=== PATIENT | female | born 1955 ===

== ENCOUNTER 2017-05-27 12:01 | Inpatient (IN) | payer OTHER ==
[2017-05-27 13:09] VITALS: BMI 30.3
[2017-05-27] MEDS: Sodium Chloride 0.9% 1,000 ML IV SCH ×2 (13:59→23:45)
--- NOTE | 2017-05-27 14:04 | ED PDOC ---
Arrival/HPI - General Historian: Patient <Jarad Pacheco - Last Filed: 05/27/17 18:06> <Miller Zuniga - Last Filed: 05/27/17 19:02> - General Chief Complaint: Abdominal Pain Time Seen by Provider: 05/27/17 12:32 - History of Present Illness Narrative History of Present Illness (Text): 05/27/17 13:58 62 F with a PMHX specifically significant for Stage IV Colon CA presents with two day duration of diffuse abdominal pain and a few hours duration of BRB per rectum. Patient has [place] times in the [place] [facility] [place] and diffuse abdominal pain. Patient states that in the past she would also have significant nose bleeds, but that this has subsided recently. She describes the pain as crampy, diffuse in all four quadrants of her abdomen, and non-radiating with a severity of 8/10. She denies any associated symptoms and any palliative or predicating features. Patient further denies F/Ch/N/V/D/ Constipation. She states the blood was bright red and "the whole toilet was red" when she got up. Patient denies any further complaints, including fatigue, sob, or CP. PMD: Dr. Levine 05/27/17 18:06 (JuniorJarad Benitez) Past Medical History - Travel History Have you recently traveled outside [place] w/in the past 3 mons?: No - Infectious Disease Hx of Infectious Diseases: None - Tetanus Immunization Tetanus Immunization: Unknown - Cardiac Hx Cardiac Disorders: Yes Hx Hypertension: Yes - Pulmonary Hx Respiratory Disorders: No - Neurological Hx Neurological Disorder: No - HEENT Hx HEENT Disorder: Yes Hx Blind: Yes (left eye) Hx Cataracts: Yes Hx Glaucoma: Yes Other/Comment: retinal detachment - Renal Hx Renal Disorder: No - Endocrine/Metabolic Hx Endocrine Disorders: No - Hematological/Oncological Hx Blood Disorders: Yes Hx Cancer: Yes (colon CA with metastasis to liver and lung) Hx Chemotherapy: Yes Hx Metastasis: Yes - Integumentary Hx Dermatological Disorder: No - Musculoskeletal/Rheumatological Hx Musculoskeletal Disorders: Yes Hx Falls: No Hx Herniated Disk: Yes - Gastrointestinal Other/Comment: Colon Cancer, Stage 4 - Genitourinary/Gynecological Hx Genitourinary Disorders: No - Psychiatric Hx Psychophysiologic Disorder: Yes Hx Anxiety: Yes Hx Depression: Yes Hx Substance Use: Yes - Surgical History Hx Vascular Access Device: Yes Other/Comment: left subclavian port. colon/liver 2011. breast reduction - Anesthesia Hx Anesthesia: Yes Hx Anesthesia Reactions: No Hx Malignant Hyperthermia: No - Suicidal Assessment Feels Threatened In Home Enviroment: No <Jarad Pacheco - Last Filed: 05/27/17 18:06> Family/Social History Family/Social History: No Known Family HX Smoking Status: Former Smoker Hx Alcohol Use: No Hx Substance Use: Yes Hx Substance Use Treatment: No <JuniorJarad Benitez - Last Filed: 05/27/17 18:06> Allergies/Home Meds <JuniorJarad Benitez - Last Filed: 05/27/17 18:06> <Miller Zuniga - Last Filed: 05/27/17 19:02> Allergies/Adverse Reactions: Allergies No Known Allergies Allergy (Verified 10/24/16 13:53) Home Medications: Home Meds Medication Instructions Recorded Confirmed Alprazolam [Xanax] 0.5 mg PO DAILY 05/12/16 05/27/17 Brimonidine Tartrate [Alphagan P] 1 drop OS BID 05/12/16 05/27/17 Cholecalciferol [Vitamin D 1000 IU] 15,000 iu PO QWK 05/12/16 05/27/17 Cosopt 2%-0.5% Opht 1 drop OS DAILY 05/12/16 05/27/17 Zolpidem HALF TABLET [Ambien] 2.5 mg PO HS 10/24/16 05/27/17 Lisinopril [Zestril] 20 mg PO DAILY 05/27/17 05/27/17 Montelukast [Singulair] 10 mg PO DAILY 05/27/17 05/27/17 Simvastatin [Zocor] 10 mg PO HS 05/27/17 05/27/17 Review of Systems - Review of Systems Constitutional: Normal Eyes: Normal ENT: Normal Respiratory: Normal Cardiovascular: Normal Gastrointestinal: Abdominal Pain, Hematochezia. absent: Diarrhea, Nausea, Vomiting Genitourinary Female: Hematuria Musculoskeletal: Normal Skin: Normal Neurological: Normal Endocrine: Normal Hemo/Lymphatic: Normal Psychiatric: Normal <Jarad Pacheco - Last Filed: 05/27/17 18:06> Physical Exam Temperature: Afebrile Blood Pressure: Normal Pulse: Regular Respiratory Rate: Normal Appearance: Positive for: Well-Appearing, Non-Toxic, Comfortable Pain Distress: None Mental Status: Positive for: Alert and Oriented X 3 - Systems Exam Head: Present: Atraumatic, Normocephalic Pupils: Present: PERRL Extroacular Muscles: Present: EOMI Conjunctiva: Present: Normal Mouth: Present: Moist Mucous Membranes Neck: Present: Normal Range of Motion Respiratory/Chest: Present: Clear to Auscultation, Good Air Exchange. No: Respiratory Distress, Accessory Muscle Use Cardiovascular: Present: Regular Rate and Rhythm, Normal S1, S2. No: Murmurs Abdomen: Present: Tenderness, Distention. No: Normal Bowel Sounds (Hyperactive bowel sounds in RUQ; FOBT Positive), Peritoneal Signs, Rebound, Guarding, McBurney's Point Tender, Rovsing's Sign Present Back: Present: Normal Inspection Upper Extremity: Present: Normal Inspection. No: Cyanosis, Edema Lower Extremity: Present: Normal Inspection. No: Edema Neurological: Present: GCS=15, CN II-XII Intact, Speech Normal Skin: Present: Warm, Dry, Normal Color. No: Rashes Psychiatric: Present: Alert, Oriented x 3, Normal Insight, Normal Concentration <Jarad Pacheco - Last Filed: 05/27/17 18:06> Medical Decision Making <Jarad Pacheco - Last Filed: 05/27/17 18:06> <Miller Zuniga - Last Filed: 05/27/17 19:02> ED Course and Treatment: 05/27/17 14:58 Impression: 62 F w/ PMHx specifically significant for Stage IV Colon CA presents with c/o diffuse abdominal pain and brb per rectum 2/2 Colon CA VS Sigmoid Diverticulitis VS Sigmoid Diverticulosis Plan: - CT Abd w and w/o contrast - IVF - CMP, CBC, UA, Blood culture, EKG - Toradol for pain - FOBT: Positive --Reassess 05/27/17 15:33 Pt re-evaluated. CBC shows elevated WBC of 12.1 and Vitals show Pulse of 95. Patient meets SIRS criteria. Possible diverticulitis adds a source of infection to qualify for sepsis. Patient already on IVF, started one dose of Cipro/Flagyl. Toradol helped her pain, from 8/10 to 5/10. EKG interpreted by me: Regular Rate, Normal Sinus, Normal [place]; No ST/T changes. Pending blood culture, UA, CT Abd 05/27/17 18:22 CT Abdomen shows METS to the lungs, Possible METS lesion to hepatic flexure of large colon, moderate ascites and splenomegaly Pt admitted for GIB 05/27/17 18:31 (Jarad Pacheco) In agreement with resident note, which includes further HPI details. Patient was seen and evaluated with resident, came up with plan and treatment together. EKG: Ordered, reviewed, and independently interpreted the EKG. Rate : 86 BPM Rhythm : NSR Interpretation : No ST-segment elevations or depressions, no T-wave inversions, normal intervals. Comparison : No previous EKG for comparison. 05/27/17 19:[address] Plasencia to sign off to the admitting team. Admitted for abdominal pain r/o sbp. Rectal bleeding/Gi bleed. (Miller Zuniga) - Lab Interpretations Lab Results: 05/27/17 13:50 05/27/17 13:50 Lab Results 05/27/17 18:05: Urine Color Yellow, Urine Appearance Clear, Urine pH 5.5, Ur Specific [place] 1.010, Urine Protein Trace H, Urine Glucose (UA) Negative, Urine Ketones Negative, Urine Blood Negative, Urine Nitrate Negative, Urine Bilirubin Negative, Urine Urobilinogen 0.2, Ur Leukocyte Esterase Negative, Urine RBC Negative, Urine WBC Negative 05/27/17 14:45: pO2 77 H, VBG pH 7.35, VBG pCO2 39.0 L, VBG HCO3 21.5, VBG Total CO2 22.7, VBG O2 Sat (Calc) 98.2 H, VBG Base Excess -3.8 L, VBG Potassium 4.0, Glucose 92, Lactate 1.1, FiO2 21.0, Sodium 142.0, Chloride 111.0 H, Venous Blood Potassium 4.0 05/27/17 13:50: PT 11.8, INR 1.09 H, APTT 25.6 05/27/17 13:50: Blood Type A POSITIVE, Antibody Screen Negative, BBK History Checked Patient has bt 05/27/17 13:50: Sodium 143, Potassium 4.1, Chloride 112 H, Carbon Dioxide 20 L, Anion Gap 15, BUN 11, Creatinine 0.9, Est GFR ( Amer) > 60, Est GFR (Non- Af Amer) > 60, Random Glucose 90, Calcium 8.6, Total Bilirubin 2.1 H, AST 30, ALT 29, Alkaline Phosphatase 173 H, Total Protein 7.0, Albumin 3.9, Globulin 3.2 , Albumin/Globulin Ratio 1.2, Lipase 258 05/27/17 13:50: WBC 12.1 H D, RBC 3.53, Hgb 10.2 L, Hct 33.2 L, MCV 94.1, MCH 28.9, MCHC 30.7 L, RDW 21.6 H, Plt Count 51 L, Gran % 89.9 H, Lymph % (Auto) 4.6 L, [place] % (Auto) 3.6, Eos % (Auto) 1.7, Baso % (Auto) 0.2, Gran # 10.85 H, Lymph # 0.6 L, [place] # 0.4, Eos # 0.2, Baso # 0.02, Neutrophils % (Manual) 88 H, Band Neutrophils % 6 H, Lymphocytes % (Manual) 3 L, Monocytes % (Manual) 3, Eosinophils % (Manual) 3, Platelet Evaluation Low, Poikilocytosis (manual Slight , Anisocytosis (manual) Slight, Tear Drop Cells Slight - RAD Interpretation Radiology Orders: 05/27/17 13:41 ABD & PELVIS IV CONTRAST ONLY [CT] Stat - Medication Orders Current Medication Orders: Sodium Chloride (Sodium Chloride 0.9%) 1,000 mls @ 100 mls/hr IV .Q10[facility] Last Admin: 05/27/17 13:59 Dose: 100 mls/hr Discontinued Medications Ciprofloxacin (Cipro 400mg/200ml Dsw) 400 mg in 200 mls @ 133.3 mls/hr IVPB STAT STA PRN Reason: Protocol Stop: 05/27/17 17:00 Last Admin: 05/27/17 17:33 Dose: 133.3 mls/hr Metronidazole (Flagyl) 500 mg in 100 mls @ 100 mls/hr IVPB STAT STA PRN Reason: Protocol Stop: 05/27/17 16:29 Last Admin: 05/27/17 16:21 Dose: 100 mls/hr Iohexol (Omnipaque 350 100 Ml) Confirm Administered Dose 350 mg .ROUTE .STK-MED ONE Stop: 05/27/17 16:22 Ketorolac Tromethamine (Toradol) 15 mg IM STAT STA Stop: 05/27/17 13:42 Last Admin: 05/27/17 13:59 Dose: 15 mg Disposition/Present on Arrival - Present on Arrival Any Indicators Present on Arrival: No History of DVT/PE: No History of Uncontrolled Diabetes: No Urinary Catheter: No History of Decub. Ulcer: No History Surgical Site Infection Following: None - Disposition Have Diagnosis and Disposition been Completed?: Yes Disposition Time: 18:20 <Jarad Pacheco - Last Filed: 05/27/17 18:06> - Disposition Have Diagnosis and Disposition been Completed?: Yes <Miller Zuniga - Last Filed: 05/27/17 19:02> - Disposition Diagnosis: GI bleeding, Abdominal pain, Ascites Disposition: HOSPITALIZED Patient Problems: Current Active Problems Problem Status Onset GI bleeding Acute Abdominal pain Acute Ascites Acute Condition: FAIR Referrals: Pricilla Levine MD [Primary Care Provider] - Follow up with primary Forms: [employer] (Emirati)
[2017-05-27 14:07] LABS: BASO # 0.02 K/mm3 (0.0-2.0); BASO % 0.2 % (0.0-3.0); EOS # 0.2 (0.0-0.7); EOS % 1.7 % (1.5-5.0); GRAN # 10.85 (1.4-6.5); GRAN % 89.9 % (50.0-68.0); HEMATOCRIT 33.2 % (36.0-48.0); LYMPH # 0.6 (1.2-3.4); LYMPH % 4.6 % (22.0-35.0); MEAN CELL VOLUME 94.1 fl (80.0-105.0); MEAN CORPUSCULAR HEMOGLOBIN 28.9 pg (25.0-35.0); MEAN CORPUSCULAR HGB CONC 30.7 g/dl (31.0-37.0); MONO # 0.4 (0.1-0.6); MONO % 3.6 % (1.0-6.0); RED CELL DISTRIBUTION WIDTH 21.6 % (11.5-14.5); WHITE BLOOD COUNT 12.1 10^3/ul (4.5-11.0)
[2017-05-27 14:15] LABS: INR 1.09 (0.93-1.08); PARTIAL THROMBOPLASTIN TIME 25.6 Seconds (23.7-30.8)
[2017-05-27 14:23] LABS: ALB/GLOB RATIO 1.2 (1.1-1.8); ALKALINE PHOSPHATASE 173 U/L (38-133); ALT/SGPT 29 U/L (7-56); AST/SGOT 30 U/L (15-39); BILIRUBIN,TOTAL 2.1 mg/dL (0.2-1.3); BLOOD UREA NITROGEN 11 mg/dL (7-21); CALCIUM 8.6 mg/dL (8.4-10.5); CARBON DIOXIDE 20 mmol/L (21-33); CHLORIDE 112 mmol/L (98-107); GFR AFRICAN-AMERICAN > 60; GLUCOSE,RANDOM 90 mg/dL (70-110); LIPASE 258 U/L (23-300); POTASSIUM 4.1 mmol/L (3.6-5.0); SODIUM 143 mmol/L (132-148)
[2017-05-27 14:28] LABS: PLATELET COUNT 51 10^3/uL (120.0-450.0)
[2017-05-27 14:34] LABS: BAND 6 % (0-2); EOSINOPHIL 3 % (0.0-3.0); NEUTROPHIL 88 % (50.0-70.0); PLATELET ESTIMATE LOW (NORMAL)
[2017-05-27 14:35] LABS: ANISOCYTOSIS SLIGHT; POIKILOCYTOSIS SLIGHT; TEAR DROP CELLS SLIGHT
[2017-05-27 15:03] LABS: VENOUS BLOOD GAS BASE EXCESS -3.8 mmol/L (0.0-2.0); VENOUS BLOOD PH 7.35 (7.32-7.43)
[2017-05-27] MEDS ORDERED: Ciprofloxacin 400mg/200ml D5W 400 MG/200 ML BAG IVPB STA (15:30)
[2017-05-27] MEDS ORDERED: metroNIDAZOLE IV 500 mg/100 ml 500 MG/100 ML BAG IVPB STA (15:30)
[2017-05-27] MEDS ORDERED: Iohexol 350 MG/100 ML VIAL ONE (16:21)
--- NOTE | 2017-05-27 16:33 | CARD ---
APPROVED REPORT EKG Measurement Heart [id number] <Conclusion> Normal sinus rhythm Nonspecific ST abnormality Abnormal ECG
--- NOTE | 2017-05-27 17:25 | CT ---
PROCEDURE: CT Abdomen and Pelvis with contrast HISTORY: Abd Pain and GIB COMPARISON: Comparison is made to the previous study dated 01/21/2017.Comparison is also made to the previous PET-CT dated 05/10/2017. TECHNIQUE: Contrast dose: 100 mL of Omnipaque 350. Axial and reformatted coronal and sagittal CT images of the abdomen and pelvis were obtained after IV contrast administration. Radiation dose: Total exam DLP = 800.74 mGy-cm. This CT exam was performed using one or more of the following dose reduction techniques: Automated exposure control, adjustment of the mA and/or kV according to patient size, and/or use of iterative reconstruction technique. FINDINGS: LOWER THORAX: There are soft tissue small mass lesions at the lower portion of the lungs bilaterally consistent with lung metastasis. LIVER: The patient is status post partial resection of the right liver lobe. No CT evidence of mass lesion in the visualized portion of the liver. GALLBLADDER AND BILE DUCTS: The gallbladder is not visualized PANCREAS: Unremarkable. No gross lesion or ductal dilatation. SPLEEN: The spleen is again moderately enlarged measures 20.6 centimeter in the longitudinal diameter. ADRENALS: Unremarkable. No mass. KIDNEYS AND URETERS: Unremarkable. No hydronephrosis. No solid mass. VASCULATURE: Unremarkable. No aortic aneurysm. BOWEL: There is suspicious for focal thickening at the hepatic flexure of the large bowel. Postsurgical changes seen suggestive of partial right colectomy. There is no evidence of high-grade bowel obstruction. APPENDIX: The appendix is not visualized likely resected with the right colon. PERITONEUM: There is a moderate amount of ascites in the abdomen and pelvis. No evidence of free air. LYMPH NODES: Scattered mildly enlarged mesenteric lymph nodes seen at the mid and upper abdomen. BLADDER: The bladder is seen at slightly low position suggestive of mild cystocele. REPRODUCTIVE: Unremarkable. BONES: No acute fracture. OTHER FINDINGS: None. IMPRESSION: Lung metastasis seen at the lower lobes. Suspicious for mass lesion at the large bowel hepatic flexure in the right upper abdomen. Moderate splenomegaly. Moderate amount of ascites. Otherwise no significant interval change.
[2017-05-27 18:36] LABS: PH,URINE 5.5 (4.7-8.0); URINE BILIRUBIN NEGATIVE (NEGATIVE); URINE BLOOD NEGATIVE (NEGATIVE); URINE GLUCOSE (UA) NEGATIVE (NEGATIVE); URINE KETONE NEGATIVE (NEGATIVE); URINE LEUKOCYTE ESTERASE NEGATIVE Leu/uL (NEGATIVE); URINE PROTEIN TRACE mg/dL (<30 mg/dL); URINE UROBILINOGEN 0.2 E.U./dL (<1 E.U./dL)
[2017-05-27 18:38] LABS: URINE APPEARANCE CLEAR (CLEAR); URINE COLOR YELLOW (YELLOW)
[2017-05-27 18:45] LABS: URINE RBC NEGATIVE /hpf (0-2); URINE WBC NEGATIVE /hpf (0-6)
[2017-05-27] MEDS ORDERED: ZOLPIDEM PO PRN (20:37)
[2017-05-27] MEDS ORDERED: [UNRECOGNIZED DRUG - OTHER] PO PRN (20:41)
--- NOTE | 2017-05-27 21:13 | CP.PCM.HP ---
<QUENTIN DIMAS - Last Filed: 05/27/17 20:41> History of Present Illness - History of Present Illness History of Present Illness: Quentin Dimas DO PGY1 - Medicine H&P CC: Abdominal pain and rectal bleed HPI: 62 yo F with PMH of stage IV colon cancer and HTN, presented to the ER with abdominal pain and BRBPR. Pain started 2 days ago, and BRBPR started earlier today. States that abdominal pain is mild-moderate, intermittent, worst in RUQ. No particular exacerbating or remitting factors. This morning, she had the urge to defecate, and had a loose waterry stool, but then noted that the toilet bowl was full of blood. She reports that she always has diarrhea, since the diagnosis of colon CA. She denies N/V, F/C, MENDES, CP, SOB, dizziness, fatigue. Meds: See NOV PMH: HTN, MDD, Stage IV colon CA s/p tumor resection and chemo, with multiple distant mets including to lungs and liver Surg: Hepatic tumor resection, colonic tumor resection Soc: Denies tob, EtOH, illicits FHx: Noncontributory All: NKDA ROS: Constitutional: pt denies fever, chills, generalized weakness ENT: pt denies dysphagia, otalgia, hearing deficit, rhinorrhea Eyes: pt denies sudden loss of vision, diplopia, blurred vision MSK: pt denies muscle stiffness, joint pain, extremity cramping Cardio: pt denies sob, heart murmur, CP Pulm: pt denies cough, hemoptysis, wheeze GI: +abdominal pain, diarrhea, hematochezia pt denies loss of appetite, constipation, melena, n/v : pt denies burning on urination, urinary frequency, hematuria, urinary urgency Neuro: pt denies paresis, paresthesia, dizziness, mendes, numbness, tingling Derm: pt denies skin changes, lesions, nail changes Endo: pt denies intolerance to heat/cold, diaphoresis, night sweats, polydipsia Psych: pt denies anxiety, depression, mood changes Present on Admission - Present on Admission Any Indicators Present on Admission: No Past Patient History - Infectious Disease Hx of Infectious Diseases: None - Tetanus Immunizations Tetanus Immunization: Unknown - Past Social History Smoking Status: Former Smoker - CARDIAC Hx Cardiac Disorders: Yes Hx Hypertension: Yes - PULMONARY Hx Respiratory Disorders: No - NEUROLOGICAL Hx Neurological Disorder: No - HEENT Hx HEENT Problems: Yes Hx Blind: Yes (left eye) Hx Cataracts: Yes Hx Glaucoma: Yes Other/Comment: retinal detachment - RENAL Hx Chronic Kidney Disease: No - ENDOCRINE/METABOLIC Hx Endocrine Disorders: No - HEMATOLOGICAL/ONCOLOGICAL Hx Blood Disorders: Yes Hx Cancer: Yes (colon CA with metastasis to liver and lung) Hx Chemotherapy: Yes Hx Metastesis: Yes - INTEGUMENTARY Hx Dermatological Problems: No - MUSCULOSKELETAL/RHEUMATOLOGICAL Hx Musculoskeletal Disorders: Yes Hx Falls: No Hx Herniated Disk: Yes - GASTROINTESTINAL Other/Comment: Colon Cancer, Stage 4 - GENITOURINARY/GYNECOLOGICAL Hx Genitourinary Disorders: No - PSYCHIATRIC Hx Psychophysiologic Disorder: Yes Hx Anxiety: Yes Hx Depression: Yes Hx Substance Use: Yes - SURGICAL HISTORY Hx Vascular Access Device: Yes Other/Comment: left subclavian port. colon/liver 2010. breast reduction - ANESTHESIA Hx Anesthesia: Yes Hx Anesthesia Reactions: No Hx Malignant Hyperthermia: No Meds Allergies/Adverse Reactions: Allergies Allergy/AdvReac Type Severity Reaction Status Date / Time No Known Allergies Allergy Verified 10/24/16 13:53 Physical Exam - Constitutional Appears: Non-toxic, No Acute Distress, Chronically Ill - Head Exam Head Exam: ATRAUMATIC, NORMOCEPHALIC - Eye Exam Eye Exam: EOMI, Normal appearance, PERRL Additional comments: No conjunctival pallor - ENT Exam ENT Exam: Mucous Membranes Moist, Normal Exam - Neck Exam Neck exam: Negative for: Lymphadenopathy, Tenderness - Respiratory Exam Respiratory Exam: Clear to Auscultation Bilateral, NORMAL BREATHING PATTERN - Cardiovascular Exam Cardiovascular Exam: RRR, +S1, +S2 - GI/Abdominal Exam Additional comments: Diffuse tenderness, worst in RUQ. No masses palpable though assessment is limited due to voluntary guarding. Hyporesonant. Firm. Mildly distended. - Rectal Exam Rectal Exam: Deferred Additional comments: GUIAC positive per ED staff - Extremities Exam Extremities exam: Positive for: normal inspection. Negative for: calf tenderness, pedal edema - Neurological Exam Neurological exam: Alert, CN II-XII Intact, Oriented x3 - Psychiatric Exam Psychiatric exam: Normal Affect, Normal Mood - Skin Skin Exam: Normal Color, Warm Results - Vital Signs Recent Vital Signs: Last Vital Signs Temp 98.0 F 05/27/17 12:24 Pulse 64 05/27/17 17:31 Resp 18 05/27/17 17:31 BP 128/69 05/27/17 17:31 Pulse Ox 99 05/27/17 17:31 - Labs Result Diagrams: 05/27/17 13:50 05/27/17 13:50 Labs: Laboratory Results - last 24 hr 05/27/17 05/27/17 05/27/17 13:50 13:50 13:50 WBC 12.1 H D RBC 3.53 Hgb 10.2 L Hct 33.2 L MCV 94.1 MCH 28.9 MCHC 30.7 L RDW 21.6 H Plt Count 51 L Gran % 89.9 H Lymph % (Auto) 4.6 L [place] % (Auto) 3.6 Eos % (Auto) 1.7 Baso % (Auto) 0.2 Gran # 10.85 H Lymph # 0.6 L [place] # 0.4 Eos # 0.2 Baso # 0.02 Neutrophils % (Manual) 88 H Band Neutrophils % 6 H Lymphocytes % (Manual) 3 L Monocytes % (Manual) 3 Eosinophils % (Manual) 3 Platelet Evaluation Low Poikilocytosis (manual Slight Anisocytosis (manual) Slight Tear Drop Cells Slight PT INR APTT pO2 VBG pH VBG pCO2 VBG HCO3 VBG Total CO2 VBG O2 Sat (Calc) VBG Base Excess VBG Potassium Glucose Lactate FiO2 Sodium 143 Potassium 4.1 Chloride 112 H Carbon Dioxide 20 L Anion Gap 15 BUN 11 Creatinine 0.9 Est GFR ( Amer) > 60 Est GFR (Non-Af Amer) > 60 Random Glucose 90 Calcium 8.6 Total Bilirubin 2.1 H AST 30 ALT 29 Alkaline Phosphatase 173 H Total Protein 7.0 Albumin 3.9 Globulin 3.2 Albumin/Globulin Ratio 1.2 Lipase 258 Venous Blood Potassium Urine Color Urine Appearance Urine pH Ur Specific [place] Urine Protein Urine Glucose (UA) Urine Ketones Urine Blood Urine Nitrate Urine Bilirubin Urine Urobilinogen Ur Leukocyte Esterase Urine RBC Urine WBC Blood Type A POSITIVE Antibody Screen Negative BBK History Checked Patient has bt 05/27/17 05/27/17 05/27/17 13:50 14:45 18:05 WBC RBC Hgb Hct MCV MCH MCHC RDW Plt Count Gran % Lymph % (Auto) [place] % (Auto) Eos % (Auto) Baso % (Auto) Gran # Lymph # [place] # Eos # Baso # Neutrophils % (Manual) Band Neutrophils % Lymphocytes % (Manual) Monocytes % (Manual) Eosinophils % (Manual) Platelet Evaluation Poikilocytosis (manual Anisocytosis (manual) Tear Drop Cells PT 11.8 INR 1.09 H APTT 25.6 pO2 77 H VBG pH 7.35 VBG pCO2 39.0 L VBG HCO3 21.5 VBG Total CO2 22.7 VBG O2 Sat (Calc) 98.2 H VBG Base Excess -3.8 L VBG Potassium 4.0 Glucose 92 Lactate 1.1 FiO2 21.0 Sodium 142.0 Potassium Chloride 111.0 H Carbon Dioxide Anion Gap BUN Creatinine Est GFR ( Amer) Est GFR (Non-Af Amer) Random Glucose Calcium Total Bilirubin AST ALT Alkaline Phosphatase Total Protein Albumin Globulin Albumin/Globulin Ratio Lipase Venous Blood Potassium 4.0 Urine Color Yellow Urine Appearance Clear Urine pH 5.5 Ur Specific [place] 1.010 Urine Protein Trace H Urine Glucose (UA) Negative Urine Ketones Negative Urine Blood Negative Urine Nitrate Negative Urine Bilirubin Negative Urine Urobilinogen 0.2 Ur Leukocyte Esterase Negative Urine RBC Negative Urine WBC Negative Blood Type Antibody Screen BBK History Checked Assessment & Plan - Assessment and Plan (Free Text) Assessment: 62 yo F with PMH of HTN, HLD, MDD, and stage IV colon CA s/p tumor resection and chemo, with multiple mets, presented to ER with abdominal pain and rectal bleeding, also noted to have leukocytosis. Plan: 1. Rectal bleeding - Two episodes of BRBPR today. Currently hemodynamically stable with moderate anemia, though near baseline, transfusion not indicated at this time. - Stool for occult blood positive per ED staff - Likely 2/2 colon CA, new mass found on CT near hepatic flexure - GI and Hem/Onc consulted, appreciate recs - Repeat CBC tonight, and in AM - Type and screen ordered - IFV NS@100cc/hr 2. Abdominal pain - Diffuse abdominal pain for the past 2 days, h/o colon CA with new mass found on CT, as well as moderate ascites noted on CT abd/pelv - Likely 2/2 colon CA vs SBP vs diverticulitis - Recieved one dose of Flagyl and Cipro in ED - Started Flagyl and Cefoxitin - GI and Hem/Onc on consult, appreciate recs - Morphine for pain 3. Leukocytosis - Currently afebrile, VSS - Likely 2/2 diverticulitis vs SBP vs gastroenteritis - BCx pending, UCx pending - On Flagyl and Cefoxitin (d1) - Continue to monitor 4. H/o colon CA, with multiple distant metastases - Diagnosed in 2010, patient reports that she does have an advanced directive, though not found in the EMR - Hem/Onc consulted, all recs appreciated - Pulm consulted for pulmonary metastases, all recs appreciated 5. H/o HTN, HLD, and MDD - Continue home meds PPx: SCDs for DVT, Protonix for GI Patient seen, discussed, and reviewed with attending <Aneta Colon - Last Filed: 05/28/17 04:30> Results - Vital Signs Recent Vital Signs: Last Vital Signs Temp 97.6 F 05/28/17 01:40 Pulse 83 05/28/17 01:40 Resp 20 05/28/17 01:40 BP 153/91 H 05/28/17 01:40 Pulse Ox 99 05/27/17 17:31 - Labs Result Diagrams: 05/28/17 00:40 05/27/17 13:50 Labs: Laboratory Results - last 24 hr 05/28/17 00:40 WBC 7.1 D RBC 3.24 L Hgb 9.1 L Hct 30.3 L MCV 93.5 MCH 28.1 MCHC 30.0 L RDW 21.4 H Plt Count 40 L* MPV 9.5 Gran % 88.3 H Lymph % (Auto) 6.6 L [place] % (Auto) 3.0 Eos % (Auto) 2.0 Baso % (Auto) 0.1 Gran # 6.28 Lymph # 0.5 L [place] # 0.2 Eos # 0.1 Baso # 0.01 Attending/Attestation - Attestation I have personally seen and examined this patient.: Yes I have fully participated in the care of the patient.: Yes I have reviewed all pertinent clinical information: Yes Notes (Text): 05/28/17 04:29 Patient was seen when she was in the ER in bed # 15. Agree with history , physical examination , assessment and plan. Following are my impressions. Diffuse abdominal pain. Stage IV colon cancer. Rectal bleed. HTN. Left eye blindness. Cataract. Glaucoma. Retinal detachment. Anxiety. substance abuse. Left subclavian port. Breast reduction. Leucocytosis. Anemia. Elevated alkaline phosphatase. Spleenomegaly. Ascites. Mets to lungs. Hypocarbia. Elevated total bilirubin.
[2017-05-27] MEDS: cefOXitin Sodium 1 GM in Sodium Chloride 0.9% 100 ML IV SCH (23:43)
[2017-05-28] MEDS: Morphine 2 mg/ml ISec IVP PRN ×4 (00:37→21:17)
[2017-05-28 00:59] LABS: BASO # 0.01 K/mm3 (0.0-2.0); BASO % 0.1 % (0.0-3.0); EOS # 0.1 (0.0-0.7); GRAN # 6.28 (1.4-6.5); GRAN % 88.3 % (50.0-68.0); HEMATOCRIT 30.3 % (36.0-48.0); LYMPH # 0.5 (1.2-3.4); LYMPH % 6.6 % (22.0-35.0); MEAN CELL VOLUME 93.5 fl (80.0-105.0); MEAN CORPUSCULAR HEMOGLOBIN 28.1 pg (25.0-35.0); MEAN PLATELET VOLUME 9.5 fl (7.0-11.0); MONO # 0.2 (0.1-0.6); RED CELL DISTRIBUTION WIDTH 21.4 % (11.5-14.5); WHITE BLOOD COUNT 7.1 10^3/ul (4.5-11.0)
[2017-05-28] MEDS: cefOXitin Sodium 1 GM in Sodium Chloride 0.9% 100 ML IV SCH ×3 (05:05→21:16)
[2017-05-28] MEDS: Pantoprazole 40 mg EC Tab PO SCH (05:40)
[2017-05-28 07:05] LABS: BASO # 0.02 K/mm3 (0.0-2.0); BASO % 0.3 % (0.0-3.0); EOS # 0.2 (0.0-0.7); EOS % 2.4 % (1.5-5.0); GRAN # 5.61 (1.4-6.5); GRAN % 85.7 % (50.0-68.0); LYMPH # 0.5 (1.2-3.4); LYMPH % 7.9 % (22.0-35.0); MEAN CELL VOLUME 93.8 fl (80.0-105.0); MEAN CORPUSCULAR HEMOGLOBIN 27.8 pg (25.0-35.0); MEAN CORPUSCULAR HGB CONC 29.7 g/dl (31.0-37.0); MONO # 0.2 (0.1-0.6); MONO % 3.7 % (1.0-6.0); RED CELL DISTRIBUTION WIDTH 21.4 % (11.5-14.5); WHITE BLOOD COUNT 6.6 10^3/ul (4.5-11.0)
[2017-05-28 07:11] LABS: ALB/GLOB RATIO 1.1 (1.1-1.8); ALKALINE PHOSPHATASE 158 U/L (38-133); ALT/SGPT 27 U/L (7-56); AST/SGOT 34 U/L (15-39); BILIRUBIN,TOTAL 2.2 mg/dL (0.2-1.3); BLOOD UREA NITROGEN 13 mg/dL (7-21); CALCIUM 8.3 mg/dL (8.4-10.5); CARBON DIOXIDE 22 mmol/L (21-33); CHLORIDE 110 mmol/L (98-107); GFR AFRICAN-AMERICAN > 60; GLUCOSE,RANDOM 88 mg/dL (70-110); MAGNESIUM 1.8 mg/dL (1.7-2.2); PHOSPHOROUS 2.5 mg/dL (2.5-4.5); POTASSIUM 4.3 mmol/L (3.6-5.0); SODIUM 141 mmol/L (132-148); TOTAL PROTEIN 6.6 g/dL (5.8-8.3)
--- NOTE | 2017-05-28 11:14 | CP.PCM.CON ---
<Letha Banegas - Last Filed: 05/28/17 14:02> History of Present Illness - History of Present Illness History of Present Illness: Pulmonology Consult Note for Dr. Carroll Reason for consult: Pulm mets 62 year old female PMHx stage IV colon cancer known mets to lungs and lung and HTN, presented to the ED on 05/27 with bright red blood per rectum that began on day of admission with associated abdominal pain for 2 days. Pulmonology was consulted regarding mets to lungs. Patient has had known mets to lungs since 2010 and has been on chemotherapy. Patient's last dose of chemotherapy 5FU and Avastin was 3 weeks ago. Patient is followed by heme/onc Dr. Calderón. Patient reports she uses inhalers at home prn and very occasionally. She admits to tobacco use in the past [since age 16yo patient smoked 1ppd] but quit 5 years ago upon being diagnosed with colon ca. Patient denies any acute complaints of fever, chills, headache, dizziness, chest pain, palpitations, SOB, cough, urinary complaints, pain in her legs bilaterally. She continues to have some abdominal pain and nausea but no emesis. Patient is able to ambulate from bathroom to her bed on room air and does not become SOB. Meds: See NOV PMH: HTN, MDD, Stage IV colon CA s/p tumor resection and chemo, with multiple distant mets including to lungs and liver SurgHx: Hepatic tumor resection, colonic tumor resection SocHx: Prior tobacco use [1ppd since patient was 16yo] but patient quit 5 years ago, denes EtOH, and illicit drugs FamHx: Noncontributory ALL: NKDA Review of Systems - Constitutional Constitutional: As Per HPI. absent: Chills, Fever - EENT Eyes: As Per HPI. absent: Blurred Vision Ears: As Per HPI. absent: Dizziness Nose/Mouth/Throat: As Per HPI. absent: Sore Throat - Cardiovascular Cardiovascular: As Per HPI. absent: Chest Pain, Dyspnea, Dyspnea on Exertion, Leg Edema - Respiratory Respiratory: As Per HPI. absent: Cough, Dyspnea, Wheezing - Gastrointestinal Gastrointestinal: As Per HPI, Abdominal Pain, Hematochezia - Genitourinary Genitourinary: As Per HPI. absent: Dysuria, Flank Pain - Musculoskeletal Musculoskeletal: As Per HPI. absent: Numbness, Tingling - Integumentary Integumentary: As Per HPI. absent: Rash - Neurological Neurological: As Per HPI. absent: Dizziness, Headaches - Psychiatric Psychiatric: As Per HPI. absent: Anxiety - Endocrine Endocrine: As Per HPI. absent: Palpitations, Polydipsia, Polyphagia - Hematologic/Lymphatic Hematologic: As Per HPI. absent: Easy Bleeding, Easy Bruising, Lymphadenopathy Past Patient History - Infectious Disease Hx of Infectious Diseases: None - Tetanus Immunizations Tetanus Immunization: Unknown - Past Social History Smoking Status: Former Smoker - CARDIAC Hx Cardiac Disorders: Yes Hx Hypercholesterolemia: Yes Hx Hypertension: Yes - PULMONARY Hx Respiratory Disorders: No - NEUROLOGICAL Hx Neurological Disorder: No - HEENT Hx HEENT Problems: Yes Hx Blind: Yes (left eye) Hx Cataracts: Yes Hx Glaucoma: Yes Other/Comment: retinal detachment - RENAL Hx Chronic Kidney Disease: No - ENDOCRINE/METABOLIC Hx Endocrine Disorders: No - HEMATOLOGICAL/ONCOLOGICAL Hx Blood Disorders: Yes Hx Cancer: Yes (colon CA with metastasis to liver and lung) Hx Chemotherapy: Yes Hx Metastesis: Yes - INTEGUMENTARY Hx Dermatological Problems: No - MUSCULOSKELETAL/RHEUMATOLOGICAL Hx Musculoskeletal Disorders: Yes Hx Falls: Yes Hx Herniated Disk: Yes - GASTROINTESTINAL Other/Comment: Colon Cancer, Stage 4 - GENITOURINARY/GYNECOLOGICAL Hx Genitourinary Disorders: No - PSYCHIATRIC Hx Psychophysiologic Disorder: Yes Hx Anxiety: Yes Hx Depression: Yes Hx Substance Use: No - SURGICAL HISTORY Other/Comment: left subclavian port. colon/liver 2010. breast reduction - ANESTHESIA Hx Anesthesia: Yes Hx Anesthesia Reactions: No Hx Malignant Hyperthermia: No Meds Allergies/Adverse Reactions: Allergies Allergy/AdvReac Type Severity Reaction Status Date / Time No Known Allergies Allergy Verified 10/24/16 13:53 - Medications Medications: Current Medications Albuterol/Ipratropium (Duoneb 3 Mg/0.5 Mg (3 Ml) Ud) 3 ml IH [id number] PRN PRN Reason: sob/wheezing. Atorvastatin Calcium (Lipitor) 10 mg PO HS [facility] Last Admin: 05/27/17 23:45 Dose: Not Given Sodium Chloride (Sodium Chloride 0.9%) 1,000 mls @ 100 mls/hr IV .Q10H [facility] Last Admin: 05/27/17 23:45 Dose: 100 mls/hr Cefoxitin Sodium 1 gm/ Sodium (Chloride) 100 mls @ 100 mls/hr IV Q8H [facility] PRN Reason: Protocol Last Admin: 05/28/17 05:05 Dose: 100 mls/hr Lisinopril (Zestril) 20 mg PO DAILY [facility] Last Admin: 05/28/17 10:37 Dose: Not Given Metronidazole (Flagyl) 250 mg PO Q8H [facility] PRN Reason: Protocol Last Admin: 05/28/17 04:46 Dose: 250 mg Montelukast Sodium (Singulair) 10 mg PO HS [facility] Morphine Sulfate (Morphine) 1 mg IVP Q4 PRN PRN Reason: Pain, severe (8-10) Last Admin: 05/28/17 00:37 Dose: 1 mg Ondansetron HCl (Zofran Inj) 8 mg IVP Q8H PRN PRN Reason: Nausea/Vomiting Last Admin: 05/28/17 04:45 Dose: 8 mg Pantoprazole Sodium (Protonix Ec Tab) 40 mg PO 0600 [facility] Last Admin: 05/28/17 05:40 Dose: 40 mg Zolpidem Tartrate (Ambien) 2.5 mg PO HS PRN PRN Reason: Insomnia Last Admin: 05/27/17 23:43 Dose: 2.5 mg Physical Exam - Constitutional Appears: Non-toxic, No Acute Distress - Head Exam Head Exam: ATRAUMATIC, NORMAL INSPECTION, NORMOCEPHALIC - Eye Exam Eye Exam: EOMI, Normal appearance. absent: Conjunctival injection, Scleral icterus - ENT Exam ENT Exam: Mucous Membranes Moist - Neck Exam Neck exam: Positive for: Full Rom, Normal Inspection - Respiratory Exam Respiratory Exam: NORMAL BREATHING PATTERN. absent: Accessory Muscle Use, Rales , Rhonchi, Wheezes, Respiratory Distress Additional comments: coarse breath sounds b/l - Cardiovascular Exam Cardiovascular Exam: Tachycardia (patient had received Duoneb x 1 prior to exam) , +S1, +S2. absent: Systolic Murmur - GI/Abdominal Exam GI & Abdominal Exam: Soft, Tenderness Additional comments: GUIAC+ as per admitting note - Extremities Exam Extremities exam: Positive for: normal capillary refill, normal inspection, pedal pulses present. Negative for: pedal edema - Back Exam Back exam: absent: rash noted - Neurological Exam Neurological exam: Alert, Normal Gait, Oriented x3 - Psychiatric Exam Psychiatric exam: Normal Affect, Normal Mood - Skin Skin Exam: Dry, Intact, Normal Color, Warm Results - Vital Signs Recent Vital Signs: Last Vital Signs Temp 97.4 F L 05/28/17 08:35 Pulse 82 05/28/17 10:37 Resp 20 05/28/17 08:35 BP 114/73 05/28/17 10:37 Pulse Ox 98 05/28/17 08:35 - Labs Result Diagrams: 05/28/17 06:40 05/28/17 06:40 Labs: Laboratory Results - last 24 hr 05/28/17 05/28/17 05/28/17 00:40 06:40 06:40 WBC 7.1 D 6.6 RBC 3.24 L 3.20 L Hgb 9.1 L 8.9 L Hct 30.3 L 30.0 L MCV 93.5 93.8 MCH 28.1 27.8 MCHC 30.0 L 29.7 L RDW 21.4 H 21.4 H Plt Count 40 L* 40 L* MPV 9.5 9.0 Gran % 88.3 H 85.7 H Lymph % (Auto) 6.6 L 7.9 L Boone % (Auto) 3.0 3.7 Eos % (Auto) 2.0 2.4 Baso % (Auto) 0.1 0.3 Gran # 6.28 5.61 Lymph # 0.5 L 0.5 L Boone # 0.2 0.2 Eos # 0.1 0.2 Baso # 0.01 0.02 Sodium 141 Potassium 4.3 Chloride 110 H Carbon Dioxide 22 Anion Gap 13 BUN 13 Creatinine 1.0 Est GFR ( Amer) > 60 Est GFR (Non-Af Amer) 56 Random Glucose 88 Calcium 8.3 L Phosphorus 2.5 Magnesium 1.8 Total Bilirubin 2.2 H AST 34 ALT 27 Alkaline Phosphatase 158 H Total Protein 6.6 Albumin 3.4 Globulin 3.1 Albumin/Globulin Ratio 1.1 Assessment & Plan - Assessment and Plan (Free Text) Assessment: 62F PMHx stage IV colon cancer known mets to lungs and lung and HTN, presented to the ED on 05/27 with bright red blood per rectum that began on day of admission with associated abdominal pain for 2 days. Pulmonology consulted regarding mets to lungs Plan: - PET/CT 05/10/17: "interval worsening of lung metastasis since previous exam. Interval increase in the size of previously seen R upper lobe and R middle lobe and L lower lobe metastasis. Interval appearance of new metastasis at the right upper lobe and in the medial aspect of the R lower lobe since the previous exam. " [please see full report] - CT Chest/Abd/Pelvis 01/21/17: "Stable pulmonary metastatic disease" [please see full report] - Duoneb 3 ml inh q4 prn SOB - Singulair 10mg po qhs - Continue management as per primary team and heme/onc recommendations Case discussed with Dr. Carly Banegas PGY2 <Jhonny Carroll - Last Filed: 05/29/17 10:06> Meds - Medications Medications: Current Medications Albuterol/Ipratropium (Duoneb 3 Mg/0.5 Mg (3 Ml) Ud) 3 ml IH [id number] PRN PRN Reason: sob/wheezing. Last Admin: 05/29/17 08:49 Dose: 3 ml Atorvastatin Calcium (Lipitor) 10 mg PO HS [facility]KH[facility] Last Admin: 05/28/17 21:16 Dose: 10 mg Sodium Chloride (Sodium Chloride 0.9%) 1,000 mls @ 100 mls/hr IV .Q10H [facility] Last Admin: 05/29/17 09:42 Dose: 100 mls/hr Cefoxitin Sodium 1 gm/ Sodium (Chloride) 100 mls @ 100 mls/hr IV Q8H [facility] PRN Reason: Protocol Last Admin: 05/29/17 05:25 Dose: 100 mls/hr Lisinopril (Zestril) 20 mg PO DAILY [facility] Last Admin: 05/29/17 09:49 Dose: Not Given Metronidazole (Flagyl) 250 mg PO Q8H [facility] PRN Reason: Protocol Last Admin: 05/29/17 05:26 Dose: 250 mg Montelukast Sodium (Singulair) 10 mg PO HS [facility]KHSA[facility] Last Admin: 05/28/17 21:42 Dose: Not Given Morphine Sulfate (Morphine) 1 mg IVP Q4 PRN PRN Reason: Pain, severe (8-10) Last Admin: 05/28/17 21:17 Dose: 1 mg Ondansetron HCl (Zofran Inj) 4 mg IVP Q4H PRN PRN Reason: Nausea/Vomiting Last Admin: 05/28/17 21:17 Dose: 4 mg Pantoprazole Sodium (Protonix Ec Tab) 40 mg PO 0600 [facility] Last Admin: 05/29/17 05:26 Dose: 40 mg Zolpidem Tartrate (Ambien) 2.5 mg PO HS PRN PRN Reason: Insomnia Last Admin: 05/28/17 23:26 Dose: 2.5 mg Results - Vital Signs Recent Vital Signs: Last Vital Signs Temp 97.8 F 05/28/17 16:00 Pulse 88 05/29/17 09:49 Resp 18 05/28/17 16:00 BP 109/73 05/29/17 09:49 Pulse Ox 99 05/28/17 16:00 - Labs Result Diagrams: 05/29/17 07:30 05/29/17 07:30 Labs: Laboratory Results - last 24 hr 05/29/17 05/29/17 07:30 07:30 WBC 5.0 D RBC 3.00 L Hgb 8.4 L Hct 28.0 L MCV 93.3 MCH 28.0 MCHC 30.0 L RDW 21.4 H Plt Count 41 L* Gran % 85.5 H Lymph % (Auto) 7.9 L Boone % (Auto) 3.6 Eos % (Auto) 2.8 Baso % (Auto) 0.2 Gran # 4.31 Lymph # 0.4 L Boone # 0.2 Eos # 0.1 Baso # 0.01 Sodium 142 Potassium 4.4 Chloride 112 H Carbon Dioxide 23 Anion Gap 11 BUN 8 Creatinine 1.0 Est GFR ( Amer) > 60 Est GFR (Non-Af Amer) 56 Random Glucose 97 Calcium 7.8 L Total Bilirubin 2.1 H AST 28 ALT 27 Alkaline Phosphatase 139 H Total Protein 6.5 Albumin 3.3 Globulin 3.2 Albumin/Globulin Ratio 1.0 L Assessment & Plan - Assessment and Plan (Free Text) Plan: Patient seen and examined. Agree with residents HPI, A/P. Patient is 62yo female with hx Colon Ca with known mets to the Lung since 2010, admitted for GIB. Pt currently denies any respiratory symptoms, denies fever, chills, cough, chets pain, sob. PET/CT from May 10 noted, with worsening lung mets. No further pulmonary intervention at this time. - supportive care from pulmonary standpoint - Singulair 10mg daily - Duonebs Q4hr PRN - check O2 sat on ambulation - continue management Colon ca as per heme/onc - DVT ppx - OOB to chair
[2017-05-28] MEDS: Sodium Chloride 0.9% 1,000 ML IV SCH ×2 (11:30→20:05)
[2017-05-28] MEDS: Albuterol-Ipratrop 3 mg / 0.5 (3 ml) UD IH PRN (13:08)
[2017-05-28] MEDS ORDERED: Albuterol-Ipratrop 3 mg / 0.5 (3 ml) UD IH PRN (14:16)
--- NOTE | 2017-05-28 15:05 | CP.PCM.PN ---
<Romaine Cuenca - Last Filed: 05/28/17 14:58> Subjective - Date & Time of Evaluation Date of Evaluation: 05/28/17 Time of Evaluation: 11:58 - Subjective Subjective: This is a 62 yr old female seen at the bedside resting comfortable. The patient reports a decrease in pain since yesterday. The patient does report some epigastrium discomfort with no radiation. She reports one bowel movement this morning that was non bloody and normal consistency. The patient denies any fever, chills, nausea, vomiting, lightheadedness, dizziness, chest pain, shortness of breath, or any other complaints. Objective - Vital Signs/Intake and Output Vital Signs (last 24 hours): Temp Pulse Resp BP Pulse Ox 97.4 F L 82 20 114/73 98 05/28/17 08:35 05/28/17 10:37 05/28/17 08:35 05/28/17 10:37 05/28/17 08:35 Intake and Output: 05/28/17 05/28/17 06:59 18:59 Intake Total 480 Balance 480 - Medications Medications: Current Medications Albuterol/Ipratropium (Duoneb 3 Mg/0.5 Mg (3 Ml) Ud) 3 ml IH [id number] PRN PRN Reason: sob/wheezing. Last Admin: 05/28/17 13:08 Dose: 3 ml Atorvastatin Calcium (Lipitor) 10 mg PO HS [facility] Last Admin: 05/27/17 23:45 Dose: Not Given Sodium Chloride (Sodium Chloride 0.9%) 1,000 mls @ 100 mls/hr IV .Q10H [facility] Last Admin: 05/28/17 11:30 Dose: 100 mls/hr Cefoxitin Sodium 1 gm/ Sodium (Chloride) 100 mls @ 100 mls/hr IV Q8H [facility] PRN Reason: Protocol Last Admin: 05/28/17 13:28 Dose: 100 mls/hr Lisinopril (Zestril) 20 mg PO DAILY [facility] Last Admin: 05/28/17 10:37 Dose: Not Given Metronidazole (Flagyl) 250 mg PO Q8H [facility] PRN Reason: Protocol Last Admin: 05/28/17 11:30 Dose: 250 mg Montelukast Sodium (Singulair) 10 mg PO HS [facility] Morphine Sulfate (Morphine) 1 mg IVP Q4 PRN PRN Reason: Pain, severe (8-10) Last Admin: 05/28/17 11:18 Dose: 1 mg Ondansetron HCl (Zofran Inj) 8 mg IVP Q6H PRN PRN Reason: Nausea/Vomiting Pantoprazole Sodium (Protonix Ec Tab) 40 mg PO 0600 [facility] Last Admin: 05/28/17 05:40 Dose: 40 mg Zolpidem Tartrate (Ambien) 2.5 mg PO HS PRN PRN Reason: Insomnia Last Admin: 05/27/17 23:43 Dose: 2.5 mg - Labs Labs: 05/28/17 06:40 05/28/17 06:40 PT 11.8 Seconds (9.9-11.8) 05/27/17 13:50 INR 1.09 (0.93-1.08) H 05/27/17 13:50 APTT 25.6 Seconds (23.7-30.8) 05/27/17 13:50 - Head Exam Head Exam: ATRAUMATIC, NORMAL INSPECTION, NORMOCEPHALIC - Eye Exam Eye Exam: EOMI, Normal appearance, PERRL. absent: Periorbital tenderness Pupil Exam: NORMAL ACCOMODATION, PERRL. absent: Irregular - ENT Exam ENT Exam: Mucous Membranes Moist, Normal Exam - Respiratory Exam Respiratory Exam: Clear to Ausculation Bilateral, NORMAL BREATHING PATTERN. absent: Chest Wall Tenderness, Wheezes, Respiratory Distress - Cardiovascular Exam Cardiovascular Exam: REGULAR RHYTHM, +S1, +S2. absent: Bradycardia, Tachycardia , JVD, RRR - GI/Abdominal Exam GI & Abdominal Exam: Tenderness (Tenderness to palpation in the epigastrium area.), Normal Bowel Sounds. absent: Rigid, Diminished Bowel Sounds - Extremities Exam Extremities Exam: Full ROM, Normal Inspection. absent: Joint Swelling - Neurological Exam Neurological Exam: Alert, Awake, CN II-XII Intact - Skin Skin Exam: Dry, Intact, Normal Color. absent: Rash, Urticaria Assessment and Plan (1) Abdominal pain Assessment & Plan: Patient currently reporting an improvement in pain symptoms. Continue current pain medications. Ab CT scan showed some mild ascites. Will continue to follow. Status: Acute (2) Ascites Assessment & Plan: Likely due to Ascites vs. SBP vs. Diverticulitis Patient given Flagyl and Cipro in the ED. Ab CT Scan showed some mild to moderate ascites. Morphine for pain. Will continue to monitor for now. Status: Acute (3) GI bleeding Assessment & Plan: Currently hemodynamically stable. Hemoglobin was 8.9 and Hematocrit was 30 today showing some moderate anemia but trending near baseline. Transfusion currently not indicated. Will continue to monitor. Status: Acute (4) Anemia Assessment & Plan: Currently hemodynamically stable. Will continue to monitor. Transfusion not indicated at this time. Status: Acute (5) Thrombocytopenia Assessment & Plan: Platelets level currently 40. Transfusion not indicated today. Patient is being followed by Dr. Calderón for Hematology/Oncology. Left message with her. Will f/u with her tomorrow morning for consult. Status: Acute <Laure DUTTA,[facility] - Last Filed: 06/01/17 10:48> Objective - Vital Signs/Intake and Output Vital Signs (last 24 hours): Temp Pulse Resp BP Pulse Ox 97.9 F 88 22 109/73 97 05/29/17 07:00 05/29/17 09:49 05/29/17 07:00 05/29/17 09:49 05/29/17 07:00 - Labs Labs: 05/29/17 07:30 05/29/17 07:30 PT 11.8 Seconds (9.9-11.8) 05/27/17 13:50 INR 1.09 (0.93-1.08) H 05/27/17 13:50 APTT 25.6 Seconds (23.7-30.8) 05/27/17 13:50 Attending/Attestation - Attestation I have personally seen and examined this patient.: Yes I have fully participated in the care of the patient.: Yes I have reviewed all pertinent clinical information, including history, physical exam and plan: Yes Notes (Text): 06/01/17 10:37 Patient was seen and examined with medical lab technician. Agreed with resident assessment and plan. 62 year old female PMH of stage IV colon cancer known mets to lungs and lung and HTN, presented to the ED on 05/27 with bright red blood per rectum and worsening abdominal pain.Hemoglobin is stable.There is no active bleeding.Thrombocytopenia is stable.We will monitor Hemoglobin and Hematocrit. Abdominal pain is better controlled. We will follow up with GI and Oncology. Management plan was discussed in detail with patient Education was provided. 06/01/17 10:48
--- NOTE | 2017-05-28 16:18 | CON ---
DATE: 05/28/2017 I examined Mrs. Mcgregor this morning. She is a 62-year-old female with known diagnosis of metastatic colon cancer. I discussed this clinical case with the patient at bedside extensively also with the reports including history and physical. Note that the abdominopelvic CT scan is indicative of lung metastasis, mass lesion of large bowel at the hepatic flexure, splenomegaly with ascites. Also of note, we saw PET scan, which was done on May 10, which indicates worsening of lung metastasis including appearance of new metastasis as well as involvement of the liver. After discussing this case with the patient at bedside, I feel based on review of the patient's last admission, the clinical course as well as the imaging studies, there is really not much I can offer for this patient. Abhi Sousa DO, PhD MTDLaurie
[2017-05-29] MEDS: cefOXitin Sodium 1 GM in Sodium Chloride 0.9% 100 ML IV SCH ×2 (05:25→12:11)
[2017-05-29] MEDS: Pantoprazole 40 mg EC Tab PO SCH (05:26)
[2017-05-29 07:47] LABS: BASO # 0.01 K/mm3 (0.0-2.0); BASO % 0.2 % (0.0-3.0); EOS # 0.1 (0.0-0.7); EOS % 2.8 % (1.5-5.0); GRAN # 4.31 (1.4-6.5); GRAN % 85.5 % (50.0-68.0); LYMPH # 0.4 (1.2-3.4); LYMPH % 7.9 % (22.0-35.0); MEAN CELL VOLUME 93.3 fl (80.0-105.0); MONO # 0.2 (0.1-0.6); MONO % 3.6 % (1.0-6.0); PLATELET COUNT 41 10^3/uL (120.0-450.0); RED CELL DISTRIBUTION WIDTH 21.4 % (11.5-14.5)
[2017-05-29 07:55] LABS: ALKALINE PHOSPHATASE 139 U/L (38-133); ALT/SGPT 27 U/L (7-56); AST/SGOT 28 U/L (15-39); BILIRUBIN,TOTAL 2.1 mg/dL (0.2-1.3); BLOOD UREA NITROGEN 8 mg/dL (7-21); CALCIUM 7.8 mg/dL (8.4-10.5); CARBON DIOXIDE 23 mmol/L (21-33); CHLORIDE 112 mmol/L (95-110); GFR AFRICAN-AMERICAN > 60; GLUCOSE,RANDOM 97 mg/dL (70-110); POTASSIUM 4.4 mmol/L (3.6-5.0); SODIUM 142 mmol/L (132-148); TOTAL PROTEIN 6.5 g/dL (5.8-8.3)
[2017-05-29] MEDS: Albuterol-Ipratrop 3 mg / 0.5 (3 ml) UD IH PRN (08:49)
[2017-05-29] MEDS: Sodium Chloride 0.9% 1,000 ML IV SCH (09:42)
[2017-05-29 09:49] VITALS: BP 109/73; PULSE 88
[2017-05-29] MEDS: Morphine 2 mg/ml ISec IVP PRN (10:29)
[2017-05-29 11:48] VITALS: RESP 22; TEMP 97.9; O2SAT 97
--- NOTE | 2017-05-29 14:26 | RAD ---
HISTORY: Pneumonia COMPARISON: 05/11/2016 TECHNIQUE: Chest PA and lateral FINDINGS: LUNGS: There is a mass in the right upper lobe measuring 2.5 cm. There is a smaller adjacent nodule. PLEURA: No significant pleural effusion identified. No pneumothorax apparent. CARDIOVASCULAR: Normal. OSSEOUS STRUCTURES: No significant abnormalities. VISUALIZED UPPER ABDOMEN: Normal. OTHER FINDINGS: Left-sided Port-A-Cath terminates in the right atrium IMPRESSION: Right upper lobe lung mass. No evidence of pneumonia
--- NOTE | 2017-05-29 15:08 | CP.PCM.DIS ---
<[place] - Last Filed: 05/29/17 18:36> Provider - Provider Date of Admission: 05/27/17 18:57 Attending physician: Azra Kelsey MD Primary care physician: Pricilla Levine MD Time Spent in preparation of Discharge (in minutes): 45 Diagnosis - Discharge Diagnosis (1) Abdominal pain Status: Acute (2) Ascites Status: Acute (3) GI bleeding Status: Acute (4) Anemia Status: Acute (5) Thrombocytopenia Status: Acute Hospital Course - Lab Results Lab Results: Most Recent Lab Values WBC 5.0 10^3/ul (4.5-11.0) D 05/29/17 07:30 RBC 3.00 10^6/uL (3.5-6.1) L 05/29/17 07:30 Hgb 8.4 g/dL (12.0-16.0) L 05/29/17 07:30 Hct 28.0 % (36.0-48.0) L 05/29/17 07:30 MCV 93.3 fl (80.0-105.0) 05/29/17 07:30 MCH 28.0 pg (25.0-35.0) 05/29/17 07:30 MCHC 30.0 g/dl (31.0-37.0) L 05/29/17 07:30 RDW 21.4 % (11.5-14.5) H 05/29/17 07:30 Plt Count 41 10^3/uL (120.0-450.0) L* 05/29/17 07:30 MPV 9.0 fl (7.0-11.0) 05/28/17 06:40 Gran % 85.5 % (50.0-68.0) H 05/29/17 07:30 Lymph % (Auto) 7.9 % (22.0-35.0) L 05/29/17 07:30 Kay % (Auto) 3.6 % (1.0-6.0) 05/29/17 07:30 Eos % (Auto) 2.8 % (1.5-5.0) 05/29/17 07:30 Baso % (Auto) 0.2 % (0.0-3.0) 05/29/17 07:30 Gran # 4.31 (1.4-6.5) 05/29/17 07:30 Lymph # 0.4 (1.2-3.4) L 05/29/17 07:30 Kay # 0.2 (0.1-0.6) 05/29/17 07:30 Eos # 0.1 (0.0-0.7) 05/29/17 07:30 Baso # 0.01 K/mm3 (0.0-2.0) 05/29/17 07:30 Neutrophils % (Manual) 88 % (50.0-70.0) H 05/27/17 13:50 Band Neutrophils % 6 % (0-2) H 05/27/17 13:50 Lymphocytes % (Manual) 3 % (22.0-35.0) L 05/27/17 13:50 Monocytes % (Manual) 3 % (1.0-6.0) 05/27/17 13:50 Eosinophils % (Manual) 3 % (0.0-3.0) 05/27/17 13:50 Platelet Evaluation Low (NORMAL) 05/27/17 13:50 Poikilocytosis (manual Slight 05/27/17 13:50 Anisocytosis (manual) Slight 05/27/17 13:50 Tear Drop Cells Slight 05/27/17 13:50 PT 11.8 Seconds (9.9-11.8) 05/27/17 13:50 INR 1.09 (0.93-1.08) H 05/27/17 13:50 APTT 25.6 Seconds (23.7-30.8) 05/27/17 13:50 pO2 77 mm/Hg (30-55) H 05/27/17 14:45 VBG pH 7.35 (7.32-7.43) 05/27/17 14:45 VBG pCO2 39.0 (40-60) L 05/27/17 14:45 VBG HCO3 21.5 mmol/l (21-28) 05/27/17 14:45 VBG Total CO2 22.7 mmol.L (22-28) 05/27/17 14:45 VBG O2 Sat (Calc) 98.2 % (40-65) H 05/27/17 14:45 VBG Base Excess -3.8 mmol/L (0.0-2.0) L 05/27/17 14:45 VBG Potassium 4.0 mmol/L (3.6-5.2) 05/27/17 14:45 Sodium 142.0 mmol/L (132-148) 05/27/17 14:45 Chloride 111.0 mmol/L (98-107) H 05/27/17 14:45 Glucose 92 mg/dl (65-105) 05/27/17 14:45 Lactate 1.1 mmol/L (0.7-2.1) 05/27/17 14:45 FiO2 21.0 % 05/27/17 14:45 Sodium 142 mmol/L (132-148) 05/29/17 07:30 Potassium 4.4 mmol/L (3.6-5.0) 05/29/17 07:30 Chloride 112 mmol/L (95-110) H 05/29/17 07:30 Carbon Dioxide 23 mmol/L (21-33) 05/29/17 07:30 Anion Gap 11 (10-20) 05/29/17 07:30 BUN 8 mg/dL (7-21) 05/29/17 07:30 Creatinine 1.0 mg/dL (0.5-1.4) 05/29/17 07:30 Est GFR ( Amer) > 60 05/29/17 07:30 Est GFR (Non-Af Amer) 56 05/29/17 07:30 Random Glucose 97 mg/dL (70-110) 05/29/17 07:30 Calcium 7.8 mg/dL (8.4-10.5) L 05/29/17 07:30 Phosphorus 2.5 mg/dL (2.5-4.5) 05/28/17 06:40 Magnesium 1.8 mg/dL (1.7-2.2) 05/28/17 06:40 Total Bilirubin 2.1 mg/dL (0.2-1.3) H 05/29/17 07:30 AST 28 U/L (15-39) 05/29/17 07:30 ALT 27 U/L (7-56) 05/29/17 07:30 Alkaline Phosphatase 139 U/L (38-133) H 05/29/17 07:30 Total Protein 6.5 g/dL (5.8-8.3) 05/29/17 07:30 Albumin 3.3 g/dL (3.0-4.8) 05/29/17 07:30 Globulin 3.2 gm/dL 05/29/17 07:30 Albumin/Globulin Ratio 1.0 (1.1-1.8) L 05/29/17 07:30 Lipase 258 U/L (23-300) 05/27/17 13:50 Venous Blood Potassium 4.0 mmol/L (3.6-5.2) 05/27/17 14:45 Urine Color Yellow (YELLOW) 05/27/17 18:05 Urine Appearance Clear (CLEAR) 05/27/17 18:05 Urine pH 5.5 (4.7-8.0) 05/27/17 18:05 Ur Specific [place] 1.010 (1.005-1.035) 05/27/17 18:05 Urine Protein Trace mg/dL (<30 mg/dL) H 05/27/17 18:05 Urine Glucose (UA) Negative mg/dL (NEGATIVE) 05/27/17 18:05 Urine Ketones Negative mg/dL (NEGATIVE) 05/27/17 18:05 Urine Blood Negative (NEGATIVE) 05/27/17 18:05 Urine Nitrate Negative (NEGATIVE) 05/27/17 18:05 Urine Bilirubin Negative (NEGATIVE) 05/27/17 18:05 Urine Urobilinogen 0.2 E.U./dL (<1 E.U./dL) 05/27/17 18:05 Ur Leukocyte Esterase Negative Jose/uL (NEGATIVE) 05/27/17 18:05 Urine RBC Negative /hpf (0-2) 05/27/17 18:05 Urine WBC Negative /hpf (0-6) 05/27/17 18:05 Blood Type A POSITIVE 05/27/17 13:50 Antibody Screen Negative 05/27/17 13:50 BBK History Checked Patient has bt 05/27/17 13:50 - Hospital Course Hospital Course: 62 yr. old female with a past medical history of stage IV colon cancer presented with two days of abdominal pain and one day of bright red blood per rectum. She had a CT done that showed a new mass in the hepatic flexure and moderate ascites. She had consults from Heme/Onc, GI, and Pulmonary( for pulmonary mets). A type and screen was ordered as well as cbc and cmp. We also ordered cultures and started her on flagyl and cefoxitin for possible diverticulitis and or a possible spontaneous bacterial peritonitis. She was seen by Dr. Sousa who said he would be unable to offer any medical treatment at this time to the advanced stage of her disease. Patient was discharged with Percocet (#14) and adivsed to follow up with her Automotive Sales Executive Dr. Calderón and her PMD. - Date & Time of H&P Date of H&P: 05/27/17 Time of H&P: 20:41 Discharge Exam - Head Exam Head Exam: ATRAUMATIC, NORMAL INSPECTION, NORMOCEPHALIC - Eye Exam Eye Exam: EOMI, Normal appearance, PERRL. absent: Periorbital tenderness Pupil Exam: NORMAL ACCOMODATION, PERRL - ENT Exam ENT Exam: Mucous Membranes Moist, Normal Oropharynx - Neck Exam Neck exam: Full Rom - Respiratory Exam Respiratory Exam: Clear to PA & Lateral, Wheezes, NORMAL BREATHING PATTERN. absent: Accessory Muscle Use, Chest Wall Tenderness - Cardiovascular Exam Cardiovascular Exam: REGULAR RHYTHM, RRR, +S1, +S2. absent: JVD, Rubs - GI/Abdominal Exam GI & Abdominal Exam: Normal Bowel Sounds, Tenderness (Slight tenderness in the midepigastrium area.) - Back Exam Back exam: NORMAL INSPECTION. absent: paraspinal tenderness - Neurological Exam Neurological exam: Alert, CN II-XII Intact, Oriented x3 - Psychiatric Exam Psychiatric exam: Normal Affect, Normal Mood - Skin Skin Exam: Dry, Intact Discharge Plan - Discharge Medications Prescriptions: oxyCODONE/Acetaminophen [Percocet 5/325 mg Tab] 1 tab PO Q6 PRN #15 tab PRN Reason: Pain, Severe (8-10) - Follow Up Plan Condition: GOOD Disposition: HOME/ ROUTINE Instructions: Colorectal Cancer (DC), Heart Healthy Diet (DC), Depression (GEN) , Abdominal Pain (ED), Hypertension (GEN), Anxiety (DC), Fall Prevention (DC) Additional Instructions: Patient instructed to avoid Aspirin and Tylenol. Patient should follow up with Dr. Calderón and PMD within one week. Patient should return to ED for any new or concerning symptoms. Referrals: Pricilla Levine MD [Primary Care Provider] - Rosanne Calderón MD [Staff Provider] - <Azra Kelsey MD - Last Filed: 06/01/17 10:53> Provider - Provider Date of Admission: 05/27/17 18:57 Attending physician: Azra Kelsey MD Primary care physician: Pricilla Levine MD Hospital Course - Lab Results Lab Results: Most Recent Lab Values WBC 5.0 10^3/ul (4.5-11.0) D 05/29/17 07:30 RBC 3.00 10^6/uL (3.5-6.1) L 05/29/17 07:30 Hgb 8.4 g/dL (12.0-16.0) L 05/29/17 07:30 Hct 28.0 % (36.0-48.0) L 05/29/17 07:30 MCV 93.3 fl (80.0-105.0) 05/29/17 07:30 MCH 28.0 pg (25.0-35.0) 05/29/17 07:30 MCHC 30.0 g/dl (31.0-37.0) L 05/29/17 07:30 RDW 21.4 % (11.5-14.5) H 05/29/17 07:30 Plt Count 41 10^3/uL (120.0-450.0) L* 05/29/17 07:30 MPV 9.0 fl (7.0-11.0) 05/28/17 06:40 Gran % 85.5 % (50.0-68.0) H 05/29/17 07:30 Lymph % (Auto) 7.9 % (22.0-35.0) L 05/29/17 07:30 Kay % (Auto) 3.6 % (1.0-6.0) 05/29/17 07:30 Eos % (Auto) 2.8 % (1.5-5.0) 05/29/17 07:30 Baso % (Auto) 0.2 % (0.0-3.0) 05/29/17 07:30 Gran # 4.31 (1.4-6.5) 05/29/17 07:30 Lymph # 0.4 (1.2-3.4) L 05/29/17 07:30 Kay # 0.2 (0.1-0.6) 05/29/17 07:30 Eos # 0.1 (0.0-0.7) 05/29/17 07:30 Baso # 0.01 K/mm3 (0.0-2.0) 05/29/17 07:30 Neutrophils % (Manual) 88 % (50.0-70.0) H 05/27/17 13:50 Band Neutrophils % 6 % (0-2) H 05/27/17 13:50 Lymphocytes % (Manual) 3 % (22.0-35.0) L 05/27/17 13:50 Monocytes % (Manual) 3 % (1.0-6.0) 05/27/17 13:50 Eosinophils % (Manual) 3 % (0.0-3.0) 05/27/17 13:50 Platelet Evaluation Low (NORMAL) 05/27/17 13:50 Poikilocytosis (manual Slight 05/27/17 13:50 Anisocytosis (manual) Slight 05/27/17 13:50 Tear Drop Cells Slight 05/27/17 13:50 PT 11.8 Seconds (9.9-11.8) 05/27/17 13:50 INR 1.09 (0.93-1.08) H 05/27/17 13:50 APTT 25.6 Seconds (23.7-30.8) 05/27/17 13:50 pO2 77 mm/Hg (30-55) H 05/27/17 14:45 VBG pH 7.35 (7.32-7.43) 05/27/17 14:45 VBG pCO2 39.0 (40-60) L 05/27/17 14:45 VBG HCO3 21.5 mmol/l (21-28) 05/27/17 14:45 VBG Total CO2 22.7 mmol.L (22-28) 05/27/17 14:45 VBG O2 Sat (Calc) 98.2 % (40-65) H 05/27/17 14:45 VBG Base Excess -3.8 mmol/L (0.0-2.0) L 05/27/17 14:45 VBG Potassium 4.0 mmol/L (3.6-5.2) 05/27/17 14:45 Sodium 142.0 mmol/L (132-148) 05/27/17 14:45 Chloride 111.0 mmol/L (98-107) H 05/27/17 14:45 Glucose 92 mg/dl (65-105) 05/27/17 14:45 Lactate 1.1 mmol/L (0.7-2.1) 05/27/17 14:45 FiO2 21.0 % 05/27/17 14:45 Sodium 142 mmol/L (132-148) 05/29/17 07:30 Potassium 4.4 mmol/L (3.6-5.0) 05/29/17 07:30 Chloride 112 mmol/L (95-110) H 05/29/17 07:30 Carbon Dioxide 23 mmol/L (21-33) 05/29/17 07:30 Anion Gap 11 (10-20) 05/29/17 07:30 BUN 8 mg/dL (7-21) 05/29/17 07:30 Creatinine 1.0 mg/dL (0.5-1.4) 05/29/17 07:30 Est GFR ( Amer) > 60 05/29/17 07:30 Est GFR (Non-Af Amer) 56 05/29/17 07:30 Random Glucose 97 mg/dL (70-110) 05/29/17 07:30 Calcium 7.8 mg/dL (8.4-10.5) L 05/29/17 07:30 Phosphorus 2.5 mg/dL (2.5-4.5) 05/28/17 06:40 Magnesium 1.8 mg/dL (1.7-2.2) 05/28/17 06:40 Total Bilirubin 2.1 mg/dL (0.2-1.3) H 05/29/17 07:30 AST 28 U/L (15-39) 05/29/17 07:30 ALT 27 U/L (7-56) 05/29/17 07:30 Alkaline Phosphatase 139 U/L (38-133) H 05/29/17 07:30 Total Protein 6.5 g/dL (5.8-8.3) 05/29/17 07:30 Albumin 3.3 g/dL (3.0-4.8) 05/29/17 07:30 Globulin 3.2 gm/dL 05/29/17 07:30 Albumin/Globulin Ratio 1.0 (1.1-1.8) L 05/29/17 07:30 Lipase 258 U/L (23-300) 05/27/17 13:50 Venous Blood Potassium 4.0 mmol/L (3.6-5.2) 05/27/17 14:45 Urine Color Yellow (YELLOW) 05/27/17 18:05 Urine Appearance Clear (CLEAR) 05/27/17 18:05 Urine pH 5.5 (4.7-8.0) 05/27/17 18:05 Ur Specific [place] 1.010 (1.005-1.035) 05/27/17 18:05 Urine Protein Trace mg/dL (<30 mg/dL) H 05/27/17 18:05 Urine Glucose (UA) Negative mg/dL (NEGATIVE) 05/27/17 18:05 Urine Ketones Negative mg/dL (NEGATIVE) 05/27/17 18:05 Urine Blood Negative (NEGATIVE) 05/27/17 18:05 Urine Nitrate Negative (NEGATIVE) 05/27/17 18:05 Urine Bilirubin Negative (NEGATIVE) 05/27/17 18:05 Urine Urobilinogen 0.2 E.U./dL (<1 E.U./dL) 05/27/17 18:05 Ur Leukocyte Esterase Negative Jose/uL (NEGATIVE) 05/27/17 18:05 Urine RBC Negative /hpf (0-2) 05/27/17 18:05 Urine WBC Negative /hpf (0-6) 05/27/17 18:05 Blood Type A POSITIVE 05/27/17 13:50 Antibody Screen Negative 05/27/17 13:50 BBK History Checked Patient has bt 05/27/17 13:50 Attending/Attestation - Attestation I have personally seen and examined this patient.: Yes I have fully participated in the care of the patient.: Yes I have reviewed all pertinent clinical information, including history, physical exam and plan: Yes Notes (Text): 06/01/17 10:51 Patient was seen and examined with director medical surgical. Agreed with resident assessment and plan. 62 year old female PMH of stage IV colon cancer known mets to lungs and lung and HTN, presented to the ED on 05/27 with bright red blood per rectum and worsening abdominal pain.Hemoglobin is stable.There is no active bleeding.Patient was evaluated by GI, no further work up is recommended. Thrombocytopenia is stable.Patient case was discussed with her Oncologist by [facility] resident, no inpatient work up is needed. Abdominal pain is better controlled.Patient is tolerating diet with out any issue. Patient will follow up with oncology. Prognosis is guarded. Management plan was discussed in detail with patient Education was provided.
== END 2017-05-29 16:34 | disposition home or self-care (01) | DRG 174 ==
LOC: ED 12:01 → ERH 18:57 → 5RNO 21:49
PROVIDERS: ADMIT Internal Medicine; ATTEND Internal Medicine
DX: K92.2 Gastrointestinal hemorrhage, unspecified (principal); C78.00 Secondary malignant neoplasm of unspecified lung; C78.7 Secondary malignant neoplasm of liver and intrahepatic bile duct; R18.8 Other ascites; D69.6 Thrombocytopenia, unspecified; Z85.038 Personal history of other malignant neoplasm of large intestine; R16.1 Splenomegaly, not elsewhere classified; I10 Essential (primary) hypertension; F32.9 Major depressive disorder, single episode, unspecified; E78.5 Hyperlipidemia, unspecified; D64.9 Anemia, unspecified; D72.829 Elevated white blood cell count, unspecified; E78.00 Pure hypercholesterolemia, unspecified; H40.9 Unspecified glaucoma; Z87.891 Personal history of nicotine dependence

== ENCOUNTER 2017-06-12 18:32 | Observation (INO) | payer OTHER ==
--- NOTE | 2017-06-12 19:02 | ED PDOC ---
Arrival/HPI - General Chief Complaint: Abdominal Pain Time Seen by Provider: 06/12/17 19:02 Historian: Patient - History of Present Illness Narrative History of Present Illness (Text): 06/12/17 19:02 This 62 year old female PMHx stage IV colon cancer known mets to lungs and lung and HTN, presented to the ED c/o intractable abdominal pain, and dark stool x 1 week. Patient also noted intermittent nausea, and vomiting. Patient denies sob , cp, urinary symptoms, or dizziness. Time/Duration: 1 week Context: Home Past Medical History - Provider Review Nursing Documentation Reviewed: Yes - Infectious Disease Hx of Infectious Diseases: None - Tetanus Immunization Tetanus Immunization: Unknown - Reproductive Menopause: Yes - Cardiac Hx Cardiac Disorders: Yes Hx Hypertension: Yes - Pulmonary Hx Respiratory Disorders: No - Neurological Hx Neurological Disorder: No - HEENT Hx HEENT Disorder: Yes Hx Blind: Yes (left eye) Hx Cataracts: Yes Hx Glaucoma: Yes Other/Comment: retinal detachment - Renal Hx Renal Disorder: No - Endocrine/Metabolic Hx Endocrine Disorders: No - Hematological/Oncological Hx Blood Disorders: Yes Hx Cancer: Yes (colon CA with metastasis to liver and lung) Hx Chemotherapy: Yes Hx Metastasis: Yes - Integumentary Hx Dermatological Disorder: No - Musculoskeletal/Rheumatological Hx Musculoskeletal Disorders: Yes Hx Falls: Yes Hx Herniated Disk: Yes - Gastrointestinal Other/Comment: Colon Cancer, Stage 4 - Genitourinary/Gynecological Hx Genitourinary Disorders: No - Psychiatric Hx Psychophysiologic Disorder: Yes Hx Anxiety: Yes Hx Depression: Yes Hx Substance Use: No - Surgical History Other/Comment: left subclavian port. abd surgery - Anesthesia Hx Anesthesia: Yes Hx Anesthesia Reactions: No Hx Malignant Hyperthermia: No - Suicidal Assessment Feels Threatened In Home Enviroment: No Family/Social History - Physician Review Nursing Documentation Reviewed: Yes Family/Social History: Other (Non-contributory) Smoking Status: Former Smoker Hx Alcohol Use: No Hx Substance Use: No Hx Substance Use Treatment: No Allergies/Home Meds Allergies/Adverse Reactions: Allergies No Known Allergies Allergy (Verified 06/12/17 18:46) Home Medications: Home Meds Medication Instructions Recorded Confirmed Alprazolam [Xanax] 0.5 mg PO DAILY 05/12/16 06/12/17 Brimonidine Tartrate [Alphagan P] 1 drop OS BID 05/12/16 06/12/17 Cholecalciferol [Vitamin D 1000 IU] 15,000 iu PO QWK 05/12/16 06/12/17 Cosopt 2%-0.5% Opht 1 drop OS DAILY 05/12/16 06/12/17 Zolpidem HALF TABLET [Ambien] 10 mg PO HS 10/24/16 06/12/17 Lisinopril [Zestril] 10 mg PO DAILY 05/27/17 06/12/17 Montelukast [Singulair] 10 mg PO DAILY 05/27/17 06/12/17 Review of Systems - Review of Systems Constitutional: Normal. absent: Fatigue, Weight Change, Fevers, Night Sweats Eyes: Normal ENT: Normal Respiratory: Normal. absent: SOB, Cough Cardiovascular: Normal. absent: Chest Pain, Palpitations Gastrointestinal: Abdominal Pain, Nausea, Vomiting. absent: Constipation, Diarrhea Genitourinary Female: Normal. absent: Dysuria, Frequency, Hematuria, Vaginal Discharge Musculoskeletal: Normal Skin: Normal Neurological: Normal. absent: Headache, Dizziness, Focal Weakness Endocrine: Normal Hemo/Lymphatic: Normal Psychiatric: Normal Physical Exam Vital Signs Temp Pulse Resp BP Pulse Ox 06/12/17 21:33 86 18 112/73 97 06/12/17 19:53 82 18 121/65 95 06/12/17 18:42 97.7 F 90 19 119/66 98 Temperature: Afebrile Blood Pressure: Normal Pulse: Regular Respiratory Rate: Normal Appearance: Positive for: Well-Appearing, Non-Toxic, Comfortable Pain Distress: None Mental Status: Positive for: Alert and Oriented X 3 - Systems Exam Head: Present: Atraumatic, Normocephalic Pupils: Present: PERRL Extroacular Muscles: Present: EOMI Conjunctiva: Present: Normal Mouth: Present: Moist Mucous Membranes Neck: Present: Normal Range of Motion Respiratory/Chest: Present: Clear to Auscultation, Good Air Exchange. No: Respiratory Distress, Accessory Muscle Use, Wheezes, Decreased Breath Sounds, Retracting, Rhonchi, Tender to Palpation Cardiovascular: Present: Regular Rate and Rhythm, Normal S1, S2. No: Murmurs Abdomen: Present: Tenderness (generalized), Normal Bowel Sounds. No: Distention , Peritoneal Signs, Rebound, Guarding Rectal: Present: Hemorrhoids, Normal Rectal Tone, Other (GUAIAC was negative with positive control. No enough stool was collected. 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 No: Occult Blood, Rectal Tenderness, Gross Blood, Melena, Fissures , Nodule/Mass/Lesions Back: Present: Normal Inspection. No: CVA Tenderness Upper Extremity: Present: Normal Inspection, Normal ROM, NORMAL PULSES, Neurovascularly Intact, Capillary Refill < 2s. No: Cyanosis, Edema Lower Extremity: Present: Normal Inspection, NORMAL PULSES, Normal ROM, Neurovascularly Intact, Capillary Refill < 2 s. No: Edema Neurological: Present: GCS=15, CN II-XII Intact, Speech Normal, Motor Func Grossly Intact, Normal Sensory Function, Normal Cerebellar Funct, Gait Normal, Memory Normal Skin: Present: Warm, Dry, Normal Color. No: Rashes Psychiatric: Present: Alert, Oriented x 3, Normal Insight, Normal Concentration Medical Decision Making ED Course and Treatment: 06/12/17 22:[address] Darlene quarles physician , regarding patient c/o intractable abdominal skinny, dark stool. GUAIAC was negative. He agrees with plan for admission. Re-evaluation Time: 22:17 Reassessment Condition: Re-examined - Lab Interpretations Lab Results: 06/12/17 18:43 06/12/17 18:43 Lab Results 06/12/17 18:43: Sodium 142, Potassium 4.2, Chloride 103, Carbon Dioxide 27, Anion Gap 16, BUN 15, Creatinine 1.0, Est GFR ( Amer) > 60, Est GFR (Non- Af Amer) 56, Random Glucose 90, Calcium 9.9, Total Bilirubin 2.1 H, AST 35, ALT 26, Alkaline Phosphatase 205 H, Total Protein 7.8, Albumin 4.2, Globulin 3.6, Albumin/Globulin Ratio 1.2, Lipase 199 06/12/17 18:43: PT 13.3 H, INR 1.23 H, APTT 28.2 06/12/17 18:43: WBC 13.8 H D, RBC 3.93, Hgb 11.1 L D, Hct 36.3, MCV 92.4, MCH 28.2, MCHC 30.6 L, RDW 20.2 H, Plt Count 84 L, Gran % 83.4 H, Lymph % (Auto) 5.7 L, [place] % (Auto) 8.3 H, Eos % (Auto) 2.5, Baso % (Auto) 0.1, Gran # 11.49 H , Lymph # 0.8 L, [place] # 1.2 H, Eos # 0.4, Baso # 0.02 - RAD Interpretation Radiology Orders: 06/12/17 20:22 CHEST PORTABLE [RAD] Stat - EKG Interpretation Interpreted by ED Physician: Yes (NSR @ 79 bpm. Normal interval) Type: 12 lead EKG Comparison: No previous EKG avail. - Medication Orders Current Medication Orders: Discontinued Medications Sodium Chloride (Sodium Chloride 0.9%) 500 mls @ 999 mls/hr IV .Q31M STA Stop: 06/12/17 19:43 Last Admin: 06/12/17 19:20 Dose: 999 mls/hr Morphine Sulfate (Morphine) 2 mg IVP STAT STA Stop: 06/12/17 19:14 Last Admin: 06/12/17 19:18 Dose: 2 mg Morphine Sulfate (Morphine) 4 mg IVP STAT STA Stop: 06/12/17 21:36 Last Admin: 06/12/17 21:43 Dose: 4 mg Ondansetron HCl (Zofran Inj) 4 mg IVP STAT STA Stop: 06/12/17 19:14 Last Admin: 06/12/17 19:18 Dose: 4 mg Ondansetron HCl (Zofran Inj) 4 mg IVP STAT STA Stop: 06/12/17 21:03 Last Admin: 06/12/17 21:05 Dose: 4 mg Disposition/Present on Arrival - Present on Arrival Any Indicators Present on Arrival: No History of DVT/PE: No History of Uncontrolled Diabetes: No Urinary Catheter: No History of Decub. Ulcer: No History Surgical Site Infection Following: Abdominal Surgery, None - Disposition Have Diagnosis and Disposition been Completed?: Yes Diagnosis: Intractable abdominal pain Disposition: HOSPITALIZED Disposition Time: 23:00 Patient Plan: Observation Condition: STABLE
[2017-06-12] MEDS ORDERED: Morphine 2 mg/ml ISec IVP STA (19:13)
[2017-06-12] MEDS ORDERED: Sodium Chloride 0.9% 500 ML IV STA (19:13)
[2017-06-12 19:30] LABS: BASO # 0.02 K/mm3 (0.0-2.0); BASO % 0.1 % (0.0-3.0); EOS # 0.4 (0.0-0.7); EOS % 2.5 % (1.5-5.0); GRAN # 11.49 (1.4-6.5); GRAN % 83.4 % (50.0-68.0); HEMATOCRIT 36.3 % (36.0-48.0); LYMPH # 0.8 (1.2-3.4); LYMPH % 5.7 % (22.0-35.0); MEAN CELL VOLUME 92.4 fl (80.0-105.0); MEAN CORPUSCULAR HEMOGLOBIN 28.2 pg (25.0-35.0); MEAN CORPUSCULAR HGB CONC 30.6 g/dl (31.0-37.0); MONO # 1.2 (0.1-0.6); MONO % 8.3 % (1.0-6.0); PLATELET COUNT 84 10^3/uL (120.0-450.0); RED CELL DISTRIBUTION WIDTH 20.2 % (11.5-14.5); WHITE BLOOD COUNT 13.8 10^3/ul (4.5-11.0)
[2017-06-12 19:35] LABS: ALB/GLOB RATIO 1.2 (1.1-1.8); ALKALINE PHOSPHATASE 205 U/L (38-126); ALT/SGPT 26 U/L (7-56); AST/SGOT 35 U/L (14-36); BILIRUBIN,TOTAL 2.1 mg/dL (0.2-1.3); BLOOD UREA NITROGEN 15 mg/dL (7-21); CALCIUM 9.9 mg/dL (8.4-10.5); CARBON DIOXIDE 27 mmol/L (21-33); CHLORIDE 103 mmol/L (98-107); GFR AFRICAN-AMERICAN > 60; GLUCOSE,RANDOM 90 mg/dL (70-110); LIPASE 199 U/L (23-300); POTASSIUM 4.2 mmol/L (3.6-5.0); SODIUM 142 mmol/L (132-148); TOTAL PROTEIN 7.8 g/dL (5.8-8.3)
[2017-06-12 19:37] LABS: INR 1.23 (0.93-1.08); PARTIAL THROMBOPLASTIN TIME 28.2 Seconds (23.7-30.8)
[2017-06-12] MEDS ORDERED: Morphine 4 mg/ml ISec IVP STA (21:35)
[2017-06-12] MEDS ORDERED: HYDROmorphone 1 mg/ml ISec IVP PRN (23:54)
[2017-06-13 00:55] LABS: PH,URINE 6.5 (4.7-8.0); URINE BILIRUBIN NEGATIVE (NEGATIVE); URINE BLOOD NEGATIVE (NEGATIVE); URINE GLUCOSE (UA) NEGATIVE (NEGATIVE); URINE KETONE NEGATIVE (NEGATIVE); URINE LEUKOCYTE ESTERASE NEGATIVE Leu/uL (NEGATIVE); URINE PROTEIN NEGATIVE mg/dL (<30 mg/dL); URINE UROBILINOGEN 0.2 E.U./dL (<1 E.U./dL)
[2017-06-13 00:56] LABS: URINE COLOR YELLOW (YELLOW)
[2017-06-13 00:57] LABS: URINE APPEARANCE CLEAR (CLEAR)
--- NOTE | 2017-06-13 01:32 | CT ---
EXAM: CT Abdomen and Pelvis Without Intravenous Contrast CLINICAL HISTORY: 62 years old, female; Pain; Abdominal pain; Generalized; Additional info: Abdominal pain R/O free air TECHNIQUE: Axial computed tomography images of the abdomen and pelvis without intravenous contrast. All CT scans at this facility use one or more dose reduction techniques, viz.: automated exposure control; ma/kV adjustment per patient size (including targeted exams where dose is matched to indication; i.e. head); or iterative reconstruction technique. Coronal and sagittal reformatted images were created and reviewed. COMPARISON: CT - ABD PELVIS IV CONTRAST ONLY 05/27/2017 4:35:58 PM FINDINGS: Lower thorax: A mass within the left lower lobe measures 2.6 CM in diameter on series 3, image 3. A mass in the right middle lobe measures 1.8 CM in diameter on series 3, image 4. A mass in the right lower lobe measures 1.9 CM on series 3, image 9. These are compatible with metastatic disease. ABDOMEN: Liver: There are postsurgical changes to the right lobe of the liver which has been partially resected. Gallbladder and bile ducts: Gallbladder is not visualized. No ductal dilation. Pancreas: The pancreas is normal. No ductal dilation. Spleen: Spleen is grossly enlarged measuring 19.7 CM craniocaudal. This is similar to 05/27/2017. Adrenals: The adrenal glands are normal. Kidneys and ureters: The kidneys are normal. No obstructing stones. No hydronephrosis. Stomach and bowel: Stomach is predominantly decompressed. There is no evidence of intestinal obstruction. Postsurgical changes of the right colon are again noted. No mucosal thickening. Appendix: No findings to suggest acute appendicitis. PELVIS: Bladder: Bladder is decompressed. No stones. Reproductive: An IUD is present in the uterus. ABDOMEN and PELVIS: Intraperitoneal space: There is moderate abdominal and large pelvic ascites. There is no free intraperitoneal air. Bones/joints: There are moderate degenerative changes present. No acute fracture. No dislocation. Soft tissues: Unremarkable. Vasculature: The aorta demonstrates mild atherosclerotic calcification. No abdominal aortic aneurysm. Lymph nodes: There is no evidence of lymphadenopathy. Other findings: There are some upper abdominal varices. IMPRESSION: 1. Bilateral lung metastatic disease redemonstrated. 2. There are again postsurgical changes to the right lobe of the liver which has been partially resected. 3. Spleen is again grossly enlarged measuring 19.7 CM craniocaudal. This is similar to 05/27/2017. 4. There is again moderate abdominal and large pelvic ascites. 5. There are some upper abdominal varices. 6. Additional incidental and/or chronic findings as described. 7. No definite acute pathology identified in the abdomen or pelvis.
[2017-06-13 01:55] VITALS: BMI 11.3
--- NOTE | 2017-06-13 03:21 | CP.PCM.HP ---
<LOUIE DIMAS - Last Filed: 06/13/17 03:16> History of Present Illness - History of Present Illness History of Present Illness: Louie Dimas DO PGY1 - Medicine H&P CC: Abdominal pain HPI: 62 yo F with PMH of stage IV colon cancer and HTN, presented to the ER complaining of RLQ abdominal pain. Pain started 2 weeks ago, was 10/10 in severity, nonradiating, worsens when she lies down. Pain resolved after a 2-day continuous chemo infusion, but then came back a day later. She tried tylenol 1000mg for the pain, which improved it to a 4/10 in severity. Prior to ER presentation, pain was again 10/10 in severity. She also admits to epigastric burning pain, nausea without vomiting, and melena. She denies F/C, diarrhea, constipation, hematochezia, hematemesis, hemoptysis, CP, SOB, dizziness, MENEDS. Meds: See NOV PMH: HTN, MDD, Stage IV colon CA s/p tumor resection and chemo, with multiple distant mets including to lungs and liver Surg: Hepatic tumor resection, colonic tumor resection Soc: Denies tob, EtOH, illicits FHx: Noncontributory All: NKDA ROS: Constitutional: pt denies fever, chills, generalized weakness ENT: pt denies dysphagia, otalgia, hearing deficit, rhinorrhea Eyes: pt denies sudden loss of vision, diplopia, blurred vision MSK: pt denies muscle stiffness, joint pain, extremity cramping Cardio: pt denies sob, heart murmur, CP Pulm: pt denies cough, hemoptysis, wheeze GI: +abdominal pain, nausea, melena pt denies loss of appetite, constipation, vomiting : pt denies burning on urination, urinary frequency, hematuria, urinary urgency Neuro: pt denies paresis, paresthesia, dizziness, mendes, numbness, tingling Derm: pt denies skin changes, lesions, nail changes Endo: pt denies intolerance to heat/cold, diaphoresis, night sweats, polydipsia Psych: pt denies anxiety, depression, mood changes Oncologist: Kaitlynn Present on Admission - Present on Admission Any Indicators Present on Admission: No Past Patient History - Infectious Disease Hx of Infectious Diseases: None - Tetanus Immunizations Tetanus Immunization: Unknown - Past Social History Smoking Status: Former Smoker - CARDIAC Hx Hypertension: Yes - PULMONARY Hx Respiratory Disorders: No - NEUROLOGICAL Hx Neurological Disorder: No - HEENT Hx Cataracts: Yes Hx Glaucoma: Yes - RENAL Hx Chronic Kidney Disease: No - ENDOCRINE/METABOLIC Hx Endocrine Disorders: No - HEMATOLOGICAL/ONCOLOGICAL Hx Cancer: Yes (colon CA with metastasis to liver and lung) Hx Chemotherapy: Yes (06/07) Hx Metastesis: Yes - INTEGUMENTARY Hx Dermatological Problems: No - MUSCULOSKELETAL/RHEUMATOLOGICAL Hx Falls: Yes Hx Herniated Disk: Yes - GASTROINTESTINAL Other/Comment: Colon Cancer, Stage 4 - GENITOURINARY/GYNECOLOGICAL Hx Genitourinary Disorders: No - PSYCHIATRIC Hx Psychophysiologic Disorder: Yes Hx Anxiety: Yes Hx Depression: Yes - SURGICAL HISTORY Other/Comment: left subclavian port. tumor resection - ANESTHESIA Hx Anesthesia: Yes Hx Anesthesia Reactions: No Hx Malignant Hyperthermia: No Meds Allergies/Adverse Reactions: Allergies Allergy/AdvReac Type Severity Reaction Status Date / Time No Known Allergies Allergy Verified 06/12/17 18:46 Physical Exam - Constitutional Appears: Non-toxic, No Acute Distress, Chronically Ill - Head Exam Head Exam: ATRAUMATIC, NORMOCEPHALIC - Eye Exam Eye Exam: EOMI, Normal appearance, PERRL - ENT Exam ENT Exam: Mucous Membranes Moist - Neck Exam Neck exam: Negative for: Lymphadenopathy, Meningismus - Respiratory Exam Respiratory Exam: Clear to Auscultation Bilateral. absent: Rales, Rhonchi, Wheezes - Cardiovascular Exam Cardiovascular Exam: RRR, +S1, +S2 - GI/Abdominal Exam GI & Abdominal Exam: absent: Rebound, Rigid Additional comments: Epigastric, RUQ, and RLQ tenderness. Hyporesonant. Firm. Mildly distended. Minimal guarding. - Extremities Exam Extremities exam: Negative for: calf tenderness, pedal edema - Back Exam Back exam: absent: CVA tenderness (L), CVA tenderness (R) - Neurological Exam Neurological exam: Alert, CN II-XII Intact, Oriented x3 - Psychiatric Exam Psychiatric exam: Normal Affect, Normal Mood - Skin Skin Exam: Dry, Intact, Normal Color Results - Vital Signs Recent Vital Signs: Last Vital Signs Temp 98.2 F 06/13/17 01:45 Pulse 92 H 06/13/17 01:45 Resp 20 06/13/17 01:45 BP 143/83 06/13/17 01:45 Pulse Ox 95 06/13/17 00:46 - Labs Result Diagrams: 06/12/17 18:43 06/12/17 18:43 Labs: Laboratory Results - last 24 hr 06/13/17 00:42 Urine Color Yellow Urine Appearance Clear Urine pH 6.5 Ur Specific [place] 1.015 Urine Protein Negative Urine Glucose (UA) Negative Urine Ketones Negative Urine Blood Negative Urine Nitrate Negative Urine Bilirubin Negative Urine Urobilinogen 0.2 Ur Leukocyte Esterase Negative Assessment & Plan - Assessment and Plan (Free Text) Assessment: 62 yo F with PMH of HTN, HLD, MDD, and stage IV colon CA s/p tumor resection and chemo, with multiple mets, presented to ER with abdominal pain and history of melena, also noted to have leukocytosis. Plan: 1. Abdominal pain - intractable - Epigastric and RLQ abdominal pain, with tenderness; partially and transiently (1hr) relieved by 4mg morphine in the ER - CT abd/pelv ordered, shows similar findings as prior CT abd/pelv, including moderate abdominal and large pelvic ascites, with no intraperitoneal free air - Likely 2/2 colon CA vs SBP vs diverticulitis - Started Flagyl and rocephin - Acetaminophen, morphine, and dilauded for mild/moderate/severe pain. - Senna/Colace to avoid constipation - Zofran for nausea - GI (Divya) consult requested, appreciate recs 2. Melena - Pt reports occasional melanotic stools for past 10 days. GUIAC negative in ER , per ER staff. Currently hemodynamically stable with stable H/H - Likely 2/2 colon CA - GI consulted, appreciate recs - Repeat CBC in AM 3. Leukocytosis - Currently afebrile, VSS. Recent previous admission with similar findings. UA normal. CXR shows multiple focal opacifications, likely known metastases, appear unchanged from prior CXR; pending official read - Likely 2/2 diverticulitis vs SBP vs gastroenteritis - BCx pending, UCx pending - On Flagyl and Rocephin (d1) - Continue to monitor 4. H/o colon CA, with multiple distant metastases - Diagnosed in 2010, patient reports that she does have an advanced directive, though not found in the EMR - Palliative care consult requested 5. H/o HTN, HLD, and MDD - Continue home meds PPx: SCDs for DVT, Pepcid for GI - avoid antiplatelet medication in setting of thrombocytopenia Patient seen, discussed, and reviewed with attending <Aneta Colon - Last Filed: 06/13/17 06:28> Results - Vital Signs Recent Vital Signs: Last Vital Signs Temp 98.2 F 06/13/17 01:45 Pulse 92 H 06/13/17 01:45 Resp 20 06/13/17 01:45 BP 143/83 06/13/17 01:45 Pulse Ox 95 06/13/17 00:46 - Labs Result Diagrams: 06/12/17 18:43 06/12/17 18:43 Labs: Laboratory Results - last 24 hr 06/13/17 00:42 Urine Color Yellow Urine Appearance Clear Urine pH 6.5 Ur Specific [place] 1.015 Urine Protein Negative Urine Glucose (UA) Negative Urine Ketones Negative Urine Blood Negative Urine Nitrate Negative Urine Bilirubin Negative Urine Urobilinogen 0.2 Ur Leukocyte Esterase Negative Attending/Attestation - Attestation I have personally seen and examined this patient.: Yes I have fully participated in the care of the patient.: Yes I have reviewed all pertinent clinical information: Yes Notes (Text): 06/13/17 06:27 Patient was seen when she was in bed # 13 in the ER. Agree with history, physical examination, assessment and plan.
--- NOTE | 2017-06-13 07:10 | RAD ---
HISTORY: admission COMPARISON: Chest radiographs 05/29/2017. FINDINGS: LUNGS: There are least 3 nodular densities identified in the right chest with a dominant nodule at the mid right chest laterally once again. Differences in technique imaged these masses to better effect currently. An additional nodular density is not excluded lateral to the left hilum and inferior to the proximal segment of the left chest port which is unchanged in position. No definite alveolar infiltrate pleural effusion or pneumothorax. Cardiac sulcal is stable. PLEURA: As above. CARDIOVASCULAR: As above. OSSEOUS STRUCTURES: No significant abnormalities. VISUALIZED UPPER ABDOMEN: Normal. OTHER FINDINGS: None. IMPRESSION: Stable chest radiograph with multiple nodular foci seen at the right chest and 1 possibly lateral to the left hilum as well. No infiltrate or pleural effusion identified bilaterally.
[2017-06-13 07:17] LABS: BASO # 0.01 K/mm3 (0.0-2.0); BASO % 0.1 % (0.0-3.0); EOS # 0.3 (0.0-0.7); EOS % 2.4 % (1.5-5.0); GRAN # 9.73 (1.4-6.5); GRAN % 82.5 % (50.0-68.0); LYMPH # 0.9 (1.2-3.4); MEAN CELL VOLUME 92.5 fl (80.0-105.0); MEAN CORPUSCULAR HGB CONC 30.3 g/dl (31.0-37.0); MEAN PLATELET VOLUME 10.6 fl (7.0-11.0); MONO # 0.8 (0.1-0.6); RED CELL DISTRIBUTION WIDTH 20.5 % (11.5-14.5); WHITE BLOOD COUNT 11.8 10^3/ul (4.5-11.0)
[2017-06-13 07:38] LABS: ALB/GLOB RATIO 1.2 (1.1-1.8); ALKALINE PHOSPHATASE 200 U/L (38-126); ALT/SGPT 26 U/L (7-56); AST/SGOT 35 U/L (14-36); BILIRUBIN,TOTAL 2.1 mg/dL (0.2-1.3); BLOOD UREA NITROGEN 14 mg/dL (7-21); CALCIUM 8.8 mg/dL (8.4-10.5); CARBON DIOXIDE 26 mmol/L (21-33); CHLORIDE 104 mmol/L (98-107); GFR AFRICAN-AMERICAN > 60; GLUCOSE,RANDOM 80 mg/dL (70-110); MAGNESIUM 1.6 mg/dL (1.7-2.2); PHOSPHOROUS 3.1 mg/dL (2.5-4.5); POTASSIUM 4.2 mmol/L (3.6-5.0); SODIUM 141 mmol/L (132-148); TOTAL PROTEIN 6.8 g/dL (5.8-8.3)
[2017-06-13] MEDS ORDERED: Magnesium Sulfate 2 GM in Sodium Chloride 0.9% 100 ML IV ONE (09:50)
[2017-06-13] MEDS ORDERED: cefTRIAXone 1 gm 1 GM/100 ML BAG IVPB SCH (10:00)
[2017-06-13] MEDS: Pantoprazole 40 mg EC Tab PO SCH (10:57)
--- NOTE | 2017-06-13 11:10 | CARD ---
APPROVED REPORT EKG Measurement Heart [id number] <Conclusion> Normal sinus rhythm Normal ECG
[2017-06-13] MEDS: Piperacillin/Tazobact 3.375 gm 100 ML IVPB SCH ×2 (13:47→17:42)
[2017-06-13] MEDS ORDERED: Albuterol-Ipratrop 3 mg / 0.5 (3 ml) UD IH PRN (13:55)
[2017-06-13] MEDS: Brimonidine 0.15% 50 DROP/5 ML BOTTLE OS SCH ×2 (14:24→17:41)
[2017-06-13] MEDS: COSOPT OS SCH (14:51)
--- NOTE | 2017-06-13 15:00 | CP.PCM.CON ---
<Sahara Deras - Last Filed: 06/13/17 18:27> History of Present Illness - History of Present Illness History of Present Illness: Seen and examined at the bedside earlier today, chart was reviewed. Request for consult is for abdominal pain/melena HPI: This is a 62-year-old female with a past medical history of stage IV colon cancer status post tumor resection and chemotherapy, hypertension, ITP and is on Nplate therapy,came to the emergency room with complaints of right lower quadrant abdominal pain that has been ongoing for about 2 weeks. Patient states that symptoms worsen when laying down. She reports that the pain resolved after 2 days when she received continuous chemotherapy infusion. She follows with Dr. Fernandez. She also complains of epigastric burning, nausea but no vomiting, and reports dark stools for 1 week. No reports of any bright red blood per rectum. Denies shortness of breath, chest pains, dizziness, headaches or fever, chills. Patient had CT scan of abdomen and pelvis on admission and reports postsurgical changes in the right lobe of the liver which has been partially resected, moderate abdominal and large pelvic ascites, upper abdominal varices but no definite acute pathology identified in the abdomen or pelvis. Past medical history: Stage IV metastatic colon cancer, history of lung metastasis, hypertension, depression, ITP Surgical history: Hepatic tumor resection, colon tumor resection Allergies: No known drug allergies Social history: Denies smoking, EtOH, or substance abuse Family history: Noncontributory Medications: Reviewed as per MAR ROS: Systems reviewed. Positive findings see HPI Past Patient History - Infectious Disease Hx of Infectious Diseases: None - Tetanus Immunizations Tetanus Immunization: Unknown - Past Social History Smoking Status: Former Smoker - CARDIAC Hx Hypertension: Yes - PULMONARY Hx Respiratory Disorders: No - NEUROLOGICAL Hx Neurological Disorder: No - HEENT Hx Cataracts: Yes Hx Glaucoma: Yes - RENAL Hx Chronic Kidney Disease: No - ENDOCRINE/METABOLIC Hx Endocrine Disorders: No - HEMATOLOGICAL/ONCOLOGICAL Hx Cancer: Yes (colon CA with metastasis to liver and lung) Hx Chemotherapy: Yes (06/07) Hx Metastesis: Yes - INTEGUMENTARY Hx Dermatological Problems: No - MUSCULOSKELETAL/RHEUMATOLOGICAL Hx Falls: Yes Hx Herniated Disk: Yes - GASTROINTESTINAL Other/Comment: Colon Cancer, Stage 4 - GENITOURINARY/GYNECOLOGICAL Hx Genitourinary Disorders: No - PSYCHIATRIC Hx Psychophysiologic Disorder: Yes Hx Anxiety: Yes Hx Depression: Yes - SURGICAL HISTORY Other/Comment: left subclavian port. tumor resection - ANESTHESIA Hx Anesthesia: Yes Hx Anesthesia Reactions: No Hx Malignant Hyperthermia: No Meds Allergies/Adverse Reactions: Allergies Allergy/AdvReac Type Severity Reaction Status Date / Time No Known Allergies Allergy Verified 06/12/17 18:46 - Medications Medications: Current Medications Acetaminophen (Tylenol 325mg Tab) 975 mg PO Q8H PRN PRN Reason: pain Albuterol/Ipratropium (Duoneb 3 Mg/0.5 Mg (3 Ml) Ud) 3 ml IH [id number] PRN PRN Reason: Shortness of Breath Brimonidine Tartrate (Alphagan P 0.15% Opht) 1 drop OS BID [facility] Last Admin: 06/13/17 14:24 Dose: 1 drop Docusate Sodium (Colace) 100 mg PO DAILY [facility] Last Admin: 06/13/17 10:57 Dose: 100 mg Hydromorphone HCl (Dilaudid) 1 mg IVP Q6H PRN PRN Reason: Pain, severe (8-10) Piperacillin Sod/Tazobactam Sod (Zosyn 3.375 In Ns 100ml) 100 mls @ 200 mls/hr IVPB Q6 RUKHSANA PRN Reason: Protocol Stop: 06/22/17 13:42 Last Admin: 06/13/17 13:47 Dose: Not Given Lisinopril (Zestril) 10 mg PO DAILY [facility] Last Admin: 06/13/17 10:56 Dose: 10 mg Montelukast Sodium (Singulair) 10 mg PO HS [facility] Morphine Sulfate (Morphine) 2 mg IVP Q4H PRN PRN Reason: Pain, moderate (4-7) Non-Formulary Medication (Cosopt 2%-0.5% Opht) 1 drop OS DAILY [facility] Ondansetron HCl (Zofran Inj) 4 mg IVP Q4H PRN PRN Reason: nausea Pantoprazole Sodium (Protonix Ec Tab) 40 mg PO 0600 [facility] Last Admin: 06/13/17 10:57 Dose: 40 mg Sennosides (Senokot Tab) 8.6 mg PO DAILY [facility] Last Admin: 06/13/17 10:56 Dose: 8.6 mg Spironolactone (Aldactone) 25 mg PO TID [facility] Last Admin: 06/13/17 14:18 Dose: 25 mg Physical Exam - Constitutional Appears: No Acute Distress - Head Exam Head Exam: NORMOCEPHALIC - Eye Exam Eye Exam: Normal appearance. absent: Scleral icterus - ENT Exam ENT Exam: Mucous Membranes Moist - Neck Exam Neck exam: Positive for: Normal Inspection - Respiratory Exam Respiratory Exam: Clear to Auscultation Bilateral, NORMAL BREATHING PATTERN. absent: Respiratory Distress - Cardiovascular Exam Cardiovascular Exam: +S1, +S2 - GI/Abdominal Exam GI & Abdominal Exam: Normal Bowel Sounds, Soft, Tenderness (epigastric/right upper quadrant). absent: Guarding, Rebound - Extremities Exam Extremities exam: Positive for: pedal pulses present. Negative for: calf tenderness, pedal edema - Neurological Exam Neurological exam: Alert, Oriented x3 - Skin Skin Exam: Dry, Warm Results - Vital Signs Recent Vital Signs: Last Vital Signs Temp 98.4 F 06/13/17 07:30 Pulse 80 06/13/17 07:30 Resp 20 06/13/17 07:30 BP 115/79 06/13/17 07:30 Pulse Ox 97 06/13/17 07:30 - Labs Result Diagrams: 06/13/17 06:45 06/13/17 06:45 Labs: Laboratory Results - last 24 hr 06/13/17 06/13/17 06/13/17 00:42 06:45 06:45 WBC 11.8 H RBC 3.46 L Hgb 9.7 L Hct 32.0 L MCV 92.5 MCH 28.0 MCHC 30.3 L RDW 20.5 H Plt Count 73 L MPV 10.6 Gran % 82.5 H Lymph % (Auto) 8.0 L [place] % (Auto) 7.0 H Eos % (Auto) 2.4 Baso % (Auto) 0.1 Gran # 9.73 H Lymph # 0.9 L [place]att # 0.8 H Eos # 0.3 Baso # 0.01 Sodium 141 Potassium 4.2 Chloride 104 Carbon Dioxide 26 Anion Gap 15 BUN 14 Creatinine 1.0 Est GFR ( Amer) > 60 Est GFR (Non-Af Amer) 56 Random Glucose 80 Calcium 8.8 Phosphorus 3.1 Magnesium 1.6 L Total Bilirubin 2.1 H AST 35 ALT 26 Alkaline Phosphatase 200 H Total Protein 6.8 Albumin 3.7 Globulin 3.1 Albumin/Globulin Ratio 1.2 Urine Color Yellow Urine Appearance Clear Urine pH 6.5 Ur Specific [place] 1.015 Urine Protein Negative Urine Glucose (UA) Negative Urine Ketones Negative Urine Blood Negative Urine Nitrate Negative Urine Bilirubin Negative Urine Urobilinogen 0.2 Ur Leukocyte Esterase Negative Assessment & Plan - Assessment and Plan (Free Text) Assessment: Assessment: Intractable abdominal pain mainly epigastric/right lower quadrant Melena, was guaiac negative ER, positive control Leukocytosis History of stage IV colon cancer with metastasis ITP on antiplatelet therapy History of hypertension History of depression Plan: Start clear liquid diet Protonix 40 daily Monitor H&H On IV antibiotics On IV fluids Monitor for overt GI bleed Oncology following ID magalys Thank you for this consult and for allowing us to participate in your patient's care, will make further recommendations based upon clinical course. Seen and discussed with Dr. Stokes <Kofi Stokes V - Last Filed: 06/13/17 23:02> Meds - Medications Medications: Current Medications Acetaminophen (Tylenol 325mg Tab) 975 mg PO Q8H PRN PRN Reason: pain Albuterol/Ipratropium (Duoneb 3 Mg/0.5 Mg (3 Ml) Ud) 3 ml IH [id number] PRN PRN Reason: Shortness of Breath Brimonidine Tartrate (Alphagan P 0.15% Opht) 1 drop OS BID [facility] Last Admin: 06/13/17 17:41 Dose: 1 drop Docusate Sodium (Colace) 100 mg PO DAILY [facility] Last Admin: 06/13/17 10:57 Dose: 100 mg Hydromorphone HCl (Dilaudid) 1 mg IVP Q6H PRN PRN Reason: Pain, severe (8-10) Piperacillin Sod/Tazobactam Sod (Zosyn 3.375 In Ns 100ml) 100 mls @ 200 mls/hr IVPB Q6 RUKHSANA PRN Reason: Protocol Stop: 06/22/17 13:42 Last Admin: 06/13/17 17:42 Dose: 200 mls/hr Lisinopril (Zestril) 10 mg PO DAILY [facility] Last Admin: 06/13/17 10:56 Dose: 10 mg Montelukast Sodium (Singulair) 10 mg PO HS [facility] Last Admin: 06/13/17 21:45 Dose: Not Given Morphine Sulfate (Morphine) 2 mg IVP Q4H PRN PRN Reason: Pain, moderate (4-7) Last Admin: 06/13/17 17:49 Dose: 2 mg Non-Formulary Medication (Cosopt 2%-0.5% Opht) 1 drop OS DAILY [facility] Last Admin: 06/13/17 14:51 Dose: Not Given Ondansetron HCl (Zofran Inj) 4 mg IVP Q4H PRN PRN Reason: nausea Last Admin: 06/13/17 17:52 Dose: 4 mg Pantoprazole Sodium (Protonix Ec Tab) 40 mg PO 0600 [facility] Last Admin: 06/13/17 10:57 Dose: 40 mg Sennosides (Senokot Tab) 8.6 mg PO DAILY [facility] Last Admin: 06/13/17 10:56 Dose: 8.6 mg Spironolactone (Aldactone) 25 mg PO TID [facility] Last Admin: 06/13/17 17:45 Dose: 25 mg Results - Vital Signs Recent Vital Signs: Last Vital Signs Temp 98 F 06/13/17 16:00 Pulse 74 06/13/17 16:00 Resp 18 06/13/17 16:00 BP 100/70 06/13/17 16:00 Pulse Ox 100 06/13/17 16:00 - Labs Result Diagrams: 06/13/17 06:45 06/13/17 06:45 Labs: Laboratory Results - last 24 hr 06/13/17 06/13/17 06/13/17 00:42 06:45 06:45 WBC 11.8 H RBC 3.46 L Hgb 9.7 L Hct 32.0 L MCV 92.5 MCH 28.0 MCHC 30.3 L RDW 20.5 H Plt Count 73 L MPV 10.6 Gran % 82.5 H Lymph % (Auto) 8.0 L [place] % (Auto) 7.0 H Eos % (Auto) 2.4 Baso % (Auto) 0.1 Gran # 9.73 H Lymph # 0.9 L [place] # 0.8 H Eos # 0.3 Baso # 0.01 Sodium 141 Potassium 4.2 Chloride 104 Carbon Dioxide 26 Anion Gap 15 BUN 14 Creatinine 1.0 Est GFR ( Amer) > 60 Est GFR (Non-Af Amer) 56 Random Glucose 80 Calcium 8.8 Phosphorus 3.1 Magnesium 1.6 L Total Bilirubin 2.1 H AST 35 ALT 26 Alkaline Phosphatase 200 H Total Protein 6.8 Albumin 3.7 Globulin 3.1 Albumin/Globulin Ratio 1.2 Urine Color Yellow Urine Appearance Clear Urine pH 6.5 Ur Specific [place] 1.015 Urine Protein Negative Urine Glucose (UA) Negative Urine Ketones Negative Urine Blood Negative Urine Nitrate Negative Urine Bilirubin Negative Urine Urobilinogen 0.2 Ur Leukocyte Esterase Negative Attending/Attestation - Attestation I have personally seen and examined this patient.: Yes I have fully participated in the care of the patient.: Yes I have reviewed all pertinent clinical information: Yes Notes (Text): This is an addendum to GI progress report dictated by Sahara Deras APN.The patient was seen and examined earlier. Medical records, lab studies, imagings were reviewed. Last 24 hours events reviewed. Agreed with the above treatment plan as outlined in Sahara Deras NP's notes the with the addition of the following CT scan reviewed Abdomen soft hepatomegaly present Follow up of the hemoglobin hematocrit And once the diet to clear liquid Discussed with the hospitalist Dr. Zendejas We discussed with the oncologist 06/13/17 23:01
[2017-06-13] MEDS: Morphine 2 mg/ml ISec IVP PRN (17:49)
--- NOTE | 2017-06-13 21:06 | CON ---
DATE: 06/13/2017 LOCATION: The patient is in room #566, bed #3. CHIEF COMPLAINT: Abdominal pain x1 day, on and off, worsening last few days. HISTORY OF PRESENT ILLNESS: A 62-year-old female with stage IV colon cancer with mets to the lung, hypertension, history of hyperlipidemia, history of glaucoma, anxiety, recent hospitalization with left chest port, admitted with abdominal pain, on and off, which has gone progressively worse last few days. The patient has low-grade fevers. No chills. No chest pain. No headaches or blurred vision. The abdominal pain is dull in nature and midepigastric area and no radiation, no dysuria or frequency. PAST MEDICAL HISTORY: Significant for colon cancer with mets to the lung, hypertension, hyperlipidemia, glaucoma and anxiety. PAST SURGICAL HISTORY: Significant left chest port placement. ALLERGIES: THE PATIENT HAS NO KNOWN ALLERGIES. MEDICATIONS AT HOME: Include Ambien, Zestril, Singulair, oxycodone. PHYSICAL EXAMINATION VITAL SIGNS: The patient is in bed with a temperature of 98, heart rate of 92, respiratory rate of 20 and blood pressure is 140/80. HEENT: Unremarkable. NECK: Supple. LUNGS: Decreased breath sounds. HEART EXAM: Normal S1 and S2. ABDOMEN EXAMINATION: Soft. There is mild tenderness. No rebound or guarding. LABORATORY EXAMINATION: Reveals the patient's white count of 13,800; hemoglobin of 11; platelets of 84. Chemistries reveal a BUN of 15, creatinine of 1.0, alk phos is 205. Urinalysis is noted. Microbiology is pending. The patient had a CAT scan that shows ascites and post-surgical changes to right lower lobe of the liver which has been partially resected. ASSESSMENT AND PLAN: A 62-year-old female with stage IV colon cancer with metastasis to lung, hypertension, hyperlipidemia, glaucoma, anxiety with systemic inflammatory response syndrome, rule out spontaneous bacterial peritonitis. We will start the patient empirically on Zosyn pending paracentesis and jaffe cultures and we will follow closely with you. Carlo Cheung MD
--- NOTE | 2017-06-13 22:48 | CON ---
DATE: 06/13/2017 REASON FOR CONSULT: Known metastatic colon cancer. HISTORY OF PRESENT ILLNESS: The patient is a 62-year-old female with known stage IV colon cancer, hypertension, recently with progressive disease with new mets to the liver as well as an additional mets to the lung. The patient has been having multiple reactions to multiple chemotherapeutic agents including 5-FU, oxaliplatin as well as irinotecan. She also has been very anxious that she has had progressive disease, now admitted with worsening abdominal pain. She is noted to have some ascites, likely secondary to the new liver mets and has been unable to eat secondary to the abdominal pain. Denies any constipation. No diarrhea. No other complaints. MEDICATIONS: As per the MAR. PAST MEDICAL HISTORY: Hypertension; stage IV colon cancer, status post resection and chemo, multiple distant mets including lungs and liver. SOCIAL HISTORY: Negative for any tobacco use, any alcohol use or drug abuse. FAMILY HISTORY: Noncontributory. ALLERGIES: She has no known drug allergies. REVIEW OF SYSTEMS: As per the HPI. PHYSICAL EXAMINATION VITAL SIGNS: Reveal a temperature of 98.4, pulse of 80, respiratory rate of 20 and a blood pressure of 115/79. GENERAL: The patient is an elderly pleasant female, lying in bed, in no acute distress. HEAD AND NECK: Normocephalic, atraumatic. Eyes: Pupils equal, round, and reactive to light and accommodation. Extraocular muscles are intact. There is no pallor. No icterus is noted. NECK: Supple with no adenopathy. No JVD. No thyromegaly. LUNGS: Decreased breath sounds bilaterally at bases. CARDIOVASCULAR: S1 and S2 are heard. ABDOMINAL EXAM: Positive bowel sounds, soft. She does have some mild distention and mild, diffuse tenderness, but there is no rebound or guarding. EXTREMITIES: There is no edema, clubbing or cyanosis. LABORATORY DATA: Reveal a white count of 11.8, hemoglobin of 9.7, hematocrit of 32.0 and a platelet count of 73,000. Chemistries are within normal limits. ASSESSMENT AND PLAN: An elderly female with widely metastatic colon cancer, now ALLERGIC TO MULTIPLE CHEMOTHERAPEUTIC AGENTS as she has been getting it for several years. SHE IS ALLERGIC TO 5-FU, OXALIPLATIN WELL IRINOTECAN AT THIS POINT. She is currently awaiting authorization on Keytruda on compassionate basis. I have discussed with the patient that she will be started on spironolactone for her ascites as of today and she will be discharged to follow up as an outpatient to begin chemotherapy with Keytruda next week. Thank you for the consult. We will follow. Rosanne Calderón MD
[2017-06-14] MEDS: Piperacillin/Tazobact 3.375 gm 100 ML IVPB SCH ×3 (00:40→13:55)
[2017-06-14 01:47] VITALS: RESP 20; TEMP 98.2
[2017-06-14] MEDS: Pantoprazole 40 mg EC Tab PO SCH (05:17)
[2017-06-14] MEDS: Morphine 2 mg/ml ISec IVP PRN ×2 (05:48→11:48)
[2017-06-14 06:46] VITALS: PULSE 75; O2SAT 96
[2017-06-14 07:00] LABS: BASO # 0.01 K/mm3 (0.0-2.0); BASO % 0.1 % (0.0-3.0); EOS # 0.2 (0.0-0.7); GRAN # 9.51 (1.4-6.5); GRAN % 86.6 % (50.0-68.0); HEMATOCRIT 33.1 % (36.0-48.0); LYMPH # 0.6 (1.2-3.4); LYMPH % 5.2 % (22.0-35.0); MEAN CELL VOLUME 93.8 fl (80.0-105.0); MEAN CORPUSCULAR HEMOGLOBIN 28.3 pg (25.0-35.0); MEAN CORPUSCULAR HGB CONC 30.2 g/dl (31.0-37.0); MEAN PLATELET VOLUME 10.2 fl (7.0-11.0); MONO # 0.7 (0.1-0.6); MONO % 6.1 % (1.0-6.0); RED CELL DISTRIBUTION WIDTH 20.8 % (11.5-14.5)
[2017-06-14 07:23] LABS: ALB/GLOB RATIO 1.2 (1.1-1.8); BILIRUBIN,TOTAL 1.9 mg/dL (0.2-1.3); CALCIUM 8.6 mg/dL (8.4-10.5); POTASSIUM 4.7 mmol/L (3.6-5.0)
[2017-06-14 08:16] VITALS: BP 127/75
[2017-06-14] MEDS: COSOPT OS SCH (10:20)
[2017-06-14] MEDS: Brimonidine 0.15% 50 DROP/5 ML BOTTLE OS SCH (10:21)
--- NOTE | 2017-06-14 13:22 | CP.PCM.PN ---
Subjective - Date & Time of Evaluation Date of Evaluation: 06/14/17 Time of Evaluation: 10:40 - Subjective Subjective: Seen and examined at the bedside earlier today, chart was reviewed. The patient did have some mild loose bowel movement this morning but denies bleeding. She is hungry. Denies nausea, vomiting, still has some abdominal pain but no increase in intensity. No acute overnight events reported. Objective - Vital Signs/Intake and Output Vital Signs (last 24 hours): Temp Pulse Resp BP Pulse Ox 98.2 F 75 20 127/75 96 06/14/17 08:15 06/14/17 08:15 06/14/17 08:15 06/14/17 08:15 06/14/17 08:15 Intake and Output: 06/14/17 06/14/17 06:59 18:59 Intake Total 720 Balance 720 - Medications Medications: Current Medications Acetaminophen (Tylenol 325mg Tab) 975 mg PO Q8H PRN PRN Reason: pain Albuterol/Ipratropium (Duoneb 3 Mg/0.5 Mg (3 Ml) Ud) 3 ml IH [id number] PRN PRN Reason: Shortness of Breath Brimonidine Tartrate (Alphagan P 0.15% Opht) 1 drop OS BID [facility] Last Admin: 06/14/17 10:21 Dose: Not Given Docusate Sodium (Colace) 100 mg PO DAILY [facility] Last Admin: 06/14/17 10:19 Dose: 100 mg Hydromorphone HCl (Dilaudid) 1 mg IVP Q6H PRN PRN Reason: Pain, severe (8-10) Piperacillin Sod/Tazobactam Sod (Zosyn 3.375 In Ns 100ml) 100 mls @ 200 mls/hr IVPB Q6 RUKHSANA PRN Reason: Protocol Stop: 06/22/17 13:42 Last Admin: 06/14/17 05:10 Dose: 200 mls/hr Lisinopril (Zestril) 10 mg PO DAILY [facility] Last Admin: 06/14/17 10:21 Dose: Not Given Montelukast Sodium (Singulair) 10 mg PO HS [facility] Last Admin: 06/13/17 21:45 Dose: Not Given Morphine Sulfate (Morphine) 2 mg IVP Q4H PRN PRN Reason: Pain, moderate (4-7) Last Admin: 06/14/17 11:48 Dose: 2 mg Non-Formulary Medication (Cosopt 2%-0.5% Opht) 1 drop OS DAILY [facility] Last Admin: 06/14/17 10:20 Dose: Not Given Ondansetron HCl (Zofran Inj) 4 mg IVP Q4H PRN PRN Reason: nausea Last Admin: 06/14/17 11:47 Dose: 4 mg Pantoprazole Sodium (Protonix Ec Tab) 40 mg PO 0600 [facility] Last Admin: 06/14/17 05:17 Dose: 40 mg Sennosides (Senokot Tab) 8.6 mg PO DAILY [facility] Last Admin: 06/14/17 10:16 Dose: Not Given Spironolactone (Aldactone) 25 mg PO TID [facility] Last Admin: 06/14/17 10:21 Dose: Not Given - Labs Labs: 06/14/17 06:30 06/14/17 06:30 PT 13.3 Seconds (9.9-11.8) H 06/12/17 18:43 INR 1.23 (0.93-1.08) H 06/12/17 18:43 APTT 28.2 Seconds (23.7-30.8) 06/12/17 18:43 - Constitutional Appears: No Acute Distress - Head Exam Head Exam: NORMOCEPHALIC - Eye Exam Eye Exam: Normal appearance. absent: Scleral icterus - ENT Exam ENT Exam: Mucous Membranes Moist - Neck Exam Neck Exam: Normal Inspection - Respiratory Exam Respiratory Exam: NORMAL BREATHING PATTERN. absent: Respiratory Distress - Cardiovascular Exam Cardiovascular Exam: +S1, +S2 - GI/Abdominal Exam GI & Abdominal Exam: Soft, Tenderness, Normal Bowel Sounds. absent: Guarding, Rebound - Extremities Exam Extremities Exam: Normal Capillary Refill. absent: Pedal Edema - Neurological Exam Neurological Exam: Alert, Awake, Oriented x3 Assessment and Plan - Assessment and Plan (Free Text) Assessment: Assessment: Intractable abdominal pain mainly epigastric/right lower quadrant Melena, was guaiac negative ER, positive control Leukocytosis History of stage IV colon cancer with metastasis ITP on antiplatelet therapy History of hypertension History of depression Plan: increase diet to a heart healthy soft diet continue Protonix 40 daily Monitor H&H On IV antibiotics On IV fluids Monitor for overt GI bleed Oncology following ID eval Seen and discussed with Dr. Stokes
--- NOTE | 2017-06-14 13:22 | PN ---
DATE: 06/14/2017 SUBJECTIVE: The patient is in bed in no acute distress, nontoxic. PHYSICAL EXAMINATION VITAL SIGNS: Temperature is 98, blood pressure is 120/70, respiratory rate of 20, heart rate of 74. HEENT: Unremarkable. NECK: Supple. LUNGS: Decreased breath sounds. HEART: Normal S1 and S2. ABDOMEN: Soft. LABORATORY DATA: Reveals a white count is down to 11,000, hemoglobin of 10, and platelets of 77. Chemistries are noted. Urinalysis is noted to be negative. Microbiology reveals blood cultures of no growth. Chest x-ray reveals nodular densities are noted. No infiltrates are noted. Dr. Calderón's consultation is reviewed, and Sahara Deras' note is reviewed. The patient is on Zosyn. ASSESSMENT AND PLAN: This is a 62-year-old female with stage V colon cancer with metastasis to the lung, hypertension, history of hyperlipidemia, history of glaucoma, anxiety, recent hospitalization, left chest port, admitted with abdominal pain on and off now with systemic inflammatory response syndrome on Zosyn. I am waiting for possible paracentesis, GI. CAT scan of the abdomen and pelvis is reviewed. Bilateral lung metastatic disease, question of disease in the liver as mentioned by Dr. Calderón. Large pelvic ascites. We will follow with you. Carlo Cheung MD
--- NOTE | 2017-06-14 22:57 | CP.PCM.DIS ---
<TORSTEN MOTA - Last Filed: 06/14/17 22:50> Provider - Provider Date of Admission: 06/12/17 22:28 Attending physician: Cheri Braden MD Primary care physician: Pricilla Levine MD Time Spent in preparation of Discharge (in minutes): 45 Hospital Course - Lab Results Lab Results: Micro Results 06/13/17 00:42 Urine Urine Culture - Final No Growth (<1,000 CFU/ML) Most Recent Lab Values WBC 11.0 10^3/ul (4.5-11.0) 06/14/17 06:30 RBC 3.53 10^6/uL (3.5-6.1) 06/14/17 06:30 Hgb 10.0 g/dL (12.0-16.0) L 06/14/17 06:30 Hct 33.1 % (36.0-48.0) L 06/14/17 06:30 MCV 93.8 fl (80.0-105.0) 06/14/17 06:30 MCH 28.3 pg (25.0-35.0) 06/14/17 06:30 MCHC 30.2 g/dl (31.0-37.0) L 06/14/17 06:30 RDW 20.8 % (11.5-14.5) H 06/14/17 06:30 Plt Count 77 10^3/uL (120.0-450.0) L 06/14/17 06:30 MPV 10.2 fl (7.0-11.0) 06/14/17 06:30 Gran % 86.6 % (50.0-68.0) H 06/14/17 06:30 Lymph % (Auto) 5.2 % (22.0-35.0) L 06/14/17 06:30 Grainger % (Auto) 6.1 % (1.0-6.0) H 06/14/17 06:30 Eos % (Auto) 2.0 % (1.5-5.0) 06/14/17 06:30 Baso % (Auto) 0.1 % (0.0-3.0) 06/14/17 06:30 Gran # 9.51 (1.4-6.5) H 06/14/17 06:30 Lymph # 0.6 (1.2-3.4) L 06/14/17 06:30 Grainger # 0.7 (0.1-0.6) H 06/14/17 06:30 Eos # 0.2 (0.0-0.7) 06/14/17 06:30 Baso # 0.01 K/mm3 (0.0-2.0) 06/14/17 06:30 PT 13.3 Seconds (9.9-11.8) H 06/12/17 18:43 INR 1.23 (0.93-1.08) H 06/12/17 18:43 APTT 28.2 Seconds (23.7-30.8) 06/12/17 18:43 Sodium 143 mmol/L (132-148) 06/14/17 06:30 Potassium 4.7 mmol/L (3.6-5.0) 06/14/17 06:30 Chloride 105 mmol/L (98-107) 06/14/17 06:30 Carbon Dioxide 29 mmol/L (21-33) 06/14/17 06:30 Anion Gap 14 (10-20) 06/14/17 06:30 BUN 11 mg/dL (7-21) 06/14/17 06:30 Creatinine 1.2 mg/dL (0.5-1.4) 06/14/17 06:30 Est GFR ( Amer) 55 06/14/17 06:30 Est GFR (Non-Af Amer) 46 06/14/17 06:30 Random Glucose 103 mg/dL (70-110) 06/14/17 06:30 Calcium 8.6 mg/dL (8.4-10.5) 06/14/17 06:30 Phosphorus 3.1 mg/dL (2.5-4.5) 06/13/17 06:45 Magnesium 1.6 mg/dL (1.7-2.2) L 06/13/17 06:45 Total Bilirubin 1.9 mg/dL (0.2-1.3) H 06/14/17 06:30 AST 35 U/L (14-36) 06/14/17 06:30 ALT 29 U/L (7-56) 06/14/17 06:30 Alkaline Phosphatase 192 U/L (38-126) H 06/14/17 06:30 Total Protein 7.0 g/dL (5.8-8.3) 06/14/17 06:30 Albumin 3.8 g/dL (3.0-4.8) 06/14/17 06:30 Globulin 3.2 gm/dL 06/14/17 06:30 Albumin/Globulin Ratio 1.2 (1.1-1.8) 06/14/17 06:30 Lipase 199 U/L (23-300) 06/12/17 18:43 Urine Color Yellow (YELLOW) 06/13/17 00:42 Urine Appearance Clear (CLEAR) 06/13/17 00:42 Urine pH 6.5 (4.7-8.0) 06/13/17 00:42 Ur Specific Forbes 1.015 (1.005-1.035) 06/13/17 00:42 Urine Protein Negative mg/dL (<30 mg/dL) 06/13/17 00:42 Urine Glucose (UA) Negative mg/dL (NEGATIVE) 06/13/17 00:42 Urine Ketones Negative mg/dL (NEGATIVE) 06/13/17 00:42 Urine Blood Negative (NEGATIVE) 06/13/17 00:42 Urine Nitrate Negative (NEGATIVE) 06/13/17 00:42 Urine Bilirubin Negative (NEGATIVE) 06/13/17 00:42 Urine Urobilinogen 0.2 E.U./dL (<1 E.U./dL) 06/13/17 00:42 Ur Leukocyte Esterase Negative Jose/uL (NEGATIVE) 06/13/17 00:42 - Hospital Course Hospital Course: Ms Mcgregor is a 62 yo F with PMH of stage IV colon cancer and HTN, presented to the ER complaining of RLQ abdominal pain. Pain started 2 weeks ago, was 10/10 in severity, nonradiating, worsens when she lies down. Pain resolved after a 2- day 5-fu continuous chemo infusion, but then came back a day later. She tried tylenol 1000mg for the pain, which improved it to a 4/10 in severity. Prior to ER presentation, pain was again 10/10 in severity. She also admits to epigastric burning pain, nausea without vomiting, and melena. She denies F/C, diarrhea, constipation, hematochezia, hematemesis, hemoptysis, CP, SOB, dizziness, MENDES. - CT abd/pelv ordered, shows similar findings as prior CT abd/ pelv, including moderate abdominal and large pelvic ascites, with no intraperitoneal free air. Pt was admitted for intractable pain and was transferred to med-surg floors. GI , Onc, and ID were consulted. FOBT negative in ED. leukocytosis but pt afebrile , likely 2/2 steroids. ID on board and pt on Zosyn for r/o SBP. Decided against paracentesis given the pt's recurring complaints and pain likely a/w malignancy. Dr. Calderón recommended Aldactone and that pt f/u as outpatient. GI advanced pt's tolerated as tolerated. Pt tolerating diet well, and has no complaints. Pt anxious about living home alone and having to deal with her illness. Pt was counselled and comforted and directed to f/u Dr. Calderón. Pt prescribed levaquin prophylactically and instructed to take it and was educated about taking her meds. on morning of d/c, pt denies cp, sob, abd pain, trouble moving bowels/urine, fevers/chills, n/v/d, weakness. - Date & Time of H&P Date of H&P: 06/13/17 Time of H&P: 03:15 Discharge Exam - Head Exam Head Exam: NORMAL INSPECTION, NORMOCEPHALIC - Eye Exam Eye Exam: EOMI, Normal appearance, PERRL Pupil Exam: NORMAL ACCOMODATION - ENT Exam ENT Exam: Mucous Membranes Moist - Neck Exam Neck exam: Normal Inspection - Respiratory Exam Respiratory Exam: Clear to PA & Lateral, NORMAL BREATHING PATTERN, UNREMARKABLE. absent: Accessory Muscle Use, Rales, Rhonchi, Wheezes, Respiratory Distress - Cardiovascular Exam Cardiovascular Exam: RRR, +S1, +S2. absent: Gallop, Rubs - GI/Abdominal Exam GI & Abdominal Exam: Firm, Normal Bowel Sounds, Organomegaly (hepatosplenomegaly ), Tenderness (mild). absent: Guarding - Extremities Exam Extremities exam: normal inspection - Back Exam Back exam: FULL ROM, NORMAL INSPECTION - Neurological Exam Neurological exam: Alert, CN II-XII Intact, Oriented x3 - Psychiatric Exam Psychiatric exam: Anxious, Normal Affect - Skin Skin Exam: Normal Color, Warm Discharge Plan - Discharge Medications Prescriptions: Acetaminophen [Tylenol 325mg tab] 975 mg PO Q8H PRN #30 tab PRN Reason: pain Levofloxacin [Levaquin] 500 mg PO DAILY #7 tablet Spironolactone [Aldactone] 25 mg PO TID #30 tab - Follow Up Plan Condition: STABLE Disposition: HOME/ ROUTINE Instructions: Pneumococcal Vaccine for Adults (GEN), Heart Healthy Diet (GEN), Implanted Venous Access Port (DC), Acute Abdominal Pain (GEN), Fall Prevention ( DC) Additional Instructions: - please take Levaquin once daily for 7 days - please f/u Dr. Calderón for continuing medical therapy and pain management - take aldactone as prescribed and Tylenol as prescribed when needed - if you experience any new or severe pain, please go to ER for workup Thank you Torsten Mota PGY1 Dr. Braden, Attending Physician Referrals: Pricilla Levine MD [Primary Care Provider] - Rosanne Calderón MD [Staff Provider] - <Cheri Braden - Last Filed: 06/15/17 14:14> Provider - Provider Date of Admission: 06/12/17 22:28 Attending physician: Cheri Braden MD Primary care physician: Pricilla Levine MD Hospital Course - Lab Results Lab Results: Micro Results 06/13/17 00:42 Urine Urine Culture - Final No Growth (<1,000 CFU/ML) Most Recent Lab Values WBC 11.0 10^3/ul (4.5-11.0) 06/14/17 06:30 RBC 3.53 10^6/uL (3.5-6.1) 06/14/17 06:30 Hgb 10.0 g/dL (12.0-16.0) L 06/14/17 06:30 Hct 33.1 % (36.0-48.0) L 06/14/17 06:30 MCV 93.8 fl (80.0-105.0) 06/14/17 06:30 MCH 28.3 pg (25.0-35.0) 06/14/17 06:30 MCHC 30.2 g/dl (31.0-37.0) L 06/14/17 06:30 RDW 20.8 % (11.5-14.5) H 06/14/17 06:30 Plt Count 77 10^3/uL (120.0-450.0) L 06/14/17 06:30 MPV 10.2 fl (7.0-11.0) 06/14/17 06:30 Gran % 86.6 % (50.0-68.0) H 06/14/17 06:30 Lymph % (Auto) 5.2 % (22.0-35.0) L 06/14/17 06:30 Grainger % (Auto) 6.1 % (1.0-6.0) H 06/14/17 06:30 Eos % (Auto) 2.0 % (1.5-5.0) 06/14/17 06:30 Baso % (Auto) 0.1 % (0.0-3.0) 06/14/17 06:30 Gran # 9.51 (1.4-6.5) H 06/14/17 06:30 Lymph # 0.6 (1.2-3.4) L 06/14/17 06:30 Grainger # 0.7 (0.1-0.6) H 06/14/17 06:30 Eos # 0.2 (0.0-0.7) 06/14/17 06:30 Baso # 0.01 K/mm3 (0.0-2.0) 06/14/17 06:30 PT 13.3 Seconds (9.9-11.8) H 06/12/17 18:43 INR 1.23 (0.93-1.08) H 06/12/17 18:43 APTT 28.2 Seconds (23.7-30.8) 06/12/17 18:43 Sodium 143 mmol/L (132-148) 06/14/17 06:30 Potassium 4.7 mmol/L (3.6-5.0) 06/14/17 06:30 Chloride 105 mmol/L (98-107) 06/14/17 06:30 Carbon Dioxide 29 mmol/L (21-33) 06/14/17 06:30 Anion Gap 14 (10-20) 06/14/17 06:30 BUN 11 mg/dL (7-21) 06/14/17 06:30 Creatinine 1.2 mg/dL (0.5-1.4) 06/14/17 06:30 Est GFR ( Amer) 55 06/14/17 06:30 Est GFR (Non-Af Amer) 46 06/14/17 06:30 Random Glucose 103 mg/dL (70-110) 06/14/17 06:30 Calcium 8.6 mg/dL (8.4-10.5) 06/14/17 06:30 Phosphorus 3.1 mg/dL (2.5-4.5) 06/13/17 06:45 Magnesium 1.6 mg/dL (1.7-2.2) L 06/13/17 06:45 Total Bilirubin 1.9 mg/dL (0.2-1.3) H 06/14/17 06:30 AST 35 U/L (14-36) 06/14/17 06:30 ALT 29 U/L (7-56) 06/14/17 06:30 Alkaline Phosphatase 192 U/L (38-126) H 06/14/17 06:30 Total Protein 7.0 g/dL (5.8-8.3) 06/14/17 06:30 Albumin 3.8 g/dL (3.0-4.8) 06/14/17 06:30 Globulin 3.2 gm/dL 06/14/17 06:30 Albumin/Globulin Ratio 1.2 (1.1-1.8) 06/14/17 06:30 Lipase 199 U/L (23-300) 06/12/17 18:43 Urine Color Yellow (YELLOW) 06/13/17 00:42 Urine Appearance Clear (CLEAR) 06/13/17 00:42 Urine pH 6.5 (4.7-8.0) 06/13/17 00:42 Ur Specific Forbes 1.015 (1.005-1.035) 06/13/17 00:42 Urine Protein Negative mg/dL (<30 mg/dL) 06/13/17 00:42 Urine Glucose (UA) Negative mg/dL (NEGATIVE) 06/13/17 00:42 Urine Ketones Negative mg/dL (NEGATIVE) 06/13/17 00:42 Urine Blood Negative (NEGATIVE) 06/13/17 00:42 Urine Nitrate Negative (NEGATIVE) 06/13/17 00:42 Urine Bilirubin Negative (NEGATIVE) 06/13/17 00:42 Urine Urobilinogen 0.2 E.U./dL (<1 E.U./dL) 06/13/17 00:42 Ur Leukocyte Esterase Negative Jose/uL (NEGATIVE) 06/13/17 00:42 Attending/Attestation - Attestation I have personally seen and examined this patient.: Yes I have fully participated in the care of the patient.: Yes I have reviewed all pertinent clinical information, including history, physical exam and plan: Yes Notes (Text): I have seen and examined the patient at bedside. Agree with the above note with the following additions/ exceptions: Briefly this is 62 year old female with history of stage IV colon cancer and HTN who was admitted for evaluation of RLQ abdominal pain and self reported melena however FOBT was negative. CT a/p showed moderate to large abdominal pelvic ascites with no free air. Blood and urine cultures negative. GI was consulted. Diet was slowly advanced and she was able to tolerate that. She was given levaquin to complete the course. She was advised to follow up with Dr Levine and Dr Michelle as an outpatient. Dr Cheri Braden
== END 2017-06-14 15:24 | disposition home or self-care (01) ==
LOC: ED 18:32 → ERH 22:28 → 5RNO 06-13 01:42
PROVIDERS: ADMIT Internal Medicine; ATTEND Hospitalist
DX: R10.31 Right lower quadrant pain (principal); R10.13 Epigastric pain; K92.1 Melena; C78.00 Secondary malignant neoplasm of unspecified lung; C78.7 Secondary malignant neoplasm of liver and intrahepatic bile duct; Z85.038 Personal history of other malignant neoplasm of large intestine; R65.10 Systemic inflammatory response syndrome (SIRS) of non-infectious origin without acute organ dysfunction; I10 Essential (primary) hypertension; R18.8 Other ascites; D69.3 Immune thrombocytopenic purpura; E78.5 Hyperlipidemia, unspecified; D72.829 Elevated white blood cell count, unspecified; F41.9 Anxiety disorder, unspecified; F32.9 Major depressive disorder, single episode, unspecified; H40.9 Unspecified glaucoma; Z87.891 Personal history of nicotine dependence
CPT/HCPCS: 36415; 71010; 74176; 80053; 81003; 83690; 83735; 84100; 85025; 85610; 85730; 87040; 87086; 93005; 96374; 96375; 96376; 99284; G0378; J0696; J2270; J2405; J2543; J3475; J7040

== ENCOUNTER 2017-07-26 00:24 | Observation (INO) | payer OTHER ==
[2017-07-26 00:33] VITALS: BMI 28.0
--- NOTE | 2017-07-26 01:17 | ED PDOC ---
Arrival/HPI - General Time Seen by Provider: 07/26/17 00:25 Historian: Patient - History of Present Illness Narrative History of Present Illness (Text): 07/26/17 01:05 Beverley Mcgregor is a 62 year old female, whose past medical history includes Stage IV Colon Cancer with metastasis to liver and lungs and hypertension, complaining of productive cough and chest congestion for 3 days. Discomfort when coughing. Patient notes that she stopped Chemotherapy 2 months ago. Patient also complains of experiencing subjective fevers, chills and occasional sweats. Patient states that she took Tylenol earlier. Patient denies any nausea , vomiting, diarrhea, urinary symptoms, back pain, neck pain, headache, dizziness, or any other complaints. Time/Duration: < week Symptom Onset: Gradual Symptom Course: Unchanged Severity Level: Mild Activities at Onset: Rest Context: Home Past Medical History - Provider Review Nursing Documentation Reviewed: Yes - Infectious Disease Hx of Infectious Diseases: None - Tetanus Immunization Tetanus Immunization: Unknown - Reproductive Menopause: Yes - Cardiac Hx Hypertension: Yes - Pulmonary Hx Respiratory Disorders: No Hx Lung Cancer: Yes - Neurological Hx Neurological Disorder: No - HEENT Hx Cataracts: Yes Hx Glaucoma: Yes - Renal Hx Renal Disorder: No - Endocrine/Metabolic Hx Endocrine Disorders: No - Hematological/Oncological Hx Cancer: Yes (colon CA with metastasis to liver and lung) Hx Chemotherapy: Yes (06/07) Hx Metastasis: Yes - Integumentary Hx Dermatological Disorder: No - Musculoskeletal/Rheumatological Hx Falls: Yes Hx Herniated Disk: Yes - Gastrointestinal Other/Comment: Colon Cancer, Stage 4 - Genitourinary/Gynecological Hx Genitourinary Disorders: No - Psychiatric Hx Psychophysiologic Disorder: Yes Hx Anxiety: Yes Hx Depression: Yes Hx Substance Use: No - Surgical History Other/Comment: left subclavian port. tumor resection - Anesthesia Hx Anesthesia: Yes Hx Anesthesia Reactions: No Hx Malignant Hyperthermia: No - Suicidal Assessment Feels Threatened In Home Enviroment: No Family/Social History - Physician Review Nursing Documentation Reviewed: Yes Family/Social History: No Known Family HX Smoking Status: Former Smoker Hx Alcohol Use: No Hx Substance Use: No Hx Substance Use Treatment: No Allergies/Home Meds Allergies/Adverse Reactions: Allergies No Known Allergies Allergy (Verified 06/12/17 18:46) Home Medications: Home Meds Medication Instructions Recorded Confirmed Alprazolam [Xanax] 0.5 mg PO DAILY 05/12/16 07/26/17 Cholecalciferol [Vitamin D 1000 IU] 15,000 iu PO QWK 05/12/16 07/26/17 Zolpidem HALF TABLET [Ambien] 10 mg PO HS 10/24/16 07/26/17 Lisinopril [Zestril] 10 mg PO DAILY 05/27/17 07/26/17 Montelukast [Singulair] 10 mg PO DAILY 05/27/17 07/26/17 Review of Systems - Physician Review All systems were reviewed & negative as marked: Yes - Review of Systems Constitutional: Fevers, Night Sweats Eyes: absent: Vision Changes ENT: absent: Hearing Changes Respiratory: Cough (congestion) Cardiovascular: Other (chest congestion) Gastrointestinal: absent: Abdominal Pain Genitourinary Female: absent: Dysuria, Frequency, Urine Output Changes Musculoskeletal: absent: Arthralgias, Back Pain Skin: absent: Rash, Pruritis Neurological: absent: Headache, Dizziness Endocrine: Diaphoresis Hemo/Lymphatic: absent: Adenopathy Psychiatric: absent: Anxiety Physical Exam Vital Signs Reviewed: Yes Vital Signs Temp Pulse Resp BP Pulse Ox 07/26/17 04:10 98.2 F 86 18 100 07/26/17 00:33 98.4 F 91 H 20 142/71 100 Temperature: Afebrile Blood Pressure: Normal Pulse: Tachycardic Respiratory Rate: Normal Appearance: Positive for: Well-Appearing, Non-Toxic, Comfortable Pain Distress: None Mental Status: Positive for: Alert and Oriented X 3 - Systems Exam Head: Present: Atraumatic, Normocephalic Pupils: Present: PERRL Extroacular Muscles: Present: EOMI Conjunctiva: Present: Normal Ears: Present: NORMAL TM Mouth: Present: Moist Mucous Membranes Pharnyx: Present: Normal Neck: Present: Normal Range of Motion Respiratory/Chest: Present: Good Air Exchange, Rhonchi. No: Respiratory Distress, Accessory Muscle Use Cardiovascular: Present: Regular Rate and Rhythm, Normal S1, S2. No: Murmurs Abdomen: Present: Normal Bowel Sounds. No: Tenderness, Distention, Peritoneal Signs Back: Present: Normal Inspection Upper Extremity: Present: Normal Inspection. No: Cyanosis, Edema Lower Extremity: Present: Normal Inspection. No: Edema Neurological: Present: GCS=15, CN II-XII Intact, Speech Normal, Motor Func Grossly Intact, Normal Sensory Function Skin: Present: Warm, Dry, Normal Color. No: Rashes Psychiatric: Present: Alert, Oriented x 3, Normal Insight, Normal Concentration Medical Decision Making ED Course and Treatment: 07/26/17 01:19 Impression: 62 year old female complaining of cough and chest congestions for 3 days. Differential Diagnosis included but are not limited to: Plan: -- EKG -- Chest X-ray -- Labs -- Duoneb -- Reassess and disposition Prior Visits: Notes and results from previous visits were reviewed. Patient last seen in the ED on 06/12/17 for intractable abdominal pain, and dark stool x 1 week. Patient was admitted to hospitalist care for further evaluation. Progress Notes: EKG: Ordered, reviewed, and independently interpreted the EKG. Rate : 87 BPM Rhythm : NSR Interpretation : No ST-segment elevations or depressions, no T-wave inversions, normal intervals. 07/26/17 03:[address] Colon and medical attendant, patient accepted into hospitalist service. - Lab Interpretations Lab Results: 07/26/17 02:05 07/26/17 02:05 Lab Results 07/26/17 02:05: WBC 3.3 L D, RBC 3.65, Hgb 10.1 L, Hct 32.5 L, MCV 89.0 D, MCH 27.7, MCHC 31.1, RDW 18.0 H, Plt Count 122, MPV 10.7 07/26/17 02:05: PT 12.7 H, INR 1.16 H, APTT 28.1 07/26/17 02:05: Sodium 142, Potassium 3.9, Chloride 104, Carbon Dioxide 25, Anion Gap 17, BUN 20, Creatinine 1.1, Est GFR ( Amer) > 60, Est GFR (Non- Af Amer) 50, Random Glucose 123 H, Calcium 9.2, Total Bilirubin 1.1, AST 36, ALT 27, Alkaline Phosphatase 165 H, Lactate Dehydrogenase 1186 H, Total Creatine Kinase 24 L, Troponin I < 0.01, NT-Pro-B Natriuret Pep 66.1, Total Protein 7.9, Albumin 4.1, Globulin 3.8, Albumin/Globulin Ratio 1.1 I have reviewed the lab results: Yes - RAD Interpretation Radiology Orders: 07/26/17 01:15 CHEST PORTABLE [RAD] Stat - Medication Orders Current Medication Orders: Albuterol/Ipratropium (Duoneb 3 Mg/0.5 Mg (3 Ml) Ud) 3 ml IH [id number] [facility] Last Admin: 07/26/17 14:38 Dose: 3 ml Alprazolam (Xanax) 0.5 mg PO DAILY RUKHSANA PRN Reason: Protocol Last Admin: 07/26/17 10:31 Dose: 0.5 mg Behavioural Document 07/26/17 10:31 RA (Rec: 07/26/17 10:31 RA [id number]) Maintenance Maintenance Dose Yes Nonmedicinal Nonmedicinal Interventions Redirect Therapeutic Communication Activity Give food/fluids Re-Assess: Reassess Psych Meds Document 07/26/17 11:31 RA (Rec: 07/26/17 11:44 RA [id number] Reassess Psych Med Ineffective-LIP notifed Cholecalciferol (Vitamin D) 15,000 iu PO QWK [facility] Last Admin: 07/26/17 10:32 Dose: 15,000 iu Guaifenesin (Robitussin) 100 mg PO Q4H PRN PRN Reason: Cough Last Admin: 07/26/17 08:43 Dose: 100 mg Heparin Sodium (Porcine) (Heparin) 5,000 units SC Q12 RUKHSANA PRN Reason: Protocol Last Admin: 07/26/17 14:55 Dose: 5,000 units Subcutaneous Administrations Document 07/26/17 14:55 RA (Rec: 07/26/17 14:55 RA [id number]) Charges for Administration # of Subcutaneous Administrations 1 Azithromycin (Zithromax 500mg In Ns) 500 mg in 250 mls @ 167 mls/hr IVPB DAILY RUKHSANA PRN Reason: Protocol Ceftriaxone Sodium (Rocephin 1 Gram Ivpb) 1 gm in 100 mls @ 100 mls/hr IVPB DAILY RUKHSANA PRN Reason: Protocol Last Admin: 07/26/17 10:32 Dose: 100 mls/hr eMAR Start Stop Document 07/26/17 10:32 RA (Rec: 07/26/17 10:32 RA [id number]) Intravenous Solution Start Date 07/26/17 Start Time 10:32 End Date 07/26/17 End time 11:40 Total Infusion Time 68 Lisinopril (Zestril) 10 mg PO DAILY [facility] Last Admin: 07/26/17 10:32 Dose: 10 mg Methylprednisolone (Solu-Medrol) 40 mg IVP Q8H [facility] Last Admin: 07/26/17 14:47 Dose: 40 mg IVP Administration Document 07/26/17 14:47 RA (Rec: 07/26/17 14:47 RA [id number]) Charges for Administration # of IVP Administrations 1 Montelukast Sodium (Singulair) 10 mg PO DAILY [facility] Last Admin: 07/26/17 10:32 Dose: 10 mg Pantoprazole Sodium (Protonix Ec Tab) 40 mg PO 0600 [facility] Last Admin: 07/26/17 06:18 Dose: 40 mg Spironolactone (Aldactone) 25 mg PO TID [facility] Last Admin: 07/26/17 14:46 Dose: 25 mg Zolpidem Tartrate (Ambien) 5 mg PO HS [facility] Discontinued Medications Albuterol/Ipratropium (Duoneb 3 Mg/0.5 Mg (3 Ml) Ud) 3 ml IH ONCE STA Stop: 07/26/17 01:17 Last Admin: 07/26/17 01:26 Dose: 3 ml Guaifenesin/Codeine Phosphate (Robitussin W/Codeine) 5 ml PO ONCE ONE Stop: 07/26/17 01:53 Last Admin: 07/26/17 02:10 Dose: 5 ml Ceftriaxone Sodium (Rocephin 1 Gram Ivpb) 1 gm in 100 mls @ 200 mls/hr IV ONCE STA PRN Reason: Protocol Stop: 07/26/17 04:04 Azithromycin (Zithromax 500mg In Ns) 500 mg in 250 mls @ 166.667 mls/hr IV STAT STA PRN Reason: Protocol Stop: 07/26/17 05:04 Last Admin: 07/26/17 04:05 Dose: 166.667 mls/hr eMAR Start Stop Document 07/26/17 04:05 CB (Rec: 07/26/17 04:05 CB [id number]) Intravenous Solution Start Date 07/26/17 Start Time 04:05 Ceftriaxone Sodium (Rocephin 1 Gram Ivpb) 1 gm in 100 mls @ 100 mls/hr IVPB DAILY RUKHSANA PRN Reason: Protocol Magnesium Sulfate/Dextrose (Magnesium Sulfate 1 Gm/100 Ml D5w) 1 gm in 100 mls @ 100 mls/hr IVPB ONCE ONE Stop: 07/26/17 14:30 Last Admin: 07/26/17 14:46 Dose: 100 mls/hr eMAR Start Stop Document 07/26/17 14:46 RA (Rec: 07/26/17 14:47 RA [id number]) Intravenous Solution Start Date 07/26/17 Start Time 14:47 End Date 07/26/17 End time 15:50 Total Infusion Time 63 - Scribe Statement The provider has reviewed the documentation as recorded by the Marietta Jaime Provider Scribe Attestation: All medical record entries made by the Scribe were at my direction and personally dictated by me. I have reviewed the chart and agree that the record accurately reflects my personal performance of the history, physical exam, medical decision making, and the department course for this patient. I have also personally directed, reviewed, and agree with the discharge instructions and disposition. Disposition/Present on Arrival - Present on Arrival Any Indicators Present on Arrival: No History of DVT/PE: No History of Uncontrolled Diabetes: No Urinary Catheter: No History of Decub. Ulcer: No History Surgical Site Infection Following: None - Disposition Have Diagnosis and Disposition been Completed?: Yes Diagnosis: Pneumonia, Pulmonary metastases Disposition: HOSPITALIZED Disposition Time: 03:20 Patient Plan: Observation Patient Problems: Current Active Problems Problem Status Onset Pneumonia Acute Pulmonary metastases Acute Condition: GOOD
[2017-07-26] MEDS: Albuterol-Ipratrop 3 mg / 0.5 (3 ml) UD IH STA ×2 (01:26→08:32)
[2017-07-26] MEDS: guaiFENesin-Codeine 100-10mg/5ml Syrup (5 ml) UD PO ONE ×2 (02:10→08:33)
[2017-07-26 02:18] LABS: HEMATOCRIT 32.5 % (36.0-48.0); MEAN CORPUSCULAR HEMOGLOBIN 27.7 pg (25.0-35.0); MEAN CORPUSCULAR HGB CONC 31.1 g/dl (31.0-37.0); MEAN PLATELET VOLUME 10.7 fl (7.0-11.0); WHITE BLOOD COUNT 3.3 10^3/ul (4.5-11.0)
[2017-07-26 02:32] LABS: ALB/GLOB RATIO 1.1 (1.1-1.8); ALKALINE PHOSPHATASE 165 U/L (38-126); ALT/SGPT 27 U/L (7-56); AST/SGOT 36 U/L (14-36); BILIRUBIN,TOTAL 1.1 mg/dL (0.2-1.3); BLOOD UREA NITROGEN 20 mg/dL (7-21); CALCIUM 9.2 mg/dL (8.4-10.5); CARBON DIOXIDE 25 mmol/L (21-33); CHLORIDE 104 mmol/L (98-107); GFR AFRICAN-AMERICAN > 60; GLUCOSE,RANDOM 123 mg/dL (70-110); POTASSIUM 3.9 mmol/L (3.6-5.0); SODIUM 142 mmol/L (132-148); TOTAL PROTEIN 7.9 g/dL (5.8-8.3)
[2017-07-26 02:35] LABS: INR 1.16 (0.93-1.08); PARTIAL THROMBOPLASTIN TIME 28.1 Seconds (25.1-36.5)
[2017-07-26 02:46] LABS: TROPONIN I < 0.01 ng/mL
[2017-07-26] MEDS ORDERED: cefTRIAXone 1 gm 1 GM/100 ML BAG IV STA (03:35)
[2017-07-26] MEDS: Azithromycin 500MG/NS 250ml 500 MG/250 ML BAG IV STA ×2 (04:05→08:34)
--- NOTE | 2017-07-26 04:24 | CP.PCM.HP ---
<Romaine Cuenca - Last Filed: 07/26/17 07:37> History of Present Illness - History of Present Illness History of Present Illness: Maxwelli is a 62 year old female with a past medical history of stage IV colon cancer(s/p chemo Keytruda weekly) and HTN, presented to the ER complaining of fevers and chills for past 3 days. The patient reports taking Tylenol for the symptoms however there was no improvement. The patient reports recently having one chemo treatment of Keytruda that she gets once a week.The patient also reports one episode of chest pain associated with coughing.She also admits to nausea and shortness of breath in conjunction with the symptoms. She denies fevers, chills, diarrhea, constipation, hematochezia, hematemesis, hemoptysis, dizziness, MENDES. PMD: Dr. Levine Meds: See NOV PMH: HTN, MDD, Stage IV colon CA s/p tumor resection and chemo, with multiple distant mets including to lungs and liver Surg: Hepatic tumor resection, colonic tumor resection Soc: Denies tob, EtOH, illicits FHx: Noncontributory All: NKDA Present on Admission - Present on Admission Any Indicators Present on Admission: No Review of Systems - Constitutional Constitutional: As Per HPI - EENT Eyes: As Per HPI Ears: As Per HPI - Breasts Breasts: As Per HPI - Cardiovascular Cardiovascular: As Per HPI - Respiratory Respiratory: As Per HPI - Gastrointestinal Gastrointestinal: As Per HPI - Musculoskeletal Musculoskeletal: As Per HPI - Integumentary Integumentary: As Per HPI - Neurological Neurological: As Per HPI - Psychiatric Psychiatric: As Per HPI - Endocrine Endocrine: As Per HPI - Hematologic/Lymphatic Hematologic: As Per HPI Past Patient History - Infectious Disease Hx of Infectious Diseases: None - Tetanus Immunizations Tetanus Immunization: Unknown - Past Social History Smoking Status: Former Smoker - CARDIAC Hx Hypertension: Yes - PULMONARY Hx Respiratory Disorders: No Hx Lung Cancer: Yes - NEUROLOGICAL Hx Neurological Disorder: No - HEENT Hx Cataracts: Yes Hx Glaucoma: Yes - RENAL Hx Chronic Kidney Disease: No - ENDOCRINE/METABOLIC Hx Endocrine Disorders: No - HEMATOLOGICAL/ONCOLOGICAL Hx Cancer: Yes (colon CA with metastasis to liver and lung) Hx Chemotherapy: Yes (06/07) Hx Metastesis: Yes - INTEGUMENTARY Hx Dermatological Problems: No - MUSCULOSKELETAL/RHEUMATOLOGICAL Hx Falls: Yes Hx Herniated Disk: Yes - GASTROINTESTINAL Other/Comment: Colon Cancer, Stage 4 - GENITOURINARY/GYNECOLOGICAL Hx Genitourinary Disorders: No - PSYCHIATRIC Hx Psychophysiologic Disorder: Yes Hx Anxiety: Yes Hx Depression: Yes Hx Substance Use: No - SURGICAL HISTORY Other/Comment: left subclavian port. tumor resection - ANESTHESIA Hx Anesthesia: Yes Hx Anesthesia Reactions: No Hx Malignant Hyperthermia: No Meds Allergies/Adverse Reactions: Allergies Allergy/AdvReac Type Severity Reaction Status Date / Time No Known Allergies Allergy Verified 06/12/17 18:46 Physical Exam - Head Exam Head Exam: ATRAUMATIC, NORMAL INSPECTION, NORMOCEPHALIC - Eye Exam Eye Exam: EOMI, Normal appearance, PERRL. absent: Periorbital tenderness Pupil Exam: NORMAL ACCOMODATION, PERRL. absent: Irregular, Unequal - ENT Exam ENT Exam: Mucous Membranes Moist, Normal Exam. absent: Normal Oropharynx, TM's Normal Bilaterally - Neck Exam Neck exam: Positive for: Normal Inspection. Negative for: Lymphadenopathy, Meningismus, Thyromegaly - Respiratory Exam Respiratory Exam: Decreased Breath Sounds. absent: Accessory Muscle Use, Chest Wall Tenderness, Clear to Auscultation Bilateral, Prolonged Expiratory Phase, Wheezes, Respiratory Distress, NORMAL BREATHING PATTERN - Cardiovascular Exam Cardiovascular Exam: REGULAR RHYTHM, +S1, +S2. absent: Gallop, JVD, Rubs - GI/Abdominal Exam GI & Abdominal Exam: Normal Bowel Sounds, Soft. absent: Diminished Bowel Sounds , Hypoactive Bowel Sounds, Organomegaly, Tenderness - Extremities Exam Extremities exam: Positive for: full ROM, normal inspection. Negative for: joint swelling, pedal edema, tenderness - Back Exam Back exam: NORMAL INSPECTION. absent: CVA tenderness (L), CVA tenderness (R), paraspinal tenderness - Neurological Exam Neurological exam: Alert, CN II-XII Intact, Oriented x3 - Psychiatric Exam Psychiatric exam: Normal Affect, Normal Mood - Skin Skin Exam: Dry, Intact, Normal Color, Warm Results - Vital Signs Recent Vital Signs: Last Vital Signs Temp 98.2 F 07/26/17 04:10 Pulse 86 07/26/17 04:10 Resp 18 07/26/17 04:10 BP 142/71 07/26/17 00:33 Pulse Ox 100 07/26/17 04:10 - Labs Result Diagrams: 07/26/17 02:05 07/26/17 02:05 Assessment & Plan - Assessment and Plan (Free Text) Assessment: 62 yo F with PMH of HTN, HLD, MDD, and stage IV colon CA s/p tumor resection and chemo, with multiple mets, presented to ER with fevers and chills. Plan: 1.Pneumonia(viral vs. fungal vs. bacterial) -Patient reports 3 days of fevers and chills before coming to the emergency room. -Lactate 1.1 upon admission. Afebrile and leukopenic upon admission. Vital signs stable. -Patient currently on a weekly chemo regimen with Keytruda. -Pneumonia likely 2/2 to immuno-compromised from chemotherapy. -Received Zithromax and Rocephin in the emergency department. Continue Zithromax and Rocephin. -u/a, sputum, blood, and urine cultures ordered. Will f/u with recs. 2. Leukopenia - Currently afebrile, VSS - Likely 2/2 chemotherapy regimen - Continue to monitor 3. H/o colon CA, with multiple distant metastases - Diagnosed in 2010, patient reports that she does have an advanced directive. -Currently receiving Keytruda once a week. Next treatment is next week. - Hem/Onc consulted, all recs appreciated - Pulm consulted for pulmonary metastases, all recs appreciated 4. H/o HTN, HLD, MDD - Continue home meds PPx: SCDs for DVT, Protonix for GI <Aneta Colon - Last Filed: 07/27/17 15:24> Results - Vital Signs Recent Vital Signs: Last Vital Signs Temp 97.5 F L 07/27/17 06:00 Pulse 66 07/27/17 09:16 Resp 20 07/27/17 06:00 BP 134/82 07/27/17 09:16 Pulse Ox 99 07/27/17 06:00 - Labs Result Diagrams: 07/27/17 08:00 07/27/17 08:00 Labs: Laboratory Results - last 24 hr 07/27/17 07/27/17 07/27/17 08:00 08:00 09:03 WBC 1.8 L* D RBC 3.48 L Hgb 9.4 L Hct 30.7 L MCV 88.2 MCH 27.0 MCHC 30.6 L RDW 17.5 H Plt Count 107 L MPV 10.7 Gran % 86.0 H Lymph % (Auto) 11.2 L [place] % (Auto) 2.8 Eos % (Auto) 0.0 L Baso % (Auto) 0.0 Gran # 1.54 Lymph # 0.2 L [place] # 0.1 Eos # 0.0 Baso # 0.00 Sodium 142 Potassium 5.2 H Chloride 107 Carbon Dioxide 24 Anion Gap 16 BUN 19 Creatinine 1.1 Est GFR ( Amer) > 60 Est GFR (Non-Af Amer) 50 Random Glucose 129 H Calcium 10.1 Magnesium 2.0 Total Bilirubin 1.1 AST 31 ALT 29 Alkaline Phosphatase 145 H Lactate Dehydrogenase 1220 H Total Creatine Kinase 26 L Troponin I < 0.01 Total Protein 8.0 Albumin 4.1 Globulin 3.9 Albumin/Globulin Ratio 1.1 Attending/Attestation - Attestation I have personally seen and examined this patient.: Yes I have fully participated in the care of the patient.: Yes I have reviewed all pertinent clinical information: Yes
[2017-07-26] MEDS: Pantoprazole 40 mg EC Tab PO SCH (06:18)
[2017-07-26] MEDS ORDERED: guaiFENesin 100 mg/5 ml Syrup UD PO PRN (06:58)
[2017-07-26 08:10] LABS: ALKALINE PHOSPHATASE 158 U/L (38-126); ALT/SGPT 29 U/L (7-56); AST/SGOT 29 U/L (14-36); BILIRUBIN,TOTAL 1.6 mg/dL (0.2-1.3); BLOOD UREA NITROGEN 19 mg/dL (7-21); CALCIUM 9.6 mg/dL (8.4-10.5); CARBON DIOXIDE 26 mmol/L (21-33); CHLORIDE 106 mmol/L (98-107); GFR AFRICAN-AMERICAN > 60; GLUCOSE,RANDOM 92 mg/dL (70-110); MAGNESIUM 1.6 mg/dL (1.7-2.2); PHOSPHOROUS 4.4 mg/dL (2.5-4.5); POTASSIUM 4.5 mmol/L (3.6-5.0); SODIUM 142 mmol/L (132-148); TOTAL PROTEIN 7.7 g/dL (5.8-8.3)
[2017-07-26 08:33] LABS: BASO # 0.01 K/mm3 (0.0-2.0); BASO % 0.3 % (0.0-3.0); EOS # 0.2 (0.0-0.7); EOS % 5.6 % (1.5-5.0); GRAN # 2.29 (1.4-6.5); HEMATOCRIT 31.5 % (36.0-48.0); LYMPH # 0.6 (1.2-3.4); LYMPH % 16.3 % (22.0-35.0); MEAN CORPUSCULAR HEMOGLOBIN 27.1 pg (25.0-35.0); MEAN CORPUSCULAR HGB CONC 30.5 g/dl (31.0-37.0); MEAN PLATELET VOLUME 10.5 fl (7.0-11.0); MONO # 0.3 (0.1-0.6); MONO % 9.8 % (1.0-6.0); WHITE BLOOD COUNT 3.4 10^3/ul (4.5-11.0)
--- NOTE | 2017-07-26 08:40 | CARD ---
APPROVED REPORT EKG Measurement Heart [id number] <Conclusion> Normal sinus rhythm Q in 3 LVH by voltage Improved repolarization c/w ECG 06/12/17
--- NOTE | 2017-07-26 08:54 | RAD ---
HISTORY: Cough COMPARISON: 06/12/2017. FINDINGS: There is stable position of a left-sided MediPort terminating at the cavoatrial junction. LUNGS: There is redemonstration of at least 3 nodular density in the right lung, enlarged since the prior examination, the largest in the upper lobe measures 3.4 cm. There is interval increase in size of a solitary 3.0 cm nodular density in the left mid lung. PLEURA: No significant pleural effusion identified, no pneumothorax apparent. CARDIOVASCULAR: Normal. OSSEOUS STRUCTURES: No significant abnormalities. VISUALIZED UPPER ABDOMEN: Normal. OTHER FINDINGS: None. IMPRESSION: Worsening size of metastatic deposits in the lungs, the largest in the right upper lobe measures 3.4 cm.
[2017-07-26 09:10] LABS: URINE BILIRUBIN NEGATIVE (NEGATIVE); URINE BLOOD NEGATIVE (NEGATIVE); URINE GLUCOSE (UA) NEGATIVE (NEGATIVE); URINE KETONE NEGATIVE (NEGATIVE); URINE LEUKOCYTE ESTERASE NEGATIVE Leu/uL (NEGATIVE); URINE PROTEIN NEGATIVE mg/dL (<30 mg/dL); URINE UROBILINOGEN 0.2 E.U./dL (<1 E.U./dL)
[2017-07-26 09:11] LABS: URINE APPEARANCE CLEAR (CLEAR); URINE COLOR YELLOW (YELLOW)
[2017-07-26] MEDS ORDERED: cefTRIAXone 1 gm 1 GM/100 ML BAG IVPB SCH (10:00)
[2017-07-26] MEDS ORDERED: Magnesium Sulfate 1 gm in D5W 1 GM/100 ML BAG IVPB ONE (13:31)
[2017-07-26] MEDS: Albuterol-Ipratrop 3 mg / 0.5 (3 ml) UD IH SCH ×3 (14:37→23:56)
[2017-07-26] MEDS: MethylPREDNISolone 40 mg Vial IVP SCH ×2 (14:47→21:47)
--- NOTE | 2017-07-26 17:21 | US ---
HISTORY: Leg pain and swelling. Evaluate for DVT PHYSICIAN(S): Luciano Couch MD. TECHNIQUE: Duplex sonography and color-flow Doppler with graded compression were used to evaluate the deep venous systems of both lower extremities. FINDINGS: The visualized deep venous systems of both lower extremities are sonographically normal and compressible. Normal wave forms and augmentation are seen. There is no sonographic evidence for deep venous thrombosis in the visualized segments of both lower extremities. IMPRESSION: No sonographic evidence for deep venous thrombosis in the visualized segments of both lower extremities.
[2017-07-26] MEDS ORDERED: Iohexol 350 MG/100 ML VIAL ONE (18:39)
--- NOTE | 2017-07-26 20:58 | CT ---
EXAM: CT Angiography Chest With Intravenous Contrast CLINICAL HISTORY: 62 years old, female; Signs and symptoms; Shortness of breath; Patient HX: SOB. Chest pain. HX colon ca mets to liver and lung; Additional info: Pe rule out TECHNIQUE: Axial computed tomographic angiography images of the chest with intravenous contrast using pulmonary embolism protocol. All CT scans at this facility use one or more dose reduction techniques, viz.: automated exposure control; ma/kV adjustment per patient size (including targeted exams where dose is matched to indication; i.e. head); or iterative reconstruction technique. MIP reconstructed images were created and reviewed. Coronal and sagittal reformatted images were created and reviewed. CONTRAST: 20 mL of OMNI administered intravenously. COMPARISON: CT - 01/21/2017 FINDINGS: Limitations: Motion artifact - mild. Pulmonary arteries: No definite pulmonary embolism. Aorta: No aneurysm. No dissection. Lungs: Minimal atelectasis/scarring. No consolidation. Several pulmonary masses, largest measuring up to 5.2 cm maximal dimension, increased in size from previous examination. Pleural space: No significant effusion. No pneumothorax. Heart: Mild cardiomegaly. No significant pericardial effusion. Mild coronary artery calcifications. Thyroid: 1.1 x 1.2 x 0.9 cm nodule with calcification RIGHT lobe. Bones/joints: No acute fracture. No dislocation. Soft tissues: Unremarkable. Lymph nodes: No pathologically enlarged lymph nodes. Liver: Partial resection of liver. Gallbladder and bile ducts: Cholecystectomy. Spleen: Enlarged spleen, incompletely imaged. Tubes, lines and devices: Central venous catheter. IMPRESSION: 1. No definite CT evidence of pulmonary embolism. 2. Worsening pulmonary metastases. 3. Incidental/non-acute findings are described above.
--- NOTE | 2017-07-26 22:16 | CON ---
DATE: 07/26/2017 HISTORY OF PRESENT ILLNESS: This is a 62-year-old lady with history of stage IV colon cancer, status post Keytruda weekly, hypertension, who presented to the ER complaining of subjective fever and chills (not documented while she is in the hospital). The patient reports some cough with minimal production of sputum. The patient had chemo administered about a week ago, Of note, coughing spells were associated with some pleuritic chest pain. She also admits to nausea and shortness of breath in conjunction with her symptoms. No diarrhea, constipation, hematochezia, hematemesis, dizziness, or headache. She reports one streak of blood in the sputum once. PAST MEDICAL HISTORY: Hypertension, colon cancer, which is stage IV, status post tumor extraction and chemotherapy, multiple distant mets to lungs and liver. PAST SURGICAL HISTORY: Hepatic tumor resection and colonic tumor resection. ALLERGIES: NO KNOWN DRUG ALLERGIES. FAMILY HISTORY: Noncontributory. SOCIAL HISTORY: The patient used to smoke heavily, but denies alcohol or illicit drug abuse. She does not smoke now. REVIEW OF SYSTEMS: Review of 12-organ systems other than mentioned in the history of present illness is negative. PHYSICAL EXAMINATION: VITAL SIGNS: Temperature 97.9, blood pressure 140/90, respiratory rate 20, and oxygen saturation 90% on 2 L nasal cannula. ENT: Head and neck atraumatic. LUNGS: Somewhat decreased breath sounds bilaterally with some wheezes, scattered left more than right. HEART: Regular rate and rhythm. S1 and S2 normal. ABDOMEN: Soft, nontender and nondistended. MUSCULOSKELETAL: Trace bilateral pedal and ankle edema. NEUROLOGIC: The patient moves all extremities spontaneously. SKIN: Color is moist. PSYCHIATRIC: The patient is alert and oriented x3, not in respiratory or otherwise distress. LABORATORY DATA: WBC 3.4, hemoglobin 9.6, and platelet count 116. Sodium 142, potassium 4.5, chloride 106, carbon dioxide 26, BUN 19, creatinine 1.1, AST 29, ALT 29, and total bilirubin 1.6. LDH 1186. Troponin less than 0.01. Procalcitonin is 0.15. Chest x-ray showed clear demonstration of at least 3 nodular densities in the right lung increased since the prior examination. The largest in the upper lobe, measures 3.4 cm. There is an interval increase in size of solitary 3 cm nodular density in the left mid lung. Of note, the patient is known to have metastatic lung disease for over 7 years based on my conversation with the patient's medical anthropology director, Dr. Calderón. EKG showed no specific ischemic changes, normal sinus rhythm, QTc 423. CURRENT MEDICATIONS: DuoNeb every 6 hours, Xanax daily, heparin 5000 subcutaneous q. 12 hours, lisinopril, Solu-Medrol 40 mg IV q. 8 hours, Singulair, Protonix, ceftriaxone, spironolactone, azithromycin, and Zolpidem. ASSESSMENT AND PLAN: This is a 62-year-old lady with significant metastatic lung disease, who is ex-smoker and may have yet undiagnosed chronic obstructive pulmonary disease. She presented with increased cough and sputum production, which will be consistent with diagnosis of chronic obstructive pulmonary disease exacerbation, had she been known to have COPD diagnosis. She is ex-smoker. She is wheezing on lung auscultation. At present time, I would proceed with steroid taper, bronchodilators, and continuation of antibiotics for today with subsequent rapid peeling them off as her procal is low. I cannot rule out noninfectious etiology for the patient's symptoms, thus I would do D-dimers and venous Doppler of lower extremities. If D-dimers come back negative, that most likely rules out possibility of VTE. If D-dimers come back positive (elevated) and venous Doppler comes back negative, I would proceed with CAT scan with PE protocol. Elevated D-dimer in the absence of VTE, may signify known presence of malignancy. I would continue to target euvolemia, euglycemia, normothermia, and oxygen saturation more than 90%. I will continue with heparin subcutaneously for DVT prophylaxis. Pulmonary mets have been known to Oncology service and addressed by it as per Dr. Calderón [facility] time 40 min Gil Boudreaux MD MTDD
[2017-07-27] MEDS: Albuterol-Ipratrop 3 mg / 0.5 (3 ml) UD IH SCH ×4 (01:39→14:00)
[2017-07-27] MEDS: Pantoprazole 40 mg EC Tab PO SCH (05:45)
[2017-07-27] MEDS: MethylPREDNISolone 40 mg Vial IVP SCH (05:45)
[2017-07-27 08:22] LABS: GRAN # 1.54 (1.4-6.5); HEMATOCRIT 30.7 % (36.0-48.0); LYMPH # 0.2 (1.2-3.4); LYMPH % 11.2 % (22.0-35.0); MEAN CELL VOLUME 88.2 fl (80.0-105.0); MEAN CORPUSCULAR HGB CONC 30.6 g/dl (31.0-37.0); MEAN PLATELET VOLUME 10.7 fl (7.0-11.0); MONO # 0.1 (0.1-0.6); MONO % 2.8 % (1.0-6.0); RED CELL DISTRIBUTION WIDTH 17.5 % (11.5-14.5)
[2017-07-27 08:34] LABS: ALB/GLOB RATIO 1.1 (1.1-1.8); ALKALINE PHOSPHATASE 145 U/L (38-126); ALT/SGPT 29 U/L (7-56); AST/SGOT 31 U/L (14-36); BILIRUBIN,TOTAL 1.1 mg/dL (0.2-1.3); BLOOD UREA NITROGEN 19 mg/dL (7-21); CALCIUM 10.1 mg/dL (8.4-10.5); CARBON DIOXIDE 24 mmol/L (21-33); CHLORIDE 107 mmol/L (98-107); GFR AFRICAN-AMERICAN > 60; GLUCOSE,RANDOM 129 mg/dL (70-110); POTASSIUM 5.2 mmol/L (3.6-5.0); SODIUM 142 mmol/L (132-148)
[2017-07-27 08:50] LABS: WHITE BLOOD COUNT 1.8 10^3/ul (4.5-11.0)
[2017-07-27 09:22] VITALS: BP 134/82; PULSE 66
[2017-07-27 09:36] LABS: TROPONIN I < 0.01 ng/mL
[2017-07-27 09:56] VITALS: RESP 20; TEMP 97.5; O2SAT 99
[2017-07-27] MEDS ORDERED: cefTRIAXone 1 gm 1 GM/100 ML BAG IVPB SCH (10:00)
[2017-07-27] MEDS ORDERED: Azithromycin 500MG/NS 250ml 500 MG/250 ML BAG IVPB SCH (10:00)
[2017-07-27] MEDS ORDERED: MethylPREDNISolone 40 mg Vial IVP SCH (11:45)
--- NOTE | 2017-07-27 12:25 | CP.PCM.PN ---
Subjective - Date & Time of Evaluation Date of Evaluation: 07/27/17 Time of Evaluation: 12:20 - Subjective Subjective: Patient seen and examined, reports her breathing significantly improved. Denies fever, chills, cough, chest pain, sob, hemoptysis. LE Duplex and CT Chest angio both negative. Objective - Vital Signs/Intake and Output Vital Signs (last 24 hours): Temp Pulse Resp BP Pulse Ox 97.5 F L 66 20 134/82 99 07/27/17 06:00 07/27/17 09:16 07/27/17 06:00 07/27/17 09:16 07/27/17 06:00 Intake and Output: 07/27/17 07/27/17 06:59 18:59 Intake Total 360 Balance 360 - Medications Medications: Current Medications Albuterol/Ipratropium (Duoneb 3 Mg/0.5 Mg (3 Ml) Ud) 3 ml IH [id number] [facility] Last Admin: 07/27/17 07:53 Dose: Not Given Alprazolam (Xanax) 0.5 mg PO DAILY [facility] PRN Reason: Protocol Last Admin: 07/27/17 09:16 Dose: 0.5 mg Cholecalciferol (Vitamin D) 15,000 iu PO QWK [facility] Last Admin: 07/26/17 10:32 Dose: 15,000 iu Docusate Sodium (Colace) 100 mg PO DAILY [facility] Last Admin: 07/27/17 09:13 Dose: 100 mg Guaifenesin (Robitussin) 100 mg PO Q4H PRN PRN Reason: Cough Last Admin: 07/26/17 08:43 Dose: 100 mg Heparin Sodium (Porcine) (Heparin) 5,000 units SC Q12 RUKHSANA PRN Reason: Protocol Last Admin: 07/27/17 09:13 Dose: 5,000 units Azithromycin (Zithromax 500mg In Ns) 500 mg in 250 mls @ 167 mls/hr IVPB DAILY [facility] PRN Reason: Protocol Last Admin: 07/27/17 09:17 Dose: 167 mls/hr Lisinopril (Zestril) 10 mg PO DAILY [facility] Last Admin: 07/27/17 09:16 Dose: 10 mg Methylprednisolone (Solu-Medrol) 30 mg IVP Q12H [facility] Montelukast Sodium (Singulair) 10 mg PO DAILY [facility] Last Admin: 07/27/17 09:15 Dose: 10 mg Pantoprazole Sodium (Protonix Ec Tab) 40 mg PO 0600 [facility] Last Admin: 07/27/17 05:45 Dose: 40 mg Spironolactone (Aldactone) 25 mg PO TID [facility] Last Admin: 07/27/17 09:13 Dose: 25 mg Zolpidem Tartrate (Ambien) 5 mg PO HS [facility] Last Admin: 07/26/17 21:46 Dose: 5 mg - Labs Labs: 07/27/17 08:00 07/27/17 08:00 PT 12.7 SECONDS (9.4-12.5) H 07/26/17 02:05 INR 1.16 (0.93-1.08) H 07/26/17 02:05 APTT 28.1 Seconds (25.1-36.5) 07/26/17 02:05 - Constitutional Appears: Well, Non-toxic, No Acute Distress - Head Exam Head Exam: ATRAUMATIC - Neck Exam Neck Exam: Full ROM - Respiratory Exam Respiratory Exam: Clear to Ausculation Bilateral, NORMAL BREATHING PATTERN - Cardiovascular Exam Cardiovascular Exam: REGULAR RHYTHM, +S1, +S2 - GI/Abdominal Exam GI & Abdominal Exam: Soft, Normal Bowel Sounds - Extremities Exam Extremities Exam: Normal Inspection - Neurological Exam Neurological Exam: Alert, Awake, Oriented x3 Assessment and Plan - Assessment and Plan (Free Text) Assessment: 62yo female with Colon Ca stage IV, with known mets to the lung presents with fever. COPD exacerbation SOB Colon Ca with pulm mets - currently afebrile, HD stable, comfortable on room air, denies fever, chills, cough, hemoptysis, SOB - duplex of LE neg for DVT, CT angio chest neg for PE - pulm mets known from prior, worsening of metastatic disease Recommend: - duonebs PRN - taper steroids - GI ppx - DVT ppx
--- NOTE | 2017-07-27 16:13 | CP.PCM.DIS ---
<HARVEY GIL - Last Filed: 07/27/17 15:59> Provider - Provider Date of Admission: 07/26/17 03:20 Attending physician: Cheri Braden MD Primary care physician: Pricilla Levine MD Consults: Heme/Onc: Kaitlynn Pulm: Nishant Time Spent in preparation of Discharge (in minutes): 40 Hospital Course - Lab Results Lab Results: Micro Results 07/26/17 04:42 Urine,Clean Catch Urine Culture - Final No Growth (<1,000 CFU/ML) 07/26/17 04:20 Blood Blood Culture - Preliminary NO GROWTH AFTER 24 HOURS 07/26/17 03:50 Blood Blood Culture - Preliminary NO GROWTH AFTER 24 HOURS Most Recent Lab Values WBC 1.8 10^3/ul (4.5-11.0) L* D 07/27/17 08:00 RBC 3.48 10^6/uL (3.5-6.1) L 07/27/17 08:00 Hgb 9.4 g/dL (12.0-16.0) L 07/27/17 08:00 Hct 30.7 % (36.0-48.0) L 07/27/17 08:00 MCV 88.2 fl (80.0-105.0) 07/27/17 08:00 MCH 27.0 pg (25.0-35.0) 07/27/17 08:00 MCHC 30.6 g/dl (31.0-37.0) L 07/27/17 08:00 RDW 17.5 % (11.5-14.5) H 07/27/17 08:00 Plt Count 107 10^3/uL (120.0-450.0) L 07/27/17 08:00 MPV 10.7 fl (7.0-11.0) 07/27/17 08:00 Gran % 86.0 % (50.0-68.0) H 07/27/17 08:00 Lymph % (Auto) 11.2 % (22.0-35.0) L 07/27/17 08:00 Gladwin % (Auto) 2.8 % (1.0-6.0) 07/27/17 08:00 Eos % (Auto) 0.0 % (1.5-5.0) L 07/27/17 08:00 Baso % (Auto) 0.0 % (0.0-3.0) 07/27/17 08:00 Gran # 1.54 (1.4-6.5) 07/27/17 08:00 Lymph # 0.2 (1.2-3.4) L 07/27/17 08:00 Gladwin # 0.1 (0.1-0.6) 07/27/17 08:00 Eos # 0.0 (0.0-0.7) 07/27/17 08:00 Baso # 0.00 K/mm3 (0.0-2.0) 07/27/17 08:00 PT 12.7 SECONDS (9.4-12.5) H 07/26/17 02:05 INR 1.16 (0.93-1.08) H 07/26/17 02:05 APTT 28.1 Seconds (25.1-36.5) 07/26/17 02:05 D-Dimer, Quantitative 827 ng/mL (0-243) H 07/26/17 13:40 Sodium 142 mmol/L (132-148) 07/27/17 08:00 Potassium 5.2 mmol/L (3.6-5.0) H 07/27/17 08:00 Chloride 107 mmol/L (98-107) 07/27/17 08:00 Carbon Dioxide 24 mmol/L (21-33) 07/27/17 08:00 Anion Gap 16 (10-20) 07/27/17 08:00 BUN 19 mg/dL (7-21) 07/27/17 08:00 Creatinine 1.1 mg/dL (0.7-1.2) 07/27/17 08:00 Est GFR ( Amer) > 60 07/27/17 08:00 Est GFR (Non-Af Amer) 50 07/27/17 08:00 Random Glucose 129 mg/dL (70-110) H 07/27/17 08:00 Calcium 10.1 mg/dL (8.4-10.5) 07/27/17 08:00 Phosphorus 4.4 mg/dL (2.5-4.5) 07/26/17 07:40 Magnesium 2.0 mg/dL (1.7-2.2) 07/27/17 09:03 Total Bilirubin 1.1 mg/dL (0.2-1.3) 07/27/17 08:00 AST 31 U/L (14-36) 07/27/17 08:00 ALT 29 U/L (7-56) 07/27/17 08:00 Alkaline Phosphatase 145 U/L (38-126) H 07/27/17 08:00 Lactate Dehydrogenase 1220 U/L (333-699) H 07/27/17 09:03 Total Creatine Kinase 26 U/L (35-230) L 07/27/17 09:03 Troponin I < 0.01 ng/mL 07/27/17 09:03 NT-Pro-B Natriuret Pep 66.1 pg/mL (0-450) 07/26/17 02:05 Total Protein 8.0 g/dL (5.8-8.3) 07/27/17 08:00 Albumin 4.1 g/dL (3.0-4.8) 07/27/17 08:00 Globulin 3.9 gm/dL 07/27/17 08:00 Albumin/Globulin Ratio 1.1 (1.1-1.8) 07/27/17 08:00 Procalcitonin 0.15 NG/ML (0.19-0.49) L 07/26/17 07:40 Urine Color Yellow (YELLOW) 07/26/17 05:04 Urine Appearance Clear (CLEAR) 07/26/17 05:04 Urine pH 6.0 (4.7-8.0) 07/26/17 05:04 Ur Specific Warren 1.020 (1.005-1.035) 07/26/17 05:04 Urine Protein Negative mg/dL (<30 mg/dL) 07/26/17 05:04 Urine Glucose (UA) Negative mg/dL (NEGATIVE) 07/26/17 05:04 Urine Ketones Negative mg/dL (NEGATIVE) 07/26/17 05:04 Urine Blood Negative (NEGATIVE) 07/26/17 05:04 Urine Nitrate Negative (NEGATIVE) 07/26/17 05:04 Urine Bilirubin Negative (NEGATIVE) 07/26/17 05:04 Urine Urobilinogen 0.2 E.U./dL (<1 E.U./dL) 07/26/17 05:04 Ur Leukocyte Esterase Negative Jose/uL (NEGATIVE) 07/26/17 05:04 - Hospital Course Hospital Course: Patient is a 62 year old female with a past medical history of stage IV colon cancer (s/p chemo Keytruda weekly) and HTN, presented to the ER complaining of fevers and chills for 3 days. The patient reported taking Tylenol for the symptoms, however there was no improvement. The patient reported recently having one chemo treatment of Keytruda that she gets once a week.The patient also reported one episode of chest pain associated with coughing. She also admitted to nausea and shortness of breath in conjunction with the symptoms. In the ED, labs and imaging were obtained. Labs were significant for leukopenia and anemia. CXR showed worsening size of metatstic deposits in the lung, largest measuring 3.4 cm in right lobe. Pt was admitted for evaluation and treatment for possible pneumonia and leukopenia in the presence of colon CA with lung metastasis. Pulmonology was consulted and stated that clinically pt appeared to have COPD exacerbation, but PE/DVT should be ruled out. D-dimer was found to be elevated. However, CT angiogram was negative for PE and LE duplex was negative for DVT. Heme/onc was consulted. Today, the patient was seen and examined at bedside. Pt denied any acute overnight events and currently afebrile and asymptomatic. The patient was tapered down on steroids as her breathing improved. The patient's WBC was decreased to 1.8 today. Ceftriaxone was stopped due to risk of neutropenia. Discussion with heme/onc revealed that ANC was at an acceptable range, thus no medical intervention was needed. As the patient was medically stable, patient was given a prescription for azithromycin and medrol dose pack. She is to follow up with her PMD and oncologist as an outpatient for further evaluation and treatment. Discharge Exam - Head Exam Head Exam: ATRAUMATIC - Eye Exam Eye Exam: EOMI, PERRL - ENT Exam ENT Exam: Mucous Membranes Moist - Neck Exam Neck exam: Full Rom - Respiratory Exam Respiratory Exam: Clear to PA & Lateral. absent: Accessory Muscle Use, Rales, Rhonchi, Wheezes, Respiratory Distress - Cardiovascular Exam Cardiovascular Exam: RRR, +S1, +S2. absent: Diastolic murmur, Gallop, Rubs, Systolic Murmur - GI/Abdominal Exam GI & Abdominal Exam: Soft. absent: Distended, Guarding, Mass, Normal Bowel Sounds, Organomegaly, Rebound, Rigid, Tenderness - Extremities Exam Extremities exam: normal inspection - Back Exam Back exam: NORMAL INSPECTION - Neurological Exam Neurological exam: Alert, Oriented x3 - Psychiatric Exam Psychiatric exam: Normal Affect, Normal Mood - Skin Skin Exam: Dry, Intact, Normal Color, Warm Discharge Plan - Discharge Medications Prescriptions: Azithromycin [Z-Tervin] 250 mg PO DAILY #6 tab Methylprednisolone [Medrol Dose Pack (21 tabs)] 4 mg PO DAILY #21 mg - Follow Up Plan Condition: GOOD Disposition: HOME/ ROUTINE Instructions: Pneumonia (DC) Additional Instructions: 1. Follow up with PMD within 1 week 2. Follow up with oncologist within 1 week 3. Take Azithromycin and Medrol dose pack as prescribed 4. Resume home medications as prescribed 5. Return to ED if symptoms worsen Referrals: Pricilla Levine MD [Primary Care Provider] - <Ernestine Puckett - Last Filed: 07/27/17 16:24> Provider - Provider Date of Admission: 07/26/17 03:20 Attending physician: Cheri Braden MD Primary care physician: Pricilla Levine MD Hospital Course - Lab Results Lab Results: Micro Results 07/26/17 04:42 Urine,Clean Catch Urine Culture - Final No Growth (<1,000 CFU/ML) 07/26/17 04:20 Blood Blood Culture - Preliminary NO GROWTH AFTER 24 HOURS 07/26/17 03:50 Blood Blood Culture - Preliminary NO GROWTH AFTER 24 HOURS Most Recent Lab Values WBC 1.8 10^3/ul (4.5-11.0) L* D 07/27/17 08:00 RBC 3.48 10^6/uL (3.5-6.1) L 07/27/17 08:00 Hgb 9.4 g/dL (12.0-16.0) L 07/27/17 08:00 Hct 30.7 % (36.0-48.0) L 07/27/17 08:00 MCV 88.2 fl (80.0-105.0) 07/27/17 08:00 MCH 27.0 pg (25.0-35.0) 07/27/17 08:00 MCHC 30.6 g/dl (31.0-37.0) L 07/27/17 08:00 RDW 17.5 % (11.5-14.5) H 07/27/17 08:00 Plt Count 107 10^3/uL (120.0-450.0) L 07/27/17 08:00 MPV 10.7 fl (7.0-11.0) 07/27/17 08:00 Gran % 86.0 % (50.0-68.0) H 07/27/17 08:00 Lymph % (Auto) 11.2 % (22.0-35.0) L 07/27/17 08:00 Gladwin % (Auto) 2.8 % (1.0-6.0) 07/27/17 08:00 Eos % (Auto) 0.0 % (1.5-5.0) L 07/27/17 08:00 Baso % (Auto) 0.0 % (0.0-3.0) 07/27/17 08:00 Gran # 1.54 (1.4-6.5) 07/27/17 08:00 Lymph # 0.2 (1.2-3.4) L 07/27/17 08:00 Gladwin # 0.1 (0.1-0.6) 07/27/17 08:00 Eos # 0.0 (0.0-0.7) 07/27/17 08:00 Baso # 0.00 K/mm3 (0.0-2.0) 07/27/17 08:00 PT 12.7 SECONDS (9.4-12.5) H 07/26/17 02:05 INR 1.16 (0.93-1.08) H 07/26/17 02:05 APTT 28.1 Seconds (25.1-36.5) 07/26/17 02:05 D-Dimer, Quantitative 827 ng/mL (0-243) H 07/26/17 13:40 Sodium 142 mmol/L (132-148) 07/27/17 08:00 Potassium 5.2 mmol/L (3.6-5.0) H 07/27/17 08:00 Chloride 107 mmol/L (98-107) 07/27/17 08:00 Carbon Dioxide 24 mmol/L (21-33) 07/27/17 08:00 Anion Gap 16 (10-20) 07/27/17 08:00 BUN 19 mg/dL (7-21) 07/27/17 08:00 Creatinine 1.1 mg/dL (0.7-1.2) 07/27/17 08:00 Est GFR ( Amer) > 60 07/27/17 08:00 Est GFR (Non-Af Amer) 50 07/27/17 08:00 Random Glucose 129 mg/dL (70-110) H 07/27/17 08:00 Calcium 10.1 mg/dL (8.4-10.5) 07/27/17 08:00 Phosphorus 4.4 mg/dL (2.5-4.5) 07/26/17 07:40 Magnesium 2.0 mg/dL (1.7-2.2) 07/27/17 09:03 Total Bilirubin 1.1 mg/dL (0.2-1.3) 07/27/17 08:00 AST 31 U/L (14-36) 07/27/17 08:00 ALT 29 U/L (7-56) 07/27/17 08:00 Alkaline Phosphatase 145 U/L (38-126) H 07/27/17 08:00 Lactate Dehydrogenase 1220 U/L (333-699) H 07/27/17 09:03 Total Creatine Kinase 26 U/L (35-230) L 07/27/17 09:03 Troponin I < 0.01 ng/mL 07/27/17 09:03 NT-Pro-B Natriuret Pep 66.1 pg/mL (0-450) 07/26/17 02:05 Total Protein 8.0 g/dL (5.8-8.3) 07/27/17 08:00 Albumin 4.1 g/dL (3.0-4.8) 07/27/17 08:00 Globulin 3.9 gm/dL 07/27/17 08:00 Albumin/Globulin Ratio 1.1 (1.1-1.8) 07/27/17 08:00 Procalcitonin 0.15 NG/ML (0.19-0.49) L 07/26/17 07:40 Urine Color Yellow (YELLOW) 07/26/17 05:04 Urine Appearance Clear (CLEAR) 07/26/17 05:04 Urine pH 6.0 (4.7-8.0) 07/26/17 05:04 Ur Specific Warren 1.020 (1.005-1.035) 07/26/17 05:04 Urine Protein Negative mg/dL (<30 mg/dL) 07/26/17 05:04 Urine Glucose (UA) Negative mg/dL (NEGATIVE) 07/26/17 05:04 Urine Ketones Negative mg/dL (NEGATIVE) 07/26/17 05:04 Urine Blood Negative (NEGATIVE) 07/26/17 05:04 Urine Nitrate Negative (NEGATIVE) 07/26/17 05:04 Urine Bilirubin Negative (NEGATIVE) 07/26/17 05:04 Urine Urobilinogen 0.2 E.U./dL (<1 E.U./dL) 07/26/17 05:04 Ur Leukocyte Esterase Negative Jose/uL (NEGATIVE) 07/26/17 05:04 Attending/Attestation - Attestation I have personally seen and examined this patient.: Yes I have fully participated in the care of the patient.: Yes I have reviewed all pertinent clinical information, including history, physical exam and plan: Yes Notes (Text): 07/27/17 16:18 62 year old female with past medical history of stage 4 colon cancer with pulmonary mets on chemotherapy and hypertension who presented with complaint of fever and cough with chest tightness. CXR and CT chest showed progression of pulmonary mets. Findings were discussed with patient and her oncologist. D- dimer was elevated but LE doppler and CT angio were negative. Patient's symptoms improved on steroids and antibiotics. She was seen by pulmonary. Case was discussed with oncologist as above as well. She has leukopenia, with level of 1.8 today with ANC above 1.5. Her ceftriaxone was discontinued. Discussed with oncology; no need for neupogen at this time. Patient's symptoms have overall improved. She is discharged home today to follow up with her pmd and oncologist. Repeat labs within one week; monitor cbc. Discharged on medrol dosepack and azithromycin. Ernestnie Puckett MD Hospitalist.
--- NOTE | 2017-07-28 09:13 | CARD ---
APPROVED REPORT EXAM: Two-dimensional and M-mode echocardiogram with Doppler and color Doppler. Other Information Quality : PoorRhythm : INDICATION Dyspnea 2D DIMENSIONS IVSd1.1 (0.7-1.1cm)LVDd3.5 (3.9-5.9cm) PWd1.0 (0.7-1.1cm)LVDs1.9 (2.5-4.0cm) FS (%) 46.7 %LVEF (%)79.0 (>50%) M-Mode DIMENSIONS Left Atrium (MM)3.50 (2.5-4.0cm)Aortic Root3.10 (2.2-3.7cm) Aortic Cusp Exc.2.40 (1.5-2.0cm) Aortic Valve AoV Peak Rcfzxcwl706.0cm/Cindy Peak GR.11mmHg Mitral Valve MV E Byferyxk92.1cm/sMV A Zqohwmpx02.8cm/sE/A ratio1.2 TDI Lateral E' Peak V7.99cm/sMedial E' Peak V9.16cm/sE/Lateral E'8.8 E/Medial E'7.7 Tricuspid Valve TR Peak [id number]/sRAP [id number] Peak Gr.27mmHg [id number] LEFT VENTRICLE The left ventricle is normal size. There is normal left ventricular wall thickness. The left ventricular function is normal. The left ventricular ejection fraction is within the normal range. There is normal LV segmental wall motion. RIGHT VENTRICLE The right ventricle is normal size. ATRIA The left atrium size is normal. The right atrium size is normal. AORTIC VALVE The aortic valve is mildly calcified. MITRAL VALVE The mitral valve is normal in structure. TRICUSPID VALVE The tricuspid valve is not well visualized. There is trace tricuspid regurgitation. PULMONIC VALVE The pulmonic valve is not well visualized. GREAT VESSELS The aortic root is normal in size. PERICARDIAL EFFUSION There is no pericardial effusion. <Conclusion> Very Limited Study. The left ventricle is normal size. There is normal left ventricular wall thickness. The left ventricular function is normal.
== END 2017-07-27 15:34 | disposition home or self-care (01) ==
LOC: ED 00:24 → ERH 03:20 → 3RSO 04:59
PROVIDERS: ADMIT Hospitalist; ATTEND Hospitalist
DX: J18.9 Pneumonia, unspecified organism (principal); C18.9 Malignant neoplasm of colon, unspecified; C78.00 Secondary malignant neoplasm of unspecified lung; C78.7 Secondary malignant neoplasm of liver and intrahepatic bile duct; D64.9 Anemia, unspecified; D72.819 Decreased white blood cell count, unspecified; E78.5 Hyperlipidemia, unspecified; H40.9 Unspecified glaucoma; I10 Essential (primary) hypertension; J44.0 Chronic obstructive pulmonary disease with (acute) lower respiratory infection; J44.1 Chronic obstructive pulmonary disease with (acute) exacerbation; R79.1 Abnormal coagulation profile; Z79.899 Other long term (current) drug therapy; Z87.891 Personal history of nicotine dependence; Z92.21 Personal history of antineoplastic chemotherapy; H26.9 Unspecified cataract; F41.9 Anxiety disorder, unspecified; F32.89 Other specified depressive episodes
CPT/HCPCS: 36415; 71010; 71275; 80053; 81003; 82550; 83615; 83735; 83880; 84100; 84145; 84484; 85025; 85027; 85378; 85610; 85730; 87040; 87086; 93005; 93306; 93970; 94640; 96365; 96366; 96367; 96372; 96375; 96376; 99284; G0378; J0456; J0696; J1644; J2920; J3475; Q9967

== ENCOUNTER 2017-08-24 21:18 | Inpatient (IN) | payer OTHER ==
[2017-08-24 21:28] VITALS: BMI 28.7
[2017-08-24] MEDS ORDERED: Morphine 4 mg/ml ISec IVP STA (21:33)
[2017-08-24 22:06] LABS: VENOUS BLOOD GAS BASE EXCESS -0.2 mmol/L (0.0-2.0); VENOUS BLOOD PH 7.37 (7.32-7.43)
[2017-08-24 22:09] LABS: BASO # 0.08 K/mm3 (0.0-2.0); BASO % 0.5 % (0.0-3.0); EOS # 0.2 (0.0-0.7); EOS % 1.2 % (1.5-5.0); GRAN # 13.01 (1.4-6.5); GRAN % 83.7 % (50.0-68.0); HEMATOCRIT 35.5 % (36.0-48.0); LYMPH # 1.1 (1.2-3.4); LYMPH % 6.9 % (22.0-35.0); MEAN CORPUSCULAR HEMOGLOBIN 27.6 pg (25.0-35.0); MEAN PLATELET VOLUME 11.2 fl (7.0-11.0); MONO # 1.2 (0.1-0.6); MONO % 7.7 % (1.0-6.0); RED CELL DISTRIBUTION WIDTH 18.1 % (11.5-14.5); WHITE BLOOD COUNT 15.5 10^3/ul (4.5-11.0)
[2017-08-24 22:21] LABS: INR 1.23 (0.93-1.08); PARTIAL THROMBOPLASTIN TIME 24.8 Seconds (25.1-36.5)
[2017-08-24 22:31] LABS: TROPONIN I < 0.01 ng/mL
[2017-08-24] MEDS ORDERED: Vancomycin 1gm in NS 250ml 1 GM/250 ML BAG IVPB STA (22:33)
[2017-08-24] MEDS ORDERED: Cefepime IV 2 gm in NS 2 GM/100 ML BAG IVPB STA (22:34)
--- NOTE | 2017-08-24 22:35 | ED PDOC ---
Arrival/HPI - General Chief Complaint: Chest Pain Time Seen by Provider: 08/24/17 21:24 Historian: Patient - History of Present Illness Narrative History of Present Illness (Text): 08/24/17 22:30 62yo female with history of stage 4 colon CA with mets to the lung who present with complaint of chest tightness, lower back and abdominal pain x 2days. Notes that she was leukopenic and thrombocytopenic last week and was given neuprogen and platelet this week. She started having these symptoms 2days ago. +Cough. She denies nausea, vomiting, diarrhea, constipation, diaphoresis, dizziness, trauma, urinary symptoms, any other complaint. She was treated for Pneumonia when she was here last month. Past Medical History - Provider Review Nursing Documentation Reviewed: Yes - Infectious Disease Hx of Infectious Diseases: None - Tetanus Immunization Tetanus Immunization: Unknown - Cardiac Hx Hypertension: Yes - Pulmonary Hx Respiratory Disorders: No Hx Lung Cancer: Yes - Neurological Hx Neurological Disorder: No - HEENT Hx Cataracts: Yes Hx Glaucoma: Yes - Renal Hx Renal Disorder: No - Endocrine/Metabolic Hx Endocrine Disorders: No - Hematological/Oncological Hx Anemia: Yes Hx Cancer: Yes (colon CA with metastasis to liver and lung) Hx Chemotherapy: Yes (06/07) Hx Metastasis: Yes Other/Comment: Low platelets - Integumentary Hx Dermatological Disorder: No - Musculoskeletal/Rheumatological Hx Falls: Yes Hx Herniated Disk: Yes - Gastrointestinal Other/Comment: Colon Cancer, Stage 4 - Genitourinary/Gynecological Hx Genitourinary Disorders: No - Psychiatric Hx Psychophysiologic Disorder: Yes Hx Anxiety: Yes Hx Depression: Yes Hx Substance Use: No - Surgical History Other/Comment: left subclavian port. tumor resection - Anesthesia Hx Anesthesia: Yes Hx Anesthesia Reactions: No Hx Malignant Hyperthermia: No - Suicidal Assessment Feels Threatened In Home Enviroment: No Family/Social History - Physician Review Nursing Documentation Reviewed: Yes Family/Social History: Unknown Family HX Smoking Status: Former Smoker Hx Alcohol Use: No Hx Substance Use: No Hx Substance Use Treatment: No Allergies/Home Meds Allergies/Adverse Reactions: Allergies No Known Allergies Allergy (Verified 06/12/17 18:46) Home Medications: Home Meds Medication Instructions Recorded Confirmed Alprazolam [Xanax] 0.5 mg PO DAILY 05/12/16 08/24/17 Cholecalciferol [Vitamin D 1000 IU] 15,000 iu PO QWK 05/12/16 08/24/17 Zolpidem HALF TABLET [Ambien] 10 mg PO HS 10/24/16 08/24/17 Lisinopril [Zestril] 10 mg PO DAILY 05/27/17 08/24/17 Montelukast [Singulair] 10 mg PO DAILY 05/27/17 08/24/17 Umeclidinium Elmer [Incruse 1 puff IH DAILY 08/24/17 08/24/17 Ellipta] Review of Systems - Physician Review All systems were reviewed & negative as marked: Yes - Review of Systems Constitutional: Normal Eyes: Normal ENT: Normal Respiratory: Normal Cardiovascular: Chest Pain. absent: Palpitations, Edema, Calf Pain Gastrointestinal: Normal, Abdominal Pain. absent: Constipation, Diarrhea, Nausea, Vomiting, Hematochezia, Hematemesis Genitourinary Female: Normal Musculoskeletal: Back Pain Skin: Normal Neurological: Normal Endocrine: Normal Hemo/Lymphatic: Normal Psychiatric: Normal Physical Exam Vital Signs Reviewed: Yes Vital Signs Temp Pulse Resp BP Pulse Ox 08/24/17 23:29 92 H 20 123/77 95 08/24/17 22:46 99 F 08/24/17 21:27 112 H 18 129/84 98 Temperature: Afebrile Blood Pressure: Normal Pulse: Tachycardic Respiratory Rate: Normal Appearance: Positive for: Well-Appearing, Non-Toxic, Comfortable Pain Distress: None Mental Status: Positive for: Alert and Oriented X 3 - Systems Exam Head: Present: Atraumatic, Normocephalic Pupils: Present: PERRL Extroacular Muscles: Present: EOMI Conjunctiva: Present: Normal Mouth: Present: Moist Mucous Membranes Neck: Present: Normal Range of Motion Respiratory/Chest: Present: Clear to Auscultation, Good Air Exchange. No: Respiratory Distress, Accessory Muscle Use, Wheezes, Decreased Breath Sounds, Rales, Retracting, Rhonchi Cardiovascular: Present: Regular Rate and Rhythm, Normal S1, S2. No: Murmurs Abdomen: Present: Normal Bowel Sounds, Other (Soft). No: Tenderness, Distention , Peritoneal Signs, Rebound, Guarding, McBurney's Point Tender, Rovsing's Sign Present Back: Present: Normal Inspection. No: CVA Tenderness, Midline Tenderness, Paraspinal Tenderness Upper Extremity: Present: Normal Inspection. No: Cyanosis, Edema Lower Extremity: Present: Normal Inspection. No: Edema Neurological: Present: GCS=15, CN II-XII Intact, Speech Normal Skin: Present: Warm, Dry, Normal Color. No: Rashes Psychiatric: Present: Alert, Oriented x 3, Normal Insight, Normal Concentration Medical Decision Making ED Course and Treatment: 08/25/17 01:18 PT presented for stated history. She was tachy on presentation, had elevated lactate and leukocytosis. She met 3/ 5 criteria of sepsis. Sepsis was called. She was started on Vancomycin and Maxipime. She had RLL infiltrate on the CXR. This could be the source of the sepsis. Although it was noted that pt had similar finding on her chest xray last month. Multiple mass was noted on the chest xray and patient admits that she is aware of the massed from her previous chest CT. EKG Sinus tachy @108. No ST changes. Case was CURT Levine and she requested that pt be admitted to the hospitalist Case was CURT Braden and pt was admitted - Lab Interpretations Lab Results: 08/24/17 21:45 08/24/17 21:45 Lab Results 08/24/17 22:25: Urine Color Yellow, Urine Appearance Clear, Urine pH 6.5, Ur Specific [place] 1.015, Urine Protein Negative, Urine Glucose (UA) Negative, Urine Ketones Negative, Urine Blood Negative, Urine Nitrate Negative, Urine Bilirubin Negative, Urine Urobilinogen 0.2, Ur Leukocyte Esterase Small H, Urine RBC Negative, Urine WBC Negative 08/24/17 21:45: pO2 51, VBG pH 7.37, VBG pCO2 44.0, VBG HCO3 25.4, VBG Total CO2 26.8, VBG O2 Sat (Calc) 89.4 H, VBG Base Excess -0.2 L, VBG Potassium 5.0, Sodium 140.0, Chloride 106.0, Glucose 153 H, Lactate 3.9 H, FiO2 21.0, Venous Blood Potassium 5.0 08/24/17 21:45: Sodium 141, Chloride 105, Potassium 5.3 H, Carbon Dioxide 27, Anion Gap 14, BUN 13, Creatinine 1.2, Est GFR ( Amer) 55, Est GFR (Non- Af Amer) 46, Random Glucose 137 H, Calcium 10.6 H, Magnesium 1.6 L, Total Bilirubin 2.0 H, AST 47 H D, ALT 29, Alkaline Phosphatase 218 H D, Lactate Dehydrogenase 2635 H, Total Creatine Kinase 50, Troponin I < 0.01, Total Protein 7.7, Albumin 4.1, Globulin 3.6, Albumin/Globulin Ratio 1.1 08/24/17 21:45: PT 13.5 H, INR 1.23 H, APTT 24.8 L 08/24/17 21:45: WBC 15.5 H D, RBC 3.99, Hgb 11.0 L, Hct 35.5 L, MCV 89.0, MCH 27.6, MCHC 31.0, RDW 18.1 H, Plt Count 117 L, MPV 11.2 H, Gran % 83.7 H, Lymph % (Auto) 6.9 L, Dillon % (Auto) 7.7 H, Eos % (Auto) 1.2 L, Baso % (Auto) 0.5, Gran # 13.01 H, Lymph # 1.1 L, Dillon # 1.2 H, Eos # 0.2, Baso # 0.08 - RAD Interpretation Radiology Orders: 08/24/17 21:32 CHEST PORTABLE [RAD] Stat - Medication Orders Current Medication Orders: Acetaminophen (Tylenol 325mg Tab) 650 mg PO Q4 PRN PRN Reason: Fever >100.4 F Albuterol/Ipratropium (Duoneb 3 Mg/0.5 Mg (3 Ml) Ud) 3 ml IH [id number] PRN PRN Reason: Shortness of Breath Alprazolam (Xanax) 0.5 mg PO DAILY RUKHSANA PRN Reason: Protocol Cholecalciferol (Vitamin D) 1,000 iu PO DAILY [facility] Heparin Sodium (Porcine) (Heparin) 5,000 units SC Q12 RUKHSANA PRN Reason: Protocol Ibuprofen (Motrin Tab) 400 mg PO Q6H PRN PRN Reason: Pain, Mild (1-3) Lisinopril (Zestril) 10 mg PO DAILY [facility] Montelukast Sodium (Singulair) 10 mg PO DAILY [facility] Ondansetron HCl (Zofran Inj) 4 mg IVP Q4H PRN PRN Reason: Nausea/Vomiting Oxycodone/Acetaminophen (Percocet 5/325 Mg Tab) 1 tab PO Q6 PRN PRN Reason: Pain, severe (8-10) Stop: 08/28/17 00:34 Pantoprazole Sodium (Protonix Ec Tab) 40 mg PO 0600 RUKHSANA Spironolactone (Aldactone) 25 mg PO TID RUKHSANA Zolpidem Tartrate (Ambien) 5 mg PO HS RUKHSANA Discontinued Medications Albuterol/Ipratropium (Duoneb 3 Mg/0.5 Mg (3 Ml) Ud) 3 ml IH STAT STA Stop: 08/25/17 00:35 Cefepime HCl (Maxipime 2gm) 2 gm in 100 mls @ 100 mls/hr IVPB STAT STA PRN Reason: Protocol Stop: 08/24/17 23:33 Last Admin: 08/24/17 22:31 Dose: 100 mls/hr eMAR Start Stop Document 08/24/17 22:31 SS (Rec: 08/24/17 23:07 [id number] Intravenous Solution Start Date 08/24/17 Start Time 22:31 End Date 08/24/17 End time 23:31 Total Infusion Time 60 Vancomycin HCl (Vancomycin 1gm) 1 gm in 250 mls @ 167 mls/hr IVPB STAT STA PRN Reason: Protocol Stop: 08/25/17 00:02 Last Admin: 08/24/17 23:58 Dose: 167 mls/hr eMAR Start Stop Document 08/24/17 23:58 SS (Rec: 08/24/17 23:58 SS [id number]) Intravenous Solution Start Date 08/24/17 Start Time 23:58 End Date 08/25/17 End time 01:28 Total Infusion Time 90 Sodium Chloride (Sodium Chloride 0.9%) 1,000 mls @ 999 mls/hr IV .Q1H1M STA Stop: 08/24/17 23:49 Last Admin: 08/24/17 23:07 Dose: 999 mls/hr eMAR Start Stop Document 08/24/17 23:07 SS (Rec: 08/24/17 23:07 [id number][facility] Intravenous Solution Start Date 08/24/17 Start Time 22:31 End Date 08/24/17 End time 23:32 Total Infusion Time 61 Morphine Sulfate (Morphine) 4 mg IVP STAT STA Stop: 08/24/17 21:34 Last Admin: 11/25/17 22:31 Dose: 4 mg MAR Pain Assessment Document 08/24/17 22:31 SS (Rec: 08/24/17 22:31 [place] [id number]) Pain Reassessment Is this a pain reassessment? No Sleep Is patient sleeping during reassessment? No Presence of Pain Presence of Pain Yes Location Upper or Lower Lower Pain Location Body Site Abdomen Back Description Intensity of Pain at present 9 Pain Behavior Moaning Restlessness IVP Administration Document 08/24/17 22:31 SS (Rec: 08/24/17 22:[id number] Charges for Administration # of IVP Administrations 1 Ondansetron HCl (Zofran Inj) 4 mg IVP STAT STA Stop: 08/24/17 22:21 Last Admin: 08/24/17 22:31 Dose: 4 mg IVP Administration Document 08/24/17 22:31 SS (Rec: 08/24/17 22:31 [place] [id number]) Charges for Administration # of IVP Administrations 1 Disposition/Present on Arrival - Present on Arrival Any Indicators Present on Arrival: No History of DVT/PE: No History of Uncontrolled Diabetes: No Urinary Catheter: No History of Decub. Ulcer: No History Surgical Site Infection Following: None - Disposition Have Diagnosis and Disposition been Completed?: Yes Diagnosis: Chest pain, Pneumonia, Sepsis Disposition: HOSPITALIZED Disposition Time: 23:10 Patient Problems: Current Active Problems Problem Status Onset Chest pain Acute Pneumonia Acute Sepsis Acute Condition: GUARDED
[2017-08-24 22:45] LABS: ALB/GLOB RATIO 1.1 (1.1-1.8); TOTAL PROTEIN 7.7 g/dL (5.8-8.3)
[2017-08-24] MEDS ORDERED: Sodium Chloride 0.9% 1,000 ML IV STA (22:49)
[2017-08-24 22:50] LABS: PH,URINE 6.5 (4.7-8.0); URINE BILIRUBIN NEGATIVE (NEGATIVE); URINE BLOOD NEGATIVE (NEGATIVE); URINE GLUCOSE (UA) NEGATIVE (NEGATIVE); URINE KETONE NEGATIVE (NEGATIVE); URINE LEUKOCYTE ESTERASE SMALL Leu/uL (NEGATIVE); URINE PROTEIN NEGATIVE mg/dL (<30 mg/dL); URINE UROBILINOGEN 0.2 E.U./dL (<1 E.U./dL)
[2017-08-24 22:51] LABS: ALKALINE PHOSPHATASE 218 U/L (38-126); ALT/SGPT 29 U/L (7-56); AST/SGOT 47 U/L (14-36); BLOOD UREA NITROGEN 13 mg/dL (7-21); CALCIUM 10.6 mg/dL (8.4-10.5); CARBON DIOXIDE 27 mmol/L (21-33); CHLORIDE 105 mmol/L (98-107); GFR AFRICAN-AMERICAN 55; GLUCOSE,RANDOM 137 mg/dL (70-110); MAGNESIUM 1.6 mg/dL (1.7-2.2)
[2017-08-24 22:55] LABS: URINE APPEARANCE CLEAR (CLEAR); URINE COLOR YELLOW (YELLOW); URINE RBC NEGATIVE /hpf (0-2); URINE WBC NEGATIVE /hpf (0-6)
[2017-08-24 23:14] LABS: POTASSIUM 5.3 mmol/L (3.6-5.0); SODIUM 141 mmol/L (132-148)
--- NOTE | 2017-08-25 00:08 | CP.PCM.HP ---
History of Present Illness - History of Present Illness History of Present Illness: Ms. Mcgregor is a 62 yo F with PMH of stage IV colon cancer w/ metastasis to liver and lung, HTN, L eye vision loss, and GERD who presented to the ER complaining of a cough, fevers, and shoulder pain x2 days. pt states that she has felt this way since she saw Dr. Calderón on Saturday and was given what she thinks is Keytruda as well as what she believes was platelets and blood due to her pancytopenia. The patient states that she has been on chemotherapy for 7 years and 1.5months ago, was stopped due to a negative reaction and states that she cannot take it anymore. pt also states that she was given Incruse by her PMD Dr. Levine but did not experience improvement. when asked about her left eye being red, the patient states that she has hx of glaucoma and cannot see out of this eye. pt denies chest pain, abdominal pain, urinary/bowel changes, chills, weakness, n/v/d, or LE swelling. 12-pt ROS was reviewed and is otherwise unremarkable. In ED, note states that patient received Neuopgen. Code sepsis was called, and patient was started on fluids. Also received Vancomycin and Cefepime. PMD: Dr. Levine Onc: Dr. Calderón PMH: HTN, Stage IV colon CA s/p tumor resection and chemo, with multiple distant mets including to lungs and liver Surg: Hepatic tumor resection, colonic tumor resection Soc: Denies tob, EtOH, illicits FHx: Noncontributory All: NKDA Present on Admission - Present on Admission Any Indicators Present on Admission: No History of DVT/PE: No History of Uncontrolled Diabetes: No Urinary Catheter: No Decubitus Ulcer Present: No Review of Systems - Review of Systems All systems: reviewed and no additional remarkable complaints except (as per HPI ) Past Patient History - Infectious Disease Hx of Infectious Diseases: None - Tetanus Immunizations Tetanus Immunization: Unknown - Past Social History Smoking Status: Former Smoker Alcohol: None Drugs: Denies Home Situation {Lives}: Alone - CARDIAC Hx Hypertension: Yes - PULMONARY Hx Respiratory Disorders: No - NEUROLOGICAL Hx Neurological Disorder: No - HEENT Hx Cataracts: Yes Hx Glaucoma: Yes - RENAL Hx Chronic Kidney Disease: No - ENDOCRINE/METABOLIC Hx Endocrine Disorders: No - HEMATOLOGICAL/ONCOLOGICAL Hx Anemia: Yes Hx Cancer: Yes (colon CA with metastasis to liver and lung) Hx Chemotherapy: Yes (06/07) Hx Metastesis: Yes Other/Comment: pancytopenia - INTEGUMENTARY Hx Dermatological Problems: No - MUSCULOSKELETAL/RHEUMATOLOGICAL Hx Falls: Yes Hx Herniated Disk: Yes - GASTROINTESTINAL Hx Bowel Surgery: Yes (resection 2/ cancer) Other/Comment: Colon Cancer, Stage 4 - GENITOURINARY/GYNECOLOGICAL Hx Genitourinary Disorders: No - PSYCHIATRIC Hx Psychophysiologic Disorder: Yes Hx Anxiety: Yes Hx Depression: Yes Hx Substance Use: No - SURGICAL HISTORY Other/Comment: left subclavian port. colonic tumor and liver mets resection ( 2010) - ANESTHESIA Hx Anesthesia: Yes Hx Anesthesia Reactions: No Hx Malignant Hyperthermia: No Meds Allergies/Adverse Reactions: Allergies Allergy/AdvReac Type Severity Reaction Status Date / Time No Known Allergies Allergy Verified 06/12/17 18:46 Physical Exam - Constitutional Appears: Well, Non-toxic, No Acute Distress - Head Exam Head Exam: ATRAUMATIC, NORMAL INSPECTION, NORMOCEPHALIC - Eye Exam Eye Exam: Conjunctival injection, EOMI, PERRL Pupil Exam: NORMAL ACCOMODATION Additional comments: L eye total vision loss - ENT Exam ENT Exam: Mucous Membranes Moist, Normal Exam - Neck Exam Neck exam: Positive for: Normal Inspection - Respiratory Exam Respiratory Exam: Clear to Auscultation Bilateral. absent: Rales, Rhonchi, Wheezes - Cardiovascular Exam Cardiovascular Exam: RRR, +S1, +S2. absent: Gallop, JVD, Rubs, Systolic Murmur - GI/Abdominal Exam GI & Abdominal Exam: Normal Bowel Sounds, Soft. absent: Distended, Tenderness - Extremities Exam Extremities exam: Positive for: normal inspection. Negative for: pedal edema - Back Exam Back exam: NORMAL INSPECTION - Neurological Exam Neurological exam: Alert, Oriented x3 - Psychiatric Exam Psychiatric exam: Normal Affect, Normal Mood - Skin Skin Exam: Normal Color, Warm Results - Vital Signs Recent Vital Signs: Last Vital Signs Temp 99 F 08/24/17 22:46 Pulse 92 H 08/24/17 23:29 Resp 20 08/24/17 23:29 BP 123/77 08/24/17 23:29 Pulse Ox 95 08/24/17 23:29 - Labs Result Diagrams: 08/24/17 21:45 08/24/17 21:45 Assessment & Plan - Assessment and Plan (Free Text) Assessment: Ms. Mcgregor is a 62 yo F with PMH of stage IV colon cancer w/ metastasis to liver and lung, HTN, L eye vision loss, and GERD who presented to the ER complaining of a cough, fevers, and shoulder pain x2 days likely 2/2 reactive airway due to mets to lung vs asthma exacerbation vs pneumonia. pt is afebrile, and CXR does not show any new infiltrates or distinct lesions. elevated wbc and lactate are likely 2/2 her mets, possible recent neupogen admistration and/ or Keytruda (which she is on for compassionate basis by Dr. Calderón rather than a primary lung tumor) rather than a new pneumonia. Plan: 1. SIRS r/o penumonia - sob and cough likely 2/2 reactive disease due to mets - elevated WBC and lactate likely 2/2 possible neupogen and hx metastatic colon ca - CXR does not show infiltrates, however clearly displays masses seen on prior scans - CTA chest from 06/2017: Several pulmonary masses, largest measuring up to 5.2 cm maximal dimension, which was increased in size from previous examination. - given Vanc and Cefepime in ED - will cont Levaquin, as empiric rx for CAP in immunosuppressed pt - ID consulted regarding abx use - pt remains afebrile and O2 sats are sufficient on RA - will cont to monitor - blood and urine cultures sent - procal ordered - Motrin PRN - Tylenol PRN - Duoneb PRN - Mucinex - cont Singulair - zofran PRN - will do 6hr bundle for sepsis follow up 2. conjuctivitis (L eye) - unclear if chronic or not from patient's history - start on betadine opthalmic eyedrops daily - cont to monitor 3. Hx Colon Ca - consider contacting Dr. Calderón to find out what medication the patient received - patient will f/u Dr. Calderón on discharge - Aldactone for edema - Percocet for pain 4. hx HTN - cont Lisinopril 5. Hx Anxiety - cont Xanax and Ambien PTX/Heparin (high risk of DVT due to hx cancer) and SCDs HHD Patient was seen, examined, and discussed with attending, Dr. Miguelangel Wolfe PGY1 - Date & Time Date: 08/25/17 Time: 00:43
[2017-08-25] MEDS ORDERED: Oxycodone/Acetaminophen 5/325 mg Tab PO PRN (00:33)
[2017-08-25] MEDS ORDERED: Albuterol-Ipratrop 3 mg / 0.5 (3 ml) UD IH STA (00:34)
[2017-08-25] MEDS ORDERED: Albuterol-Ipratrop 3 mg / 0.5 (3 ml) UD IH PRN (00:34)
[2017-08-25] MEDS ORDERED: guaiFENesin-DM 600-30 mg ER Tab PO STA ×2 (01:24→23:59)
[2017-08-25 01:56] LABS: VENOUS BLOOD GAS BASE EXCESS 1.7 mmol/L (0.0-2.0); VENOUS BLOOD PH 7.37 (7.32-7.43)
--- NOTE | 2017-08-25 02:05 | PCM.SEPTIC ---
Sepsis Progress Note - Reassessment Type Date of Evaluation: 08/25/17 Time of Evaluation: 02:04 Reassessment Type: Non-invasive reassessment - Non Invasive Reassessment Were the most recent vital sign reviewed: Yes Vital Sign (Latest): Temp Pulse Resp BP Pulse Ox 98.9 F 102 H 19 128/74 102 H 08/25/17 02:06 08/25/17 02:06 08/25/17 02:06 08/25/17 02:06 08/25/17 02:06 Cardiovascular: Yes: Tachycardia. No: Edema, JVD, Murmur Respiratory: Yes: Normal Breath Sounds. No: Decreased Breath Sounds, Accessory Muscle Use, Crackles, Rales, Rhonchi, Wheezing Capillary Refill: Normal (Less than 2 sec) Pulses: Normal Radial, Normal Dorsalis Pedis Skin: Normal Color
[2017-08-25] MEDS: Pantoprazole 40 mg EC Tab PO SCH (05:06)
[2017-08-25 07:11] LABS: HEMATOCRIT 31.4 % (36.0-48.0); MEAN CELL VOLUME 88.7 fl (80.0-105.0); MEAN CORPUSCULAR HEMOGLOBIN 26.8 pg (25.0-35.0); MEAN CORPUSCULAR HGB CONC 30.3 g/dl (31.0-37.0); WHITE BLOOD COUNT 15.7 10^3/ul (4.5-11.0)
[2017-08-25 07:28] LABS: BILIRUBIN,TOTAL 2.2 mg/dL (0.2-1.3); CALCIUM 9.7 mg/dL (8.4-10.5); TOTAL PROTEIN 6.9 g/dL (5.8-8.3)
[2017-08-25 08:50] VITALS: RESP 20
[2017-08-25] MEDS: levoFLOXacin 750 mg in D5W 750 MG/150 ML BAG IVPB SCH (09:15)
[2017-08-25] MEDS: Povidone Iodine Ophthalmic 5% Soln OS SCH (09:18)
[2017-08-25] MEDS ORDERED: Vancomycin 1gm in NS 250ml 1 GM/250 ML BAG IVPB STA (09:34)
--- NOTE | 2017-08-25 10:17 | RAD ---
HISTORY: chest pain COMPARISON: 07/26/2017 FINDINGS: LUNGS: There is no change in the appearance of the bilateral lung masses. The mass on the right measures 4.4 cm in diameter. The left-sided mass measures 3.2 cm. A smaller mass is seen at the right lung base near the diaphragm. PLEURA: No significant pleural effusion identified, no pneumothorax apparent. CARDIOVASCULAR: Mild cardiomegaly OSSEOUS STRUCTURES: No significant abnormalities. VISUALIZED UPPER ABDOMEN: Normal. OTHER FINDINGS: Left-sided Port-A-Cath IMPRESSION: No change in bilateral lung masses
[2017-08-25] MEDS ORDERED: Iohexol 240 (50 ml) ONE (10:18)
[2017-08-25] MEDS: Cefepime 1gm in NS 100ml 1 GM/100 ML BAG IVPB SCH ×2 (13:34→22:15)
--- NOTE | 2017-08-25 14:53 | CT ---
PROCEDURE: CT Abdomen and Pelvis without intravenous contrast HISTORY: inc wbc COMPARISON: 06/13/2017 TECHNIQUE: Without contrast.. Contrast Dose: Radiation dose: Total exam DLP = 677 mGy-cm. This CT exam was performed using one or more of the following dose reduction techniques: Automated exposure control, adjustment of the mA and/or kV according to patient size, and/or use of iterative reconstruction technique. FINDINGS: LOWER THORAX: Multiple large lung nodules at both lung bases. These are unchanged LIVER: There has been partial resection of the right lobe of the liver. There are no obvious lesions on this nonenhanced study. GALLBLADDER AND BILE DUCTS: Gallbladder removed PANCREAS: Unremarkable. No gross lesion or ductal dilatation. SPLEEN: There is severe splenomegaly. The spleen measures 12 cm AP by 10 cm wide by 22 cm in length. This is unchanged. ADRENALS: Unremarkable. No mass. KIDNEYS AND URETERS: Unremarkable. No hydronephrosis. No solid mass. VASCULATURE: Unremarkable. No aortic aneurysm. BOWEL: There is a soft tissue mass in the ascending colon. This can be seen on image 68 series 2. This measures 24 x 38 mm this is also seen on coronal image 75 APPENDIX: Unremarkable. Normal appendix. PERITONEUM: Unremarkable. No free fluid. No free air. LYMPH NODES: Unremarkable. No enlarged lymph nodes. BLADDER: Unremarkable. REPRODUCTIVE: There is an IUD in the endometrial canal BONES: Disc degeneration at L5-S1 OTHER FINDINGS: None. IMPRESSION: Large lung nodules. Severe splenomegaly unchanged. Intraluminal soft tissue mass in the ascending colon suspicious for neoplastic lesion.
[2017-08-25] MEDS: Morphine 2 mg/ml ISec IVP PRN ×2 (15:22→20:26)
--- NOTE | 2017-08-25 19:38 | CON ---
DATE: 08/25/2017 LOCATION: The patient was seen earlier this morning in [facility]. CHIEF COMPLAINT: Weakness times several days. HISTORY OF PRESENT ILLNESS: This is a 62-year-old female with colon cancer with metastases to the lung, has had chemotherapy, was given Neupogen because of leukopenia. She was admitted with cough and pulmonary symptoms. Have no nausea or vomiting. No diarrhea. No constipation. No diaphoresis. No dizziness. No trauma. No dysuria or frequency. No fevers and chills. PAST MEDICAL HISTORY: Significant for colon cancer with mets to the liver and lung. The patient was in the hospital recently in 05/2017. The patient also with a history of hypertension, hyperlipidemia, glaucoma and anxiety. The patient has a left chest wall Port-A-Cath. ALLERGIES: HAS NO KNOWN ALLERGIES. HOME MEDICATIONS: Reviewed and include oxycodone, Ambien, spironolactone, montelukast, Medrol Trevin, lisinopril vitamin D, Xanax and Tylenol. PHYSICAL EXAMINATION: VITAL SIGNS: On exam, the patient is in bed, appearing somewhat anxious and with a temperature of 99.7, heart rate of 91, respiratory rate of 20, blood pressure is 98/52. HEENT: Examination is unremarkable. NECK: Supple. LUNGS: Have decreased breath sounds. HEART: Normal S1, S2. ABDOMEN: Examination is soft, nontender. No rebound or guarding. LABORATORY DATA: Examination reveals the patient's white count of 15,500, hemoglobin of 11, platelets of 117. Coagulation is noted. The differential on the white count of 15 thousand reveals 83% granulocytosis. Chemistries are noted with elevated alkaline phosphatase, mild elevation of AST and BUN of 13, creatinine of 1.2 with GFR of 46. Urinalysis reveals no protein and small leukocyte esterase with no rbc's and negative wbc's in the urine. Microbiology is not available. The patient had a chest x-ray which does not have a official reading. All other review on the chest x-ray is noted and waiting for the official report. History and physical examination by Lisa is reviewed. ASSESSMENT AND PLAN: This is a 62-year-old female with colon cancer with mets to the liver and lung and had chemotherapy. She has hypertension, hyperlipidemia, anxiety and glaucoma. Has a Port-A-Cath, presenting with low grade fevers and pulmonary symptoms and now with the tachycardia, leukocytosis and systemic inflammatory response syndrome must rule out sepsis secondary to hospital-acquired pneumonia, awaiting for the chest x-ray report. We will order blood cultures, urine cultures and a procalcitonin and sputum cultures and the patient had a mild discomfort on abdominal exam and we will order a repeat CT scan of the abdomen and pelvis. The patient had one in 05/2017, 2 months ago. I will start the patient on empiric antibiotic therapy.. The patient was given a dose of cefepime and vancomycin. We will start the patient on Maxipime and doxycycline. Pending jaffe culture results, procalcitonin, chest x-ray results and a CT scan of the abdomen and pelvis results and also give a dose of vancomycin and possible bacteremia from the Port-A-Cath, the patient has pending blood culture results. We will follow closely with you. We will also order HIV because of the patient's age and underlying malignancy. Carlo Cheung MD
[2017-08-25] MEDS ORDERED: Morphine 2 mg/ml ISec IVP STA (22:08)
[2017-08-26] MEDS: Cefepime 1gm in NS 100ml 1 GM/100 ML BAG IVPB SCH ×3 (05:55→21:39)
[2017-08-26] MEDS: Pantoprazole 40 mg EC Tab PO SCH (05:56)
[2017-08-26 06:47] LABS: HEMATOCRIT 31.7 % (36.0-48.0); MEAN CELL VOLUME 86.8 fl (80.0-105.0); MEAN CORPUSCULAR HEMOGLOBIN 27.1 pg (25.0-35.0); MEAN CORPUSCULAR HGB CONC 31.2 g/dl (31.0-37.0); MEAN PLATELET VOLUME 9.8 fl (7.0-11.0); RED CELL DISTRIBUTION WIDTH 17.9 % (11.5-14.5); WHITE BLOOD COUNT 11.2 10^3/ul (4.5-11.0)
[2017-08-26 07:03] LABS: BILIRUBIN,TOTAL 1.5 mg/dL (0.2-1.3); CALCIUM 9.9 mg/dL (8.4-10.5); POTASSIUM 4.3 mmol/L (3.6-5.0); TOTAL PROTEIN 6.7 g/dL (5.8-8.3)
[2017-08-26] MEDS: Povidone Iodine Ophthalmic 5% Soln OS SCH ×2 (11:00→11:09)
--- NOTE | 2017-08-26 12:52 | CP.PCM.PN ---
Subjective - Date & Time of Evaluation Date of Evaluation: 08/26/17 Time of Evaluation: 11:00 - Subjective Subjective: Comfortable, no fevers. Objective - Vital Signs/Intake and Output Vital Signs (last 24 hours): Temp Pulse Resp BP Pulse Ox 98.8 F 82 20 122/84 97 08/26/17 06:00 08/26/17 06:00 08/26/17 06:00 08/26/17 06:00 08/26/17 06:00 Intake and Output: 08/26/17 08/26/17 06:59 18:59 Intake Total 740 Output Total 0 Balance 740 - Medications Medications: Current Medications Acetaminophen (Tylenol 325mg Tab) 650 mg PO Q4 PRN PRN Reason: Fever >100.4 F Last Admin: 08/25/17 02:14 Dose: 650 mg Albuterol/Ipratropium (Duoneb 3 Mg/0.5 Mg (3 Ml) Ud) 3 ml IH [id number] PRN PRN Reason: Shortness of Breath Last Admin: 08/25/17 10:45 Dose: 3 ml Alprazolam (Xanax) 0.5 mg PO DAILY [facility] PRN Reason: Protocol Last Admin: 08/25/17 09:15 Dose: 0.5 mg Cholecalciferol (Vitamin D) 1,000 iu PO DAILY [facility] Last Admin: 08/25/17 09:15 Dose: 1,000 iu Doxycycline Hyclate (Doryx) 100 mg PO Q12 [facility] PRN Reason: Protocol Stop: 09/03/17 10:01 Last Admin: 08/25/17 22:15 Dose: 100 mg Heparin Sodium (Porcine) (Heparin) 5,000 units SC Q12 [facility] PRN Reason: Protocol Last Admin: 08/25/17 22:15 Dose: 5,000 units Levofloxacin/Dextrose (Levaquin 750mg) 750 mg in 150 mls @ 100 mls/hr IVPB Q48H [facility] PRN Reason: Protocol Last Admin: 08/25/17 09:15 Dose: 100 mls/hr Cefepime HCl (Maxipime 1gm) 1 gm in 100 mls @ 100 mls/hr IVPB Q8 [facility] PRN Reason: Protocol Stop: 09/03/17 14:01 Last Admin: 08/26/17 05:55 Dose: 100 mls/hr Ibuprofen (Motrin Tab) 400 mg PO Q6H PRN PRN Reason: Pain, Mild (1-3) Lisinopril (Zestril) 10 mg PO DAILY [facility] Last Admin: 08/25/17 09:17 Dose: Not Given Montelukast Sodium (Singulair) 10 mg PO DAILY [facility] Last Admin: 08/25/17 09:15 Dose: 10 mg Morphine Sulfate (Morphine) 1 mg IVP Q4H PRN PRN Reason: Pain, severe (8-10) Last Admin: 08/25/17 20:26 Dose: 1 mg Ondansetron HCl (Zofran Inj) 4 mg IVP Q4H PRN PRN Reason: Nausea/Vomiting Oxycodone/Acetaminophen (Percocet 5/325 Mg Tab) 1 tab PO Q6 PRN PRN Reason: Pain, severe (8-10) Stop: 08/28/17 00:34 Pantoprazole Sodium (Protonix Ec Tab) 40 mg PO 0600 [facility] Last Admin: 08/26/17 05:56 Dose: 40 mg Povidone Iodine (Betadine 5% Opht Soln) 0 ml OS DAILY [facility] Last Admin: 08/25/17 09:18 Dose: Not Given Spironolactone (Aldactone) 25 mg PO TID [facility] Last Admin: 08/25/17 17:34 Dose: Not Given Zolpidem Tartrate (Ambien) 5 mg PO HS [facility] PRN Reason: Protocol Last Admin: 08/25/17 23:30 Dose: 5 mg - Labs Labs: 08/26/17 06:15 08/26/17 06:15 PT 13.5 SECONDS (9.4-12.5) H 08/24/17 21:45 INR 1.23 (0.93-1.08) H 08/24/17 21:45 APTT 24.8 Seconds (25.1-36.5) L 08/24/17 21:45 - Constitutional Appears: Non-toxic, Chronically Ill - Head Exam Head Exam: NORMAL INSPECTION - Respiratory Exam Respiratory Exam: Decreased Breath Sounds - Cardiovascular Exam Cardiovascular Exam: +S1, +S2 - GI/Abdominal Exam GI & Abdominal Exam: Soft. absent: Tenderness Assessment and Plan - Assessment and Plan (Free Text) Plan: Assessment Systemic Inflammatory Response Syndrome, R/O sepsis R/O UTI with gram positive cocci metastatic colon cancer with mets to the lungs and liver on chemotherapy S/P port-a-cath placement dyslipidemia HTN anxiety disorder history of glaucoma Plan Continue Cefepime and Doxycycline for now day 2 pending final identification and sensitivities of the gram positive cocci in the urine; CXR does not show pneumonia but shows unchanged pulmonary masses; reviewed CT A/P as well; PCT is slightly elevated but patient has some renal insufficiency overall prognosis is poor discussed with Dr. Braden
--- NOTE | 2017-08-26 13:01 | CARD ---
APPROVED REPORT EKG Measurement Heart [id number] NM [id number] [id number] <Conclusion> Sinus tachycardia Otherwise normal ECG
--- NOTE | 2017-08-26 15:36 | CP.PCM.PN ---
<Jarad Pacheco - Last Filed: 08/26/17 15:49> Subjective - Date & Time of Evaluation Date of Evaluation: 08/26/17 Time of Evaluation: 15:21 - Subjective Subjective: Medicine progress note for Dr. Sampson Blanco DO PGY - 1, Pt s/e bedside. Pt is doing well and is ready to go home. She denies having any trouble breathing at this time. She does state that she has mild L sided flank/abdominal pain. No further complaints. Objective - Vital Signs/Intake and Output Vital Signs (last 24 hours): Temp Pulse Resp BP Pulse Ox 98.3 F 82 20 101/70 97 08/26/17 13:36 08/26/17 13:36 08/26/17 13:36 08/26/17 13:36 08/26/17 06:00 Intake and Output: 08/26/17 08/26/17 06:59 18:59 Intake Total 740 Output Total 0 Balance 740 - Medications Medications: Current Medications Acetaminophen (Tylenol 325mg Tab) 650 mg PO Q4 PRN PRN Reason: Fever >100.4 F Last Admin: 08/25/17 02:14 Dose: 650 mg Albuterol/Ipratropium (Duoneb 3 Mg/0.5 Mg (3 Ml) Ud) 3 ml IH [id number] PRN PRN Reason: Shortness of Breath Last Admin: 08/25/17 10:45 Dose: 3 ml Alprazolam (Xanax) 0.5 mg PO DAILY [facility] PRN Reason: Protocol Last Admin: 08/26/17 11:00 Dose: 0.5 mg Cholecalciferol (Vitamin D) 1,000 iu PO DAILY [facility] Last Admin: 08/26/17 11:01 Dose: 1,000 iu Doxycycline Hyclate (Doryx) 100 mg PO Q12 [facility] PRN Reason: Protocol Stop: 09/03/17 10:01 Last Admin: 08/26/17 11:01 Dose: 100 mg Heparin Sodium (Porcine) (Heparin) 5,000 units SC Q12 [facility] PRN Reason: Protocol Last Admin: 08/26/17 11:02 Dose: 5,000 units Levofloxacin/Dextrose (Levaquin 750mg) 750 mg in 150 mls @ 100 mls/hr IVPB Q48H [facility] PRN Reason: Protocol Last Admin: 08/25/17 09:15 Dose: 100 mls/hr Cefepime HCl (Maxipime 1gm) 1 gm in 100 mls @ 100 mls/hr IVPB Q8 [facility] PRN Reason: Protocol Stop: 09/03/17 14:01 Last Admin: 08/26/17 15:00 Dose: 100 mls/hr Ibuprofen (Motrin Tab) 400 mg PO Q6H PRN PRN Reason: Pain, Mild (1-3) Lisinopril (Zestril) 10 mg PO DAILY [facility] Last Admin: 08/26/17 11:00 Dose: 10 mg Montelukast Sodium (Singulair) 10 mg PO DAILY [facility] Last Admin: 08/26/17 11:02 Dose: 10 mg Morphine Sulfate (Morphine) 1 mg IVP Q4H PRN PRN Reason: Pain, severe (8-10) Last Admin: 08/25/17 20:26 Dose: 1 mg Ondansetron HCl (Zofran Inj) 4 mg IVP Q4H PRN PRN Reason: Nausea/Vomiting Oxycodone/Acetaminophen (Percocet 5/325 Mg Tab) 1 tab PO Q6 PRN PRN Reason: Pain, severe (8-10) Stop: 08/28/17 00:34 Pantoprazole Sodium (Protonix Ec Tab) 40 mg PO 0600 [facility] Last Admin: 08/26/17 05:56 Dose: 40 mg Povidone Iodine (Betadine 5% Opht Soln) 0 ml OS DAILY [facility] Last Admin: 08/26/17 11:09 Dose: Not Given Spironolactone (Aldactone) 25 mg PO TID [facility] Last Admin: 08/26/17 15:00 Dose: 25 mg Zolpidem Tartrate (Ambien) 5 mg PO HS [facility] PRN Reason: Protocol Last Admin: 08/25/17 23:30 Dose: 5 mg - Labs Labs: 08/26/17 06:15 08/26/17 06:15 PT 13.5 SECONDS (9.4-12.5) H 08/24/17 21:45 INR 1.23 (0.93-1.08) H 08/24/17 21:45 APTT 24.8 Seconds (25.1-36.5) L 08/24/17 21:45 - Additional Findings Additional findings: Phys Exam: VS as below Const'l: a&o x 4, nad Head/Neck: neck supple, no jvd, trachea midline, carotid midline, no cervical /head mass Eyes: + Erythema in L eye; all, nonicteric sclera, eom intact ENT: auditory acuity grossly intact, throat not congested, no nasal deformity Cardio: rrr, no m/r/g, no carotid bruit, nml s1, s2 Pulm: no accessory muscle use, equal nml breath sounds bilaterally, ctab Abd: +mild TTP in diffuse quadrants; s/nd, nbs x 4 q, no palpable masses Derm: no rashes, no ulcers, no lesions Extr: no edema, no cyanosis, no calf tenderness, no lesions, no varicosities Neuro: cn II-XII grossly intact, ue and le 5/5 muscle strength bilaterally, no los ue, le bilaterally and core Assessment and Plan - Assessment and Plan (Free Text) Assessment: A/P Ms. Mcgregor is a 62 yo F with PMH of stage IV colon cancer w/ metastasis to liver and lung, HTN, L eye vision loss, and GERD who presented to the ER complaining of a cough, fevers, and shoulder pain x2 days likely 2/2 reactive airway due to mets to lung vs asthma exacerbation vs pneumonia. pt is afebrile, and CXR does not show any new infiltrates or distinct lesions. elevated wbc and lactate are likely 2/2 her mets, possible recent neupogen admistration and/ or Keytruda (which she is on for compassionate basis by Dr. Calderón rather than a primary lung tumor) rather than a new pneumonia. 1. SIRS r/o penumonia - Resolved - SOB and cough likely 2/2 reactive dz due to mets - Elevated WBC and lactate likely 2/2 possible neupogen and hx metastatic colon ca - CTA chest from 06/2017: Several pulmonary masses, largest measuring up to 5.2 cm maximal dimension, which was increased in size from previous examination. - ID consulted regarding abx use: Cefepime, Doxy, Levoquin - Blood and urine cultures sent - Procal: .61, high risk for mortality with sepsis. Monitor closely - Motrin PRN, Tylenol PRN, Duoneb PRN, Mucinex, Singulair, Zofran PRN 2. Conjuctivitis (L eye) - unclear if chronic or not from patient's history - start on betadine opthalmic eyedrops daily - cont to monitor 3. Hx Colon Ca - Consider contacting Dr. Calderón to find out what medication the patient received - Patient will f/u Dr. Calderón on discharge - Aldactone for edema - Percocet for pain 4. Hx HTN - Cont Lisinopril 5. Hx Anxiety - Cont Xanax and Ambien PTX/Heparin (high risk of DVT due to hx cancer) and SCDs HHD Patient was seen, examined, and discussed with attending, Dr. Miguelangel Wolfe PGY1 <Cheri Braden B - Last Filed: 08/26/17 17:54> Objective - Vital Signs/Intake and Output Vital Signs (last 24 hours): Temp Pulse Resp BP Pulse Ox 98.3 F 80 20 101/70 97 08/26/17 13:36 08/26/17 14:00 08/26/17 13:36 08/26/17 13:36 08/26/17 06:00 Intake and Output: 08/26/17 08/26/17 06:59 18:59 Intake Total 740 1080 Output Total 0 4 Balance 740 1076 - Medications Medications: Current Medications Acetaminophen (Tylenol 325mg Tab) 650 mg PO Q4 PRN PRN Reason: Fever >100.4 F Last Admin: 08/25/17 02:14 Dose: 650 mg Albuterol/Ipratropium (Duoneb 3 Mg/0.5 Mg (3 Ml) Ud) 3 ml IH [id number] PRN PRN Reason: Shortness of Breath Last Admin: 08/25/17 10:45 Dose: 3 ml Alprazolam (Xanax) 0.5 mg PO DAILY [facility] PRN Reason: Protocol Last Admin: 08/26/17 11:00 Dose: 0.5 mg Cholecalciferol (Vitamin D) 1,000 iu PO DAILY [facility] Last Admin: 08/26/17 11:01 Dose: 1,000 iu Doxycycline Hyclate (Doryx) 100 mg PO Q12 [facility] PRN Reason: Protocol Stop: 09/03/17 10:01 Last Admin: 08/26/17 11:01 Dose: 100 mg Heparin Sodium (Porcine) (Heparin) 5,000 units SC Q12 [facility] PRN Reason: Protocol Last Admin: 08/26/17 11:02 Dose: 5,000 units Levofloxacin/Dextrose (Levaquin 750mg) 750 mg in 150 mls @ 100 mls/hr IVPB Q48H [facility] PRN Reason: Protocol Last Admin: 08/25/17 09:15 Dose: 100 mls/hr Cefepime HCl (Maxipime 1gm) 1 gm in 100 mls @ 100 mls/hr IVPB Q8 [facility] PRN Reason: Protocol Stop: 09/03/17 14:01 Last Admin: 08/26/17 15:00 Dose: 100 mls/hr Ibuprofen (Motrin Tab) 400 mg PO Q6H PRN PRN Reason: Pain, Mild (1-3) Lisinopril (Zestril) 10 mg PO DAILY [facility] Last Admin: 08/26/17 11:00 Dose: 10 mg Montelukast Sodium (Singulair) 10 mg PO DAILY [facility] Last Admin: 08/26/17 11:02 Dose: 10 mg Morphine Sulfate (Morphine) 1 mg IVP Q4H PRN PRN Reason: Pain, severe (8-10) Last Admin: 08/25/17 20:26 Dose: 1 mg Ondansetron HCl (Zofran Inj) 4 mg IVP Q4H PRN PRN Reason: Nausea/Vomiting Oxycodone/Acetaminophen (Percocet 5/325 Mg Tab) 1 tab PO Q6 PRN PRN Reason: Pain, severe (8-10) Stop: 08/28/17 00:34 Pantoprazole Sodium (Protonix Ec Tab) 40 mg PO 0600 [facility] Last Admin: 08/26/17 05:56 Dose: 40 mg Povidone Iodine (Betadine 5% Opht Soln) 0 ml OS DAILY [facility] Last Admin: 08/26/17 11:09 Dose: Not Given Spironolactone (Aldactone) 25 mg PO TID [facility] Last Admin: 08/26/17 15:00 Dose: 25 mg Zolpidem Tartrate (Ambien) 5 mg PO HS [facility] PRN Reason: Protocol Last Admin: 08/25/17 23:30 Dose: 5 mg - Labs Labs: 08/26/17 06:15 11/27/17 06:15 PT 13.5 SECONDS (9.4-12.5) H 08/24/17 21:45 INR 1.23 (0.93-1.08) H 08/24/17 21:45 APTT 24.8 Seconds (25.1-36.5) L 08/24/17 21:45 Attending/Attestation - Attestation I have personally seen and examined this patient.: Yes I have fully participated in the care of the patient.: Yes I have reviewed all pertinent clinical information, including history, physical exam and plan: Yes Notes (Text): I have seen and examined the patient at bedside. Agree with the above note with the following additions/ exceptions: Briefly this is 62 year old female with history of stage 4 colon cancer with liver and lung metastasis s/p recent neupogen administration, HTN, left eye vision loss, GERD, port a cath placement who came for evaluation of SIRS secondary to UTI. Urine culture is growing gram positive cocci. Continue cefepime and doxy as per ID. CXR did not reveal any new infiltrate however it shows unchanged pulmonary masses. Abdominal CT was also reviewed. Plan to dc patient in am. PT cleared the patient to go home. Patient will follow up with Kaitlynn on 08/28/2017 and also will advise her to follow up with Dr Levine within 3-[address] Cheri Braden
[2017-08-26] MEDS: Morphine 2 mg/ml ISec IVP PRN (21:38)
[2017-08-27] MEDS ORDERED: guaiFENesin-DM 600-30 mg ER Tab PO STA (00:28)
[2017-08-27] MEDS ORDERED: guaiFENesin-DM 600-30 mg ER Tab PO PRN (00:29)
[2017-08-27] MEDS: Morphine 2 mg/ml ISec IVP PRN (02:35)
[2017-08-27] MEDS: Pantoprazole 40 mg EC Tab PO SCH (05:27)
[2017-08-27] MEDS: Cefepime 1gm in NS 100ml 1 GM/100 ML BAG IVPB SCH ×2 (05:27→15:00)
[2017-08-27 06:57] VITALS: O2SAT 95
[2017-08-27 07:13] LABS: HEMATOCRIT 30.3 % (36.0-48.0); MEAN CELL VOLUME 86.8 fl (80.0-105.0); MEAN CORPUSCULAR HEMOGLOBIN 26.6 pg (25.0-35.0); MEAN CORPUSCULAR HGB CONC 30.7 g/dl (31.0-37.0); MEAN PLATELET VOLUME 11.9 fl (7.0-11.0); WHITE BLOOD COUNT 9.9 10^3/ul (4.5-11.0)
[2017-08-27 07:38] LABS: BILIRUBIN,TOTAL 1.4 mg/dL (0.2-1.3); CALCIUM 9.4 mg/dL (8.4-10.5); TOTAL PROTEIN 6.8 g/dL (5.8-8.3)
[2017-08-27] MEDS: Povidone Iodine Ophthalmic 5% Soln OS SCH (09:50)
[2017-08-27] MEDS: levoFLOXacin 750 mg in D5W 750 MG/150 ML BAG IVPB SCH (09:51)
--- NOTE | 2017-08-27 10:55 | CP.PCM.PN ---
Subjective - Date & Time of Evaluation Date of Evaluation: 08/27/17 Time of Evaluation: 10:10 - Subjective Subjective: Comfortable, no fevers, still with occasional cough. Objective - Vital Signs/Intake and Output Vital Signs (last 24 hours): Temp Pulse Resp BP Pulse Ox 99.5 F 99 H 20 94/61 L 95 08/27/17 06:00 08/27/17 06:00 08/27/17 06:00 08/27/17 06:00 08/27/17 06:00 Intake and Output: 08/27/17 08/27/17 06:59 18:59 Intake Total 300 Balance 300 - Medications Medications: Current Medications Acetaminophen (Tylenol 325mg Tab) 650 mg PO Q4 PRN PRN Reason: Fever >100.4 F Last Admin: 08/25/17 02:14 Dose: 650 mg Albuterol/Ipratropium (Duoneb 3 Mg/0.5 Mg (3 Ml) Ud) 3 ml IH [id number] PRN PRN Reason: Shortness of Breath Last Admin: 08/25/17 10:45 Dose: 3 ml Alprazolam (Xanax) 0.5 mg PO DAILY [facility] PRN Reason: Protocol Last Admin: 08/26/17 11:00 Dose: 0.5 mg Cholecalciferol (Vitamin D) 1,000 iu PO DAILY [facility] Last Admin: 08/26/17 11:01 Dose: 1,000 iu Doxycycline Hyclate (Doryx) 100 mg PO Q12 [facility] PRN Reason: Protocol Stop: 09/03/17 10:01 Last Admin: 08/26/17 21:39 Dose: 100 mg Heparin Sodium (Porcine) (Heparin) 5,000 units SC Q12 [facility] PRN Reason: Protocol Last Admin: 08/26/17 21:37 Dose: 5,000 units Levofloxacin/Dextrose (Levaquin 750mg) 750 mg in 150 mls @ 100 mls/hr IVPB Q48H [facility] PRN Reason: Protocol Last Admin: 08/25/17 09:15 Dose: 100 mls/hr Cefepime HCl (Maxipime 1gm) 1 gm in 100 mls @ 100 mls/hr IVPB Q8 [facility] PRN Reason: Protocol Stop: 09/03/17 14:01 Last Admin: 08/27/17 05:27 Dose: 100 mls/hr Ibuprofen (Motrin Tab) 400 mg PO Q6H PRN PRN Reason: Pain, Mild (1-3) Lisinopril (Zestril) 10 mg PO DAILY [facility] Last Admin: 08/26/17 11:00 Dose: 10 mg Montelukast Sodium (Singulair) 10 mg PO DAILY [facility] Last Admin: 08/26/17 11:02 Dose: 10 mg Morphine Sulfate (Morphine) 1 mg IVP Q4H PRN PRN Reason: Pain, severe (8-10) Last Admin: 08/27/17 02:35 Dose: 1 mg Ondansetron HCl (Zofran Inj) 4 mg IVP Q4H PRN PRN Reason: Nausea/Vomiting Last Admin: 08/27/17 06:19 Dose: 4 mg Oxycodone/Acetaminophen (Percocet 5/325 Mg Tab) 1 tab PO Q6 PRN PRN Reason: Pain, severe (8-10) Stop: 08/28/17 00:34 Pantoprazole Sodium (Protonix Ec Tab) 40 mg PO 0600 [facility] Last Admin: 08/27/17 05:27 Dose: 40 mg Povidone Iodine (Betadine 5% Opht Soln) 0 ml OS DAILY [facility] Last Admin: 08/26/17 11:09 Dose: Not Given Spironolactone (Aldactone) 25 mg PO TID [facility] Last Admin: 08/26/17 18:09 Dose: 25 mg Zolpidem Tartrate (Ambien) 5 mg PO HS [facility] PRN Reason: Protocol Last Admin: 08/27/17 00:01 Dose: 5 mg - Labs Labs: 08/27/17 07:00 08/27/17 07:00 PT 13.5 SECONDS (9.4-12.5) H 08/24/17 21:45 INR 1.23 (0.93-1.08) H 08/24/17 21:45 APTT 24.8 Seconds (25.1-36.5) L 08/24/17 21:45 - Constitutional Appears: Non-toxic, Chronically Ill - Head Exam Head Exam: NORMAL INSPECTION - Respiratory Exam Respiratory Exam: Decreased Breath Sounds - Cardiovascular Exam Cardiovascular Exam: +S1, +S2 - GI/Abdominal Exam GI & Abdominal Exam: Soft. absent: Tenderness Assessment and Plan - Assessment and Plan (Free Text) Plan: Assessment Systemic Inflammatory Response Syndrome, consider due to underlying malignancy consider lower tract UTI with E. faecalis metastatic colon cancer with mets to the lungs and liver on chemotherapy S/P port-a-cath placement dyslipidemia HTN anxiety disorder history of glaucoma Plan on Cefepime and Doxycycline for now day 3; CXR does not show pneumonia but shows unchanged pulmonary masses; reviewed CT A/P as well; PCT is slightly elevated but patient has some renal insufficiency - can change to Macrobid for another 3-5 days with outpatient follow up with PMD overall prognosis is poor discussed with Dr. Braden's medical team
[2017-08-27 13:10] VITALS: BP 88/58; PULSE 90; TEMP 98.4
--- NOTE | 2017-08-27 17:10 | CP.PCM.DIS ---
<Jarad Pacheco - Last Filed: 08/27/17 17:08> Provider - Provider Date of Admission: 08/24/17 23:26 Attending physician: Cheri Braden MD Consults: Dr. Garcia: ID Time Spent in preparation of Discharge (in minutes): 30 Hospital Course - Lab Results Lab Results: Micro Results 08/25/17 12:00 Sputum Gram Stain - Final 08/25/17 12:00 Sputum Sputum Culture - Final NORMAL ORAL SMITH Most Recent Lab Values WBC 9.9 10^3/ul (4.5-11.0) 08/27/17 07:00 RBC 3.49 10^6/uL (3.5-6.1) L 08/27/17 07:00 Hgb 9.3 g/dL (12.0-16.0) L 08/27/17 07:00 Hct 30.3 % (36.0-48.0) L 08/27/17 07:00 MCV 86.8 fl (80.0-105.0) 08/27/17 07:00 MCH 26.6 pg (25.0-35.0) 08/27/17 07:00 MCHC 30.7 g/dl (31.0-37.0) L 08/27/17 07:00 RDW 18.0 % (11.5-14.5) H 08/27/17 07:00 Plt Count 70 10^3/uL (120.0-450.0) L 08/27/17 07:00 MPV 11.9 fl (7.0-11.0) H 08/27/17 07:00 Gran % 83.7 % (50.0-68.0) H 08/24/17 21:45 Lymph % (Auto) 6.9 % (22.0-35.0) L 08/24/17 21:45 [place] % (Auto) 7.7 % (1.0-6.0) H 08/24/17 21:45 Eos % (Auto) 1.2 % (1.5-5.0) L 08/24/17 21:45 Baso % (Auto) 0.5 % (0.0-3.0) 08/24/17 21:45 Gran # 13.01 (1.4-6.5) H 08/24/17 21:45 Lymph # 1.1 (1.2-3.4) L 08/24/17 21:45 [place] # 1.2 (0.1-0.6) H 08/24/17 21:45 Eos # 0.2 (0.0-0.7) 08/24/17 21:45 Baso # 0.08 K/mm3 (0.0-2.0) 08/24/17 21:45 PT 13.5 SECONDS (9.4-12.5) H 08/24/17 21:45 INR 1.23 (0.93-1.08) H 08/24/17 21:45 APTT 24.8 Seconds (25.1-36.5) L 08/24/17 21:45 pO2 22 mm/Hg (30-55) L 08/25/17 01:20 VBG pH 7.37 (7.32-7.43) 08/25/17 01:20 VBG pCO2 48.0 (40-60) 08/25/17 01:20 VBG HCO3 27.7 mmol/l (21-28) 08/25/17 01:20 VBG Total CO2 29.2 mmol.L (22-28) H 08/25/17 01:20 VBG O2 Sat (Calc) 35.4 % (40-65) L 08/25/17 01:20 VBG Base Excess 1.7 mmol/L (0.0-2.0) 08/25/17 01:20 VBG Potassium 5.1 mmol/L (3.6-5.2) 08/25/17 01:20 Sodium 138.0 mmol/L (132-148) 08/25/17 01:20 Chloride 107.0 mmol/L (98-107) 08/25/17 01:20 Glucose 96 mg/dl (65-105) 08/25/17 01:20 Lactate 2.2 mmol/L (0.7-2.1) H 08/25/17 01:20 FiO2 21.0 % 08/25/17 01:20 Sodium 137 mmol/L (132-148) 08/27/17 07:00 Potassium 4.0 mmol/L (3.6-5.0) 08/27/17 07:00 Chloride 102 mmol/L (98-107) 08/27/17 07:00 Carbon Dioxide 26 mmol/L (21-33) 08/27/17 07:00 Anion Gap 14 (10-20) 08/27/17 07:00 BUN 14 mg/dL (7-21) 08/27/17 07:00 Creatinine 1.4 mg/dl (0.7-1.2) H 08/27/17 07:00 Est GFR ( Amer) 46 08/27/17 07:00 Est GFR (Non-Af Amer) 38 08/27/17 07:00 Random Glucose 99 mg/dL (70-110) 08/27/17 07:00 Calcium 9.4 mg/dL (8.4-10.5) 08/27/17 07:00 Magnesium 1.6 mg/dL (1.7-2.2) L 08/24/17 21:45 Total Bilirubin 1.4 mg/dL (0.2-1.3) H 08/27/17 07:00 AST 37 U/L (14-36) H 08/27/17 07:00 ALT 32 U/L (7-56) 08/27/17 07:00 Alkaline Phosphatase 191 U/L (38-126) H 08/27/17 07:00 Lactate Dehydrogenase 2635 U/L (333-699) H 08/24/17 21:45 Total Creatine Kinase 50 U/L (35-230) 08/24/17 21:45 Troponin I < 0.01 ng/mL 08/24/17 21:45 Total Protein 6.8 g/dL (5.8-8.3) 08/27/17 07:00 Albumin 3.4 g/dL (3.0-4.8) 08/27/17 07:00 Globulin 3.4 gm/dL 08/27/17 07:00 Albumin/Globulin Ratio 1.0 (1.1-1.8) L 08/27/17 07:00 Procalcitonin 0.61 NG/ML (0.19-0.49) H 08/25/17 06:30 Venous Blood Potassium 5.1 mmol/L (3.6-5.2) 08/25/17 01:20 Urine Color Yellow (YELLOW) 08/24/17 22:25 Urine Appearance Clear (CLEAR) 08/24/17 22:25 Urine pH 6.5 (4.7-8.0) 08/24/17 22:25 Ur Specific [place] 1.015 (1.005-1.035) 08/24/17 22:25 Urine Protein Negative mg/dL (<30 mg/dL) 08/24/17 22:25 Urine Glucose (UA) Negative mg/dL (NEGATIVE) 08/24/17 22: Urine Ketones Negative mg/dL (NEGATIVE) 08/24/17 22:25 Urine Blood Negative (NEGATIVE) 08/24/17 22:25 Urine Nitrate Negative (NEGATIVE) 08/24/17 22: Urine Bilirubin Negative (NEGATIVE) 08/24/17: Urine Urobilinogen 0.2 E.U./dL (<1 E.U./dL) 08/24/17 22:25 Ur Leukocyte Esterase Small Jose/uL (NEGATIVE) H 08/24/17 22: Urine RBC Negative /hpf (0-2) 08/24/17: Urine WBC Negative /hpf (0-6) 08/24/17 22:25 HIV 1&2 Ag/Ab, 4th Gen Nonreactive (Nonreactive) 08/25/17 06:00 - Hospital Course Hospital Course: HPI: Ms. Mcgregor is a 62 yo F with PMH of stage IV colon cancer w/ metastasis to liver and lung, HTN, L eye vision loss, and GERD who presented to the ER complaining of a cough, fevers, and shoulder pain x2 days. pt states that she has felt this way since she saw Dr. Calderón on Saturday and was given what she thinks is Keytruda as well as what she believes was platelets and blood due to her pancytopenia. The patient states that she has been on chemotherapy for 7 years and 1.5months ago, was stopped due to a negative reaction and states that she cannot take it anymore. pt also states that she was given Incruse by her PMD Dr. Levine but did not experience improvement. when asked about her left eye being red, the patient states that she has hx of glaucoma and cannot see out of this eye. pt denies chest pain, abdominal pain, urinary/bowel changes, chills, weakness, n/v/d, or LE swelling. 12-pt ROS was reviewed and is otherwise unremarkable. Hospital Course: Ms. Mcgregor is a 62 yo F with PMH of stage IV colon cancer w/ metastasis to liver and lung, HTN, L eye vision loss, and GERD who presented to the ER complaining of a cough, fevers, and shoulder pain x2 days likely 2/2 reactive airway due to mets to lung vs asthma exacerbation vs pneumonia. pt is afebrile, and CXR does not show any new infiltrates or distinct lesions. elevated wbc and lactate are likely 2/2 her mets, possible recent neupogen admistration and/ or Keytruda (which she is on for compassionate basis by Dr. Calderón rather than a primary lung tumor) rather than a new pneumonia. 1. SIRS r/o penumonia - Resolved - SOB and cough likely 2/2 reactive dz due to mets - Elevated WBC and lactate likely 2/2 possible neupogen and hx metastatic colon ca - CTA chest from 06/2017: Several pulmonary masses, largest measuring up to 5.2 cm maximal dimension, which was increased in size from previous examination. - ID consulted regarding abx use: Cefepime, Doxy, Levoquin - Blood and urine cultures sent - Procal: .61, high risk for mortality with sepsis. Monitor closely - Motrin PRN, Tylenol PRN, Duoneb PRN, Mucinex, Singulair, Zofran PRN 2. Conjuctivitis (L eye) - unclear if chronic or not from patient's history - start on betadine opthalmic eyedrops daily - cont to monitor 3. Hx Colon Ca - Consider contacting Dr. Calderón to find out what medication the patient received - Patient will f/u Dr. Calderón on discharge - Aldactone for edema - Percocet for pain 4. Hx HTN - Cont Lisinopril 5. Hx Anxiety - Cont Xanax and Ambien PTX/Heparin (high risk of DVT due to hx cancer) and SCDs HHD Discharge Exam - Head Exam Head Exam: NORMAL INSPECTION - Additional Findings Additional findings: Phys Exam: VS as below Const'l: a&o x 4, nad Head/Neck: neck supple, no jvd, trachea midline, carotid midline, no cervical /head mass Eyes: + Erythema in L eye; all, nonicteric sclera, eom intact ENT: auditory acuity grossly intact, throat not congested, no nasal deformity Cardio: rrr, no m/r/g, no carotid bruit, nml s1, s2 Pulm: no accessory muscle use, equal nml breath sounds bilaterally, ctab Abd: +mild TTP in diffuse quadrants; s/nd, nbs x 4 q, no palpable masses Derm: no rashes, no ulcers, no lesions Extr: no edema, no cyanosis, no calf tenderness, no lesions, no varicosities Neuro: cn II-XII grossly intact, ue and le 5/5 muscle strength bilaterally, no los ue, le bilaterally and core Discharge Plan - Discharge Medications Prescriptions: Nitrofurantoin Macrocrystals [Macrobid] 100 mg PO BID #10 cap Povidone Iodine 5% Opht [Betadine 5% Opht Soln] 2 unit OS DAILY #30 yamile - Follow Up Plan Condition: GUARDED Disposition: HOME/ ROUTINE Instructions: Chest Pain (DC), Heart Healthy Diet (DC), Fall Prevention for Older Adults (GEN), Sepsis (GEN) Additional Instructions: 1. Please take your antibiotic as prescribed - 5 days, twice a day. 2. Please take your eye drops as prescribed 3. Please obtain a CMP (comprehensive metabolic panel) within a week from your Primary Doctor. 3. Please return to the ED if your symptoms persist or return <Cheri Braden - Last Filed: 08/27/17 17:42> Provider - Provider Date of Admission: 08/24/17 23:26 Attending physician: Cheri Braden MD Time Spent in preparation of Discharge (in minutes): 35 Hospital Course - Lab Results Lab Results: Micro Results 08/25/17 12:00 Sputum Gram Stain - Final 08/25/17 12:00 Sputum Sputum Culture - Final NORMAL ORAL SMITH Most Recent Lab Values WBC 9.9 10^3/ul (4.5-11.0) 08/27/17 07:00 RBC 3.49 10^6/uL (3.5-6.1) L 08/27/17 07:00 Hgb 9.3 g/dL (12.0-16.0) L 08/27/17 07:00 Hct 30.3 % (36.0-48.0) L 08/27/17 07:00 MCV 86.8 fl (80.0-105.0) 08/27/17 07:00 MCH 26.6 pg (25.0-35.0) 08/27/17 07:00 MCHC 30.7 g/dl (31.0-37.0) L 08/27/17 07:00 RDW 18.0 % (11.5-14.5) H 08/27/17 07:00 Plt Count 70 10^3/uL (120.0-450.0) L 08/27/17 07:00 MPV 11.9 fl (7.0-11.0) H 08/27/17 07:00 Gran % 83.7 % (50.0-68.0) H 08/24/17 21:45 Lymph % (Auto) 6.9 % (22.0-35.0) L 08/24/17 21:45 [place] % (Auto) 7.7 % (1.0-6.0) H 08/24/17 21:45 Eos % (Auto) 1.2 % (1.5-5.0) L 08/24/17 21:45 Baso % (Auto) 0.5 % (0.0-3.0) 08/24/17 21:45 Gran # 13.01 (1.4-6.5) H 08/24/17 21:45 Lymph # 1.1 (1.2-3.4) L 08/24/17 21:45 [place] # 1.2 (0.1-0.6) H 08/24/17 21:45 Eos # 0.2 (0.0-0.7) 08/24/17 21:45 Baso # 0.08 K/mm3 (0.0-2.0) 08/24/17 21:45 PT 13.5 SECONDS (9.4-12.5) H 08/24/17 21:45 INR 1.23 (0.93-1.08) H 08/24/17 21:45 APTT 24.8 Seconds (25.1-36.5) L 08/24/17 21:45 pO2 22 mm/Hg (30-55) L 08/25/17 01:20 VBG pH 7.37 (7.32-7.43) 08/25/17 01:20 VBG pCO2 48.0 (40-60) 08/25/17 01:20 VBG HCO3 27.7 mmol/l (21-28) 08/25/17 01:20 VBG Total CO2 29.2 mmol.L (22-28) H 08/25/17 01:20 VBG O2 Sat (Calc) 35.4 % (40-65) L 08/25/17 01:20 VBG Base Excess 1.7 mmol/L (0.0-2.0) 08/25/17 01:20 VBG Potassium 5.1 mmol/L (3.6-5.2) 08/25/17 01:20 Sodium 138.0 mmol/L (132-148) 08/25/17 01:20 Chloride 107.0 mmol/L (98-107) 08/25/17 01:20 Glucose 96 mg/dl (65-105) 08/25/17 01:20 Lactate 2.2 mmol/L (0.7-2.1) H 08/25/17 01:20 FiO2 21.0 % 08/25/17 01:20 Sodium 137 mmol/L (132-148) 08/27/17 07:00 Potassium 4.0 mmol/L (3.6-5.0) 08/27/17 07:00 Chloride 102 mmol/L (98-107) 08/27/17 07:00 Carbon Dioxide 26 mmol/L (21-33) 08/27/17 07:00 Anion Gap 14 (10-20) 08/27/17 07:00 BUN 14 mg/dL (7-21) 08/27/17 07:00 Creatinine 1.4 mg/dl (0.7-1.2) H 08/27/17 07:00 Est GFR ( Amer) 46 08/27/17 07:00 Est GFR (Non-Af Amer) 38 08/27/17 07:00 Random Glucose 99 mg/dL (70-110) 08/27/17 07:00 Calcium 9.4 mg/dL (8.4-10.5) 08/27/17 07:00 Magnesium 1.6 mg/dL (1.7-2.2) L 08/24/17 21:45 Total Bilirubin 1.4 mg/dL (0.2-1.3) H 08/27/17 07:00 AST 37 U/L (14-36) H 08/27/17 07:00 ALT 32 U/L (7-56) 08/27/17 07:00 Alkaline Phosphatase 191 U/L (38-126) H 08/27/17 07:00 Lactate Dehydrogenase 2635 U/L (333-699) H 08/24/17 21:45 Total Creatine Kinase 50 U/L (35-230) 08/24/17 21:45 Troponin I < 0.01 ng/mL 08/24/17 21:45 Total Protein 6.8 g/dL (5.8-8.3) 08/27/17 07:00 Albumin 3.4 g/dL (3.0-4.8) 08/27/17 07:00 Globulin 3.4 gm/dL 08/27/17 07:00 Albumin/Globulin Ratio 1.0 (1.1-1.8) L 08/27/17 07:00 Procalcitonin 0.61 NG/ML (0.19-0.49) H 08/25/17 06:30 Venous Blood Potassium 5.1 mmol/L (3.6-5.2) 08/25/17 01:20 Urine Color Yellow (YELLOW) 08/24/17 22:25 Urine Appearance Clear (CLEAR) 08/24/17 22:25 Urine pH 6.5 (4.7-8.0) 08/24/17 22:25 Ur Specific [place] 1.015 (1.005-1.035) 08/24/17 22:25 Urine Protein Negative mg/dL (<30 mg/dL) 08/24/17 22:25 Urine Glucose (UA) Negative mg/dL (NEGATIVE) 08/24/17 22:25 Urine Ketones Negative mg/dL (NEGATIVE) 08/24/17 22:25 Urine Blood Negative (NEGATIVE) 08/24/17 22:25 Urine Nitrate Negative (NEGATIVE) 08/24/17 22:25 Urine Bilirubin Negative (NEGATIVE) 08/24/17 22:25 Urine Urobilinogen 0.2 E.U./dL (<1 E.U./dL) 08/24/17 22:25 Ur Leukocyte Esterase Small Jose/uL (NEGATIVE) H 08/24/17 22:25 Urine RBC Negative /hpf (0-2) 08/24/17 22:25 Urine WBC Negative /hpf (0-6) 08/24/17 22:25 HIV 1&2 Ag/Ab, 4th Gen Nonreactive (Nonreactive) 08/25/17 06:00 Attending/Attestation - Attestation I have personally seen and examined this patient.: Yes I have fully participated in the care of the patient.: Yes I have reviewed all pertinent clinical information, including history, physical exam and plan: Yes Notes (Text): I have seen and examined the patient at bedside. Agree with the above note with the following additions/ exceptions: Briefly this is 62 year old female with history of stage 4 colon cancer with liver and lung metastasis s/p recent neupogen administration, HTN, left eye vision loss, GERD, port a cath placement who came for evaluation of SIRS secondary to UTI. Urine culture is growing EFecalis sensitive to macrobid. CXR did not reveal any new infiltrate however it shows unchanged pulmonary masses. Abdominal CT was also reviewed. PT cleared the patient to go home. Patient will follow up with Kaitlynn on 2016 and also will advise her to follow up with Dr Levine within 3-[address] Cheri Braden
== END 2017-08-27 16:20 | disposition home or self-care (01) | DRG 82 ==
LOC: ED 21:18 → ERH 23:26 → 3RSO 08-25 00:50
PROVIDERS: ADMIT Internal Medicine; ATTEND Hospitalist
PROC: 3E0F7GC Introduction of Other Therapeutic Substance into Respiratory Tract, Via Natural or Artificial Opening (ICD-10-PCS; principal; 2017-08-25)
DX: C78.00 Secondary malignant neoplasm of unspecified lung (principal); D61.818 Other pancytopenia; C78.7 Secondary malignant neoplasm of liver and intrahepatic bile duct; N39.0 Urinary tract infection, site not specified; Z85.038 Personal history of other malignant neoplasm of large intestine; G89.3 Neoplasm related pain (acute) (chronic); I10 Essential (primary) hypertension; K21.9 Gastro-esophageal reflux disease without esophagitis; E78.5 Hyperlipidemia, unspecified; F41.9 Anxiety disorder, unspecified; H40.9 Unspecified glaucoma; Z87.891 Personal history of nicotine dependence; H10.9 Unspecified conjunctivitis; H54.62 Unqualified visual loss, left eye, normal vision right eye

== ENCOUNTER 2017-09-17 01:36 | Inpatient (IN) | payer OTHER ==
[2017-09-17 01:37] VITALS: BMI 28.7
--- NOTE | 2017-09-17 02:01 | ED PDOC ---
Arrival/HPI - General Chief Complaint: Chest Pain Time Seen by Provider: 09/17/17 01:50 Historian: Patient - History of Present Illness Narrative History of Present Illness (Text): 09/17/17 02:00 Beverley Mcgregor is a 62 year old female, whose past medical history includes Stage IV colon cancer with metastatis to liver and lungs, hypertension, GERD, and hyperlipidemia, who presents to the Emergency department complaining of chest discomfort for the past few days with associated cough. Patient also reports an unsteady gait and intermittent subjective fever. Patient denies any shortness of breath, nausea, vomiting, diarrhea, urinary symptoms, back pain, neck pain, headache, dizziness, or any other complaints. PMD: Dr. Levine Yard Manager: Dr. Calderón Symptom Onset: Gradual Symptom Course: Unchanged Activities at Onset: Light Context: Home Past Medical History - Provider Review Nursing Documentation Reviewed: Yes - Infectious Disease Hx of Infectious Diseases: None - Tetanus Immunization Tetanus Immunization: Unknown - Cardiac Hx Hypertension: Yes - Pulmonary Hx Respiratory Disorders: No - Neurological Hx Neurological Disorder: No - HEENT Hx Cataracts: Yes Hx Glaucoma: Yes - Renal Hx Renal Disorder: No - Endocrine/Metabolic Hx Endocrine Disorders: No - Hematological/Oncological Hx Anemia: Yes Hx Cancer: Yes (colon CA with metastasis to liver and lung) Hx Chemotherapy: Yes (06/07) Hx Metastasis: Yes Other/Comment: pancytopenia - Integumentary Hx Dermatological Disorder: No - Musculoskeletal/Rheumatological Hx Falls: Yes Hx Herniated Disk: Yes - Gastrointestinal Hx Bowel Surgery: Yes (resection 2/2 cancer) Other/Comment: Colon Cancer, Stage 4 - Genitourinary/Gynecological Hx Genitourinary Disorders: No - Psychiatric Hx Psychophysiologic Disorder: Yes Hx Anxiety: Yes Hx Depression: Yes Hx Substance Use: No - Surgical History Other/Comment: left subclavian port. colonic tumor and liver mets resection ( 2010) - Anesthesia Hx Anesthesia: Yes Hx Anesthesia Reactions: No Hx Malignant Hyperthermia: No - Suicidal Assessment Feels Threatened In Home Enviroment: No Family/Social History - Physician Review Nursing Documentation Reviewed: Yes Family/Social History: Unknown Family HX Smoking Status: Former Smoker Hx Alcohol Use: No Hx Substance Use: No Hx Substance Use Treatment: No Allergies/Home Meds Allergies/Adverse Reactions: Allergies No Known Allergies Allergy (Verified 06/12/17 18:46) Home Medications: Home Meds Medication Instructions Recorded Confirmed Alprazolam [Xanax] 0.5 mg PO DAILY 05/12/16 09/17/17 Cholecalciferol [Vitamin D 1000 IU] 15,000 iu PO QWK 05/12/16 09/17/17 Zolpidem HALF TABLET [Ambien] 10 mg PO HS 10/24/16 09/17/17 Lisinopril [Zestril] 10 mg PO DAILY 05/27/17 09/17/17 Montelukast [Singulair] 10 mg PO DAILY 05/27/17 09/17/17 Umeclidinium [place] [Incruse 1 puff IH DAILY 08/24/17 09/17/17 Ellipta] Review of Systems - Physician Review All systems were reviewed & negative as marked: Yes - Review of Systems Constitutional: Fevers Eyes: Normal ENT: Normal Respiratory: Cough. absent: SOB Cardiovascular: Chest Pain Gastrointestinal: Normal. absent: Abdominal Pain, Diarrhea, Nausea, Vomiting Genitourinary Female: Normal. absent: Dysuria, Frequency, Hematuria, Urine Output Changes Musculoskeletal: Normal. absent: Back Pain, Neck Pain Skin: Normal. absent: Rash Neurological: Other (+unsteady gait) Endocrine: Normal Hemo/Lymphatic: Normal Psychiatric: Normal Physical Exam Vital Signs Reviewed: Yes Vital Signs Temp Pulse Pulse Resp BP Pulse Ox 09/17/17 02:05 85 09/17/17 01:37 98.3 F 90 16 134/82 99 Temperature: Afebrile Blood Pressure: Normal Pulse: Regular Respiratory Rate: Normal Appearance: Positive for: Well-Appearing, Non-Toxic, Comfortable Pain Distress: None Mental Status: Positive for: Alert and Oriented X 3 - Systems Exam Head: Present: Atraumatic, Normocephalic Pupils: Present: PERRL Extroacular Muscles: Present: EOMI Conjunctiva: Present: Normal Mouth: Present: Moist Mucous Membranes Neck: Present: Normal Range of Motion Respiratory/Chest: Present: Clear to Auscultation, Good Air Exchange. No: Respiratory Distress, Accessory Muscle Use Cardiovascular: Present: Regular Rate and Rhythm, Normal S1, S2. No: Murmurs Abdomen: Present: Normal Bowel Sounds. No: Tenderness, Distention, Peritoneal Signs Back: Present: Normal Inspection Upper Extremity: Present: Normal Inspection. No: Cyanosis, Edema Lower Extremity: Present: Normal Inspection. No: Edema Neurological: Present: GCS=15, CN II-XII Intact, Speech Normal Skin: Present: Warm, Dry, Normal Color. No: Rashes Psychiatric: Present: Alert, Oriented x 3, Normal Insight, Normal Concentration Medical Decision Making ED Course and Treatment: 09/17/17 02:01 Impression: 62 year old female complaining of chest discomfort with cough, unsteady gait, and subjective fever. Plan: -- EKG -- Chest X-ray -- Labs, cardiac enzymes -- Reassess and disposition Prior Visits: Notes and results from previous visits were reviewed. On 08/24/2017, pt was seen in the Emergency department for chest tightness, lower back pain, and abdominal pain. Pt was admitted to the hospital for further evaluation. Progress Notes: 09/17/17 03:35 Chest X-ray reviewed, shows right upper lung mass, size increased from previous Chest X-ray. 09/17/17 04:05 Reviewed EKG, NSR at [address]-segment elevations or depressions, no T-wave inversions, normal intervals. 09/17/17 04:[address] Vicente Braden, who is aware and agrees with plan. Accepts pt in to hospitalist service. Pt will go to Telemetry observation for chest pain. 09/17/17 04:26 Case discussed with medical affairs specialist acute care surgeon, who is aware and agrees with plan. - Lab Interpretations Lab Results: 09/17/17 02:30 09/17/17 02:30 Lab Results 09/17/17 02:30: WBC 4.5 D, RBC 3.67, Hgb 10.1 L, Hct 32.9 L, MCV 89.6, MCH 27.5 , MCHC 30.7 L, RDW 18.2 H, Plt Count 113 L, MPV 10.6 09/17/17 02:30: Sodium 142, Potassium 5.0, Chloride 106, Carbon Dioxide 27, Anion Gap 14, BUN 15, Creatinine 1.1, Est GFR ( Amer) > 60, Est GFR (Non- Af Amer) 50, Random Glucose 118 H, Calcium 9.5, Total Bilirubin 1.1, AST 38 H, ALT 31, Alkaline Phosphatase 129 H D, Lactate Dehydrogenase 1484 H, Total Creatine Kinase 27 L, Troponin I < 0.01, Total Protein 7.7, Albumin 4.0, Globulin 3.8, Albumin/Globulin Ratio 1.1 09/17/17 02:30: PT 12.8 H, INR 1.17 H, APTT 27.8 I have reviewed the lab results: Yes - RAD Interpretation Radiology Orders: 09/17/17 02:06 CHEST PORTABLE [RAD] Stat Director Call: ED Physician - EKG Interpretation Interpreted by ED Physician: Yes Type: 12 lead EKG - Scribe Statement The provider has reviewed the documentation as recorded by the Marietta Barron Provider Scribe Attestation: All medical record entries made by the Marietta were at my direction and personally dictated by me. I have reviewed the chart and agree that the record accurately reflects my personal performance of the history, physical exam, medical decision making, and the department course for this patient. I have also personally directed, reviewed, and agree with the discharge instructions and disposition. Disposition/Present on Arrival - Present on Arrival Any Indicators Present on Arrival: No History of DVT/PE: No History of Uncontrolled Diabetes: No Urinary Catheter: No History of Decub. Ulcer: No History Surgical Site Infection Following: None - Disposition Have Diagnosis and Disposition been Completed?: Yes Diagnosis: Chest pain Disposition: HOSPITALIZED Disposition Time: 04:29 Patient Plan: Observation Condition: STABLE Discharge Instructions (ExitCare): Chest Pain (ED) Forms: [employer] ([place])
[2017-09-17 02:59] LABS: INR 1.17 (0.93-1.08)
[2017-09-17 03:00] LABS: PARTIAL THROMBOPLASTIN TIME 27.8 Seconds (25.1-36.5)
[2017-09-17 03:15] LABS: HEMATOCRIT 32.9 % (36.0-48.0); MEAN CELL VOLUME 89.6 fl (80.0-105.0); MEAN CORPUSCULAR HEMOGLOBIN 27.5 pg (25.0-35.0); MEAN CORPUSCULAR HGB CONC 30.7 g/dl (31.0-37.0); MEAN PLATELET VOLUME 10.6 fl (7.0-11.0); RED CELL DISTRIBUTION WIDTH 18.2 % (11.5-14.5); WHITE BLOOD COUNT 4.5 10^3/ul (4.5-11.0)
[2017-09-17 03:30] LABS: TROPONIN I < 0.01 ng/mL
[2017-09-17 03:39] LABS: ALB/GLOB RATIO 1.1 (1.1-1.8); ALKALINE PHOSPHATASE 129 U/L (38-126); ALT/SGPT 31 U/L (7-56); AST/SGOT 38 U/L (14-36); BILIRUBIN,TOTAL 1.1 mg/dL (0.2-1.3); BLOOD UREA NITROGEN 15 mg/dL (7-21); CALCIUM 9.5 mg/dL (8.4-10.5); CARBON DIOXIDE 27 mmol/L (21-33); CHLORIDE 106 mmol/L (98-107); GFR AFRICAN-AMERICAN > 60; GLUCOSE,RANDOM 118 mg/dL (70-110); SODIUM 142 mmol/L (132-148); TOTAL PROTEIN 7.7 g/dL (5.8-8.3)
[2017-09-17] MEDS ORDERED: Albuterol-Ipratrop 3 mg / 0.5 (3 ml) UD IH STA (05:31)
[2017-09-17] MEDS ORDERED: Oxycodone/Acetaminophen 5/325 mg Tab PO PRN (05:49)
[2017-09-17] MEDS ORDERED: Levalbuterol 0.63 MG/3 ML Inhal Soln UD IH PRN (06:00)
[2017-09-17] MEDS ORDERED: Pantoprazole 40 mg EC Tab PO SCH (06:00)
--- NOTE | 2017-09-17 06:16 | CP.PCM.HP ---
<Louie Dominguez - Last Filed: 09/17/17 06:02> History of Present Illness - History of Present Illness History of Present Illness: Louie Dominguez DO PGY1 - Internal Medicine H&P CC: Chest tightness 62 yo F with PMH of stage IV colon cancer w/ metastasis to liver and lung, HTN, L eye vision loss, and GERD who presented to the ER complaining of chest tightness starting earlier this night. She denies "pain", shortness of breath, diaphoresis; no particular exacerbating or remitting factors. She reports that she frequently gets this tightness, and she attributes it to her cancer and the medications she is getting for it. She reports that she saw Dr. Calderón last week for a dose of Keytruda. She also reports a right sided weakness in upper and lower extremity, recent change in her voice, slowed thought processes and speech, and occasional confusion. She denies pain, numbness, parasthesias. She also denies fevers, chills, nausea, vomiting, diarrhea, constipation, abdominal pain, dizziness, headaches. 12-pt ROS was reviewed and is otherwise unremarkable. PMD: Dr. Levine Onc: Dr. Calderón PMH: HTN, Stage IV colon CA s/p tumor resection and chemo, with multiple distant mets including to lungs and liver Surg: Hepatic tumor resection, colonic tumor resection Soc: Denies tob, EtOH, illicits FHx: Noncontributory All: NKDA Present on Admission - Present on Admission Any Indicators Present on Admission: No Past Patient History - Infectious Disease Hx of Infectious Diseases: None - Tetanus Immunizations Tetanus Immunization: Unknown - Past Social History Smoking Status: Former Smoker - CARDIAC Hx Hypertension: Yes - PULMONARY Hx Respiratory Disorders: No - NEUROLOGICAL Hx Neurological Disorder: No - HEENT Hx Cataracts: Yes Hx Glaucoma: Yes - RENAL Hx Chronic Kidney Disease: No - ENDOCRINE/METABOLIC Hx Endocrine Disorders: No - HEMATOLOGICAL/ONCOLOGICAL Hx Anemia: Yes Hx Cancer: Yes (colon CA with metastasis to liver and lung) Hx Chemotherapy: Yes (06/07) Hx Metastesis: Yes Other/Comment: pancytopenia - INTEGUMENTARY Hx Dermatological Problems: No - MUSCULOSKELETAL/RHEUMATOLOGICAL Hx Falls: Yes Hx Herniated Disk: Yes - GASTROINTESTINAL Hx Bowel Surgery: Yes (resection 2/2 cancer) Other/Comment: Colon Cancer, Stage 4 - GENITOURINARY/GYNECOLOGICAL Hx Genitourinary Disorders: No - PSYCHIATRIC Hx Psychophysiologic Disorder: Yes Hx Anxiety: Yes Hx Depression: Yes Hx Substance Use: No - SURGICAL HISTORY Other/Comment: left subclavian port. colonic tumor and liver mets resection ( 2010) - ANESTHESIA Hx Anesthesia: Yes Hx Anesthesia Reactions: No Hx Malignant Hyperthermia: No Meds Home Medications: Home Medication List Medication Instructions Recorded Confirmed Type Dexamethasone [Decadron] 4 mg PO BID 7 Days tab 09/20/17 Rx Montelukast [Singulair] 10 mg PO DAILY tab 09/20/17 Rx Allergies/Adverse Reactions: Allergies Allergy/AdvReac Type Severity Reaction Status Date / Time No Known Allergies Allergy Verified 06/12/17 18:46 Physical Exam - Constitutional Appears: Non-toxic, No Acute Distress - Head Exam Head Exam: ATRAUMATIC, NORMOCEPHALIC - Eye Exam Eye Exam: EOMI, Normal appearance, PERRL. absent: Nystagmus, Scleral icterus - ENT Exam ENT Exam: Mucous Membranes Moist - Neck Exam Neck exam: Positive for: Normal Inspection - Respiratory Exam Respiratory Exam: Decreased Breath Sounds, Wheezes (faint), NORMAL BREATHING PATTERN - Cardiovascular Exam Cardiovascular Exam: RRR, +S1, +S2 - GI/Abdominal Exam GI & Abdominal Exam: Normal Bowel Sounds, Organomegaly, Soft. absent: Tenderness - Extremities Exam Extremities exam: Negative for: calf tenderness, pedal edema - Neurological Exam Neurological exam: Alert, CN II-XII Intact, Oriented x3 Additional comments: 5/5 muscle strength in all four extremities Finger to nose with minimal dysmetria on the right - Psychiatric Exam Psychiatric exam: Anxious, Depressed - Skin Skin Exam: Dry, Intact, Normal Color Results - Vital Signs Recent Vital Signs: Last Vital Signs Temp 98.3 F 09/17/17 01:37 Pulse 85 09/17/17 02:05 Resp 16 09/17/17 01:37 BP 134/82 09/17/17 01:37 Pulse Ox 99 09/17/17 01:37 - Labs Result Diagrams: 09/17/17 02:30 09/17/17 02:30 Assessment & Plan - Assessment and Plan (Free Text) Assessment: 62 yo F with PMH of stage IV colon cancer w/ metastasis to liver and lung, HTN, L eye vision loss, and GERD who presented to the ER complaining of chest tightness starting earlier this night, as well as right sided weakness and cognitive decline. Physical exam remarkable for decreased breath sounds, depressed and anxious mood, and right [id number] dysmetria. Plan Chest tightness - Likely 2/2 anxiety vs lung metastases (causing impaired respiration); r/o ACS - First troponin negative, initial EKG shows no acute changes (pending official read); continue to trend troponins - Ordered stat dose of Xanax and duonebs; will monitor for response - Resume home Xanax - Start Xopenex PRN Right sided weakness - Patient has changes in her speech and mild dysmetria on exam; not noted on prior exams - Ordered CT head to r/o CVA vs brain metastases - Neurochecks Q6 h/o Metastatic colon CA - Continue home aldactone for peripheral edema - Continue home percocet for pain h/o HTN - Resume home medications GI/DVT Ppx - Protonix; SCDs until CT head complete to r/o hemorrhage Patient seen, discussed, and reviewed with attending <Seng Braden - Last Filed: 09/21/17 21:03> Results - Vital Signs Recent Vital Signs: Last Vital Signs Temp 97.7 F 09/20/17 07:32 Pulse 60 09/20/17 10:20 Resp 20 09/20/17 07:32 BP 116/60 09/20/17 10:20 Pulse Ox 100 09/20/17 07:32 - Labs Result Diagrams: 09/20/17 06:30 09/20/17 06:30
--- NOTE | 2017-09-17 08:05 | CT ---
PROCEDURE: CT HEAD WITHOUT CONTRAST. HISTORY: right sided weakness COMPARISON: Comparison is made with prior study dated 09/22/2013 TECHNIQUE: Axial computed tomography images were obtained through the head/brain without intravenous contrast. Radiation dose: Total exam DLP = 726.57 mGy-cm. This CT exam was performed using one or more of the following dose reduction techniques: Automated exposure control, adjustment of the mA and/or kV according to patient size, and/or use of iterative reconstruction technique. FINDINGS: HEMORRHAGE: No intracranial hemorrhage. BRAIN: There is 2.2 x 2 centimeter mass lesion at the anterior aspect of the right cerebellum extending to the cerebellar peduncle. There is adjacent vasogenic edema which resulting in mild compression on the 4th ventricle. No atrophy or chronic microvascular ischemic changes. VENTRICLES: Unremarkable. No hydrocephalus. CALVARIUM: Unremarkable. PARANASAL SINUSES: Unremarkable as visualized. No significant inflammatory changes. MASTOID AIR CELLS: Unremarkable as visualized. No inflammatory changes. OTHER FINDINGS: None. IMPRESSION: 2.2 x 2 centimeter slightly high attenuation heterogeneous mass lesion at the posterior fossa to the right of the midline surrounding with vasogenic edema likely represent brain metastasis. If clinically indicated further assessment by MRI of the brain may be obtained. No evidence of acute intracranial hemorrhage
[2017-09-17 08:22] LABS: CHOLESTEROL 96 mg/dL (130-200)
--- NOTE | 2017-09-17 08:23 | RAD ---
HISTORY: pain COMPARISON: 08/24/2017 FINDINGS: LUNGS: Vaguely rounded soft tissue mass upper right cee thorax, slightly increased in size compared to prior examination. Additional smaller masses seen at right base and left perihilar regions. Nonspecific. Correlate with CT angio chest of 07/26/2017. PLEURA: No significant pleural effusion identified, no pneumothorax apparent. CARDIOVASCULAR: Normal heart size. Left central venous infusion port. OSSEOUS STRUCTURES: No significant abnormalities. VISUALIZED UPPER ABDOMEN: Normal. OTHER FINDINGS: None. IMPRESSION: Multiple masses with largest mass in upper right cee thorax slightly increased in size. Nonspecific.
[2017-09-17] MEDS: Morphine 2 mg/ml ISec IVP PRN ×2 (09:47→21:41)
--- NOTE | 2017-09-17 11:42 | CP.PCM.CON ---
History of Present Illness - History of Present Illness History of Present Illness: Ms Mcgregor is a 62 year old female with metastatic colon cancer with brain metastases. Her history dates back to 2010 when she was initially diagnosed with stage IV colon cancer. On December 21, 2010, she had a right colon resection with right liver lobectomy. She has had multiple lines of chemotherapy. She presented to the emergency room with chest discomfort, cough as well as unsteadiness in her gait especially on the right side. Her coordination has been getting worse over the past month. She has some nausea. A CT of the head on September 17, 2017 revealed a 2.2 x 2.cm lesion in the anterior right cerebellum extending to the peduncle with edema. There is mild compression of the 4 th ventricle. A CXR from September 17, 2017 revealed interval progression of the right upper lung mass. She received keytruda last week She was started on decadron. She is referred for palliative radiation therapy. Review of Systems - Constitutional Constitutional: Weakness - Respiratory Respiratory: Wheezing - Gastrointestinal Gastrointestinal: Nausea - Neurological Neurological: Abnormal Gait Past Patient History - Infectious Disease Hx of Infectious Diseases: None - Tetanus Immunizations Tetanus Immunization: Unknown - Past Social History Smoking Status: Former Smoker Alcohol: Social Home Situation {Lives}: Alone - CARDIAC Hx Hypertension: Yes - PULMONARY Hx Respiratory Disorders: No - NEUROLOGICAL Hx Neurological Disorder: No - HEENT Hx Cataracts: Yes Hx Glaucoma: Yes - RENAL Hx Chronic Kidney Disease: No - ENDOCRINE/METABOLIC Hx Endocrine Disorders: No - HEMATOLOGICAL/ONCOLOGICAL Hx Anemia: Yes Hx Cancer: Yes (colon CA with metastasis to liver and lung) - INTEGUMENTARY Hx Dermatological Problems: No - MUSCULOSKELETAL/RHEUMATOLOGICAL Hx Falls: Yes Hx Herniated Disk: Yes - GASTROINTESTINAL Hx Bowel Surgery: Yes (resection 2010 of the liver and colon) Other/Comment: Colon Cancer, Stage 4 - GENITOURINARY/GYNECOLOGICAL Hx Genitourinary Disorders: No - PSYCHIATRIC Hx Psychophysiologic Disorder: Yes Hx Anxiety: Yes Hx Depression: Yes Hx Substance Use: No - SURGICAL HISTORY Other/Comment: left subclavian port. colonic tumor and liver mets resection ( 2010) - ANESTHESIA Hx Anesthesia: Yes Hx Anesthesia Reactions: No Hx Malignant Hyperthermia: No Meds Allergies/Adverse Reactions: Allergies Allergy/AdvReac Type Severity Reaction Status Date / Time No Known Allergies Allergy Verified 06/12/17 18:46 - Medications Medications: Current Medications Alprazolam (Xanax) 0.5 mg PO BID PRN; Protocol PRN Reason: Anxiety Dexamethasone (Decadron Inj) 4 mg IVP Q6 [facility] Heparin Sodium (Porcine) (Heparin) 5,000 units SC Q8 [facility] PRN Reason: Protocol Levalbuterol HCl (Xopenex) 0.63 mg IH Q2 PRN PRN Reason: Shortness of Breath Lisinopril (Zestril) 10 mg PO DAILY [facility] Last Admin: 09/17/17 09:48 Dose: 10 mg Montelukast Sodium (Singulair) 10 mg PO DAILY [facility] Last Admin: 09/17/17 09:48 Dose: 10 mg Morphine Sulfate (Morphine) 2 mg IVP Q6H PRN PRN Reason: Pain, moderate (4-7) Last Admin: 09/17/17 09:47 Dose: 2 mg Umeclidinium [employer] [Incruse Ellipta] 1 Puff (Home Med) 1 puff IH DAILY [facility] Ondansetron HCl (Zofran Inj) 4 mg IVP Q4H PRN PRN Reason: Nausea/Vomiting Last Admin: 09/17/17 09:47 Dose: 4 mg Oxycodone/Acetaminophen (Percocet 5/325 Mg Tab) 1 tab PO Q6 PRN PRN Reason: Pain, severe (8-10) Stop: 09/20/17 05:50 Pantoprazole Sodium (Protonix Inj) 40 mg IVP DAILY [facility] Last Admin: 09/17/17 11:37 Dose: Not Given Spironolactone (Aldactone) 25 mg PO TID [facility] Last Admin: 09/17/17 09:48 Dose: 25 mg Zolpidem Tartrate (Ambien) 5 mg PO HS [facility] Physical Exam - Head Exam Head Exam: NORMAL INSPECTION - Eye Exam Eye Exam: EOMI - ENT Exam ENT Exam: Mucous Membranes Moist - Respiratory Exam Respiratory Exam: Wheezes - Cardiovascular Exam Cardiovascular Exam: REGULAR RHYTHM - GI/Abdominal Exam GI & Abdominal Exam: Normal Bowel Sounds - Neurological Exam Neurological exam: Oriented x3 Results - Vital Signs Recent Vital Signs: Last Vital Signs Temp 97 F L 09/17/17 08:38 Pulse 87 09/17/17 08:38 Resp 20 09/17/17 08:38 BP 162/97 H 09/17/17 09:48 Pulse Ox 99 09/17/17 08:38 - Labs Result Diagrams: 09/17/17 02:30 09/17/17 02:30 Labs: Laboratory Results - last 24 hr 09/17/17 09/17/17 09/17/17 07:00 07:00 10:10 Troponin I < 0.01 < 0.01 Triglycerides 81 Cholesterol 96 L LDL Cholesterol Direct 44 HDL Cholesterol 32 Assessment & Plan - Assessment and Plan (Free Text) Assessment: Ms Mcgregor is a 62 year old female with metastatic colon cancer with brain metastases. She has had multiple lines of chemotherapy with disease progression. Given her extensive disease and performance status, she is not a candidate for surgery. As we discussed, you mentioned that her systemic therapy options are limited at this this point, and that whole brain palliative radiation therapy would be of benefit. We would recommend a MRI of the brain to delineate the extent of her disease. We will schedule her for a simulation session today, and begin as soon as possible. We would concur with her decadron given the vasogenic edema and mild compression of the 4th ventricle.
--- NOTE | 2017-09-17 12:01 | CARD ---
APPROVED REPORT EKG Measurement Heart [id number] <Conclusion> Normal sinus rhythm Q in lll Normal ECG No change
--- NOTE | 2017-09-17 12:50 | CP.PCM.CON ---
History of Present Illness - History of Present Illness History of Present Illness: Palliative consult requested by Dr Krystle Puckett Reason: Goals of care 62 year old female with history of advanced colon cancer who presented with chest tightness, shortness of breath and diaphoresis. She also reports right sided weakness,slowed thought processes, changes in her speech and confusion. She is currently receiving immunotherapy (Keytruda) under Dr. Calderón's care. She denied pain, nausea, vomiting, diarrhea, constipation, dizziness or headache.Head Ct showed a 2X2 cm high attenuation heterogeneous mass at the posterior fossa to the right midline with surrounding vasogenic edema, likely brain metastasis. Chest x ray revealed interval progression of the right upper lung mass. PMHx: Stage IV colon cancer with metastasis to liver, lungs, s/p colon/liver resection, chemo and radiation therapy, HTN, GERD, loss of vision in left eye Social History:Former smoker, no alcohol or drug use. Lives independently. Family History: Non contributory. Advance Care Planning: The patient has an Advanced Directive on the chart. Review of Systems: As per HPI, otherwise 12 point negative review Past Patient History - Infectious Disease Hx of Infectious Diseases: None - Tetanus Immunizations Tetanus Immunization: Unknown - Past Social History Smoking Status: Former Smoker Alcohol: Social Home Situation {Lives}: Alone - CARDIAC Hx Hypertension: Yes - PULMONARY Hx Respiratory Disorders: No - NEUROLOGICAL Hx Neurological Disorder: No - HEENT Hx Cataracts: Yes Hx Glaucoma: Yes - RENAL Hx Chronic Kidney Disease: No - ENDOCRINE/METABOLIC Hx Endocrine Disorders: No - HEMATOLOGICAL/ONCOLOGICAL Hx Anemia: Yes Hx Cancer: Yes (colon CA with metastasis to liver and lung) - INTEGUMENTARY Hx Dermatological Problems: No - MUSCULOSKELETAL/RHEUMATOLOGICAL Hx Falls: Yes Hx Herniated Disk: Yes - GASTROINTESTINAL Hx Bowel Surgery: Yes (resection 2010 of the liver and colon) Other/Comment: Colon Cancer, Stage 4 - GENITOURINARY/GYNECOLOGICAL Hx Genitourinary Disorders: No - PSYCHIATRIC Hx Psychophysiologic Disorder: Yes Hx Anxiety: Yes Hx Depression: Yes Hx Substance Use: No - SURGICAL HISTORY Other/Comment: left subclavian port. colonic tumor and liver mets resection ( 2010) - ANESTHESIA Hx Anesthesia: Yes Hx Anesthesia Reactions: No Hx Malignant Hyperthermia: No Meds Allergies/Adverse Reactions: Allergies Allergy/AdvReac Type Severity Reaction Status Date / Time No Known Allergies Allergy Verified 06/12/17 18:46 - Medications Medications: Current Medications Alprazolam (Xanax) 0.5 mg PO BID PRN; Protocol PRN Reason: Anxiety Dexamethasone (Decadron Inj) 4 mg IVP Q6 [facility] Heparin Sodium (Porcine) (Heparin) 5,000 units SC Q8 [facility] PRN Reason: Protocol Levalbuterol HCl (Xopenex) 0.63 mg IH Q2 PRN PRN Reason: Shortness of Breath Lisinopril (Zestril) 10 mg PO DAILY [facility] Last Admin: 09/17/17 09:48 Dose: 10 mg Montelukast Sodium (Singulair) 10 mg PO DAILY [facility] Last Admin: 09/17/17 09:48 Dose: 10 mg Morphine Sulfate (Morphine) 2 mg IVP Q6H PRN PRN Reason: Pain, moderate (4-7) Last Admin: 09/17/17 09:47 Dose: 2 mg Umeclidinium [place] [Incruse Ellipta] 1 Puff (Home Med) 1 puff IH DAILY [facility] Ondansetron HCl (Zofran Inj) 4 mg IVP Q4H PRN PRN Reason: Nausea/Vomiting Last Admin: 09/17/17 09:47 Dose: 4 mg Oxycodone/Acetaminophen (Percocet 5/325 Mg Tab) 1 tab PO Q6 PRN PRN Reason: Pain, severe (8-10) Stop: 09/20/17 05:50 Pantoprazole Sodium (Protonix Inj) 40 mg IVP DAILY [facility] Last Admin: 09/17/17 11:37 Dose: Not Given Spironolactone (Aldactone) 25 mg PO TID [facility] Last Admin: 09/17/17 09:48 Dose: 25 mg Zolpidem Tartrate (Ambien) 5 mg PO HS [facility] Physical Exam - Constitutional Appears: No Acute Distress, Chronically Ill - Eye Exam Additional comments: right pupil equal and reactive to light - ENT Exam ENT Exam: Mucous Membranes Moist, Normal Oropharynx - Neck Exam Neck exam: Positive for: Normal Inspection - Respiratory Exam Respiratory Exam: Decreased Breath Sounds, Wheezes, NORMAL BREATHING PATTERN - Cardiovascular Exam Cardiovascular Exam: REGULAR RHYTHM, +S1, +S2 - GI/Abdominal Exam GI & Abdominal Exam: Normal Bowel Sounds, Soft, Tenderness - Extremities Exam Extremities exam: Positive for: pedal pulses present Additional comments: right upper/lower extremity weakness - Back Exam Back exam: NORMAL INSPECTION - Neurological Exam Neurological exam: Alert, Oriented x3 - Skin Skin Exam: Dry, Warm - Additional Findings Additional findings: Palliative performance scale rating 50% Results - Vital Signs Recent Vital Signs: Last Vital Signs Temp 97 F L 09/17/17 08:38 Pulse 87 09/17/17 08:38 Resp 20 09/17/17 08:38 BP 162/97 H 09/17/17 09:48 Pulse Ox 99 09/17/17 08:38 - Labs Result Diagrams: 09/17/17 02:30 09/17/17 02:30 Labs: Laboratory Results - last 24 hr 09/17/17 09/17/17 09/17/17 07:00 07:00 10:10 Troponin I < 0.01 < 0.01 Triglycerides 81 Cholesterol 96 L LDL Cholesterol Direct 44 HDL Cholesterol 32 Assessment & Plan - Assessment and Plan (Free Text) Assessment: 62 year old female with history of metastatic colon cancer who is admitted with with right sided weakness, transient confusion. New metastatic mass found at the right posterior fossa. The patient is alert and oriented. She understands that she has new metastatic lesion in the brain. She is agreeable to palliative radiation and is scheduled to start treatment tomorrow. She is anxious about wherein the mask during radiation treatment. States she may need medication to help with her anxiety. Reassured. The patient and I discussed the terms of her advance directive. The patient states that her advance directive DNR/DNI is valid only in cases where her condition is terminal or irreversible. I explained that her disease is not curable. Patient states she understands but does not feel that she is "near the end". Patient feels she would still try if she "has a chance". Burdens of CPR explained especially probable outcomes in patients with her comorbidities. Patient wants time to consider terms of her advance directive. Psychosocial support given. Time spent in goals of care and advance care planning discussion,30 minutes Plan: Palliative support in establishing goals of care
[2017-09-17] MEDS: Dexamethasone 4 mg/1 ml IVP SCH ×2 (13:54→17:17)
[2017-09-17] MEDS ORDERED: Gadodiamide 287 MG/ML VIAL (15ML) IV ONE (14:58)
--- NOTE | 2017-09-17 15:43 | MRI ---
PROCEDURE: MRI BRAIN WITH AND WITHOUT CONTRAST HISTORY: stage IV lung w/ mass at cerebellum COMPARISON: Comparison is made with the previous same-day CT of the head without contrast TECHNIQUE: Multiplanar, multisequence MR images of the brain were obtained with and without intravenous contrast enhancement. FINDINGS: HEMORRHAGE: None DWI: No evidence of an acute or early subacute infarction. BRAIN PARENCHYMA: There is 3 x 2.1 centimeter heterogeneous enhancing mass lesion at the anterior aspect of the right cerebellar hemisphere and right cerebellar peduncle. There is adjacent vasogenic edema. Findings likely represent brain metastasis. The differential considerations includes less likely primary brain metastasis. Mild atrophy and mild white matter changes likely represent chronic microvascular ischemic disease noted. ENHANCEMENT: Enhancing mass lesion at the right cerebellar peduncle highly suspicious for metastasis. VENTRICLES: Slight compression on the right aspect of the 4th ventricle noted. No evidence of hydrocephalus. CRANIUM: Unremarkable. ORBITS: Elongated shape of the globes noted bilaterally suspicious for Staphyloma PARANASAL SINUSES/MASTOIDS: Clear VASCULAR SYSTEM: Skull base flow voids intact. OTHER FINDINGS: None . IMPRESSION: 3 x 2.1 centimeter heterogeneous enhancing mass lesion at the right cerebellar peduncle and anterior aspect of the right cerebellar hemisphere surrounding with vasogenic edema suggestive of malignant neoplasm likely metastasis. No evidence of other enhancing mass lesion in the brain. Mild atrophy and mild chronic microvascular white matter ischemic disease.
--- NOTE | 2017-09-17 16:06 | CON ---
DATE: 09/17/2017 REASON FOR CONSULTATION: Metastatic colon cancer now with new brain mets. HISTORY OF PRESENT ILLNESS: The patient is a 62-year-old female well-known to me for several years with known metastatic disease, colon primary for several years, has failed multiple chemotherapy regimen including FOLFOX, FOLFIRI, as well as tipiracil and recently the patient has been on Keytruda, has received over 4 cycles, but now presented with right-sided weakness and CT of the head done in the emergency room revealed a new metastatic lesion to her right cerebellum extending into the cerebellar peduncle about 2.2 x 2.2 cm. There adjacent vasogenic edema resulting in mild compression on the 4th ventricle as well. She denies any nausea or vomiting. She has had some headaches and she has also been having some trouble with her balance. Her right arm has also been bothering her. She does live alone and does not have any support system at this point at home. She has a daughter, who lives far away. PAST MEDICAL HISTORY: As above; known history of metastatic colon cancer to the liver, lungs, and now with new brain metastasis. MEDICATIONS: Her medications at home include Aldactone, Ambien, Decadron, heparin, morphine, Percocet, Protonix, Singulair, Xanax, Xopenex, Zestril, and Zofran. ALLERGIES: MULTIPLE MEDICATIONS INCLUDING 5-FU, OXALIPLATIN, AND IRINOTECAN. FAMILY HISTORY: Otherwise noncontributory. SOCIAL HISTORY: Negative for any smoking or alcohol abuse. She does live alone. She has a daughter who lives far away. REVIEW OF SYSTEMS: As per the HPI. PHYSICAL EXAMINATION: GENERAL: The patient is an elderly female lying in bed in no acute distress. VITAL SIGNS: Reveals temperature of 97.0, pulse of 118, respiratory rate 20, and blood pressure of 162/97. HEAD AND NECK: Normocephalic and atraumatic. Pupils are equal, round, and reactive to light and accommodation. Extraocular muscles intact. There is some pallor. No icterus is noted. Neck is supple with no adenopathy. No JVD. No thyromegaly. LUNGS: Decreased breath sounds bilaterally secondary to poor effort. CARDIOVASCULAR: S1 and S2 heard. The patient is tachycardic. ABDOMEN: Positive bowel sounds. Soft. She does have mild distention, as she does have known ascites. No rebound. No guarding. Mild tenderness. EXTREMITIES: There is no edema. NEUROLOGIC: The patient does have right-sided weakness in upper and lower extremities. LABORATORY DATA: Revealed a white count of 4.5, hemoglobin 10.1, hematocrit of 32.9, MCV of 89.6, and platelet count of 113. Coag studies are within normal limits. Electrolytes are within normal limits, except for an elevated LDH. ASSESSMENT AND PLAN: As elderly female with multiple medical problems, as well as metastatic colon cancer to the liver, lungs, as well as now to the brain. She is not a surgical candidate, as she has widely metastatic colon cancer with no further response to chemotherapy, as well as multiple allergic reactions to multiple chemotherapy. She has recently been on immunotherapy with Keytruda, has received over 4 cycles, but with no clinical response, as well as progression in CEA. Long discussion with the patient today regarding no further chemotherapy at this point considering new progression of disease to the brain. Palliative radiation is being started, as we speak. Continue Decadron as ordered earlier today. She is willing to consider hospice care, but it is not a safe discharge for the patient to be home alone, as she does leave alone with new brain metastasis. She is also considering inpatient hospice at this point. The patient offers social work therapist consult. Thank you for the consult. We will follow. Rosanne Calderón MD
--- NOTE | 2017-09-17 19:49 | CON ---
DATE: 09/17/2017 CHIEF COMPLAINT: Enhancing brain lesion in the anterior aspect of right cerebral hemisphere and right cerebral peduncle. HISTORY OF PRESENT ILLNESS: This is a 62-year-old woman with past medical history of metastatic cancer/disease of the colon as a primary for several years, has failed multiple chemotherapies, regimens including FOLFOX, FOLFIRI, as well as well as Tipiracil and is recently on Keytruda, received 4 cycles, history of colon cancer, mets to the lungs and liver, who now presented with right-sided weakness and found to have an abnormal CAT scan. She had metastatic lesion of the right cerebellum, extending into the cerebellar peduncle about 2.2 x 2.2 cm with vasogenic edema with mild compression on the fourth ventricle. She denies any nausea, vomiting. She had mild headaches, but is also having some dysmetria and trouble balance. Currently, she is mildly dysmetric on [id number] on the right, and headaches are improved. She has undergone evaluation by Radiation Oncology and Oncology who suggested that given her extensive disease and performance status, she is not a candidate for surgery, and options were limited at this point where the whole brain radiation therapy would be of benefit and an MRI of the brain which showed a 3 x 2.1 cm heterogeneous enhancing mass lesion in the right cerebellar peduncle, anterior aspect of the right cerebellar hemisphere surrounding with vasogenic edema, suggestive of malignant neoplasm, likely metastasis. Oncology notes reviewed and appreciated and recommended possibly to continue Decadron and palliative radiation as well as possible hospice. PAST MEDICAL HISTORY: History of metastatic colon cancer to liver and lung and now with brain metastasis and hypertension. REVIEW OF SYSTEMS: A 14-point review of systems is negative except as per the HPI. MEDICATIONS: Reviewed by nurse per reconciliation sheet. ALLERGIES: NO KNOWN DRUG ALLERGIES. SOCIAL HISTORY: No illicit drug use, smoking, or EtOH abuse at this time. PHYSICAL EXAMINATION: VITAL SIGNS: Temperature 97, pulse rate of 90, blood pressure of 162/97, respirations 20. GENERAL: The patient is seen up in bed, in no acute distress. HEENT: Head is atraumatic and normocephalic. PERRLA. Extraocular muscles intact. NECK: Supple. No JVD. No adenopathy. LUNGS: Clear to auscultation. No adventitious sounds. HEART: S1, S2. Normal rate and rhythm. No murmurs, rubs, or gallops. ABDOMEN: Soft, nontender, nondistended. Bowel sounds present. EXTREMITIES: No clubbing. No cyanosis. Peripheral pulses are 2+ felt bilaterally. NEURO: The patient is alert and oriented to person, place, month, and year. Speech is fluent without any errors. Cranial nerves II through XII are intact. Motor exam has mild right-sided weakness, 5-/5. Sensory, light touch, pinprick, proprioception, vibration intact. DTRs are 2+ throughout. Coordination and dysmetria on the right. [id number] as well as [id number]. There is gait imbalance. LABORATORIES: Electrolytes are in normal limits except for elevated LDH. WBC is 4.5, hemoglobin 10.1, hematocrit 32.9, and platelet count 113. ASSESSMENT AND PLAN: This is a 62-year-old elderly woman with past medical history of metastatic colon cancer to liver, lungs as well as now to the brain, and was consulted for cerebellar lesion. She underwent an MRI of the brain to make sure that 3 x 2.1 cm heterogeneous enhancing mass at the right side of the peduncle in the anterior aspect of the right cerebellar hemisphere with surrounding vasogenic edema suggesting malignant neoplasm, likely metastasis. The mass is most likely from metastatic colon cancer. She is not a surgical candidate and has widely metastatic colon cancer with no response to chemotherapy as well as multiple allergic reactions to multiple chemotherapy, has recently been on immunotherapy with Keytruda by Oncology as well as there is a progression for carcinoembryonic antigen levels, given her long discussion and following Oncology's notes, there is no further chemotherapy at this point considering since there is now the progression of disease to the brain, and palliative radiation should be considered by Radiation Oncology and possible hospice. At this time, recommend physical therapy/occupational therapy for poor balance and dysmetria, and continue with Decadron 4 mg IV q.6 and continue eventually after few days, 2 mg IV q.6 and with a tapering Medrol Dosepak. Follow with Palliative Care, morphine for pain control, and no antiepileptics needed at this point, given that it is in the cerebellar lesion rather than frontal or temporal, and continue to follow up with Oncology and Radiation Oncology. Thank you for this consult. Please reconsult if necessary. Silvestre Brock MD [facility] # [id number]
[2017-09-18] MEDS: Dexamethasone 4 mg/1 ml IVP SCH ×4 (00:28→17:12)
[2017-09-18 06:36] LABS: EOS % 0.5 % (1.5-5.0); GRAN # 1.57 (1.4-6.5); GRAN % 85.8 % (50.0-68.0); HEMATOCRIT 32.2 % (36.0-48.0); LYMPH # 0.2 (1.2-3.4); LYMPH % 11.5 % (22.0-35.0); MEAN CELL VOLUME 88.2 fl (80.0-105.0); MEAN CORPUSCULAR HEMOGLOBIN 27.1 pg (25.0-35.0); MEAN CORPUSCULAR HGB CONC 30.7 g/dl (31.0-37.0); MONO % 2.2 % (1.0-6.0); RED CELL DISTRIBUTION WIDTH 17.6 % (11.5-14.5)
[2017-09-18 06:55] LABS: WHITE BLOOD COUNT 1.8 10^3/ul (4.5-11.0)
[2017-09-18 07:11] LABS: BILIRUBIN,TOTAL 1.4 mg/dL (0.2-1.3); CALCIUM 9.8 mg/dL (8.4-10.5); MAGNESIUM 1.7 mg/dL (1.7-2.2); PHOSPHOROUS 4.5 mg/dL (2.5-4.5); TOTAL PROTEIN 7.9 g/dL (5.8-8.3)
[2017-09-18 07:20] LABS: POTASSIUM 5.6 mmol/L (3.6-5.0)
[2017-09-18] MEDS ORDERED: Sod Polystyrene Sulf 15 gm/60 ml Susp PO ONE (07:51)
[2017-09-18] MEDS ORDERED: Dextrose 50% SYRINGE Inj (50 ml) IVP ONE (07:51)
[2017-09-18] MEDS ORDERED: Insulin Regular 1 UNITS/0.01 ML ML SC ONE (07:52)
--- NOTE | 2017-09-18 13:54 | CP.PCM.PN ---
<Della Shah - Last Filed: 09/18/17 14:21> Subjective - Date & Time of Evaluation Date of Evaluation: 09/18/17 Time of Evaluation: 13:53 - Subjective Subjective: Della Shah, PGY1, Medicine Progress Note for Dr Puckett: Patient seen and examined at bedside. No acute events overnight. Pt describes relief of chest tightness, states that she sometimes feels it when she is anxious. Denies nausea, vomiting, fever, chills, sob, abdominal pain, dizziness. Objective - Vital Signs/Intake and Output Vital Signs (last 24 hours): Temp Pulse Resp BP Pulse Ox 97.6 F 84 20 142/89 98 09/18/17 06:00 09/18/17 10:00 09/18/17 06:00 09/18/17 09:12 09/18/17 06:00 Intake and Output: 09/18/17 09/18/17 06:59 18:59 Intake Total 420 120 Balance 420 120 - Medications Medications: Current Medications Alprazolam (Xanax) 1 mg PO BID PRN; Protocol PRN Reason: Anxiety Last Admin: 09/18/17 13:35 Dose: 1 mg Dexamethasone (Decadron Inj) 4 mg IVP Q6 RUKHSANA Last Admin: 09/18/17 13:09 Dose: 4 mg Heparin Sodium (Porcine) (Heparin) 5,000 units SC Q8 RUKHSANA PRN Reason: Protocol Levalbuterol HCl (Xopenex) 0.63 mg IH Q2 PRN PRN Reason: Shortness of Breath Lisinopril (Zestril) 10 mg PO DAILY [facility] Last Admin: 09/18/17 09:12 Dose: 10 mg Montelukast Sodium (Singulair) 10 mg PO DAILY [facility] Last Admin: 09/18/17 09:12 Dose: 10 mg Morphine Sulfate (Morphine) 2 mg IVP Q6H PRN PRN Reason: Pain, moderate (4-7) Last Admin: 09/17/17 21:41 Dose: 2 mg Umeclidinium [place] [Incruse Ellipta] 1 Puff (Home Med) 1 puff IH DAILY [facility] Ondansetron HCl (Zofran Inj) 4 mg IVP Q4H PRN PRN Reason: Nausea/Vomiting Last Admin: 09/17/17 21:44 Dose: 4 mg Oxycodone/Acetaminophen (Percocet 5/325 Mg Tab) 1 tab PO Q6 PRN PRN Reason: Pain, severe (8-10) Stop: 09/20/17 05:50 Pantoprazole Sodium (Protonix Inj) 40 mg IVP DAILY [facility] Last Admin: 09/18/17 09:12 Dose: 40 mg Spironolactone (Aldactone) 25 mg PO TID [facility] Last Admin: 09/18/17 13:09 Dose: 25 mg Zolpidem Tartrate (Ambien) 5 mg PO HS [facility] Last Admin: 09/18/17 00:26 Dose: 5 mg - Labs Labs: 09/18/17 06:10 09/18/17 06:10 PT 12.8 SECONDS (9.4-12.5) H 09/17/17 02:30 INR 1.17 (0.93-1.08) H 09/17/17 02:30 APTT 27.8 Seconds (25.1-36.5) 09/17/17 02:30 - Constitutional Appears: Non-toxic, No Acute Distress, Older Than Stated Age, Chronically Ill - Head Exam Head Exam: ATRAUMATIC, NORMOCEPHALIC - Eye Exam Eye Exam: EOMI, PERRL Pupil Exam: PERRL - ENT Exam ENT Exam: Mucous Membranes Moist - Neck Exam Neck Exam: Full ROM - Respiratory Exam Respiratory Exam: Clear to Ausculation Bilateral. absent: Decreased Breath Sounds, Rhonchi, Wheezes - Cardiovascular Exam Cardiovascular Exam: RRR, +S1, +S2. absent: Murmur - GI/Abdominal Exam GI & Abdominal Exam: Soft, Normal Bowel Sounds. absent: Distended, Guarding, Rigid, Tenderness, Mass, Organomegaly, Rebound - Extremities Exam Extremities Exam: absent: Calf Tenderness, Pedal Edema - Back Exam Back Exam: NORMAL INSPECTION - Neurological Exam Neurological Exam: Alert, Awake, Oriented x3 - Psychiatric Exam Psychiatric exam: Anxious - Skin Skin Exam: Dry, Normal Color, Warm Assessment and Plan - Assessment and Plan (Free Text) Assessment: 62 yo F with PMH of stage IV colon cancer w/ metastasis to liver and lung, HTN, L eye vision loss, and GERD, presents for chest tightness, anxiety, coordination difficulties, found to have 3x2.1 cm right cerebellar peduncle brain mets: Chest tightness: - Likely 2/2 anxiety vs lung metastases (causing impaired respiration); ACS ruled out - Trop neg x3, EKG shows no acute changes - Received duonebs in the ED. - On home med Xanax 1 mg PO BID prn - Improving chest tightness, however, pt received a diagnosis of brain mets this admission. Pt thus has some anxiety related episodes regarding the diagnosis, with which she experiences chest tightness. Incoordination and dysmetria: - 2/2 likely right cerebellar penduclar mets from colon cancer. - Patient has changes in her speech and mild dysmetria on exam; not noted on prior exams - CT head showed 2x2.2 cm mass lesion at posterior fossa, right of midline. - MRI head w/o contrast: 3x2.1 cm heterogenous mass lesion at right cerebellar penducle and anterior aspect of right cerebellar hemisphere with surrounding vasogenic edema, suggestive of malignant neoplasm vs mets. Mild atrophy. - Dr Calderón on board; started Decadron 4 mg IV q6h. appreciate recs. Consider inpatient hospice as pt lives alone at home with a daughter who is [place]. - Dr Blackmon (Rad-Onc) on board, will give whole brain palliative radiation, can be done outpatient or inpatient. Appreciate recs. - Palliate (Nancy Mccord on board): pt still needs help with accepting the terminal nature of the diagnosis. She will revisit again. - Today, pt is amenable to hospice care. will reach out to Nancy to further discuss it with patient. Hyperkalemia: - K 5.6 today, EKG neg for ST peaks or changes. Given Kayexalate, Albuterol, Insulin with D50. - Check repeat K at 2 PM. h/o Metastatic colon CA - Continue home aldactone for peripheral edema - Pt is allergic to percocet (causes itchiness). Given morphine 2 mg IV prn q4h. h/o HTN - Resume home medications GI/DVT Ppx - Protonix; SCDs Case seen and discussed with Dr Puckett. Della Shah, PGY1 <Ernestine Puckett - Last Filed: 09/18/17 14:55> Objective - Vital Signs/Intake and Output Vital Signs (last 24 hours): Temp Pulse Resp BP Pulse Ox 97.6 F 84 20 142/89 98 09/18/17 06:00 09/18/17 10:00 09/18/17 06:00 09/18/17 09:12 09/18/17 06:00 Intake and Output: 09/18/17 09/18/17 06:59 18:59 Intake Total 420 120 Balance 420 120 - Medications Medications: Current Medications Alprazolam (Xanax) 1 mg PO BID PRN; Protocol PRN Reason: Anxiety Last Admin: 09/18/17 13:35 Dose: 1 mg Dexamethasone (Decadron Inj) 4 mg IVP Q6 [facility] Last Admin: 09/18/17 13:09 Dose: 4 mg Heparin Sodium (Porcine) (Heparin) 5,000 units SC Q8 RUKHSANA PRN Reason: Protocol Levalbuterol HCl (Xopenex) 0.63 mg IH Q2 PRN PRN Reason: Shortness of Breath Lisinopril (Zestril) 10 mg PO DAILY [facility] Last Admin: 09/18/17 09:12 Dose: 10 mg Montelukast Sodium (Singulair) 10 mg PO DAILY [facility] Last Admin: 09/18/17 09:12 Dose: 10 mg Morphine Sulfate (Morphine) 2 mg IVP Q6H PRN PRN Reason: Pain, moderate (4-7) Last Admin: 09/17/17 21:41 Dose: 2 mg Umeclidinium [place] [Incruse Ellipta] 1 Puff (Home Med) 1 puff IH DAILY [facility] Ondansetron HCl (Zofran Inj) 4 mg IVP Q4H PRN PRN Reason: Nausea/Vomiting Last Admin: 09/17/17 21:44 Dose: 4 mg Oxycodone/Acetaminophen (Percocet 5/325 Mg Tab) 1 tab PO Q6 PRN PRN Reason: Pain, severe (8-10) Stop: 09/20/17 05:50 Pantoprazole Sodium (Protonix Inj) 40 mg IVP DAILY [facility] Last Admin: 09/18/17 09:12 Dose: 40 mg Spironolactone (Aldactone) 25 mg PO TID [facility] Last Admin: 09/18/17 13:09 Dose: 25 mg Zolpidem Tartrate (Ambien) 5 mg PO HS [facility] Last Admin: 09/18/17 00:26 Dose: 5 mg - Labs Labs: 09/18/17 06:10 09/18/17 13:48 PT 12.8 SECONDS (9.4-12.5) H 09/17/17 02:30 INR 1.17 (0.93-1.08) H 09/17/17 02:30 APTT 27.8 Seconds (25.1-36.5) 09/17/17 02:30 Attending/Attestation - Attestation I have personally seen and examined this patient.: Yes I have fully participated in the care of the patient.: Yes I have reviewed all pertinent clinical information, including history, physical exam and plan: Yes Notes (Text): 09/18/17 14:50 62 year old female with past medical history of metastatic colon cancer who presented with complaint of chest tightness and right sided dysmetria. Chest tightness has improved. Serial cardiac enzymes were negative and ACS has been ruled out. CT head showed metastatic cerebellar lesion which was confirmed on MRI brain. Neurology, hematology/oncology and radiation/oncology evaluations were appreciated. Patient was started on decadron and also be started on palliative radiation therapy today. PT evaluation and palliative care evaluation were also appreciated; consider hospice. Hyperkalemia today was noted. She was given kayexalate with improvement of potassium level. She also has leukopenia today with WBC 1.8; monitor for now per hematology. Ernestine Puckett MD Hospitalist.
[2017-09-19] MEDS: Dexamethasone 4 mg/1 ml IVP SCH ×4 (00:10→17:16)
[2017-09-19 07:16] LABS: EOS % 0.2 % (1.5-5.0); GRAN # 4.76 (1.4-6.5); GRAN % 93.2 % (50.0-68.0); HEMATOCRIT 32.5 % (36.0-48.0); LYMPH # 0.2 (1.2-3.4); LYMPH % 4.3 % (22.0-35.0); MEAN CELL VOLUME 88.1 fl (80.0-105.0); MEAN CORPUSCULAR HEMOGLOBIN 27.1 pg (25.0-35.0); MEAN CORPUSCULAR HGB CONC 30.8 g/dl (31.0-37.0); MEAN PLATELET VOLUME 9.8 fl (7.0-11.0); MONO # 0.1 (0.1-0.6); MONO % 2.3 % (1.0-6.0); PLATELET COUNT 81 10^3/uL (120.0-450.0); RED CELL DISTRIBUTION WIDTH 17.6 % (11.5-14.5); WHITE BLOOD COUNT 5.1 10^3/ul (4.5-11.0)
[2017-09-19 07:59] LABS: ALB/GLOB RATIO 1.1 (1.1-1.8); ALKALINE PHOSPHATASE 105 U/L (38-126); ALT/SGPT 41 U/L (7-56); AST/SGOT 37 U/L (14-36); BLOOD UREA NITROGEN 28 mg/dL (7-21); CALCIUM 9.5 mg/dL (8.4-10.5); CARBON DIOXIDE 26 mmol/L (21-33); CHLORIDE 104 mmol/L (98-107); GFR AFRICAN-AMERICAN > 60; GLUCOSE,RANDOM 181 mg/dL (70-110); SODIUM 141 mmol/L (132-148); TOTAL PROTEIN 7.6 g/dL (5.8-8.3)
[2017-09-19] MEDS: UMECLIDINIUM BROMIDE IH SCH (09:08)
[2017-09-19 09:29] LABS: ANISOCYTOSIS 1+; HYPOCHROMIA 1+; NEUTROPHIL 89 % (50.0-70.0); OVALOCYTES SLIGHT; PLATELET ESTIMATE LOW (NORMAL); TOXIC GRANULATION SLIGHT
--- NOTE | 2017-09-19 09:51 | CARD ---
APPROVED REPORT EKG Measurement Heart [id number] <Conclusion> Normal sinus rhythm Minimal voltage criteria for LVH, may be normal variant Q in lll No change
--- NOTE | 2017-09-19 14:28 | CP.PCM.PN ---
<Della Shah - Last Filed: 09/19/17 14:30> Subjective - Date & Time of Evaluation Date of Evaluation: 09/19/17 Time of Evaluation: 14:25 - Subjective Subjective: Della Shah, PGY1, Medicine Progress Note for Dr Puckett: Patient seen and examined at bedside. No acute events overnight. Denies chest tightness, fever, chills, nausea, vomiting, cp, sob, leg swelling. States that her weakness, dysmetria is mildly improved with decadron treatment. Pt tolerating food well, voiding well. Pt scheduled for 2nd radiation session today. Objective - Vital Signs/Intake and Output Vital Signs (last 24 hours): Temp Pulse Resp BP Pulse Ox 97.7 F 100 H 18 130/87 98 09/19/17 08:44 09/19/17 09:00 09/19/17 08:44 09/19/17 09:00 09/19/17 08:44 Intake and Output: 09/19/17 09/19/17 06:59 18:59 Intake Total 1080 Balance 1080 - Medications Medications: Current Medications Alprazolam (Xanax) 1 mg PO BID PRN; Protocol PRN Reason: Anxiety Last Admin: 09/19/17 08:22 Dose: 1 mg Dexamethasone (Decadron Inj) 4 mg IVP Q6 [facility] Last Admin: 09/19/17 12:17 Dose: 4 mg Heparin Sodium (Porcine) (Heparin) 5,000 units SC Q8 [facility] PRN Reason: Protocol Levalbuterol HCl (Xopenex) 0.63 mg IH Q2 PRN PRN Reason: Shortness of Breath Lisinopril (Zestril) 10 mg PO DAILY [facility] Last Admin: 09/19/17 09:00 Dose: 10 mg Montelukast Sodium (Singulair) 10 mg PO DAILY [facility] Last Admin: 09/19/17 09:00 Dose: 10 mg Morphine Sulfate (Morphine) 2 mg IVP Q6H PRN PRN Reason: Pain, moderate (4-7) Last Admin: 09/17/17 21:41 Dose: 2 mg Umeclidinium [place] [Incruse Ellipta] 1 Puff (Home Med) 1 puff IH DAILY [facility] Last Admin: 09/19/17 09:08 Dose: 1 puff Ondansetron HCl (Zofran Inj) 4 mg IVP Q4H PRN PRN Reason: Nausea/Vomiting Last Admin: 09/17/17 21:44 Dose: 4 mg Oxycodone/Acetaminophen (Percocet 5/325 Mg Tab) 1 tab PO Q6 PRN PRN Reason: Pain, severe (8-10) Stop: 09/20/17 05:50 Pantoprazole Sodium (Protonix Inj) 40 mg IVP DAILY [facility] Last Admin: 09/19/17 09:00 Dose: 40 mg Spironolactone (Aldactone) 25 mg PO TID [facility] Last Admin: 09/19/17 14:02 Dose: 25 mg Zolpidem Tartrate (Ambien) 5 mg PO HS [facility] Last Admin: 09/18/17 22:54 Dose: 5 mg - Labs Labs: 09/19/17 06:45 09/19/17 06:45 PT 12.8 SECONDS (9.4-12.5) H 09/17/17 02:30 INR 1.17 (0.93-1.08) H 09/17/17 02:30 APTT 27.8 Seconds (25.1-36.5) 09/17/17 02:30 - Constitutional Appears: Non-toxic, No Acute Distress, Older Than Stated Age, Chronically Ill - Head Exam Head Exam: ATRAUMATIC, NORMOCEPHALIC - Eye Exam Eye Exam: EOMI, PERRL. absent: Conjunctival injection, Scleral icterus Pupil Exam: PERRL - ENT Exam ENT Exam: Mucous Membranes Moist - Neck Exam Neck Exam: Full ROM - Respiratory Exam Respiratory Exam: Clear to Ausculation Bilateral. absent: Accessory Muscle Use , Respiratory Distress - Cardiovascular Exam Cardiovascular Exam: RRR, +S1, +S2. absent: Murmur - GI/Abdominal Exam GI & Abdominal Exam: Soft, Normal Bowel Sounds. absent: Distended, Guarding, Rigid, Tenderness, Mass, Organomegaly, Rebound - Extremities Exam Extremities Exam: absent: Calf Tenderness, Pedal Edema, Tenderness - Back Exam Back Exam: NORMAL INSPECTION - Neurological Exam Neurological Exam: Alert, Awake, Oriented x3 - Psychiatric Exam Psychiatric exam: Anxious, Depressed - Skin Skin Exam: Dry, Normal Color, Warm Assessment and Plan - Assessment and Plan (Free Text) Assessment: 62 yo F with PMH of stage IV colon cancer w/ metastasis to liver and lung, HTN, L eye vision loss, and GERD, presents for chest tightness, anxiety, coordination difficulties, dysmetria, found to have 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 - Patient has changes in her speech and mild dysmetria on exam; not noted on prior exams - CT head showed 2x2.2 cm mass lesion at posterior fossa, right of midline. - MRI head w/o contrast: 3x2.1 cm heterogenous mass lesion at right cerebellar penducle and anterior aspect of right cerebellar hemisphere with surrounding vasogenic edema, suggestive of malignant neoplasm vs mets. Mild atrophy. - Dr Calderón on board; started Decadron 4 mg IV q6h. appreciate recs. Consider inpatient hospice as pt lives alone at home with a daughter who is in [place]. - Dr Blackmon (Rad-Onc) on board, on whole brain palliative radiation, can be done outpatient or inpatient. Session 11/09 done today. Appreciate recs. - Palliate (Nancy Mccord on board): pt still needs help with accepting the terminal nature of the diagnosis. She will revisit again. - Today, pt is apprehensive about going to subacute rehab in [place], [place]. However , pt wants to spend [place] with her brother and daughter before going to the [facility]. Still awaiting insurance approval. F/u status tomorrow. - Pt currently does not want to consider hospice care. Chest tightness, resolved: - Likely 2/2 anxiety vs lung metastases (causing impaired respiration); ACS ruled out - Trop neg x3, EKG shows no acute changes - Received duonebs in the ED. - On home med Xanax 1 mg PO BID prn - Improving chest tightness, however, pt received a diagnosis of brain mets this admission. Pt thus has some anxiety related episodes regarding the diagnosis, with which she experiences chest tightness. Leukopenia: - wbc 1.8 on 09/18, ANC 1544 x10^3, does not require neupogen as per Dr Calderón. WBC improved today to 5.1. Cont to monitor. Hyperkalemia, resolved: - K 5.6 yesterday, EKG neg for ST peaks or changes. Given Kayexalate, Albuterol , Insulin with D50. - K 4.0 today h/o Metastatic colon CA - Continue home aldactone for peripheral edema - Pt is allergic to percocet (causes itchiness). Given morphine 2 mg IV prn q4h. h/o HTN - Resume home medications GI/DVT Ppx - Protonix; SCDs Dispo: Pt apprehensive about going to [facility]. Awaiting insurance approval for placement in [place], [place]. Case seen and discussed with Dr Puckett. Della Shah, PGY1 <Ernestine Puckett - Last Filed: 09/19/17 15:56> Objective - Vital Signs/Intake and Output Vital Signs (last 24 hours): Temp Pulse Resp BP Pulse Ox 97.7 F 100 H 18 130/87 98 09/19/17 08:44 09/19/17 09:00 09/19/17 08:44 09/19/17 09:00 09/19/17 08:44 Intake and Output: 09/19/17 09/19/17 06:59 18:59 Intake Total 1080 Balance 1080 - Medications Medications: Current Medications Alprazolam (Xanax) 1 mg PO BID PRN; Protocol PRN Reason: Anxiety Last Admin: 09/19/17 08:22 Dose: 1 mg Dexamethasone (Decadron Inj) 4 mg IVP Q6 [facility] Last Admin: 09/19/17 12:17 Dose: 4 mg Heparin Sodium (Porcine) (Heparin) 5,000 units SC Q8 [facility] PRN Reason: Protocol Levalbuterol HCl (Xopenex) 0.63 mg IH Q2 PRN PRN Reason: Shortness of Breath Lisinopril (Zestril) 10 mg PO DAILY [facility] Last Admin: 09/19/17 09:00 Dose: 10 mg Montelukast Sodium (Singulair) 10 mg PO DAILY [facility] Last Admin: 09/19/17 09:00 Dose: 10 mg Morphine Sulfate (Morphine) 2 mg IVP Q6H PRN PRN Reason: Pain, moderate (4-7) Last Admin: 09/17/17 21:41 Dose: 2 mg Umeclidinium [place] [Incruse Ellipta] 1 Puff (Home Med) 1 puff IH DAILY [facility] Last Admin: 09/19/17 09:08 Dose: 1 puff Ondansetron HCl (Zofran Inj) 4 mg IVP Q4H PRN PRN Reason: Nausea/Vomiting Last Admin: 09/17/17 21:44 Dose: 4 mg Oxycodone/Acetaminophen (Percocet 5/325 Mg Tab) 1 tab PO Q6 PRN PRN Reason: Pain, severe (8-10) Stop: 09/20/17 05:50 Pantoprazole Sodium (Protonix Inj) 40 mg IVP DAILY [facility] Last Admin: 09/19/17 09:00 Dose: 40 mg Spironolactone (Aldactone) 25 mg PO TID [facility] Last Admin: 09/19/17 14:02 Dose: 25 mg Zolpidem Tartrate (Ambien) 5 mg PO HS [facility] Last Admin: 09/18/17 22:54 Dose: 5 mg - Labs Labs: 09/19/17 06:45 09/19/17 06:45 PT 12.8 SECONDS (9.4-12.5) H 09/17/17 02:30 INR 1.17 (0.93-1.08) H 09/17/17 02:30 APTT 27.8 Seconds (25.1-36.5) 09/17/17 02:30 Attending/Attestation - Attestation I have personally seen and examined this patient.: Yes I have fully participated in the care of the patient.: Yes I have reviewed all pertinent clinical information, including history, physical exam and plan: Yes Notes (Text): 09/19/17 15:54 62 year old female with past medical history of metastatic colon cancer who presented with complaint of chest tightness and right sided dysmetria. Chest tightness has improved. Serial cardiac enzymes were negative and ACS has been ruled out. CT head showed metastatic cerebellar lesion which was confirmed on MRI brain. Neurology, hematology/oncology and radiation/oncology evaluations were appreciated. Patient has been started on decadron as well as palliative radiation therapy. She is also being followed by physical therapy and lean specialist. Hyperkalemia and leukopenia from yesterday have improved. Possible d/c planning to [facility] once approved by her insurance. Ernestine Puckett MD Hospitalist.
[2017-09-19 16:28] VITALS: RESP 20
[2017-09-20] MEDS: Dexamethasone 4 mg/1 ml IVP SCH ×3 (00:12→11:46)
[2017-09-20] MEDS ORDERED: Pantoprazole 40 mg EC Tab PO SCH (06:00)
[2017-09-20 06:57] LABS: GRAN # 4.92 (1.4-6.5); GRAN % 91.1 % (50.0-68.0); HEMATOCRIT 34.6 % (36.0-48.0); LYMPH # 0.3 (1.2-3.4); LYMPH % 6.1 % (22.0-35.0); MEAN CORPUSCULAR HEMOGLOBIN 26.7 pg (25.0-35.0); MEAN CORPUSCULAR HGB CONC 30.3 g/dl (31.0-37.0); MEAN PLATELET VOLUME 11.1 fl (7.0-11.0); MONO # 0.2 (0.1-0.6); MONO % 2.8 % (1.0-6.0); RED CELL DISTRIBUTION WIDTH 17.6 % (11.5-14.5); WHITE BLOOD COUNT 5.4 10^3/ul (4.5-11.0)
[2017-09-20 07:32] VITALS: TEMP 97.7; O2SAT 100
[2017-09-20 07:43] LABS: ALB/GLOB RATIO 1.1 (1.1-1.8); BILIRUBIN,TOTAL 0.9 mg/dL (0.2-1.3); CALCIUM 9.2 mg/dL (8.4-10.5); TOTAL PROTEIN 7.5 g/dL (5.8-8.3)
[2017-09-20] MEDS: UMECLIDINIUM BROMIDE IH SCH (10:20)
[2017-09-20 10:23] VITALS: BP 116/60; PULSE 60
--- NOTE | 2017-09-20 12:53 | CP.PCM.PN ---
Subjective - Date & Time of Evaluation Date of Evaluation: 09/20/17 Time of Evaluation: 12:00 - Subjective Subjective: Awake, alert. Offers no complaints. Objective - Vital Signs/Intake and Output Vital Signs (last 24 hours): Temp Pulse Resp BP Pulse Ox 97.7 F 60 20 116/60 100 09/20/17 07:32 09/20/17 10:20 09/20/17 07:32 09/20/17 10:20 09/20/17 07:32 Intake and Output: 09/20/17 09/20/17 06:59 18:59 Intake Total 1820 Balance 1820 - Medications Medications: Current Medications Alprazolam (Xanax) 1 mg PO BID PRN; Protocol PRN Reason: Anxiety Last Admin: 09/19/17 08:22 Dose: 1 mg Dexamethasone (Decadron Inj) 4 mg IVP Q6 [facility] Last Admin: 09/20/17 11:46 Dose: 4 mg Heparin Sodium (Porcine) (Heparin) 5,000 units SC Q8 [facility] PRN Reason: Protocol Levalbuterol HCl (Xopenex) 0.63 mg IH Q2 PRN PRN Reason: Shortness of Breath Lisinopril (Zestril) 10 mg PO DAILY [facility] Last Admin: 09/20/17 10:20 Dose: 10 mg Montelukast Sodium (Singulair) 10 mg PO DAILY [facility] Last Admin: 09/20/17 10:19 Dose: 10 mg Morphine Sulfate (Morphine) 2 mg IVP Q6H PRN PRN Reason: Pain, moderate (4-7) Last Admin: 09/17/17 21:41 Dose: 2 mg Umeclidinium [place] [Incruse Ellipta] 1 Puff (Home Med) 1 puff IH DAILY [facility] Last Admin: 09/20/17 10:20 Dose: Not Given Ondansetron HCl (Zofran Inj) 4 mg IVP Q4H PRN PRN Reason: Nausea/Vomiting Last Admin: 09/17/17 21:44 Dose: 4 mg Pantoprazole Sodium (Protonix Ec Tab) 40 mg PO 0600 [facility] Last Admin: 09/20/17 05:36 Dose: 40 mg Spironolactone (Aldactone) 25 mg PO TID [facility] Last Admin: 09/20/17 10:19 Dose: 25 mg Zolpidem Tartrate (Ambien) 5 mg PO HS [facility] Last Admin: 09/20/17 00:12 Dose: 5 mg - Labs Labs: 09/20/17 06:30 09/20/17 06:30 PT 12.8 SECONDS (9.4-12.5) H 09/17/17 02:30 INR 1.17 (0.93-1.08) H 09/17/17 02:30 APTT 27.8 Seconds (25.1-36.5) 09/17/17 02:30 - Constitutional Appears: No Acute Distress, Chronically Ill - Head Exam Head Exam: NORMAL INSPECTION - Eye Exam Eye Exam: Normal appearance, PERRL - ENT Exam ENT Exam: Mucous Membranes Moist, Normal Oropharynx - Respiratory Exam Respiratory Exam: Clear to Ausculation Bilateral, NORMAL BREATHING PATTERN - Cardiovascular Exam Cardiovascular Exam: REGULAR RHYTHM, +S1, +S2 - GI/Abdominal Exam GI & Abdominal Exam: Soft, Normal Bowel Sounds - Extremities Exam Extremities Exam: Normal Capillary Refill, Pedal Edema - Neurological Exam Neurological Exam: Alert, Oriented x3 - Skin Skin Exam: Dry, Warm Assessment and Plan - Assessment and Plan (Free Text) Assessment: 62 year old female with metastatic colon cancer who was admitted with right sided weakness,confusion and new brain metastases, currently undergoing palliative radiation. Patients daughter, Oneida Jaime at bedside. Lengthy discussion with both patient and daughter regarding patients illness and prognosis. Both verbalize understanding of situation. The patient has an Advanced Directive which she wants to revoke. The patient wants to be full code. She would rather her daughter make all medical decision based on individual circumstances as they occur. Patient did clarify that she does not want to be kept on life prolonging intervention if her condition is irreversible. Psychosocial support given. Time spent in discussion with patient and daughter regarding goals of care and advance care planning, 45 minutes Plan: Palliative support in establishing goals of care Advance care planning
--- NOTE | 2017-09-20 18:27 | CP.PCM.DIS ---
<Della Shah - Last Filed: 09/20/17 18:27> Provider - Provider Date of Admission: 09/18/17 14:39 Attending physician: Ernestine Puckett MD Primary care physician: Pricilla Levine MD Consults: Neuro: Vinod Heme: Kaitlynn Palliative: Sharifa Mccord Radiation/Onc: Lorri Time Spent in preparation of Discharge (in minutes): 120 Diagnosis - Discharge Diagnosis (1) Brain metastases Status: Acute (2) Chest pain Status: Acute (3) Anxiety Status: Acute Hospital Course - Lab Results Lab Results: Most Recent Lab Values WBC 5.4 10^3/ul (4.5-11.0) 09/20/17 06:30 RBC 3.93 10^6/uL (3.5-6.1) 09/20/17 06:30 Hgb 10.5 g/dL (12.0-16.0) L 09/20/17 06:30 Hct 34.6 % (36.0-48.0) L 09/20/17 06:30 MCV 88.0 fl (80.0-105.0) 09/20/17 06:30 MCH 26.7 pg (25.0-35.0) 09/20/17 06:30 MCHC 30.3 g/dl (31.0-37.0) L 09/20/17 06:30 RDW 17.6 % (11.5-14.5) H 09/20/17 06:30 Plt Count 90 10^3/uL (120.0-450.0) L 09/20/17 06:30 MPV 11.1 fl (7.0-11.0) H 09/20/17 06:30 Gran % 91.1 % (50.0-68.0) H 09/20/17 06:30 Lymph % (Auto) 6.1 % (22.0-35.0) L 09/20/17 06:30 Lamar % (Auto) 2.8 % (1.0-6.0) 09/20/17 06:30 Eos % (Auto) 0.0 % (1.5-5.0) L 09/20/17 06:30 Baso % (Auto) 0.0 % (0.0-3.0) 09/20/17 06:30 Gran # 4.92 (1.4-6.5) 09/20/17 06:30 Lymph # 0.3 (1.2-3.4) L 09/20/17 06:30 [place] # 0.2 (0.1-0.6) 09/20/17 06:30 Eos # 0.0 (0.0-0.7) 09/20/17 06:30 Baso # 0.00 K/mm3 (0.0-2.0) 09/20/17 06:30 Neutrophils % (Manual) 89 % (50.0-70.0) H 09/19/17 06:45 Lymphocytes % (Manual) 6 % (22.0-35.0) L 09/19/17 06:45 Monocytes % (Manual) 5 % (1.0-6.0) 09/19/17 06:45 Toxic Granulation Slight 09/19/17 06:45 Platelet Evaluation Low (NORMAL) 09/19/17 06:45 Hypochromasia 1+ 09/19/17 06:45 Anisocytosis (manual) 1+ 09/19/17 06:45 Ovalocytes Slight 09/19/17 06:45 PT 12.8 SECONDS (9.4-12.5) H 09/17/17 02:30 INR 1.17 (0.93-1.08) H 09/17/17 02:30 APTT 27.8 Seconds (25.1-36.5) 09/17/17 02:30 Sodium 144 mmol/L (132-148) 09/20/17 06:30 Potassium 4.0 mmol/L (3.6-5.0) 09/20/17 06:30 Chloride 107 mmol/L (98-107) 09/20/17 06:30 Carbon Dioxide 27 mmol/L (21-33) 09/20/17 06:30 Anion Gap 14 (10-20) 09/20/17 06:30 BUN 35 mg/dL (7-21) H 09/20/17 06:30 Creatinine 1.2 mg/dl (0.7-1.2) 09/20/17 06:30 Est GFR ( Amer) 55 09/20/17 06:30 Est GFR (Non-Af Amer) 46 09/20/17 06:30 Random Glucose 109 mg/dL (70-110) 09/20/17 06:30 Calcium 9.2 mg/dL (8.4-10.5) 09/20/17 06:30 Phosphorus 4.5 mg/dL (2.5-4.5) 09/18/17 06:10 Magnesium 1.7 mg/dL (1.7-2.2) 09/18/17 06:10 Total Bilirubin 0.9 mg/dL (0.2-1.3) 09/20/17 06:30 AST 31 U/L (14-36) 09/20/17 06:30 ALT 35 U/L (7-56) 09/20/17 06:30 Alkaline Phosphatase 98 U/L (38-126) 09/20/17 06:30 Lactate Dehydrogenase 1484 U/L (333-699) H 09/17/17 02:30 Total Creatine Kinase 27 U/L (35-230) L 09/17/17 02:30 Troponin I < 0.01 ng/mL 09/17/17 10:10 Total Protein 7.5 g/dL (5.8-8.3) 09/20/17 06:30 Albumin 4.0 g/dL (3.0-4.8) 09/20/17 06:30 Globulin 3.6 gm/dL 09/20/17 06:30 Albumin/Globulin Ratio 1.1 (1.1-1.8) 09/20/17 06:30 Triglycerides 81 mg/dL (35-160) 09/17/17 07:00 Cholesterol 96 mg/dL (130-200) L 09/17/17 07:00 LDL Cholesterol Direct 44 mg/dL (0-129) 09/17/17 07:00 HDL Cholesterol 32 mg/dL (29-60) 09/17/17 07:00 - Hospital Course Hospital Course: 62 yo F with PMH of stage IV colon cancer w/ metastasis to liver and lung, HTN, L eye vision loss, and GERD who presented to the ER complaining of chest tightness starting earlier this night. She denies "pain", shortness of breath, diaphoresis; no particular exacerbating or remitting factors. She reports that she frequently gets this tightness, and she attributes it to her cancer and the medications she is getting for it. She reports that she saw Dr. Calderón last week for a dose of Keytruda. She also reports a right sided weakness in upper and lower extremity, recent change in her voice, slowed thought processes and speech, and occasional confusion. She denies pain, numbness, paresthesias. She also denies fevers, chills, nausea, vomiting, diarrhea, constipation, abdominal pain, dizziness, headaches. Troponins were negative x 3. MRI brain showed 3x2.1 cm mass at right side peduncle in the anterior right cerebellar area with vasogenic edema. Dr Calderón was consulted, and was started on Decadrom 4 mg IV q 6h. Dr Blackmon (radiation oncologist) was also consulted, and recommended 10 sessions of whole brain palliative radiation. Patients symptoms mildly improved with treatment. Palliative was also consulted, however, patient is not ready to consider palliative care yet. She would like to be treated with radiation first to see if there are any improvement of her symptoms. Since patient now requires help with daily activities, she is being discharged to [facility] subacute rehab in [place]. Patients daughter is on board with this plan. In total, patient received 3 session of radiation therapy in hospital, the rest will be given outpatient. Pt was discharged on a tapering dose of Decadron, as per Dr Sauceda. - Date & Time of H&P Date of H&P: 09/17/17 Discharge Exam - Head Exam Head Exam: NORMAL INSPECTION - Additional Findings Additional findings: - Constitutional Appears: Non-toxic, No Acute Distress, Older Than Stated Age, Chronically Ill - Head Exam Head Exam: ATRAUMATIC, NORMOCEPHALIC - Eye Exam Eye Exam: EOMI, PERRL. absent: Conjunctival injection, Scleral icterus Pupil Exam: PERRL - ENT Exam ENT Exam: Mucous Membranes Moist - Neck Exam Neck Exam: Full ROM - Respiratory Exam Respiratory Exam: Clear to Ausculation Bilateral. absent: Accessory Muscle Use , Respiratory Distress - Cardiovascular Exam Cardiovascular Exam: RRR, +S1, +S2. absent: Murmur - GI/Abdominal Exam GI & Abdominal Exam: Soft, Normal Bowel Sounds. absent: Distended, Guarding, Rigid, Tenderness, Mass, Organomegaly, Rebound - Extremities Exam Extremities Exam: absent: Calf Tenderness, Pedal Edema, Tenderness - Back Exam Back Exam: NORMAL INSPECTION - Neurological Exam Neurological Exam: Alert, Awake, Oriented x3 - Psychiatric Exam Psychiatric exam: Anxious, Depressed - Skin Skin Exam: Dry, Normal Color, Warm Discharge Plan - Discharge Medications Prescriptions: Dexamethasone [Decadron] 4 mg PO BID 7 Days tab - Follow Up Plan Condition: STABLE Disposition: REHAB FACILITY/REHAB UNIT Patient education suggested?: Yes Instructions: Chest Pain (DC), Chest Pain (GEN), Hospice Care (GEN), Acute Abdominal Pain (DC), Acute Abdominal Pain (GEN), External Beam Radiation Therapy (DC), Brain Metastasis (DC), Anxiety (DC) Additional Instructions: - You will be going to a subacute rehab to help you with your daily acitivities. - Cont to take Decadron 4 mg PO BID for a week. Dr Calderón will adjust your dose when she sees you in the rehab. - Follow up with PMD and Dr Calderón within 1 week. - Please continue your radiation sessions with Dr Lorri fraga for brain metastasis. - Return to the ER for any concerns. Referrals: Pricilla Levine MD [Primary Care Provider] - <Ernestine Pucktet - Last Filed: 09/20/17 18:33> Provider - Provider Date of Admission: 09/18/17 14:39 Attending physician: Ernestine Puckett MD Primary care physician: Pricilla Levine MD Time Spent in preparation of Discharge (in minutes): 35 Hospital Course - Lab Results Lab Results: Most Recent Lab Values WBC 5.4 10^3/ul (4.5-11.0) 09/20/17 06:30 RBC 3.93 10^6/uL (3.5-6.1) 09/20/17 06:30 Hgb 10.5 g/dL (12.0-16.0) L 09/20/17 06:30 Hct 34.6 % (36.0-48.0) L 09/20/17 06:30 MCV 88.0 fl (80.0-105.0) 09/20/17 06:30 MCH 26.7 pg (25.0-35.0) 09/20/17 06:30 MCHC 30.3 g/dl (31.0-37.0) L 09/20/17 06:30 RDW 17.6 % (11.5-14.5) H 09/20/17 06:30 Plt Count 90 10^3/uL (120.0-450.0) L 09/20/17 06:30 MPV 11.1 fl (7.0-11.0) H 09/20/17 06:30 Gran % 91.1 % (50.0-68.0) H 09/20/17 06:30 Lymph % (Auto) 6.1 % (22.0-35.0) L 09/20/17 06:30 Lamar % (Auto) 2.8 % (1.0-6.0) 09/20/17 06:30 Eos % (Auto) 0.0 % (1.5-5.0) L 09/20/17 06:30 Baso % (Auto) 0.0 % (0.0-3.0) 09/20/17 06:30 Gran # 4.92 (1.4-6.5) 09/20/17 06:30 Lymph # 0.3 (1.2-3.4) L 09/20/17 06:30 Lamar # 0.2 (0.1-0.6) 09/20/17 06:30 Eos # 0.0 (0.0-0.7) 09/20/17 06:30 Baso # 0.00 K/mm3 (0.0-2.0) 09/20/17 06:30 Neutrophils % (Manual) 89 % (50.0-70.0) H 09/19/17 06:45 Lymphocytes % (Manual) 6 % (22.0-35.0) L 09/19/17 06:45 Monocytes % (Manual) 5 % (1.0-6.0) 09/19/17 06:45 Toxic Granulation Slight 09/19/17 06:45 Platelet Evaluation Low (NORMAL) 09/19/17 06:45 Hypochromasia 1+ 09/19/17 06:45 Anisocytosis (manual) 1+ 09/19/17 06:45 Ovalocytes Slight 09/19/17 06:45 PT 12.8 SECONDS (9.4-12.5) H 09/17/17 02:30 INR 1.17 (0.93-1.08) H 09/17/17 02:30 APTT 27.8 Seconds (25.1-36.5) 09/17/17 02:30 Sodium 144 mmol/L (132-148) 09/20/17 06:30 Potassium 4.0 mmol/L (3.6-5.0) 09/20/17 06:30 Chloride 107 mmol/L (98-107) 09/20/17 06:30 Carbon Dioxide 27 mmol/L (21-33) 09/20/17 06:30 Anion Gap 14 (10-20) 09/20/17 06:30 BUN 35 mg/dL (7-21) H 09/20/17 06:30 Creatinine 1.2 mg/dl (0.7-1.2) 09/20/17 06:30 Est GFR ( Amer) 55 09/20/17 06:30 Est GFR (Non-Af Amer) 46 09/20/17 06:30 Random Glucose 109 mg/dL (70-110) 09/20/17 06:30 Calcium 9.2 mg/dL (8.4-10.5) 09/20/17 06:30 Phosphorus 4.5 mg/dL (2.5-4.5) 09/18/17 06:10 Magnesium 1.7 mg/dL (1.7-2.2) 09/18/17 06:10 Total Bilirubin 0.9 mg/dL (0.2-1.3) 09/20/17 06:30 AST 31 U/L (14-36) 09/20/17 06:30 ALT 35 U/L (7-56) 09/20/17 06:30 Alkaline Phosphatase 98 U/L (38-126) 09/20/17 06:30 Lactate Dehydrogenase 1484 U/L (333-699) H 09/17/17 02:30 Total Creatine Kinase 27 U/L (35-230) L 09/17/17 02:30 Troponin I < 0.01 ng/mL 09/17/17 10:10 Total Protein 7.5 g/dL (5.8-8.3) 09/20/17 06:30 Albumin 4.0 g/dL (3.0-4.8) 09/20/17 06:30 Globulin 3.6 gm/dL 09/20/17 06:30 Albumin/Globulin Ratio 1.1 (1.1-1.8) 09/20/17 06:30 Triglycerides 81 mg/dL (35-160) 09/17/17 07:00 Cholesterol 96 mg/dL (130-200) L 09/17/17 07:00 LDL Cholesterol Direct 44 mg/dL (0-129) 09/17/17 07:00 HDL Cholesterol 32 mg/dL (29-60) 09/17/17 07:00 Attending/Attestation - Attestation I have personally seen and examined this patient.: Yes I have fully participated in the care of the patient.: Yes I have reviewed all pertinent clinical information, including history, physical exam and plan: Yes Notes (Text): 09/20/17 18:31 62 year old female with past medical history of metastatic colon cancer who presented with complaint of chest tightness and right sided dysmetria. Serial cardiac enzymes were negative and ACS has been ruled out. CT head showed metastatic cerebellar lesion which was confirmed on MRI brain. She was seen by neurology, hematology/oncology and radiation/oncology evaluations and started on decadron and palliative radiation therapy. She is also being followed by residential specialist and physical therapy who recommended [facility] Patient is discharged to [facility] on tapering steroids. Follow up with oncology and radiation oncology. Follow up with PMD. Ernestine Puckett MD Hospitalist.
== END 2017-09-20 16:24 | DRG 10 ==
LOC: ED 01:36 → ERH 04:30 → 3RNO 07:13 → OBSVTOIN 09-18 14:39
PROVIDERS: ADMIT Internal Medicine; ATTEND Internal Medicine
PROC: D0001ZZ Beam Radiation of Brain using Photons 1 - 10 MeV (ICD-10-PCS; principal; 2017-09-20)
DX: C79.31 Secondary malignant neoplasm of brain (principal); C78.00 Secondary malignant neoplasm of unspecified lung; G93.6 Cerebral edema; C78.7 Secondary malignant neoplasm of liver and intrahepatic bile duct; E87.5 Hyperkalemia; R07.89 Other chest pain; I10 Essential (primary) hypertension; R27.8 Other lack of coordination; Z85.038 Personal history of other malignant neoplasm of large intestine; K21.9 Gastro-esophageal reflux disease without esophagitis; F41.9 Anxiety disorder, unspecified; E78.5 Hyperlipidemia, unspecified; H54.62 Unqualified visual loss, left eye, normal vision right eye; Z87.891 Personal history of nicotine dependence; H40.9 Unspecified glaucoma

== ENCOUNTER 2017-10-23 19:18 | Inpatient (IN) | payer OTHER ==
[2017-10-23 19:18] VITALS: BMI 28.7
[2017-10-23 21:39] LABS: MEAN CELL VOLUME 81.7 fl (80.0-105.0); MEAN CORPUSCULAR HEMOGLOBIN 28.2 pg (25.0-35.0); MEAN CORPUSCULAR HGB CONC 34.6 g/dl (31.0-37.0); RBC 4.96 10^6/uL (3.5-6.1); RED CELL DISTRIBUTION WIDTH 16.6 % (11.5-14.5)
--- NOTE | 2017-10-23 21:57 | ED PDOC ---
Arrival/HPI - General Chief Complaint: Trauma Time Seen by Provider: 10/23/17 20:15 Historian: Patient - History of Present Illness Narrative History of Present Illness (Text): 10/23/17 20:25 Beverley Mcgregor is a 62 year old female, whose past medical history includes Stage IV colon cancer with metastatis to liver and lungs, hypertension, GERD, and hyperlipidemia, who presents to the Emergency department for evaluation of generalized weakness. Patient states she has been feeling ill and weak, states she was unable to to get up from recliner secondary to weakness. Patient states when she was able to get up, she fell on to her lower back and notified EMS to transport her to hospital. Patient denies any back pain or chest pain currently but notes she feels short of breath at times and believes she may have fluid on her lungs. Patient denies any history of cough, fever, chills, or any other complaints. Time/Duration: Other (today) Symptom Onset: Gradual Symptom Course: Unchanged Activities at Onset: Light Context: Home Past Medical History - Provider Review Nursing Documentation Reviewed: Yes - Infectious Disease Hx of Infectious Diseases: None - Tetanus Immunization Tetanus Immunization: Unknown - Cardiac Hx Hypertension: Yes - Pulmonary Hx Respiratory Disorders: No - Neurological Hx Neurological Disorder: No Other/Comment: Brain Tumor - HEENT Hx Cataracts: Yes Hx Glaucoma: Yes - Renal Hx Renal Disorder: No - Endocrine/Metabolic Hx Endocrine Disorders: No - Hematological/Oncological Hx Anemia: Yes Hx Cancer: Yes (colon CA with metastasis to liver and lung) - Integumentary Hx Dermatological Disorder: No - Musculoskeletal/Rheumatological Hx Falls: Yes Hx Herniated Disk: Yes - Gastrointestinal Hx Bowel Surgery: Yes (resection 2010 of the liver and colon) Other/Comment: Colon Cancer, Stage 4 - Genitourinary/Gynecological Hx Genitourinary Disorders: No - Psychiatric Hx Psychophysiologic Disorder: Yes Hx Anxiety: Yes Hx Depression: Yes Hx Substance Use: No - Surgical History Other/Comment: left subclavian port. colonic tumor and liver mets resection ( 2010) - Anesthesia Hx Anesthesia: Yes Hx Anesthesia Reactions: No Hx Malignant Hyperthermia: No - Suicidal Assessment Feels Threatened In Home Enviroment: No Family/Social History - Physician Review Nursing Documentation Reviewed: Yes Family/Social History: Unknown Family HX Smoking Status: Former Smoker Hx Alcohol Use: No Hx Substance Use: No Hx Substance Use Treatment: No Allergies/Home Meds Allergies/Adverse Reactions: Allergies No Known Allergies Allergy (Verified 06/12/17 18:46) Home Medications: Home Meds Medication Instructions Recorded Confirmed Alprazolam [Xanax] 0.5 mg PO DAILY 05/12/16 10/23/17 Cholecalciferol [Vitamin D 1000 IU] 15,000 iu PO QWK 05/12/16 10/23/17 Zolpidem HALF TABLET [Ambien] 10 mg PO HS 10/24/16 10/23/17 Umeclidinium [place] [Incruse 1 puff IH DAILY 08/24/17 10/23/17 Ellipta] Review of Systems - Physician Review All systems were reviewed & negative as marked: Yes - Review of Systems Constitutional: Other (+generalized weakness) Eyes: Normal ENT: Normal Respiratory: SOB Cardiovascular: Normal. absent: Chest Pain Gastrointestinal: Normal. absent: Abdominal Pain, Diarrhea, Nausea, Vomiting Genitourinary Female: Normal. absent: Dysuria, Frequency, Hematuria, Urine Output Changes, Other Musculoskeletal: Normal. absent: Back Pain Skin: Normal. absent: Rash Neurological: Normal. absent: Headache, Dizziness Endocrine: Normal Hemo/Lymphatic: Normal Psychiatric: Normal Physical Exam Vital Signs Reviewed: Yes Vital Signs Temp Pulse Resp BP Pulse Ox 10/24/17 03:40 110 H 22 132/96 H 100 10/24/17 03:23 109 H 23 107/71 100 10/24/17 02:18 98.2 F 98 H 20 110/71 99 10/24/17 00:58 73 18 96/59 L 97 10/23/17 19:36 97.4 F L 84 20 99/67 L 100 Temperature: Afebrile Blood Pressure: Normal Pulse: Regular Respiratory Rate: Normal Appearance: Positive for: Well-Appearing, Non-Toxic, Comfortable Pain Distress: None Mental Status: Positive for: Alert and Oriented X 3 - Systems Exam Head: Present: Atraumatic, Normocephalic Pupils: Present: PERRL Extroacular Muscles: Present: EOMI Conjunctiva: Present: Normal Mouth: Present: Moist Mucous Membranes Neck: Present: Normal Range of Motion. No: Meningeal Signs, MIDLINE TENDERNESS , Paraspinal Tenderness Respiratory/Chest: Present: Rhonchi (Scattered rhonchi). No: Respiratory Distress, Accessory Muscle Use Cardiovascular: Present: Regular Rate and Rhythm, Normal S1, S2. No: Murmurs Abdomen: Present: Normal Bowel Sounds. No: Tenderness, Distention, Peritoneal Signs Back: Present: Normal Inspection. No: CVA Tenderness, Midline Tenderness, Paraspinal Tenderness, Pain with Leg Raise Upper Extremity: Present: Normal Inspection. No: Cyanosis, Edema Lower Extremity: Present: Normal Inspection. No: Edema Neurological: Present: GCS=15, CN II-XII Intact, Speech Normal, Motor Func Grossly Intact, Normal Sensory Function, Normal Cerebellar Funct, Memory Normal Skin: Present: Warm, Dry, Normal Color. No: Rashes Psychiatric: Present: Alert, Oriented x 3, Normal Insight, Normal Concentration Medical Decision Making ED Course and Treatment: 10/23/17 20:25 Impression: 62 year old female presents s/p fall, complaining of generalized weakness. Plan: -- EKG -- Chest X-ray -- XR Lumbar Spine -- XR Left -- Labs, cardiac enzymes, BNP -- Reassess and disposition Prior Visits: Notes and results from previous visits were reviewed. On 09/17/2017, pt was seen in the Emergency department for chest pain, cough, unsteady gait, and subjective fever. Pt was admitted to the hospital for further evaluation. Progress Notes: Reviewed EKG, NSR at [address]-segment elevations or depressions, no T-wave inversions, normal intervals. 10/24/17 00:43 Reviewed radiology, Chest X-ray shows right upper lung mass. Lumbar Spine XR shows no acute fracture/processes. 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 10/24/17 01:56 Lactate: 2.6. Code Sepsis called. 10/24/17 01:[address] Wu, who is aware and agrees with plan. Accepts pt in to hospitalist service. Pt will be admitted to Telemetry for sepsis, thrombocytopenia, leukocytosis, and dehydration. - Lab Interpretations Microbiology Results: Microbiology Results 10/24/17 00:55 Blood Blood Culture - Preliminary Gram Negative Estrada 10/24/17 00:55 Blood Gram Stain - Final 10/24/17 00:45 Blood Blood Culture - Preliminary Gram Negative Estrada 10/24/17 00:45 Blood Gram Stain - Final Lab Results: 10/23/17 21:30 10/24/17 00:15 Lab Results 10/24/17 00:45: pO2 57 H, VBG pH 7.39, VBG pCO2 38.0 L, VBG HCO3 23.0, VBG Total CO2 24.2, VBG O2 Sat (Calc) 95.1 H, VBG Base Excess -1.7 L, VBG Potassium 6.7 H*, Glucose 161 H, Lactate 2.6 H, FiO2 21.0, Sodium 126.0 L, Chloride 94.0 L , Venous Blood Potassium 6.7 H* 10/24/17 00:15: Potassium 6.7 H* 10/23/17 21:30: WBC 28.7 H* D, RBC 4.96, Hgb 14.0 D, Hct 40.5, MCV 81.7 D, MCH 28.2, MCHC 34.6, RDW 16.6 H, Plt Count 29 L* 10/23/17 21:30: Sodium 125 L, Potassium 7.2 H* D, Chloride 93 L, Carbon Dioxide 23, Anion Gap 16, BUN 78 H, Creatinine 2.0 H, Est GFR ( Amer) 31, Est GFR (Non-Af Amer) 25, Random Glucose 95, Calcium 10.5, Total Bilirubin 2.9 H, AST 27, ALT 69 H, Alkaline Phosphatase 92, Lactate Dehydrogenase 847 H, Total Creatine Kinase < 20 L, Troponin I 0.02 D, NT-Pro-B Natriuret Pep 443, Total Protein 7.2, Albumin 4.0, Globulin 3.2, Albumin/Globulin Ratio 1.3 10/23/17 21:30: PT 12.1, INR 1.06, APTT 19.7 L I have reviewed the lab results: Yes - RAD Interpretation Radiology Orders: 10/23/17 20:24 CHEST PORTABLE [RAD] Stat LS SPINE AP/LAT [RAD] Stat Produce Specialist: ED Physician - EKG Interpretation Interpreted by ED Physician: Yes Type: 12 lead EKG - Medication Orders Current Medication Orders: Acetaminophen (Tylenol 325mg Tab) 650 mg PO Q4H PRN PRN Reason: Fever >100.4 F Last Admin: 10/24/17 21:11 Dose: 650 mg MAR Pain/Vitals Document 10/24/17 21:11 ARTIES (Rec: 10/24/17 21:12 KOMARIES [id number]) Pain Reassessment Is This A Pain ReAssessment? No Sleep Is patient sleeping during reassessment? No Presence of Pain Presence of Pain Yes Pain Scale Used Pain Scale Used Numeric Location Left, Right or Bilateral Bilateral Upper or Lower Upper Pain Location Body Site Hand Description Intermittent Intensity 3 Scale Used Numeric Pain Behavior Facial Grimacing Aggravating Factors ADL's Changing Position Exercise/Activity Alleviating Factors Medication Re-Assess: MAR Pain/Vitals Document 10/24/17 22:11 [facility] (Rec: 10/24/17 23:49 [id number] Pain Reassessment Is This A Pain ReAssessment? Yes Sleep Is patient sleeping during reassessment? No Presence of Pain Presence of Pain No Alprazolam (Xanax) 0.5 mg PO DAILY PRN PRN Reason: Anxiety Last Admin: 10/25/17 09:39 Dose: 0.5 mg Behavioural Document 10/25/17 09:39 KE (Rec: 10/25/17 09:40 KE [facility] [id number]) Maintenance Maintenance Dose No Nonmedicinal Nonmedicinal Interventions Redirect Therapeutic Communication Activity Give food/fluids Behavior Behavior for Medication: Anxiety Dexamethasone (Decadron) 4 mg PO BID [facility] Last Admin: 10/25/17 09:39 Dose: 4 mg Famotidine (Pepcid) 40 mg PO HS [facility] Last Admin: 10/24/17 21:12 Dose: 40 mg Hydralazine HCl (Apresoline) 10 mg IVP Q6 PRN PRN Reason: Systolic Blood Pressure Sodium Chloride (Sodium Chloride 0.9%) 1,000 mls @ 125 mls/hr IV .Q8H [facility] Last Admin: 10/25/17 05:26 Dose: 125 mls/hr eMAR Start Stop Document 10/25/17 05:26 KOMARIES (Rec: 10/25/17 05:26 [id number] Intravenous Solution Start Date 10/25/17 Start Time 05:26 Meropenem 500 mg/ Sodium (Chloride) 50 mls @ 100 mls/hr IVPB Q12 RUKHSANA PRN Reason: Protocol Stop: 11/01/17 10:01 Last Admin: 10/25/17 10:34 Dose: 100 mls/hr eMAR Start Stop Document 10/25/17 10:34 KE (Rec: 10/25/17 10:34 KE [facility] [id number]) Intravenous Solution Start Date 10/25/17 Start Time 10:34 End Date 10/25/17 End time 11:04 Total Infusion Time 30 Montelukast Sodium (Singulair) 10 mg PO DAILY [facility] Last Admin: 10/25/17 09:39 Dose: 10 mg Umeclidinium [place] [Incruse Ellipta] 1 Puff (Home Med) 1 puff IH DAILY [facility] Last Admin: 10/25/17 09:31 Dose: Oxymetazoline HCl (Afrin 0.05%) 1 ml NS Q12H [facility] Povidone Iodine (Betadine 5% Opht Soln) 0 ml OS DAILY [facility] Last Admin: 10/25/17 09:49 Dose: Not Given Non-Admin Reason: Patient Refused Tramadol HCl (Ultram) 50 mg PO TID PRN PRN Reason: Pain, moderate (4-7) Zolpidem Tartrate (Ambien) 5 mg PO HS PRN PRN Reason: Insomnia Discontinued Medications Albuterol Sulfate (Albuterol 0.083% Inhal Peri (2.5 Mg/3 Ml) Ud) 15 mg IH STAT STA Stop: 10/24/17 02:45 Last Admin: 10/24/17 03:20 Dose: 15 mg Alprazolam (Xanax) 0.5 mg PO DAILY PRN; Protocol PRN Reason: Anxiety Dextrose (Dextrose 50% Inj) 50 ml IVP ONCE ONE Stop: 10/24/17 02:45 Last Admin: 10/24/17 03:14 Dose: 50 ml IVP Administration Document 10/24/17 03:14 RD (Rec: 10/24/17 03:19 RD [id number]) Charges for Administration # of IVP Administrations 1 Ceftriaxone Sodium (Rocephin 1 Gram Ivpb) 1 gm in 100 mls @ 200 mls/hr IV ONCE STA PRN Reason: Protocol Stop: 10/24/17 01:19 Last Admin: 10/24/17 01:20 Dose: 200 mls/hr eMAR Start Stop Document 10/24/17 01:20 RD (Rec: 10/24/17 01:31 RD [id number]) Intravenous Solution Start Date 10/24/17 Start Time 01:20 End Date 10/24/17 End time 01:50 Total Infusion Time 30 Azithromycin (Zithromax 500mg In Ns) 500 mg in 250 mls @ 166.667 mls/hr IV STAT STA PRN Reason: Protocol Stop: 10/24/17 02:21 Last Admin: 10/24/17 01:50 Dose: 166.667 mls/hr eMAR Start Stop Document 10/24/17 01:50 RD (Rec: 10/24/17 01:51 RD [id number]) Intravenous Solution Start Date 10/24/17 Start Time 01:51 End Date 10/24/17 End time 03:21 Total Infusion Time 90 Sodium Chloride (Sodium Chloride 0.9%) 1,000 mls @ 999 mls/hr IV .Q1H1M STA Stop: 10/24/17 02:23 Last Admin: 10/24/17 01:48 Dose: 999 mls/hr eMAR Start Stop Document 10/24/17 01:48 RD (Rec: 10/24/17 01:48 RD [id number]) Intravenous Solution Start Date 10/24/17 Start Time 01:48 End Date 10/24/17 End time 02:48 Total Infusion Time 60 Sodium Chloride (Sodium Chloride 0.9%) 1,000 mls @ 999 mls/hr IV .Q1H1M STA Stop: 10/24/17 02:58 Last Admin: 10/24/17 02:18 Dose: 999 mls/hr eMAR Start Stop Document 10/24/17 02:18 RD (Rec: 10/24/17 02:18 RD [id number]) Intravenous Solution Start Date 10/24/17 Start Time 02:18 End Date 10/24/17 End time 03:18 Total Infusion Time 60 Vancomycin HCl (Vancomycin 1gm) 1 gm in 250 mls @ 167 mls/hr IVPB DAILY RUKHSANA PRN Reason: Protocol Last Admin: 10/24/17 09:25 Dose: 167 mls/hr eMAR Start Stop Document 10/24/17 09:25 CD (Rec: 10/24/17 09:25 CD [id number]) Intravenous Solution Start Date 10/24/17 Start Time 09:25 Piperacillin Sod/Tazobactam Sod (Zosyn 2.25 Gm In 0.9% 100 Ml) 2.25 gm in 100 mls @ 100 mls/hr IVPB Q6 RUKHSANA PRN Reason: Protocol Stop: 10/24/17 12:59 Last Admin: 10/24/17 05:35 Dose: 100 mls/hr eMAR Start Stop Document 10/24/17 05:35 MS (Rec: 10/24/17 05:36 MS [id number]) Intravenous Solution Start Date 10/24/17 Start Time 05:36 End Date 10/24/17 End time 06:36 Total Infusion Time 60 Sodium Chloride (Sodium Chloride 0.9%) 1,000 mls @ 999 mls/hr IV .Q1H1M STA Stop: 10/24/17 05:17 Last Admin: 10/24/17 04:51 Dose: 999 mls/hr eMAR Start Stop Document 10/24/17 04:51 MS (Rec: 10/24/17 04:51 MS [id number]) Intravenous Solution Start Date 10/24/17 Start Time 04:51 End Date 10/24/17 End time 05:51 Total Infusion Time 60 Cefepime HCl (Maxipime 1gm) 1 gm in 100 mls @ 100 mls/hr IVPB Q24H RUKHSANA PRN Reason: Protocol Stop: 11/02/17 10:16 Last Admin: 10/24/17 15:47 Dose: 100 mls/hr eMAR Start Stop Document 10/24/17 15:47 CD (Rec: 10/24/17 15:47 CD [id number]) Intravenous Solution Start Date 10/24/17 Start Time 15:47 Sodium Chloride (Sodium Chloride 0.9%) 500 mls @ 999 mls/hr IV .Q31M STA Stop: 10/24/17 12:40 Last Admin: 10/24/17 12:33 Dose: 999 mls/hr eMAR Start Stop Document 10/24/17 12:33 CD (Rec: 10/24/17 12:33 CD [id number]) Intravenous Solution Start Date 10/24/17 Start Time 12:33 Sodium Chloride (Sodium Chloride 0.9%) 500 mls @ 999 mls/hr IV .Q31M STA Stop: 10/24/17 12:44 Sodium Chloride (Sodium Chloride 0.9%) 1,000 mls @ 999 mls/hr IV .Q1H1M STA Stop: 10/24/17 17:23 Insulin Human Regular (Humulin R) 10 units IVP STAT STA Stop: 10/24/17 02:45 Last Admin: 10/24/17 03:19 Dose: 10 units [facility] Blood Glucose Document 10/24/17 03:19 RD (Rec: 10/24/17 03:20 RD [id number]) Blood Glucose Finger Stick Blood Glucose (70-120) 193 IVP Administration Document 10/24/17 03:19 RD (Rec: 10/24/17 03:20 RD [id number]) Charges for Administration # of IVP Administrations 1 Non-Formulary Medication (Zolpidem Half Tablet) 10 mg PO HS RUKHSANA Oxycodone/Acetaminophen (Percocet 5/325 Mg Tab) 1 tab PO Q6 PRN PRN Reason: Pain, severe (8-10) Stop: 10/27/17 12:07 Last Admin: 10/24/17 12:45 Dose: 1 tab [facility] Pain Assessment Document 10/24/17 12:45 CD (Rec: 10/24/17 12:45 CD [id number]) Pain Reassessment Is this a pain reassessment? No Presence of Pain Presence of Pain Yes Pain Scale Used Pain Scale Used Numeric Location Pain Location Body Site Leg Description Intensity of Pain at present 8 Re-Assess: [facility] Pain Assessment Document 10/24/17 13:45 CD (Rec: 10/24/17 15:48 CD [id number]) Pain Reassessment Is this a pain reassessment? Yes Presence of Pain Presence of Pain Yes Location Pain Location Body Site Generalized Sodium Bicarbonate (Sodium Bicarbonate 8.4% (50 Meq) Syringe) 50 meq IVP ONCE ONE Stop: 10/24/17 02:47 Last Admin: 10/24/17 03:10 Dose: 50 meq IVP Administration Document 10/24/17 03:10 RD (Rec: 10/24/17 03:18 RD [id number]) Charges for Administration # of IVP Administrations 1 Sodium Polystyrene Sulfonate (Kayexalate Susp) 30 gm PO ONCE ONE Stop: 10/24/17 02:47 Last Admin: 10/24/17 03:20 Dose: 30 gm - Scribe Statement The provider has reviewed the documentation as recorded by the Scribalisa Barron All medical record entries made by the Scribalisa were at my direction and personally dictated by me. I have reviewed the chart and agree that the record accurately reflects my personal performance of the history, physical exam, medical decision making, and the department course for this patient. I have also personally directed, reviewed, and agree with the discharge instructions and disposition. Disposition/Present on Arrival - Present on Arrival Any Indicators Present on Arrival: No History of DVT/PE: No History of Uncontrolled Diabetes: No Urinary Catheter: No History of Decub. Ulcer: No History Surgical Site Infection Following: None - Disposition Have Diagnosis and Disposition been Completed?: Yes Diagnosis: Thrombocytopenia, Dehydration, Leukocytosis, Sepsis Disposition: HOSPITALIZED Disposition Time: 02:15 Patient Problems: Current Active Problems Problem Status Onset Dehydration Acute Leukocytosis Acute Sepsis Acute Thrombocytopenia Acute Condition: STABLE
[2017-10-23 22:02] LABS: PLATELET COUNT 29 10^3/uL (120.0-450.0); WHITE BLOOD COUNT 28.7 10^3/ul (4.5-11.0)
[2017-10-23 22:04] LABS: INR 1.06 (0.93-1.08); PARTIAL THROMBOPLASTIN TIME 19.7 Seconds (25.1-36.5); PROTHROMBIN TIME 12.1 SECONDS (9.4-12.5)
[2017-10-23 22:06] LABS: B-TYPE NATRIURETIC PEPTIDE 443 pg/mL (0-450); TROPONIN I 0.02 ng/mL
[2017-10-23 22:11] LABS: ALB/GLOB RATIO 1.3 (1.1-1.8); ALT/SGPT 69 U/L (7-56); AST/SGOT 27 U/L (14-36); BLOOD UREA NITROGEN 78 mg/dL (7-21); CALCIUM 10.5 mg/dL (8.4-10.5); GFR AFRICAN-AMERICAN 31; GFR NON-AFRICAN AMERICAN 25
[2017-10-24] MEDS ORDERED: cefTRIAXone 1 gm 1 GM/100 ML BAG IV STA (00:50)
[2017-10-24] MEDS ORDERED: Azithromycin 500MG/NS 250ml 500 MG/250 ML BAG IV STA (00:52)
[2017-10-24] MEDS ORDERED: Sodium Chloride 0.9% 1,000 ML IV STA ×4 (01:23→16:23)
[2017-10-24 01:53] LABS: VENOUS BLOOD GAS BASE EXCESS -1.7 mmol/L (0.0-2.0); VENOUS BLOOD GAS PO2 57 mm/Hg (30-55); VENOUS BLOOD PH 7.39 (7.32-7.43)
[2017-10-24 02:36] LABS: PH,URINE 6.5 (4.7-8.0); URINE BILIRUBIN NEGATIVE (NEGATIVE); URINE BLOOD LARGE (NEGATIVE); URINE GLUCOSE (UA) NEGATIVE (NEGATIVE); URINE LEUKOCYTE ESTERASE LARGE Leu/uL (NEGATIVE); URINE NITRATE POSITIVE (NEGATIVE); URINE PROTEIN TRACE mg/dL (<30 mg/dL); URINE UROBILINOGEN 0.2 E.U./dL (<1 E.U./dL)
[2017-10-24 02:38] LABS: URINE APPEARANCE CLOUDY (CLEAR); URINE COLOR YELLOW (YELLOW)
[2017-10-24] MEDS ORDERED: Insulin Regular 1 UNITS/0.01 ML ML IVP STA (02:44)
[2017-10-24] MEDS ORDERED: Dextrose 50% SYRINGE Inj (50 ml) IVP ONE (02:44)
[2017-10-24] MEDS ORDERED: Albuterol 0.083% Inhal Sol (2.5 mg/3 mL) UD IH STA (02:44)
[2017-10-24] MEDS ORDERED: Sod Polystyrene Sulf 15 gm/60 ml Susp PO ONE (02:46)
[2017-10-24] MEDS ORDERED: Sodium Bicarbonate (8.4%) 50 Meq Syringe IVP ONE (02:46)
[2017-10-24 03:06] LABS: URINE BACTERIA TRACE (NEG); URINE EPITHELIAL CELLS 0 - 2 /hpf (0-5); URINE WBC 20 - 25 /hpf (0-6)
--- NOTE | 2017-10-24 03:11 | CP.PCM.HP ---
<Trevon Gonzalez - Last Filed: 10/24/17 04:39> History of Present Illness - History of Present Illness History of Present Illness: CC: generalized weakness and fall Subjective: HPI: Patient is a 62 year old female with past medical history of HTN, L eye vision loss, GERD, stage IV colon cancer w/ metastasis to liver, lung, and brain who presents to the emergency department for evaluation and treatment of generalized weakness and fall. States that she was trying to get out of her recliner and fell on her buttock. Denies trauma to the head and loss of consciousness. States that the generalized weakness began several days ago and denies specific provoking events. Denies recent travel and sick contacts. Admits to completing all required sessions of outpatient radiation. Admits to chills and dysnea on exertion. Patient denies intractable headache, fever, dizziness, blurry vision, ringing in the ears, chest pain, abdominal pain, nausea, vomiting, diarrhea, constipation, and urinary symptoms. ROS: 12 point review of systems negative except as indicated in HPI PMHx: HTN, Stage IV colon CA s/p tumor resection and chemo, with multiple distant mets including to lungs and liver and brain PSHx: Hepatic tumor resection, colonic tumor resection Family Hx: noncontributory Allergies: NKDA Social Hx: denies ETOH use, tobacco use, illicit drug use Medications: Please see medication reconciliation PMD: Dr. Levine Onc: Dr. Calderón Physical Examination: - Constitutional Appears: Non-toxic, No Acute Distress - Head Exam Head Exam: atraumatic, normocephalic - Eye Exam Eye Exam: Normal appearance, PERRL. absent: Scleral icterus - ENT Exam ENT Exam: Mucous Membranes Moist - Neck Exam Neck exam: Normal Inspection - Respiratory Exam Respiratory Exam: Normal Breathing Pattern - Cardiovascular Exam Cardiovascular Exam: +S1, +S2. absent: Gallop, JVD - GI/Abdominal Exam GI & Abdominal Exam: Normal Bowel Sounds, absent: Distended, Guarding, Pulsatile Mass, Rebound, Rigid - Extremities Exam Extremities exam: Negative for: calf tenderness - Neurological Exam Neurological exam: Patient is awake, alert, responds to verbal stimuli, answers questions appropriately, follows commands, and moves extremities past midline - Psychiatric Exam Psychiatric exam: Normal Affect, Normal Mood - Skin Skin Exam: warm and dry Assessment and Plan: Patient is a 62 year old female with past medical history of HTN, L eye vision loss, GERD, stage IV colon cancer w/ metastasis to liver, lung, and brain who is admitted for evaluation and treatment of generalized weakness and fall. Sepsis, UTI - leukocytosis + elevated lactate - given 2 liters NS in ED, 1 additional Liter NS ordered - blood culture and urine cultures ordered and pending - ceftrizone and azithromcyin given in ED - renally dosed vanocmycin and zosyn creatinine clearance 33mL/minute - IVF NS @ 125 after - CXR- reviewed and appreciated- official read pending - stat procalcitnonin - ID consulted- appreciate recommendations Fall - high risk fall precautions - lumbar spine orderd by ED physician- pending at time of admission - CT head ordered and pending - CT abdomen and pelvis pending Acute on Chronic Thrombocytopenia - not actively bleeding - no acute intevention at this time - avoid subq heparin and protonix - monitor closely via CBC WALT - creatinine and Bun reviewed, trended, and appreciated - avoid nephrotoxins - continue IVF NS @ 125 - consider nephrology consult pending patients clinical course Hyponatremic - urine osmolality, serum osmolality, urine sodium ordered and pending - IVF NS @ 125 Hyperkalemic - albuterol, dextrose,insulin, kayexlyate given in ED - monitor closely via CMP - magnesium ordered and pending Hx of Stage IV Colon Cancer - continue home dexamethasone - consider heme/onc consult pending patients clinical course Hx of Htn - hydralazine 5mg IV q6 prn SBP > 180, holding parameters- do not administer if HR is > 100 bpm Prophylaxis - DVT ppx- scds - GI ppx- famotidine Patient case discussed with and plan approved by attending physician. 10/24/17 02:59 Present on Admission - Present on Admission Any Indicators Present on Admission: No Past Patient History - Infectious Disease Hx of Infectious Diseases: None - Tetanus Immunizations Tetanus Immunization: Unknown - Past Social History Smoking Status: Former Smoker - CARDIAC Hx Hypertension: Yes - PULMONARY Hx Respiratory Disorders: No - NEUROLOGICAL Hx Neurological Disorder: No Other/Comment: Brain Tumor - HEENT Hx Cataracts: Yes Hx Glaucoma: Yes - RENAL Hx Chronic Kidney Disease: No - ENDOCRINE/METABOLIC Hx Endocrine Disorders: No - HEMATOLOGICAL/ONCOLOGICAL Hx Anemia: Yes Hx Cancer: Yes (colon CA with metastasis to liver and lung) - INTEGUMENTARY Hx Dermatological Problems: No - MUSCULOSKELETAL/RHEUMATOLOGICAL Hx Falls: Yes Hx Herniated Disk: Yes - GASTROINTESTINAL Hx Bowel Surgery: Yes (resection 2010 of the liver and colon) Other/Comment: Colon Cancer, Stage 4 - GENITOURINARY/GYNECOLOGICAL Hx Genitourinary Disorders: No - PSYCHIATRIC Hx Psychophysiologic Disorder: Yes Hx Anxiety: Yes Hx Depression: Yes Hx Substance Use: No - SURGICAL HISTORY Other/Comment: left subclavian port. colonic tumor and liver mets resection ( 2010) - ANESTHESIA Hx Anesthesia: Yes Hx Anesthesia Reactions: No Hx Malignant Hyperthermia: No Meds Allergies/Adverse Reactions: Allergies Allergy/AdvReac Type Severity Reaction Status Date / Time No Known Allergies Allergy Verified 06/12/17 18:46 Results - Vital Signs Recent Vital Signs: Last Vital Signs Temp 98.2 F 10/24/17 02:18 Pulse 98 H 10/24/17 02:18 Resp 20 10/24/17 02:18 BP 110/71 10/24/17 02:18 Pulse Ox 99 10/24/17 02:18 - Labs Result Diagrams: 10/23/17 21:30 10/24/17 00:15 Labs: Laboratory Results - last 24 hr 10/24/17 02:20 Urine Color Yellow Urine Appearance Cloudy Urine pH 6.5 Ur Specific [place] 1.010 Urine Protein Trace H Urine Glucose (UA) Negative Urine Ketones Negative Urine Blood Large H Urine Nitrate Positive H Urine Bilirubin Negative Urine Urobilinogen 0.2 Ur Leukocyte Esterase Large H <Rommel Wu MD - Last Filed: 10/25/17 06:40> Results - Vital Signs Recent Vital Signs: Last Vital Signs Temp 98.0 F 10/25/17 06:00 Pulse 64 10/25/17 06:00 Resp 20 10/25/17 06:00 BP 123/75 10/25/17 06:00 Pulse Ox 100 10/25/17 06:00 - Labs Result Diagrams: 10/25/17 01:15 10/24/17 06:00 Labs: Laboratory Results - last 24 hr 10/24/17 10/24/17 10/24/17 03:18 06:00 06:00 WBC 20.3 H D RBC 4.08 Hgb 11.1 L D Hct 33.5 L MCV 82.1 MCH 27.2 MCHC 33.1 RDW 16.7 H Plt Count 21 L* Manual Plt Count Gran % 95.0 H Lymph % (Auto) 1.3 L [place] % (Auto) 3.7 Eos % (Auto) 0.0 L Baso % (Auto) 0.0 Gran # 19.27 H Lymph # 0.3 L [place] # 0.8 H Eos # 0.0 Baso # 0.00 Neutrophils % (Manual) 90 H Band Neutrophils % 6 H Lymphocytes % (Manual) 1 L Monocytes % (Manual) 3 Platelet Evaluation Low Microcytosis (manual) 1+ PT INR APTT pO2 VBG pH VBG pCO2 VBG HCO3 VBG Total CO2 VBG O2 Sat (Calc) VBG Base Excess VBG Potassium Glucose Lactate FiO2 Sodium 136 Potassium 5.6 H* Chloride 104 Carbon Dioxide 24 Anion Gap 14 BUN 66 H Creatinine 1.6 H Est GFR ( Amer) 40 Est GFR (Non-Af Amer) 33 POC Glucose (mg/dL) 193 H Random Glucose 68 L Serum Osmolality Calcium 8.4 Phosphorus 2.6 Magnesium 2.3 H Total Bilirubin 2.1 H Direct Bilirubin AST 35 ALT 68 H Alkaline Phosphatase 109 Total Protein 5.4 L Albumin 2.7 L Globulin 2.6 Albumin/Globulin Ratio 1.0 L Lipase Procalcitonin Venous Blood Potassium Urine Osmolality Ur Random Creatinine Ur Random Sodium Blood Type Antibody Screen STARLA, Poly Interpret BBK History Checked 10/24/17 10/24/17 10/24/17 06:30 06:30 06:33 WBC RBC Hgb Hct MCV MCH MCHC RDW Plt Count Manual Plt Count 35 L* Gran % Lymph % (Auto) [place] % (Auto) Eos % (Auto) Baso % (Auto) Gran # Lymph # [place] # Eos # Baso # Neutrophils % (Manual) Band Neutrophils % Lymphocytes % (Manual) Monocytes % (Manual) Platelet Evaluation Microcytosis (manual) PT INR APTT pO2 VBG pH VBG pCO2 VBG HCO3 VBG Total CO2 VBG O2 Sat (Calc) VBG Base Excess VBG Potassium Glucose Lactate FiO2 Sodium Potassium Chloride Carbon Dioxide Anion Gap BUN Creatinine Est GFR ( Amer) Est GFR (Non-Af Amer) POC Glucose (mg/dL) Random Glucose Serum Osmolality Calcium Phosphorus Magnesium Total Bilirubin Direct Bilirubin AST ALT Alkaline Phosphatase Total Protein Albumin Globulin Albumin/Globulin Ratio Lipase 434 H Procalcitonin Venous Blood Potassium Urine Osmolality 409 Ur Random Creatinine Ur Random Sodium 33 Blood Type Antibody Screen STARLA, Poly Interpret BBK History Checked 10/24/17 10/24/17 10/24/17 06:33 06:45 06:45 WBC RBC Hgb Hct MCV MCH MCHC RDW Plt Count Manual Plt Count Gran % Lymph % (Auto) [place] % (Auto) Eos % (Auto) Baso % (Auto) Gran # Lymph # [place] # Eos # Baso # Neutrophils % (Manual) Band Neutrophils % Lymphocytes % (Manual) Monocytes % (Manual) Platelet Evaluation Microcytosis (manual) PT INR APTT pO2 VBG pH VBG pCO2 VBG HCO3 VBG Total CO2 VBG O2 Sat (Calc) VBG Base Excess VBG Potassium Glucose Lactate FiO2 Sodium Potassium Chloride Carbon Dioxide Anion Gap BUN Creatinine Est GFR ( Amer) Est GFR (Non-Af Amer) POC Glucose (mg/dL) Random Glucose Serum Osmolality 299 Calcium Phosphorus Magnesium Total Bilirubin Direct Bilirubin AST ALT Alkaline Phosphatase Total Protein Albumin Globulin Albumin/Globulin Ratio Lipase Procalcitonin 6.92 H Venous Blood Potassium Urine Osmolality Ur Random Creatinine 51 Ur Random Sodium Blood Type Antibody Screen STARLA, Poly Interpret BBK History Checked 10/24/17 10/24/17 10/24/17 06:45 09:00 09:00 WBC RBC Hgb Hct MCV MCH MCHC RDW Plt Count Manual Plt Count Gran % Lymph % (Auto) [place] % (Auto) Eos % (Auto) Baso % (Auto) Gran # Lymph # [place] # Eos # Baso # Neutrophils % (Manual) Band Neutrophils % Lymphocytes % (Manual) Monocytes % (Manual) Platelet Evaluation Microcytosis (manual) PT INR APTT pO2 24 L VBG pH 7.37 VBG pCO2 46.0 VBG HCO3 26.6 VBG Total CO2 28.0 VBG O2 Sat (Calc) 44.4 VBG Base Excess 0.8 VBG Potassium 4.6 Glucose 110 H Lactate 2.8 H FiO2 21.0 Sodium 137.0 Potassium Chloride 106.0 Carbon Dioxide Anion Gap BUN Creatinine Est GFR ( Amer) Est GFR (Non-Af Amer) POC Glucose (mg/dL) Random Glucose Serum Osmolality Calcium Phosphorus Magnesium Total Bilirubin Direct Bilirubin 1.1 H AST ALT Alkaline Phosphatase Total Protein Albumin Globulin Albumin/Globulin Ratio Lipase Procalcitonin Venous Blood Potassium 4.6 Urine Osmolality Ur Random Creatinine Ur Random Sodium Blood Type A POSITIVE Antibody Screen Negative STARLA, Poly Interpret BBK History Checked Patient has bt 10/24/17 10/24/17 10/25/17 12:30 12:50 01:15 WBC RBC Hgb Hct MCV MCH MCHC RDW Plt Count Manual Plt Count Gran % Lymph % (Auto) [place] % (Auto) Eos % (Auto) Baso % (Auto) Gran # Lymph # [place] # Eos # Baso # Neutrophils % (Manual) Band Neutrophils % Lymphocytes % (Manual) Monocytes % (Manual) Platelet Evaluation Microcytosis (manual) PT 14.2 H INR 1.24 H APTT 21.0 L pO2 54 VBG pH 7.39 VBG pCO2 35.0 L VBG HCO3 21.2 VBG Total CO2 22.3 VBG O2 Sat (Calc) 92.7 H VBG Base Excess -3.1 L VBG Potassium 4.4 Glucose 120 H Lactate 3.7 H FiO2 21.0 Sodium 134.0 Potassium Chloride 105.0 Carbon Dioxide Anion Gap BUN Creatinine Est GFR ( Amer) Est GFR (Non-Af Amer) POC Glucose (mg/dL) Random Glucose Serum Osmolality Calcium Phosphorus Magnesium Total Bilirubin Direct Bilirubin AST ALT Alkaline Phosphatase Total Protein Albumin Globulin Albumin/Globulin Ratio Lipase Procalcitonin Venous Blood Potassium 4.4 Urine Osmolality Ur Random Creatinine Ur Random Sodium Blood Type Antibody Screen STARLA, Poly Interpret Negative BBK History Checked 10/25/17 01:15 WBC 24.4 H D RBC 3.55 Hgb 9.7 L Hct 30.2 L MCV 85.1 D MCH 27.3 MCHC 32.1 RDW 16.8 H Plt Count 21 L* Manual Plt Count Gran % Lymph % (Auto) [place] % (Auto) Eos % (Auto) Baso % (Auto) Gran # Lymph # [place] # Eos # Baso # Neutrophils % (Manual) Band Neutrophils % Lymphocytes % (Manual) Monocytes % (Manual) Platelet Evaluation Microcytosis (manual) PT INR APTT pO2 VBG pH VBG pCO2 VBG HCO3 VBG Total CO2 VBG O2 Sat (Calc) VBG Base Excess VBG Potassium Glucose Lactate FiO2 Sodium Potassium Chloride Carbon Dioxide Anion Gap BUN Creatinine Est GFR ( Amer) Est GFR (Non-Af Amer) POC Glucose (mg/dL) Random Glucose Serum Osmolality Calcium Phosphorus Magnesium Total Bilirubin Direct Bilirubin AST ALT Alkaline Phosphatase Total Protein Albumin Globulin Albumin/Globulin Ratio Lipase Procalcitonin Venous Blood Potassium Urine Osmolality Ur Random Creatinine Ur Random Sodium Blood Type Antibody Screen STARLA, Poly Interpret BBK History Checked Attending/Attestation - Attestation I have personally seen and examined this patient.: Yes I have fully participated in the care of the patient.: Yes I have reviewed all pertinent clinical information: Yes Notes (Text): -I agree with the above H&P completed by the resident physician with the following additions and/or changes: -The patient is a 62 year old woman with a history of with HTN, left eye blindness, GERD, stage IV colon cancer (with metastasis to liver, lung, and brain), who is being admitted to the telemetry [facility] for sepsis due to UTI, WALT, acute on chronic thrombocytopenia and hyperkalemia. Because she reports having a ground level fall earlier, a CT-head has been ordered to rule out acute bleed. Since arrival to the ED, she was remained hemodynamically stable. She will be given aggressive IV fluids and empiric IV Vanco and Zosyn. An ID consult has been placed and stat procalcitonin ordered. Acute treatment for her hyperkalemia was already given by the ED physician. We will therefore follow-up on subsequent serum potassium levels. EKG shows no evidence of peaked T-waves. Also, of note, we will continue her chronic Decadron (which she receives for treatment of cerebral edema due brain metastasis)
[2017-10-24 04:14] LABS: VENOUS BLOOD GAS BASE EXCESS -6.1 mmol/L (0.0-2.0); VENOUS BLOOD GAS PO2 32 mm/Hg (30-55); VENOUS BLOOD PH 7.22 (7.32-7.43)
[2017-10-24] MEDS: Sodium Chloride 0.9% 1,000 ML IV SCH ×3 (05:33→21:12)
[2017-10-24] MEDS ORDERED: Piperacillin/Tazobact 2.25gm 2.25 GM/100 ML BAG IVPB SCH (06:00)
[2017-10-24 06:36] LABS: GRAN # 19.27 (1.4-6.5); HEMOGLOBIN 11.1 g/dL (12.0-16.0); LYMPH # 0.3 (1.2-3.4); LYMPH % 1.3 % (22.0-35.0); MEAN CELL VOLUME 82.1 fl (80.0-105.0); MEAN CORPUSCULAR HEMOGLOBIN 27.2 pg (25.0-35.0); MEAN CORPUSCULAR HGB CONC 33.1 g/dl (31.0-37.0); MONO # 0.8 (0.1-0.6); MONO % 3.7 % (1.0-6.0); RBC 4.08 10^6/uL (3.5-6.1); RED CELL DISTRIBUTION WIDTH 16.7 % (11.5-14.5); WHITE BLOOD COUNT 20.3 10^3/ul (4.5-11.0)
[2017-10-24 07:28] LABS: PLATELET COUNT 21 10^3/uL (120.0-450.0)
[2017-10-24 07:44] LABS: ALBUMIN 2.7 g/dL (3.0-4.8); CALCIUM 8.4 mg/dL (8.4-10.5); MAGNESIUM 2.3 mg/dL (1.7-2.2)
--- NOTE | 2017-10-24 07:55 | PCM.SEPTIC ---
Sepsis Progress Note - Reassessment Type Date of Evaluation: 10/24/17 Time of Evaluation: 07:30 Reassessment Type: Non-invasive reassessment - Non Invasive Reassessment Were the most recent vital sign reviewed: Yes Vital Sign (Latest): Temp Pulse Resp BP Pulse Ox 101.3 F H 129 H 20 121/72 129 H 10/24/17 05:36 10/24/17 05:36 10/24/17 05:36 10/24/17 05:36 10/24/17 05:36 Cardiovascular: Yes: Regular Rate, Rhythm. No: Edema, JVD Respiratory: Yes: Normal Breath Sounds. No: Accessory Muscle Use Capillary Refill: Normal (Less than 2 sec) Pulses: Normal Radial, Normal Dorsalis Pedis, Normal Posterior Tibialis Skin: Normal Color, Warm, Dry <Louie Dominguez - Last Filed: 10/24/17 07:54> - Non Invasive Reassessment Vital Sign (Latest): Temp Pulse Resp BP Pulse Ox 97.7 F 86 20 91/52 L 129 H 10/24/17 11:50 10/24/17 11:50 10/24/17 11:50 10/24/17 11:50 10/24/17 05:36 <Rashel Diop - Last Filed: 10/24/17 12:43> Attending/Attestation - Attestation I have personally seen and examined this patient.: Yes I have fully participated in the care of the patient.: Yes I have reviewed all pertinent clinical information, including history, physical exam and plan: Yes Notes (Text): 10/24/17 12:43 attending note; Patient seen and examined with resident. Fever and tachycardia improving. Patient is alert and awake. Hyperkalemia improved. Acute renal failure improved after hydration. Monitor closely. Will follow up with ID. <Rashel Diop - Last Filed: 10/24/17 12:43>
--- NOTE | 2017-10-24 07:55 | CT ---
EXAM: CT Head Without Intravenous Contrast CLINICAL HISTORY: 62 years old, female; Injury or trauma; Fall; Initial encounter; Concussion / head injury TECHNIQUE: Axial computed tomography images of the head/brain without intravenous contrast. All CT scans at this facility use one or more dose reduction techniques, viz.: automated exposure control; ma/kV adjustment per patient size (including targeted exams where dose is matched to indication; i.e. head); or iterative reconstruction technique. 348 images are submitted. 348 images are submitted. Coronal , axial and sagittal reformatted images were created and reviewed. COMPARISON: CT - HEAD W/O CONTRAST 2017-09-17 06:47 FINDINGS: Brain: There is hyperdense 2.2 x 2.1 x 2.2 cm mass lesion at the anterior aspect of the right superior cerebellum extending to the cerebellar peduncle. There is adjacent vasogenic edema which resulting in mild compression on the 4th ventricle unchanged from prior examination. The vasogenic edema appears to have improved somewhat when compared to prior examination from September 17, 2017. Cerebral and cerebellar volume loss. Mild Patchy hypodensity is seen in the periventricular and subcortical white matter. No hemorrhage. Ventricles: The fourth ventricle is patent. Bones/joints: Unremarkable. No acute fracture. Soft tissues: Unremarkable. Sinuses: Unremarkable. No acute sinusitis. Mastoid air cells: Unremarkable. No mastoid effusion. Dental: Edentulous maxilla. IMPRESSION: 1. There is hyperdense 2.2 x 2.1 x 2.2 cm mass lesion at the anterior aspect of the right superior cerebellum extending to the cerebellar peduncle. The vasogenic edema appears to have improved somewhat when compared to prior examination from September 17, 2017. Correlation with patient's clinical diagnosis is recommended. 2.There is no evidence of acute intracranial hemorrhage. Correlation with neurosurgical expectation clinical evaluation and further workup or followup as recommended by patient's clinical data.
--- NOTE | 2017-10-24 08:14 | CT ---
EXAM: CT Chest Without Intravenous Contrast CT Abdomen and Pelvis Without Intravenous Contrast CLINICAL HISTORY: 62 years old, female; Signs and symptoms; Other: Sepsis; Additional info: Sepsis/hx. Metastatic disease TECHNIQUE: Axial computed tomography images of the chest, abdomen and pelvis without intravenous contrast. All CT scans at this facility use one or more dose reduction techniques, viz.: automated exposure control; ma/kV adjustment per patient size (including targeted exams where dose is matched to indication; i.e. head); or iterative reconstruction technique. 1075 images are submitted.Limitations: Absence of IV contrast decreases sensitivity for detecting vascular and visceral injury and abnormality. Coronal and sagittal reformatted images were created and reviewed. COMPARISON: CT - ABD PELVIS PO CONTRAST ONLY 2017-08-25 14:19 FINDINGS: CHEST: Lungs: There is spiculated large right upper lobe lung mass measuring 5.2 x 4.6 cm. this can represent a cancer. Correlation with patient's clinical diagnosis is recommended. There are spiculated nodules in the right middle lobe seen on image [id number] series 4 and the left lower lobe seen on image 66 series 4. The radiographic differential considerations would include hematogenous spread of infection/metastasis, metastatic disease versus fungal infection patient is neutropenic. The major airways are patent. Pleural space: Unremarkable. No significant effusion. No pneumothorax. Heart: Unremarkable. No cardiomegaly. No significant pericardial effusion. Mediastinum: Small hiatal hernia. Thyroid: There is right lobe of thyroid gland nodule measuring 1.3 cm. ABDOMEN: Liver: Enlargement of left lobe of the liver. Right hepatectomy. Gallbladder and bile ducts: The gallbladder is not visualized. Pancreas: Peripancreatic inflammatory change representing acute pancreatitis. No ductal dilation. Spleen: Splenomegaly. Adrenals: Unremarkable. No mass. Kidneys and ureters: Unremarkable. No obstructing stones. No hydronephrosis. Stomach and bowel: Nonspecific gastric thickening likely due to under distention. Correlation with clinical data is recommended if gastritis is suspected. Right-sided colectomy. Moderate amount of stool in the colon. Appendix: Appendectomy. PELVIS: Bladder: Partially distended bladder. Reproductive: Unremarkable. CHEST, ABDOMEN and PELVIS: Intraperitoneal space: Unremarkable. No significant fluid collection. No free air. Bones/joints: There is L5-S1 vacuum degenerative disc disease with subligamentous gas. No acute fracture. No dislocation. Soft tissues: There is a fat-containing umbilical hernia. Vasculature: Unremarkable. No aortic aneurysm. Lymph nodes: Unremarkable. No enlarged lymph nodes. Tubes, lines and devices: There is left chest wall MediPort with tip located at the cavoatrial junction. There is a radiopaque contraceptive device within the uterus unchanged from prior examination. Correlation with patient's [employer] history is recommended. Other findings: The lower portion of the pelvis is excluded from the examination. IMPRESSION: 1. There is spiculated large right upper lobe lung mass measuring 5.2 x 4.6 cm. this can represent a cancer versus metastatic disease. Correlation with patient's clinical diagnosis is recommended. 2. There are spiculated nodules in the right middle lobe seen on image [id number] series 4 and the left lower lobe seen on image 66 series 4. The radiographic differential considerations would include hematogenous spread of infection/metastasis, metastatic disease versus fungal infection if the patient is neutropenic. 3. Peripancreatic inflammatory change representing acute pancreatitis. 4. Massive splenomegaly. Correlation with clinical oncologic history evaluation and further workup or followup as recommended by patient's clinical data.
[2017-10-24 08:21] LABS: BAND 6 % (0-2); LYMPHOCYTE 1 % (22.0-35.0); MONOCYTE 3 % (1.0-6.0); NEUTROPHIL 90 % (50.0-70.0)
[2017-10-24 08:22] LABS: MICROCYTOSIS 1+; PLATELET ESTIMATE LOW (NORMAL)
[2017-10-24 09:16] LABS: VENOUS BLOOD GAS BASE EXCESS 0.8 mmol/L (0.0-2.0); VENOUS BLOOD GAS PO2 24 mm/Hg (30-55); VENOUS BLOOD PH 7.37 (7.32-7.43)
--- NOTE | 2017-10-24 09:37 | RAD ---
HISTORY: Shortness of breath COMPARISON: 09/17/2017. FINDINGS: The left subclavian line terminates in the right atrium. LUNGS: The lungs are well inflated. There is redemonstration of a smoothly marginated large lobular mass in the right upper lobe. There is also a nodule in the right lower lobe. An apparent ill-defined opacity in the left mid lung is also stable. PLEURA: No significant pleural effusion identified, no pneumothorax apparent. CARDIOVASCULAR: Normal. OSSEOUS STRUCTURES: No significant abnormalities. VISUALIZED UPPER ABDOMEN: Normal. OTHER FINDINGS: None. IMPRESSION: No change in known smoothly marginated lobular right upper lobe mass. Stable presumable metastatic nodules in the right lower lobe and left mid lung.
[2017-10-24] MEDS ORDERED: Vancomycin 1gm in NS 250ml 1 GM/250 ML BAG IVPB SCH (10:00)
--- NOTE | 2017-10-24 10:08 | RAD ---
PROCEDURE: Radiographs of the Lumbar Spine. HISTORY: Fall COMPARISON: No prior. FINDINGS: BONES: There is degenerative 6 mm retrolisthesis of L5 of. There is normal lumbar lordosis. There is no acute fracture or spondylolysis. DISC SPACES: There is multilevel degenerative disc disease with anterior osteophytes, reduced disc heights and multilevel facet arthropathy, worse at L5-S1. OTHER FINDINGS: There are no pathologic soft tissue calcifications. The sacroiliac joints are normal. IMPRESSION: No acute fracture or spondylolysis. Multilevel degenerative disc disease, worse at L5-S1.
[2017-10-24] MEDS ORDERED: Cefepime 1gm in NS 100ml 1 GM/100 ML BAG IVPB SCH (10:15)
[2017-10-24] MEDS: UMECLIDINIUM BROMIDE IH SCH (10:25)
[2017-10-24 11:54] LABS: OSMOLALITY,URINE 409 mosm/kg (300-1000)
[2017-10-24] MEDS ORDERED: Oxycodone/Acetaminophen 5/325 mg Tab PO PRN (12:06)
[2017-10-24] MEDS ORDERED: Sodium Chloride 0.9% 500 ML IV STA ×2 (12:10→12:14)
[2017-10-24] MEDS ORDERED: Povidone Iodine Ophthalmic 5% Soln OS SCH (12:15)
[2017-10-24 12:59] LABS: VENOUS BLOOD GAS BASE EXCESS -3.1 mmol/L (0.0-2.0); VENOUS BLOOD GAS PO2 54 mm/Hg (30-55); VENOUS BLOOD PH 7.39 (7.32-7.43)
--- NOTE | 2017-10-24 15:21 | CP.PCM.CON ---
History of Present Illness - History of Present Illness History of Present Illness: Initial Nephrology Consultation: Assessment: critical Acute Kidney Injury (N17.9) likely due to sepsis, low BP Hyperkalemia likely due to WALT, acidosis and likely intravascular hemolysis as suggested by high LDH, hematuria but without RBC, high bilirubin lactic acidosis with sepsis Hypertensive Chronic Kidney Disease (I12.9) Chronic Kidney Disease (N18.3) Stage 3 Anemia , thrombocytopenia HTN (I12.9) metastatic colon carcinoma splenomegaly Plan No acute need for renal replacement therapy at this time. maintain hemodynamics stable. Patient not on ACEI/ARB due to WALT medical management of hyperkalemia Monitor Input/Output, daily weights and renal function with basic metabolic panel continue with IVF oncology eval. further eval for possible hemolysis as per primary team Dose meds/antibiotics for reduced GFR. Avoid fleets enema/magnesium based laxatives. Avoid nephrotoxins/NSAIDs/ iodinated contrast (unless needed emergently) Glycemic control Further work up/management as per primary team Thanks for allowing me to participate in care of your patient. Will follow patient with you. Please call if any Qs Dr Lincoln Kennedy Office: [phone] Chief Complaint; fall HPI: Pt is a 62 f with hx of HTN, stage IV colon cancer w/ metastasis to liver, lung, and brain, CKD stage 3 (baseline cr 1.1-1.2) presented with complaints of fall and generalized weakness. she feels better now reason for consult was WALT and hyperkalemia. also has sepsis with lactic acidosis Denies OTC/herbal meds or NSAIDs No recent iodinated contrast exposure. initially episodes of low BP. (90/60s) ROS: Cardiovascular: No chest pain. Pulmonary: No shortness of breath Gastrointestinal: denies abdominal pain No nausea. No vomiting. Genitourinary: No pain while urinating. Denies blood in urine. All other negative except generalized weakness, decreased appetite and fall, low back pain Physical Examination: General Appearance: Comfortable, in no acute respiratory distress, co-operative . ill appearing Vitals reviewed and noted as below Head; Atraumatic, normocephalic ENT: no ulcers no thrush. Tongue is midline. Oropharynx: no rash or ulcers. EYES: Pupils are equal, round and reactive to light accommodation. Eye muscles and extraocular movement intact. Sclera is icteric. Neck; supple no lymphadenopathy, no thyromegaly or bruit Lungs: Normal respiratory rate/effort. Breath sounds bilateral decreased at bases with crackles Heart: Increased rate. s1s2 normal. No rub or gallop. Extremities: no edema. No varicose veins Neurological: Patient is alert, awake and oriented to person, place and time. No focal deficit. Strength bilateral appropriate and equal Skin: Warm and dry. Normal turgor. No rash. Palpitation: Normal elasticity for age Abdomen: Abdomen is soft. Bowel sounds +. There is no abdominal tenderness, no guarding/rigidity no organomegaly Psych: normal insight and normal affect/mood MSK: no joint tenderness or swelling. Digits and nails normal, no deformity : kidney or bladder not palpable Labs/imaging reviewed. Past medical history, past surgical history, family history, social history, allergy reviewed and noted as below Family hx: no hx of CKD. Rest non-contributory UA: large blood with only few RBC CT: metastatic lesions to lung, brain. has splenomegaly Past Patient History - Infectious Disease Hx of Infectious Diseases: None - Tetanus Immunizations Tetanus Immunization: Unknown - Past Social History Smoking Status: Former Smoker - CARDIAC Hx Cardiac Disorders: Yes Hx Hypercholesterolemia: Yes Hx Hypertension: Yes - PULMONARY Hx Respiratory Disorders: Yes (lung mass) Hx Pneumonia: Yes - NEUROLOGICAL Hx Neurological Disorder: No - HEENT Hx HEENT Problems: Yes Hx Cataracts: Yes - RENAL Hx Chronic Kidney Disease: No - ENDOCRINE/METABOLIC Hx Endocrine Disorders: No - HEMATOLOGICAL/ONCOLOGICAL Hx Blood Disorders: Yes Hx Anemia: Yes Hx Cancer: Yes (colon CA with metastasis to liver and lung) - INTEGUMENTARY Hx Dermatological Problems: No - MUSCULOSKELETAL/RHEUMATOLOGICAL Hx Musculoskeletal Disorders: Yes Hx Falls: Yes Hx Herniated Disk: Yes - GASTROINTESTINAL Hx Gastrointestinal Disorders: Yes Hx Gastroesophageal Reflux: Yes Other/Comment: Colon Cancer, Stage 4, GI bld - GENITOURINARY/GYNECOLOGICAL Hx Genitourinary Disorders: No Hx Urinary Tract Infection: Yes - PSYCHIATRIC Hx Psychophysiologic Disorder: Yes Hx Anxiety: Yes Hx Depression: Yes - SURGICAL HISTORY Hx Surgeries: Yes Hx Cholecystectomy: Yes Other/Comment: colonic tumor and liver mets resection (2010) - ANESTHESIA Hx Anesthesia: Yes Hx Anesthesia Reactions: No Hx Malignant Hyperthermia: No Meds Allergies/Adverse Reactions: Allergies Allergy/AdvReac Type Severity Reaction Status Date / Time No Known Allergies Allergy Verified 06/12/17 18:46 - Medications Medications: Current Medications Acetaminophen (Tylenol 325mg Tab) 650 mg PO Q4H PRN PRN Reason: Fever >100.4 F Last Admin: 10/24/17 09:25 Dose: 650 mg Alprazolam (Xanax) 0.5 mg PO DAILY PRN PRN Reason: Anxiety Dexamethasone (Decadron) 4 mg PO BID [facility] Last Admin: 10/24/17 09:24 Dose: 4 mg Famotidine (Pepcid) 40 mg PO HS [facility] Hydralazine HCl (Apresoline) 10 mg IVP Q6 PRN PRN Reason: Systolic Blood Pressure Sodium Chloride (Sodium Chloride 0.9%) 1,000 mls @ 125 mls/hr IV .Q8H [facility] Last Admin: 10/24/17 05:33 Dose: 125 mls/hr Cefepime HCl (Maxipime 1gm) 1 gm in 100 mls @ 100 mls/hr IVPB Q24H [facility] PRN Reason: Protocol Stop: 11/02/17 10:16 Montelukast Sodium (Singulair) 10 mg PO DAILY [facility] Last Admin: 10/24/17 09:25 Dose: 10 mg Umeclidinium [place] [Incruse Ellipta] 1 Puff (Home Med) 1 puff IH DAILY [facility] Last Admin: 10/24/17 10:25 Dose: Not Given Oxycodone/Acetaminophen (Percocet 5/325 Mg Tab) 1 tab PO Q6 PRN PRN Reason: Pain, severe (8-10) Stop: 10/27/17 12:07 Last Admin: 10/24/17 12:45 Dose: 1 tab Povidone Iodine (Betadine 5% Opht Soln) 0 ml OS DAILY [facility] Zolpidem Tartrate (Ambien) 5 mg PO HS PRN PRN Reason: Insomnia Results - Vital Signs Recent Vital Signs: Last Vital Signs Temp 98.1 F 10/24/17 14:17 Pulse 77 10/24/17 14:17 Resp 14 10/24/17 14:17 BP 92/58 L 10/24/17 14:17 Pulse Ox 129 H 10/24/17 05:36 - Labs Result Diagrams: 10/24/17 06:00 10/24/17 06:00 Labs: Laboratory Results - last 24 hr 10/24/17 10/24/17 10/24/17 02:20 03:18 03:40 WBC RBC Hgb Hct MCV MCH MCHC RDW Plt Count Manual Plt Count Gran % Lymph % (Auto) [place] % (Auto) Eos % (Auto) Baso % (Auto) Gran # Lymph # [place] # Eos # Baso # Neutrophils % (Manual) Band Neutrophils % Lymphocytes % (Manual) Monocytes % (Manual) Platelet Evaluation Microcytosis (manual) pO2 32 VBG pH 7.22 L VBG pCO2 54.0 VBG HCO3 22.1 VBG Total CO2 23.8 VBG O2 Sat (Calc) 57.4 VBG Base Excess -6.1 L VBG Potassium 6.4 H* Sodium 133.0 Chloride 103.0 Glucose 61 L Lactate 5.0 H* FiO2 21.0 Potassium Carbon Dioxide Anion Gap BUN Creatinine Est GFR ( Amer) Est GFR (Non-Af Amer) POC Glucose (mg/dL) 193 H Random Glucose Serum Osmolality Calcium Phosphorus Magnesium Total Bilirubin Direct Bilirubin AST ALT Alkaline Phosphatase Total Protein Albumin Globulin Albumin/Globulin Ratio Lipase Procalcitonin Venous Blood Potassium 6.4 H* Urine Color Yellow Urine Appearance Cloudy Urine pH 6.5 Ur Specific [place] 1.010 Urine Protein Trace H Urine Glucose (UA) Negative Urine Ketones Negative Urine Blood Large H Urine Nitrate Positive H Urine Bilirubin Negative Urine Urobilinogen 0.2 Ur Leukocyte Esterase Large H Urine RBC 2 - 5 Urine WBC 20 - 25 Ur Epithelial Cells 0 - 2 Urine Bacteria Trace Urine Osmolality Ur Random Creatinine Ur Random Sodium Influenza Typ A,B (EIA) Blood Type Antibody Screen STARLA, Poly Interpret BBK History Checked 10/24/17 10/24/17 10/24/17 04:30 06:00 06:00 WBC 20.3 H D RBC 4.08 Hgb 11.1 L D Hct 33.5 L MCV 82.1 MCH 27.2 MCHC 33.1 RDW 16.7 H Plt Count 21 L* Manual Plt Count Gran % 95.0 H Lymph % (Auto) 1.3 L [place] % (Auto) 3.7 Eos % (Auto) 0.0 L Baso % (Auto) 0.0 Gran # 19.27 H Lymph # 0.3 L [place] # 0.8 H Eos # 0.0 Baso # 0.00 Neutrophils % (Manual) 90 H Band Neutrophils % 6 H Lymphocytes % (Manual) 1 L Monocytes % (Manual) 3 Platelet Evaluation Low Microcytosis (manual) 1+ pO2 VBG pH VBG pCO2 VBG HCO3 VBG Total CO2 VBG O2 Sat (Calc) VBG Base Excess VBG Potassium Sodium 136 Chloride 104 Glucose Lactate FiO2 Potassium 5.6 H* Carbon Dioxide 24 Anion Gap 14 BUN 66 H Creatinine 1.6 H Est GFR ( Amer) 40 Est GFR (Non-Af Amer) 33 POC Glucose (mg/dL) Random Glucose 68 L Serum Osmolality Calcium 8.4 Phosphorus 2.6 Magnesium 2.3 H Total Bilirubin 2.1 H Direct Bilirubin AST 35 ALT 68 H Alkaline Phosphatase 109 Total Protein 5.4 L Albumin 2.7 L Globulin 2.6 Albumin/Globulin Ratio 1.0 L Lipase Procalcitonin Venous Blood Potassium Urine Color Urine Appearance Urine pH Ur Specific [place] Urine Protein Urine Glucose (UA) Urine Ketones Urine Blood Urine Nitrate Urine Bilirubin Urine Urobilinogen Ur Leukocyte Esterase Urine RBC Urine WBC Ur Epithelial Cells Urine Bacteria Urine Osmolality Ur Random Creatinine Ur Random Sodium Influenza Typ A,B (EIA) Negative for flu a/b Blood Type Antibody Screen STARLA, Poly Interpret BBK History Checked 10/24/17 10/24/17 10/24/17 06:30 06:30 06:33 WBC RBC Hgb Hct MCV MCH MCHC RDW Plt Count Manual Plt Count 35 L* Gran % Lymph % (Auto) [place] % (Auto) Eos % (Auto) Baso % (Auto) Gran # Lymph # [place] # Eos # Baso # Neutrophils % (Manual) Band Neutrophils % Lymphocytes % (Manual) Monocytes % (Manual) Platelet Evaluation Microcytosis (manual) pO2 VBG pH VBG pCO2 VBG HCO3 VBG Total CO2 VBG O2 Sat (Calc) VBG Base Excess VBG Potassium Sodium Chloride Glucose Lactate FiO2 Potassium Carbon Dioxide Anion Gap BUN Creatinine Est GFR ( Amer) Est GFR (Non-Af Amer) POC Glucose (mg/dL) Random Glucose Serum Osmolality Calcium Phosphorus Magnesium Total Bilirubin Direct Bilirubin AST ALT Alkaline Phosphatase Total Protein Albumin Globulin Albumin/Globulin Ratio Lipase 434 H Procalcitonin Venous Blood Potassium Urine Color Urine Appearance Urine pH Ur Specific [place] Urine Protein Urine Glucose (UA) Urine Ketones Urine Blood Urine Nitrate Urine Bilirubin Urine Urobilinogen Ur Leukocyte Esterase Urine RBC Urine WBC Ur Epithelial Cells Urine Bacteria Urine Osmolality 409 Ur Random Creatinine Ur Random Sodium 33 Influenza Typ A,B (EIA) Blood Type Antibody Screen STARLA, Poly Interpret BBK History Checked 10/24/17 10/24/17 10/24/17 06:33 06:45 06:45 WBC RBC Hgb Hct MCV MCH MCHC RDW Plt Count Manual Plt Count Gran % Lymph % (Auto) [place] % (Auto) Eos % (Auto) Baso % (Auto) Gran # Lymph # [place] # Eos # Baso # Neutrophils % (Manual) Band Neutrophils % Lymphocytes % (Manual) Monocytes % (Manual) Platelet Evaluation Microcytosis (manual) pO2 VBG pH VBG pCO2 VBG HCO3 VBG Total CO2 VBG O2 Sat (Calc) VBG Base Excess VBG Potassium Sodium Chloride Glucose Lactate FiO2 Potassium Carbon Dioxide Anion Gap BUN Creatinine Est GFR ( Amer) Est GFR (Non-Af Amer) POC Glucose (mg/dL) Random Glucose Serum Osmolality 299 Calcium Phosphorus Magnesium Total Bilirubin Direct Bilirubin AST ALT Alkaline Phosphatase Total Protein Albumin Globulin Albumin/Globulin Ratio Lipase Procalcitonin 6.92 H Venous Blood Potassium Urine Color Urine Appearance Urine pH Ur Specific [place] Urine Protein Urine Glucose (UA) Urine Ketones Urine Blood Urine Nitrate Urine Bilirubin Urine Urobilinogen Ur Leukocyte Esterase Urine RBC Urine WBC Ur Epithelial Cells Urine Bacteria Urine Osmolality Ur Random Creatinine 51 Ur Random Sodium Influenza Typ A,B (EIA) Blood Type Antibody Screen STARLA, Poly Interpret BBK History Checked 10/24/17 10/24/17 10/24/17 06:45 09:00 09:00 WBC RBC Hgb Hct MCV MCH MCHC RDW Plt Count Manual Plt Count Gran % Lymph % (Auto) [place] % (Auto) Eos % (Auto) Baso % (Auto) Gran # Lymph # [place] # Eos # Baso # Neutrophils % (Manual) Band Neutrophils % Lymphocytes % (Manual) Monocytes % (Manual) Platelet Evaluation Microcytosis (manual) pO2 24 L VBG pH 7.37 VBG pCO2 46.0 VBG HCO3 26.6 VBG Total CO2 28.0 VBG O2 Sat (Calc) 44.4 VBG Base Excess 0.8 VBG Potassium 4.6 Sodium 137.0 Chloride 106.0 Glucose 110 H Lactate 2.8 H FiO2 21.0 Potassium Carbon Dioxide Anion Gap BUN Creatinine Est GFR ( Amer) Est GFR (Non-Af Amer) POC Glucose (mg/dL) Random Glucose Serum Osmolality Calcium Phosphorus Magnesium Total Bilirubin Direct Bilirubin 1.1 H AST ALT Alkaline Phosphatase Total Protein Albumin Globulin Albumin/Globulin Ratio Lipase Procalcitonin Venous Blood Potassium 4.6 Urine Color Urine Appearance Urine pH Ur Specific [place] Urine Protein Urine Glucose (UA) Urine Ketones Urine Blood Urine Nitrate Urine Bilirubin Urine Urobilinogen Ur Leukocyte Esterase Urine RBC Urine WBC Ur Epithelial Cells Urine Bacteria Urine Osmolality Ur Random Creatinine Ur Random Sodium Influenza Typ A,B (EIA) Blood Type A POSITIVE Antibody Screen Negative STARLA, Poly Interpret BBK History Checked Patient has bt 10/24/17 10/24/17 12:30 12:50 WBC RBC Hgb Hct MCV MCH MCHC RDW Plt Count Manual Plt Count Gran % Lymph % (Auto) [place] % (Auto) Eos % (Auto) Baso % (Auto) Gran # Lymph # [place] # Eos # Baso # Neutrophils % (Manual) Band Neutrophils % Lymphocytes % (Manual) Monocytes % (Manual) Platelet Evaluation Microcytosis (manual) pO2 54 VBG pH 7.39 VBG pCO2 35.0 L VBG HCO3 21.2 VBG Total CO2 22.3 VBG O2 Sat (Calc) 92.7 H VBG Base Excess -3.1 L VBG Potassium 4.4 Sodium 134.0 Chloride 105.0 Glucose 120 H Lactate 3.7 H FiO2 21.0 Potassium Carbon Dioxide Anion Gap BUN Creatinine Est GFR ( Amer) Est GFR (Non-Af Amer) POC Glucose (mg/dL) Random Glucose Serum Osmolality Calcium Phosphorus Magnesium Total Bilirubin Direct Bilirubin AST ALT Alkaline Phosphatase Total Protein Albumin Globulin Albumin/Globulin Ratio Lipase Procalcitonin Venous Blood Potassium 4.4 Urine Color Urine Appearance Urine pH Ur Specific [place] Urine Protein Urine Glucose (UA) Urine Ketones Urine Blood Urine Nitrate Urine Bilirubin Urine Urobilinogen Ur Leukocyte Esterase Urine RBC Urine WBC Ur Epithelial Cells Urine Bacteria Urine Osmolality Ur Random Creatinine Ur Random Sodium Influenza Typ A,B (EIA) Blood Type Antibody Screen STARLA, Poly Interpret Negative BBK History Checked
--- NOTE | 2017-10-24 18:16 | CARD ---
APPROVED REPORT EKG Measurement Heart [id number] <Conclusion> Normal sinus rhythm Normal ECG
--- NOTE | 2017-10-24 20:45 | CON ---
DATE: 10/24/2017 LOCATION: The patient was seen earlier today in room 270, bed 2. CHIEF COMPLAINT: Weakness, generalized aches and pains times several days duration. HISTORY OF PRESENT ILLNESS: This is a 62-year-old female who has stage IV colon cancer, with mets to the liver, mets to the lungs, with GERD, hyperlipidemia, who was admitted now with generalized aches and pains. Complaining of weakness. There has been some dysuria, frequency. There is some headache, lower abdominal pain. No nausea. No vomiting. PAST MEDICAL HISTORY: Include colon cancer with mets to the liver and lung, hypertension, hyperlipidemia, glaucoma and anxiety. PAST SURGICAL HISTORY: Left chest wall Port-A-Cath. ALLERGIES: THE PATIENT HAS NO KNOWN ALLERGIES. PHYSICAL EXAMINATION: GENERAL: The patient is in bed, appearing chronically ill, debilitated and weak. VITAL SIGNS: Temperature of 101.4, heart rate of 120, respiratory rate of 22, blood pressure is 120/70, was his lowest 91/52. HEENT: Unremarkable. NECK: Supple. LUNGS: Have decreased breath sounds. HEART: Normal S1, S2. ABDOMEN: Soft, nontender. LABORATORY DATA: Reveals the patient's white count of 28,000, hemoglobin of 14, platelets of 29,000. Coagulation is noted. The blood gases are reviewed. Chemistries reveals the patient's creatinine is 1.6 yesterday it was 2.0 prior to this admission, the patient's creatinine was 1.1. The patient has an elevated lipase and procalcitonin 6.92 with ALT of 68, potassium 5.6. Urinalysis is noted, 25 WBCs. Serology, influenza are negative. Microbiology is pending. The patient had a CAT scan of the head, which shows hypertensive mass lesion anterior aspect of the right superior cerebellum, extending into the cerebellar peduncle. This is a new findings for this patient read by Dr. Jose Momin. The patient also had a CAT scan of the chest and CAT scan of the abdomen and pelvis, large right upper lobe mass measure 5 x 4 cm is noted. Pancreatic inflammation representing acute pancreatitis and a massive splenomegaly is also noted. ASSESSMENT AND PLAN: This is a 62-year-old female with stage IV colon cancer with liver and lung metastases, gastroesophageal reflux disease, dyslipidemia, hypertension, glaucoma and anemia now #1 is severe sepsis with urine as the source, with acute kidney injury from creatinine is change from 1.1 to 2.2, with new FERN CUTTER lesion. Most likely represents metastatic lesion to the brain. We will treat the patient with cefepime . Discontinue ceftriaxone. Pending blood cultures, urine cultures. Discontinue azithromycin. We will make further recommendations. Pending jaffe culture results. We will make further recommendations upon availability of initial culture results. Overall prognosis quite poor for this 62-year-old female with stage IV colon cancer with metastatic disease to the liver, lung and brain. Should consider hospice setting. We will follow closely. Carlo Cheung MD
[2017-10-25] MEDS ORDERED: Phenylephrine 0.5% Nasal Spray (15 ml) NS PRN (00:41)
[2017-10-25] MEDS ORDERED: Oxymetazoline 0.05% Nasal Spray (30 ml) NS SCH ×2 (01:00→11:45)
[2017-10-25 01:28] LABS: HEMOGLOBIN 9.7 g/dL (12.0-16.0); MEAN CORPUSCULAR HEMOGLOBIN 27.3 pg (25.0-35.0); MEAN CORPUSCULAR HGB CONC 32.1 g/dl (31.0-37.0); RBC 3.55 10^6/uL (3.5-6.1); RED CELL DISTRIBUTION WIDTH 16.8 % (11.5-14.5); WHITE BLOOD COUNT 24.4 10^3/ul (4.5-11.0)
[2017-10-25 01:34] LABS: PLATELET COUNT 21 10^3/uL (120.0-450.0)
[2017-10-25 01:35] LABS: MEAN CELL VOLUME 85.1 fl (80.0-105.0)
--- NOTE | 2017-10-25 01:35 | CP.PCM.PN ---
Subjective - Date & Time of Evaluation Date of Evaluation: 10/25/17 Time of Evaluation: 01:35 - Subjective Subjective: Received call from patient's nurse stating patient was bleeding from the nose. Patient was examined and seen to be bleeding from the left nostril. Blood clots were also forming. Patient was instructed to blow out remaining clots from nose. Rhino rocket was successfully placed. STAT CBC, PT, PTT were ordered. Labs revealed thrombocytopenia; 1 unit of platelet ordered for transfusion. Will continue to monitor patient. Vitals at time of procedure as well as after were stable. Objective - Vital Signs/Intake and Output Vital Signs (last 24 hours): Temp Pulse Resp BP Pulse Ox 97.4 F L 61 18 121/74 99 10/25/17 00:01 10/25/17 00:01 10/25/17 00:01 10/25/17 00:01 10/25/17 00:01 Intake and Output: 10/24/17 10/25/17 18:59 06:59 Intake Total 1540 Balance 1540 - Medications Medications: Current Medications Acetaminophen (Tylenol 325mg Tab) 650 mg PO Q4H PRN PRN Reason: Fever >100.4 F Last Admin: 10/24/17 21:11 Dose: 650 mg Alprazolam (Xanax) 0.5 mg PO DAILY PRN PRN Reason: Anxiety Last Admin: 10/24/17 23:16 Dose: 0.5 mg Dexamethasone (Decadron) 4 mg PO BID [facility] Last Admin: 10/24/17 17:43 Dose: 4 mg Famotidine (Pepcid) 40 mg PO HS [facility] Last Admin: 10/24/17 21:12 Dose: 40 mg Hydralazine HCl (Apresoline) 10 mg IVP Q6 PRN PRN Reason: Systolic Blood Pressure Sodium Chloride (Sodium Chloride 0.9%) 1,000 mls @ 125 mls/hr IV .Q8H [facility] Last Admin: 10/24/17 21:12 Dose: 125 mls/hr Cefepime HCl (Maxipime 1gm) 1 gm in 100 mls @ 100 mls/hr IVPB Q24H [facility] PRN Reason: Protocol Stop: 11/02/17 10:16 Last Admin: 10/24/17 15:47 Dose: 100 mls/hr Montelukast Sodium (Singulair) 10 mg PO DAILY [facility] Last Admin: 10/24/17 09:25 Dose: 10 mg Umeclidinium [place] [Incruse Ellipta] 1 Puff (Home Med) 1 puff IH DAILY [facility] Last Admin: 10/24/17 10:25 Dose: Not Given Povidone Iodine (Betadine 5% Opht Soln) 0 ml OS DAILY [facility] Tramadol HCl (Ultram) 50 mg PO TID PRN PRN Reason: Pain, moderate (4-7) Zolpidem Tartrate (Ambien) 5 mg PO HS PRN PRN Reason: Insomnia - Labs Labs: 10/24/17 06:00 10/24/17 06:00 PT 12.1 SECONDS (9.4-12.5) 10/23/17 21:30 INR 1.06 (0.93-1.08) 10/23/17 21:30 APTT 19.7 Seconds (25.1-36.5) L 10/23/17 21:30
[2017-10-25 01:36] LABS: PROTHROMBIN TIME 14.2 SECONDS (9.4-12.5)
[2017-10-25 01:37] LABS: INR 1.24 (0.93-1.08)
[2017-10-25] MEDS: Sodium Chloride 0.9% 1,000 ML IV SCH ×3 (05:26→17:27)
[2017-10-25 07:09] LABS: GRAN # 16.76 (1.4-6.5); GRAN % 95.8 % (50.0-68.0); HEMOGLOBIN 9.2 g/dL (12.0-16.0); LYMPH # 0.4 (1.2-3.4); LYMPH % 2.1 % (22.0-35.0); MEAN CELL VOLUME 86.1 fl (80.0-105.0); MEAN CORPUSCULAR HEMOGLOBIN 27.3 pg (25.0-35.0); MEAN CORPUSCULAR HGB CONC 31.7 g/dl (31.0-37.0); MONO # 0.4 (0.1-0.6); MONO % 2.1 % (1.0-6.0); RBC 3.37 10^6/uL (3.5-6.1); WHITE BLOOD COUNT 17.5 10^3/ul (4.5-11.0)
[2017-10-25 07:18] LABS: ALBUMIN 2.6 g/dL (3.0-4.8); CALCIUM 8.5 mg/dL (8.4-10.5); MAGNESIUM 2.5 mg/dL (1.7-2.2)
[2017-10-25 07:33] LABS: PLATELET COUNT 24 10^3/uL (120.0-450.0)
[2017-10-25] MEDS: UMECLIDINIUM BROMIDE IH SCH (09:31)
[2017-10-25 09:34] LABS: GRAN # 16.28 (1.4-6.5); GRAN % 92.9 % (50.0-68.0); HEMOGLOBIN 8.7 g/dL (12.0-16.0); LYMPH # 0.4 (1.2-3.4); LYMPH % 2.1 % (22.0-35.0); MEAN CELL VOLUME 86.1 fl (80.0-105.0); MEAN CORPUSCULAR HEMOGLOBIN 27.4 pg (25.0-35.0); MEAN CORPUSCULAR HGB CONC 31.9 g/dl (31.0-37.0); MEAN PLATELET VOLUME 9.8 fl (7.0-11.0); MONO # 0.9 (0.1-0.6); RBC 3.17 10^6/uL (3.5-6.1); RED CELL DISTRIBUTION WIDTH 16.8 % (11.5-14.5); WHITE BLOOD COUNT 17.5 10^3/ul (4.5-11.0)
[2017-10-25] MEDS: Povidone Iodine Ophthalmic 5% Soln OS SCH ×2 (09:39→09:49)
[2017-10-25] MEDS: Meropenem 500 MG in Sodium Chloride 0.9% 50 ML IVPB SCH ×2 (10:34→21:21)
[2017-10-25] MEDS ORDERED: Sod Polystyrene Sulf 15 gm/60 ml Susp PO ONE (12:11)
[2017-10-25] MEDS ORDERED: Oxymetazoline 0.05% Nasal Spray (30 ml) NS PRN (12:41)
--- NOTE | 2017-10-25 13:10 | CP.PCM.PN ---
Subjective - Date & Time of Evaluation Date of Evaluation: 10/25/17 Time of Evaluation: 13:07 - Subjective Subjective: Follow up Nephrology Consultation: Assessment: critical Acute Kidney Injury (N17.9) likely due to sepsis, low BP: improved Hyperkalemia likely due to WALT, acidosis and likely intravascular hemolysis as suggested by high LDH, hematuria but without RBC, high bilirubin lactic acidosis with sepsis Hypertensive Chronic Kidney Disease (I12.9) Chronic Kidney Disease (N18.3) Stage 3 Anemia , thrombocytopenia HTN (I12.9) metastatic colon carcinoma splenomegaly Plan No acute need for renal replacement therapy at this time. maintain hemodynamics stable. Patient not on ACEI/ARB due to WALT medical management of hyperkalemia, dose of kayexylate today Monitor Input/Output, daily weights and renal function with basic metabolic panel continue with IVF @ 75 ml/hr oncology eval. further eval for possible hemolysis as per primary team Dose meds/antibiotics for reduced GFR. Avoid nephrotoxins/NSAIDs Glycemic control Further work up/management as per primary team Thanks for allowing me to participate in care of your patient. Will follow patient with you. Please call if any Qs Dr Lincoln Kennedy Office: [phone] Chief Complaint; fall HPI: Pt is a 62 f with hx of HTN, stage IV colon cancer w/ metastasis to liver, lung, and brain, CKD stage 3 (baseline cr 1.1-1.2) presented with complaints of fall and generalized weakness. she feels better now reason for consult was WALT and hyperkalemia. also has sepsis with lactic acidosis Denies OTC/herbal meds or NSAIDs No recent iodinated contrast exposure. initially episodes of low BP. (90/60s) ROS: Cardiovascular: No chest pain. Pulmonary: No shortness of breath Gastrointestinal: denies abdominal pain No nausea. No vomiting. Genitourinary: No pain while urinating. Denies blood in urine. All other negative except generalized weakness, decreased appetite and fall, low back pain had nose bleeds Physical Examination: General Appearance: Comfortable, in no acute respiratory distress, co-operative Vitals reviewed and noted as below Head; Atraumatic, normocephalic ENT: no ulcers no thrush. Tongue is midline. Oropharynx: no rash or ulcers. EYES: Pupils are equal, round and reactive to light accommodation. Eye muscles and extraocular movement intact. Sclera is icteric. Neck; supple no lymphadenopathy, no thyromegaly or bruit Lungs: Normal respiratory rate/effort. Breath sounds bilateral decreased at bases Heart: Increased rate. s1s2 normal. No rub or gallop. Extremities: no edema. No varicose veins Neurological: Patient is alert, awake and oriented to person, place and time. No focal deficit. Strength bilateral appropriate and equal Skin: Warm and dry. Normal turgor. No rash. Palpitation: Normal elasticity for age Abdomen: Abdomen is soft. Bowel sounds +. There is no abdominal tenderness, no guarding/rigidity no organomegaly Psych: normal insight and normal affect/mood MSK: no joint tenderness or swelling. Digits and nails normal, no deformity : kidney or bladder not palpable Labs/imaging reviewed. Past medical history, past surgical history, family history, social history, allergy reviewed and noted as below Family hx: no hx of CKD. Rest non-contributory UA: large blood with only few RBC CT: metastatic lesions to lung, brain. has splenomegaly Objective - Vital Signs/Intake and Output Vital Signs (last 24 hours): Temp Pulse Resp BP Pulse Ox 97.8 F 111 H 18 143/78 100 10/25/17 12:00 10/25/17 12:00 10/25/17 12:00 10/25/17 12:00 10/25/17 06:00 Intake and Output: 10/25/17 10/25/17 06:59 18:59 Intake Total 1740 931 Balance 1740 931 - Medications Medications: Current Medications Acetaminophen (Tylenol 325mg Tab) 650 mg PO Q4H PRN PRN Reason: Fever >100.4 F Last Admin: 10/24/17 21:11 Dose: 650 mg Alprazolam (Xanax) 0.5 mg PO DAILY PRN PRN Reason: Anxiety Last Admin: 10/25/17 09:39 Dose: 0.5 mg Dexamethasone (Decadron) 4 mg PO BID [facility] Last Admin: 10/25/17 09:39 Dose: 4 mg Famotidine (Pepcid) 40 mg PO HS [facility] Last Admin: 10/24/17 21:12 Dose: 40 mg Hydralazine HCl (Apresoline) 10 mg IVP Q6 PRN PRN Reason: Systolic Blood Pressure Meropenem 500 mg/ Sodium (Chloride) 50 mls @ 100 mls/hr IVPB Q12 [facility] PRN Reason: Protocol Stop: 11/01/17 10:01 Last Admin: 10/25/17 10:34 Dose: 100 mls/hr Montelukast Sodium (Singulair) 10 mg PO DAILY [facility] Last Admin: 10/25/17 09:39 Dose: 10 mg Umeclidinium [place] [Incruse Ellipta] 1 Puff (Home Med) 1 puff IH DAILY [facility] Last Admin: 10/25/17 09:31 Dose: Not Given Oxymetazoline HCl (Afrin 0.05%) 0 ml NS Q12H PRN PRN Reason: congestion Povidone Iodine (Betadine 5% Opht Soln) 0 ml OS DAILY [facility] Last Admin: 10/25/17 09:49 Dose: Not Given Tramadol HCl (Ultram) 50 mg PO TID PRN PRN Reason: Pain, moderate (4-7) Zolpidem Tartrate (Ambien) 5 mg PO HS PRN PRN Reason: Insomnia - Labs Labs: 10/25/17 09:30 10/25/17 06:00 PT 14.2 SECONDS (9.4-12.5) H 10/25/17 01:15 INR 1.24 (0.93-1.08) H 10/25/17 01:15 APTT 21.0 Seconds (25.1-36.5) L 10/25/17 01:15
--- NOTE | 2017-10-25 18:44 | CP.PCM.PN ---
<AngelicaLouie - Last Filed: 10/25/17 18:36> Subjective - Date & Time of Evaluation Date of Evaluation: 10/25/17 Time of Evaluation: 07:30 - Subjective Subjective: Louie Dominguez DO PGY1 - Internal Medicine Progess Note Patient seen and examined at bedside. Overnight, patient had nosebleed from left nare. Had packing placed, and stat CBC done, which showed thrombocytopenia. Patient was transfused one unit of platelets early this morning. Patient complaining of difficulty breathing and discomfort because of the packing. Packing from right nare removed, with some epistaxis after removal , appeared to be anterior, treated with afrin nasal spray which stopped the bleed. Nurse instructed to call if bleeding recurred. Patient instructed to inform nurse if she started bleeding, or if she tasted or felt blood in the back of her throat. Patient was concerned about her overall health, asking about the specifics of various lab results. Patient denies any chest pain, shortness of breath, abdominal pain, nausea, vomiting, diarrhea, constipation, fever, or chills. Objective - Vital Signs/Intake and Output Vital Signs (last 24 hours): Temp Pulse Resp BP Pulse Ox 97.6 F 62 19 144/70 100 10/25/17 17:40 10/25/17 17:57 10/25/17 17:40 10/25/17 17:40 10/25/17 06:00 Intake and Output: 10/25/17 10/25/17 06:59 18:59 Intake Total 1740 931 Balance 1740 931 - Medications Medications: Current Medications Acetaminophen (Tylenol 325mg Tab) 650 mg PO Q4H PRN PRN Reason: Fever >100.4 F Last Admin: 10/24/17 21:11 Dose: 650 mg Alprazolam (Xanax) 0.5 mg PO DAILY PRN PRN Reason: Anxiety Last Admin: 10/25/17 09:39 Dose: 0.5 mg Dexamethasone (Decadron) 4 mg PO BID [facility] Last Admin: 10/25/17 17:26 Dose: 4 mg Famotidine (Pepcid) 40 mg PO HS [facility] Last Admin: 10/24/17 21:12 Dose: 40 mg Hydralazine HCl (Apresoline) 10 mg IVP Q6 PRN PRN Reason: Systolic Blood Pressure Meropenem 500 mg/ Sodium (Chloride) 50 mls @ 100 mls/hr IVPB Q12 [facility] PRN Reason: Protocol Stop: 11/01/17 10:01 Last Admin: 10/25/17 10:34 Dose: 100 mls/hr Sodium Chloride (Sodium Chloride 0.9%) 1,000 mls @ 75 mls/hr IV .[id number] [facility] Last Admin: 10/25/17 17:27 Dose: 75 mls/hr Montelukast Sodium (Singulair) 10 mg PO DAILY [facility] Last Admin: 10/25/17 09:39 Dose: 10 mg Umeclidinium [place] [Incruse Ellipta] 1 Puff (Home Med) 1 puff IH DAILY [facility] Last Admin: 10/25/17 09:31 Dose: Not Given Oxymetazoline HCl (Afrin 0.05%) 0 ml NS Q12H PRN PRN Reason: congestion Povidone Iodine (Betadine 5% Opht Soln) 0 ml OS DAILY [facility] Last Admin: 10/25/17 09:49 Dose: Not Given Tramadol HCl (Ultram) 50 mg PO TID PRN PRN Reason: Pain, moderate (4-7) Zolpidem Tartrate (Ambien) 5 mg PO HS PRN PRN Reason: Insomnia - Labs Labs: 10/25/17 09:30 10/25/17 06:00 PT 14.2 SECONDS (9.4-12.5) H 10/25/17 01:15 INR 1.24 (0.93-1.08) H 10/25/17 01:15 APTT 21.0 Seconds (25.1-36.5) L 10/25/17 01:15 - Constitutional Appears: Non-toxic, No Acute Distress, Chronically Ill - Head Exam Head Exam: ATRAUMATIC, NORMOCEPHALIC - Eye Exam Eye Exam: EOMI, Normal appearance, PERRL - ENT Exam Additional comments: Nares packed with rhino-rockets bilaterally. Packing removed from right nare. - Neck Exam Neck Exam: Normal Inspection - Respiratory Exam Respiratory Exam: Clear to Ausculation Bilateral, NORMAL BREATHING PATTERN - Cardiovascular Exam Cardiovascular Exam: RRR, +S1, +S2 - GI/Abdominal Exam GI & Abdominal Exam: Soft, Normal Bowel Sounds. absent: Tenderness - Extremities Exam Extremities Exam: absent: Calf Tenderness, Pedal Edema - Neurological Exam Neurological Exam: Alert, Awake, Oriented x3 - Psychiatric Exam Psychiatric exam: Normal Affect, Normal Mood - Skin Skin Exam: Dry, Intact, Normal Color Assessment and Plan - Assessment and Plan (Free Text) Assessment: Patient is a 62 year old female with past medical history of HTN, L eye vision loss, GERD, stage IV colon cancer w/ metastasis to liver, lung, and brain who is admitted for evaluation and treatment of generalized weakness and fall. Sepsis, UTI - leukocytosis improving; patient clinically improved - blood culture shows gram negative rods in two bottles. Urine cultures show 10, 000-50,000 CFU of multiple organisms, probable contaminants - Continue merrem per ID - BP stable; Continue IVF NS @ 75 - procal elevated - ID consulted- appreciate recommendations Fall - high risk fall precautions - lumbar spine XR significant for multilevel degenerative disk disease - CT head shows no hemorrhage or fracture; new mass vs post-radiation changes - CT abdomen and pelvis shows no hemorrhage or fractures Acute on Chronic Thrombocytopenia - Patient had epistaxis overnight; no longer bleeding - s/p 2u platelets - avoid subq heparin and protonix - Continue to monitor - Hem/Onc on consult; appreciate recs WALT - Improving - avoid nephrotoxins - continue IVF NS @ 75; per nephro - Nephro on consult; appreciate recs Hyponatremic - Resovled with fluid administration - IVF NS @ 125 Hyperkalemic - Improving; repeat kayexalate today - Continue to monitor Hx of Stage IV Colon Cancer - continue home dexamethasone - Hem/onc on consult; appreciate recs Hx of Htn - hydralazine 5mg IV q6 prn SBP > 180, holding parameters- do not administer if HR is > 100 bpm Prophylaxis - DVT ppx- scds - GI ppx- famotidine Patient case discussed with and plan approved by attending Dr. Diop <Rashel Diop - Last Filed: 10/26/17 14:23> Objective - Vital Signs/Intake and Output Vital Signs (last 24 hours): Temp Pulse Resp BP Pulse Ox 97.7 F 56 L 20 152/85 H 98 10/26/17 12:00 10/26/17 12:00 10/26/17 12:00 10/26/17 12:00 10/26/17 06:00 Intake and Output: 10/26/17 10/26/17 06:59 18:59 Intake Total 1000 Balance 1000 - Medications Medications: Current Medications Acetaminophen (Tylenol 325mg Tab) 650 mg PO Q4H PRN PRN Reason: Fever >100.4 F Last Admin: 10/24/17 21:11 Dose: 650 mg Al Hydrox/Mg Hydrox/Simethicone (Maalox Plus 30 Ml) 30 ml PO DAILY PRN PRN Reason: Indigestion / Heartburn Last Admin: 10/26/17 08:30 Dose: 30 ml Alprazolam (Xanax) 0.5 mg PO Q6 PRN PRN Reason: Anxiety Dexamethasone (Decadron) 4 mg PO BID [facility] Last Admin: 10/26/17 10:04 Dose: 4 mg Famotidine (Pepcid) 20 mg IVP Q12 [facility] Hydralazine HCl (Apresoline) 10 mg IVP Q6 PRN PRN Reason: Systolic Blood Pressure Sodium Chloride (Sodium Chloride 0.9%) 1,000 mls @ 75 mls/hr IV .[id number] [facility] Last Admin: 10/25/17 17:27 Dose: 75 mls/hr Meropenem 500 mg/ Sodium (Chloride) 100 mls @ 100 mls/hr IVPB Q12 [facility] PRN Reason: Protocol Stop: 11/01/17 10:01 Last Admin: 10/26/17 10:12 Dose: 100 mls/hr Montelukast Sodium (Singulair) 10 mg PO DAILY [facility] Last Admin: 10/26/17 10:03 Dose: 10 mg Umeclidinium [place] [Incruse Ellipta] 1 Puff (Home Med) 1 puff IH DAILY [facility] Last Admin: 10/25/17 09:31 Dose: Not Given Ondansetron HCl (Zofran Inj) 4 mg IVP Q4H PRN PRN Reason: Nausea/Vomiting Last Admin: 10/26/17 08:29 Dose: 4 mg Oxymetazoline HCl (Afrin 0.05%) 0 ml NS Q12H PRN PRN Reason: congestion Povidone Iodine (Betadine 5% Opht Soln) 0 ml OS DAILY [facility] Last Admin: 10/25/17 09:49 Dose: Not Given Tramadol HCl (Ultram) 50 mg PO TID PRN PRN Reason: Pain, moderate (4-7) Zolpidem Tartrate (Ambien) 5 mg PO HS PRN PRN Reason: Insomnia - Labs Labs: 10/26/17 06:30 10/26/17 06:30 PT 14.2 SECONDS (9.4-12.5) H 10/25/17 01:15 INR 1.24 (0.93-1.08) H 10/25/17 01:15 APTT 21.0 Seconds (25.1-36.5) L 10/25/17 01:15 Attending/Attestation - Attestation I have personally seen and examined this patient.: Yes I have fully participated in the care of the patient.: Yes I have reviewed all pertinent clinical information, including history, physical exam and plan: Yes Notes (Text): 10/26/17 14:15 Attending note; Patient seen and examined with resident. Patient is 62 year old female with past medical history of hypertension, gastritis, stage IV colon cancer w/ metastasis to liver, lung, and brain, completed chemotherapy, completed palliative radiation therapy who is admitted for evaluation and treatment of generalized weakness and fall. found to have sepsis secondary to UTI. Blood culture is positive for gram-negative bacilli. Identification pending. Currently on meropenem. Sepsis is resolving. ID evaluation appreciated. thrombocytopenia; status post platelet transfusion. Monitor hemoglobin closely. case discussed with oncology in detail. Epistaxis; currently has left nasal packing. No active bleeding now. prognosis is poor. Patient will discuss with Dr. Calderón about further treatment options. Patient was offered hospice care during last admission which she denied. Monitor the patient closely. Upon discharge The patient will follow-up with PMD Dr. Levine.
--- NOTE | 2017-10-25 18:58 | CP.PCM.PN ---
Subjective - Date & Time of Evaluation Date of Evaluation: 10/25/17 Time of Evaluation: 10:00 - Subjective Subjective: Feels weak, has occasional epistaxis, no fevers overnight. Objective - Vital Signs/Intake and Output Vital Signs (last 24 hours): Temp Pulse Resp BP Pulse Ox 97.3 F L 67 20 130/74 100 10/25/17 07:35 10/25/17 07:35 10/25/17 07:35 10/25/17 07:35 10/25/17 06:00 Intake and Output: 10/25/17 10/25/17 06:59 18:59 Intake Total 1740 931 Balance 1740 931 - Medications Medications: Current Medications Acetaminophen (Tylenol 325mg Tab) 650 mg PO Q4H PRN PRN Reason: Fever >100.4 F Last Admin: 10/24/17 21:11 Dose: 650 mg Alprazolam (Xanax) 0.5 mg PO DAILY PRN PRN Reason: Anxiety Last Admin: 10/24/17 23:16 Dose: 0.5 mg Dexamethasone (Decadron) 4 mg PO BID [facility] Last Admin: 10/24/17 17:43 Dose: 4 mg Famotidine (Pepcid) 40 mg PO HS [facility] Last Admin: 10/24/17 21:12 Dose: 40 mg Hydralazine HCl (Apresoline) 10 mg IVP Q6 PRN PRN Reason: Systolic Blood Pressure Sodium Chloride (Sodium Chloride 0.9%) 1,000 mls @ 125 mls/hr IV .Q8H [facility] Last Admin: 10/25/17 05:26 Dose: 125 mls/hr Cefepime HCl (Maxipime 1gm) 1 gm in 100 mls @ 100 mls/hr IVPB Q24H [facility] PRN Reason: Protocol Stop: 11/02/17 10:16 Last Admin: 10/24/17 15:47 Dose: 100 mls/hr Montelukast Sodium (Singulair) 10 mg PO DAILY [facility] Last Admin: 10/24/17 09:25 Dose: 10 mg Umeclidinium [place] [Incruse Ellipta] 1 Puff (Home Med) 1 puff IH DAILY [facility] Last Admin: 10/24/17 10:25 Dose: Not Given Povidone Iodine (Betadine 5% Opht Soln) 0 ml OS DAILY [facility] Tramadol HCl (Ultram) 50 mg PO TID PRN PRN Reason: Pain, moderate (4-7) Zolpidem Tartrate (Ambien) 5 mg PO HS PRN PRN Reason: Insomnia - Labs Labs: 10/25/17 06:00 10/25/17 06:00 PT 14.2 SECONDS (9.4-12.5) H 10/25/17 01:15 INR 1.24 (0.93-1.08) H 10/25/17 01:15 APTT 21.0 Seconds (25.1-36.5) L 10/25/17 01:15 - Constitutional Appears: Non-toxic, Chronically Ill - ENT Exam ENT Exam: Mucous Membranes Moist - Neck Exam Neck Exam: absent: Meningismus - Respiratory Exam Respiratory Exam: Decreased Breath Sounds - Cardiovascular Exam Cardiovascular Exam: +S1, +S2 - GI/Abdominal Exam GI & Abdominal Exam: Soft. absent: Tenderness Assessment and Plan - Assessment and Plan (Free Text) Plan: Assessment Severe sepsis due to UTI with gram negative bacilli bacteremia metastatic colon cancer with mets to the lungs and liver on chemotherapy S/P port-a-cath placement dyslipidemia HTN anxiety disorder history of glaucoma Plan switched antibiotics to Merrem and will follow up identification and sensitivities of the gram negative bacilli in the blood; reviewed CT C/A/P overall prognosis is poor
--- NOTE | 2017-10-25 22:14 | CON ---
DATE: MEDICAL ONCOLOGY CONSULTATION LOCATION: She is currently located in 271, bed 2. REASON FOR ONCOLOGY CONSULTATION: Known history of metastatic colon cancer. HISTORY OF PRESENT ILLNESS: This s a 62-year-old female who is very well known to us. The patient is currently under the care of Dr. Calderón and has been for her known diagnosis of metastatic colon cancer, the patient was last seen in the office on 10/02/2017 in the midst of radiation treatment due to newly found brain mets. At that time, Dr. Calderón had once again initiated conversation and had talk to the patient about palliative care, hospice options; however, the patient had not made her decision as of yet. She has had a history of multiple lines of chemotherapy and most recently had a PET CT scan completed on 09/17/2017 which showed a new 2.2 x 2 cm lesion in the anterior right cerebellum extending to the peduncle and this is the lesion for which she had radiation. Currently, she is admitted with a chief complaint of generalized weakness and fall at home. On admission, she was noted to have a leukocytosis with a white count of 24. She denied loss of consciousness at that time, but did state that she has had ongoing generalized weakness, which we have known about and this has been worsened during her recent course of radiation treatment. She has a known baseline cytopenia due to her multiple lines of chemotherapy in the past as well. She has a known history of metastatic lesions to the liver as well. Currently, she is on antibiotic therapy for leukocytosis as well as positive UA. However, most recently, overnight she had episode of epistaxis lasting for longer than 1 hour. This was alleviated by bilateral nares packing. One of those was removed today and currently at bedside, she no longer has any complaints of bleeding. Her platelet count did drop to a level of 21,000 and she was transfused 1 unit of platelet, manual was 35. Due to the bleeding, her hemoglobin this morning has dropped to 8.7. She has responded to antimicrobial therapy with a decrease in her white count from 24 to 17. Currently, she is comfortable at bedside. PAST MEDICAL HISTORY: As per HPI. Known history of stage IV colon cancer with mets to the liver and to the brain most recently. FAMILY HISTORY: Noncontributory. ALLERGIES: NO KNOWN DRUG ALLERGIES. SOCIAL HISTORY: Denies any alcohol, tobacco, or illicit drug use. REVIEW OF SYSTEMS: As per HPI. PHYSICAL EXAMINATION: GENERAL: A and O x3. Resting comfortably. Sitting upright in bed. VITAL SIGNS: T-max 97.8, heart rate 61, and blood pressure 143/78. HEENT: Normocephalic, atraumatic. Positive nares packing is noted as well as dried blood bilaterally around both nares. No active signs of epistaxis is noted. Oropharynx is clear. LUNGS: Clear to auscultation bilaterally. No rales, rhonchi, or wheezing. CARDIOVASCULAR: S1 and S2 normal. Regular rate and rhythm. No murmurs, rubs, or gallops. ABDOMEN: Soft, nontender, nondistended. Positive bowel sounds. EXTREMITIES: No cyanosis, clubbing, or edema. LABORATORY DATA: White blood cell count 17.5, hemoglobin 8.7, hematocrit 27.3, MCV of 86.1, and platelet count 46, manual platelet count of 60. Chemistry; sodium 133, potassium 5.3, chloride 107, bicarbonate 20, BUN 54, creatinine 1.4, AST and ALT 22 and 57. Total bili at 1.1. Albumin 2.6. PT 14.2, PTT 21.0, and INR 1.24. ASSESSMENT AND PLAN: In summary, this is 62-year-old female very well-known to us with history of stage IV colon cancer with metastasis to the liver as well as the brain. Currently, she is admitted after completion of palliative radiation to new brain lesion with diagnoses of leukocytosis and urinary tract infection. Most recently, she had an overnight episode of epistaxis, which had been controlled by bilateral nares packing and received 1 unit platelet transfusion. Currently, manual platelet count is at 60,000 and there is no evidence of active bleeding. Hemoglobin has dropped to 8.7 as expected with the episodes of epistaxis. At this time, we currently recommend packed red blood cells transfusion should her hemoglobin drop below 8 and platelet transfusion should her platelet count drop below 10,000 or in the setting of active bleeding. She does have a followup appointment with Dr. Calderón this week. I did again discuss options regarding palliative care with the patient at bedside and she will continue to discuss these options with Dr. Calderón. At this time, she is not ready to make the decision as per the patient. She does state she would like to go home and not go to a rehab facility, but would rather go home. We will follow with you. Thank you kindly for this consultation request. Reno Gonzalez MD
[2017-10-26 07:47] LABS: GRAN # 8.47 (1.4-6.5); GRAN % 92.8 % (50.0-68.0); HEMOGLOBIN 8.5 g/dL (12.0-16.0); LYMPH # 0.3 (1.2-3.4); LYMPH % 3.4 % (22.0-35.0); MEAN CORPUSCULAR HEMOGLOBIN 27.2 pg (25.0-35.0); MEAN PLATELET VOLUME 10.1 fl (7.0-11.0); MONO # 0.4 (0.1-0.6); MONO % 3.8 % (1.0-6.0); RBC 3.13 10^6/uL (3.5-6.1); RED CELL DISTRIBUTION WIDTH 16.8 % (11.5-14.5); WHITE BLOOD COUNT 9.1 10^3/ul (4.5-11.0)
[2017-10-26 08:02] LABS: ALB/GLOB RATIO 1.1 (1.1-1.8); ALBUMIN 2.8 g/dL (3.0-4.8)
[2017-10-26] MEDS ORDERED: Alum-Mag Hydrox-Simethicone Susp (30 mL) PO PRN (08:19)
[2017-10-26] MEDS: Povidone Iodine Ophthalmic 5% Soln OS SCH (10:00)
[2017-10-26] MEDS: Meropenem 500 MG in Sodium Chloride 0.9% 100 ML IVPB SCH ×2 (10:12→21:03)
--- NOTE | 2017-10-26 10:15 | CP.PCM.PN ---
<AidenInocencio - Last Filed: 10/26/17 17:05> Subjective - Date & Time of Evaluation Date of Evaluation: 10/26/17 Time of Evaluation: 10:15 - Subjective Subjective: Inocencio Wolfe PGY1 IM Progress Note Patient was seen and examined at bedside. She is anxious and nauseous, and not able to eat. The patient is comforted and told that she will need to follow up with her oncologist regarding the cancer progression. Patient denies chest pain , shortness of breath, fevers/chills. Objective - Vital Signs/Intake and Output Vital Signs (last 24 hours): Temp Pulse Resp BP Pulse Ox 97.7 F 53 L 20 152/83 H 98 10/26/17 06:00 10/26/17 06:00 10/26/17 06:00 10/26/17 06:00 10/26/17 06:00 Intake and Output: 10/26/17 10/26/17 06:59 18:59 Intake Total 1000 Balance 1000 - Medications Medications: Current Medications Acetaminophen (Tylenol 325mg Tab) 650 mg PO Q4H PRN PRN Reason: Fever >100.4 F Last Admin: 10/24/17 21:11 Dose: 650 mg Al Hydrox/Mg Hydrox/Simethicone (Maalox Plus 30 Ml) 30 ml PO DAILY PRN PRN Reason: Indigestion / Heartburn Last Admin: 10/26/17 08:30 Dose: 30 ml Dexamethasone (Decadron) 4 mg PO BID [facility] Last Admin: 10/26/17 10:04 Dose: 4 mg Famotidine (Pepcid) 20 mg IVP Q12 [facility] Hydralazine HCl (Apresoline) 10 mg IVP Q6 PRN PRN Reason: Systolic Blood Pressure Sodium Chloride (Sodium Chloride 0.9%) 1,000 mls @ 75 mls/hr IV .[id number] [facility] Last Admin: 10/25/17 17:27 Dose: 75 mls/hr Meropenem 500 mg/ Sodium (Chloride) 100 mls @ 100 mls/hr IVPB Q12 [facility] PRN Reason: Protocol Stop: 11/01/17 10:01 Last Admin: 10/26/17 10:12 Dose: 100 mls/hr Montelukast Sodium (Singulair) 10 mg PO DAILY [facility] Last Admin: 10/26/17 10:03 Dose: 10 mg Umeclidinium [place] [Incruse Ellipta] 1 Puff (Home Med) 1 puff IH DAILY [facility] Last Admin: 10/25/17 09:31 Dose: Not Given Ondansetron HCl (Zofran Inj) 4 mg IVP Q4H PRN PRN Reason: Nausea/Vomiting Last Admin: 10/26/17 08:29 Dose: 4 mg Oxymetazoline HCl (Afrin 0.05%) 0 ml NS Q12H PRN PRN Reason: congestion Povidone Iodine (Betadine 5% Opht Soln) 0 ml OS DAILY [facility] Last Admin: 10/25/17 09:49 Dose: Not Given Tramadol HCl (Ultram) 50 mg PO TID PRN PRN Reason: Pain, moderate (4-7) Zolpidem Tartrate (Ambien) 5 mg PO HS PRN PRN Reason: Insomnia - Labs Labs: 10/26/17 06:30 10/26/17 06:30 PT 14.2 SECONDS (9.4-12.5) H 10/25/17 01:15 INR 1.24 (0.93-1.08) H 10/25/17 01:15 APTT 21.0 Seconds (25.1-36.5) L 10/25/17 01:15 - Additional Findings Additional findings: - Constitutional Appears: Non-toxic, No Acute Distress, Chronically Ill - Head Exam Head Exam: ATRAUMATIC, NORMOCEPHALIC - Eye Exam Eye Exam: EOMI, Normal appearance, PERRL - ENT Exam Additional comments: L nare packed with rhino-rockets. - Neck Exam Neck Exam: Normal Inspection - Respiratory Exam Respiratory Exam: Clear to Ausculation Bilateral, NORMAL BREATHING PATTERN - Cardiovascular Exam Cardiovascular Exam: RRR, +S1, +S2 - GI/Abdominal Exam GI & Abdominal Exam: Soft, Normal Bowel Sounds. absent: Tenderness - Extremities Exam Extremities Exam: absent: Calf Tenderness, Pedal Edema - Neurological Exam Neurological Exam: Alert, Awake, Oriented x3 - Psychiatric Exam Psychiatric exam: Normal Affect, Normal Mood - Skin Skin Exam: Dry, Intact, Normal Color Assessment and Plan - Assessment and Plan (Free Text) Assessment: 62 year old female with past medical history of HTN, L eye vision loss, GERD, stage IV colon cancer w/ metastasis to liver, lung, and brain who is admitted for evaluation and treatment of generalized weakness and fall. Plan: 1. Sepsis 2/2 UTI - leukocytosis improving; patient clinically improved - blood culture shows gram negative rods in two bottles. Urine cultures show 10, 000-50,000 CFU of multiple organisms, probable contaminants - Continue merrem per ID - BP stable; Continue IVF NS @ 75 - procal elevated - ID consulted- appreciate recommendations 2. Fall - high risk fall precautions - lumbar spine XR significant for multilevel degenerative disk disease - CT head shows no hemorrhage or fracture; new mass vs post-radiation changes - CT abdomen and pelvis shows no hemorrhage or fractures 3. Acute on Chronic Thrombocytopenia - Patient had epistaxis overnight; no longer bleeding - s/p 2u platelets - avoid subq heparin and protonix - Continue to monitor - Hem/Onc on consult; appreciate recs 4. WALT - Improving - avoid nephrotoxins - continue IVF NS @ 75; per nephro - Nephro on consult; appreciate recs 5. Hyponatremic - Resovled with fluid administration - IVF NS @ 75 6. Hyperkalemic - Improving - Continue to monitor 7. Hx of Stage IV Colon Cancer - continue home dexamethasone - xanax prn anxiety - zofran and pepcid iv for nausea/vomiting - Hem/onc on consult; appreciate recs 8. Hx of Htn - hydralazine 5mg IV q6 prn SBP > 180, holding parameters- do not administer if HR is > 100 bpm 9. Prophylaxis - DVT ppx- scds - GI ppx- famotidine Patient was seen, examined and discussed with attending, Dr. Chikis Wolfe PGY1 Pager # [phone] <Rashel Diop - Last Filed: 10/27/17 14:42> Objective - Vital Signs/Intake and Output Vital Signs (last 24 hours): Temp Pulse Resp BP Pulse Ox 97.8 F 60 18 136/79 99 10/27/17 11:56 10/27/17 11:56 10/27/17 11:56 10/27/17 11:56 10/27/17 06:00 Intake and Output: 10/27/17 10/27/17 06:59 18:59 Intake Total 360 Balance 360 - Medications Medications: Current Medications Acetaminophen (Tylenol 325mg Tab) 650 mg PO Q4H PRN PRN Reason: Fever >100.4 F Last Admin: 10/24/17 21:11 Dose: 650 mg Al Hydrox/Mg Hydrox/Simethicone (Maalox Plus 30 Ml) 30 ml PO DAILY PRN PRN Reason: Indigestion / Heartburn Last Admin: 10/26/17 08:30 Dose: 30 ml Alprazolam (Xanax) 0.5 mg PO Q6 PRN PRN Reason: Anxiety Last Admin: 10/27/17 08:40 Dose: 0.5 mg Cefpodoxime Proxetil (Vantin) 100 mg PO Q12 [facility] PRN Reason: Protocol Stop: 11/03/17 22:01 Dexamethasone (Decadron) 4 mg PO BID [facility] Last Admin: 10/27/17 09:52 Dose: 4 mg Emollient Ointment (Vaseline Oint) 5 gm TOP DAILY PRN PRN Reason: Dry skin Famotidine (Pepcid) 20 mg IVP Q12 [facility] Last Admin: 10/27/17 09:52 Dose: 20 mg Hydralazine HCl (Apresoline) 10 mg IVP Q6 PRN PRN Reason: Systolic Blood Pressure Montelukast Sodium (Singulair) 10 mg PO DAILY [facility] Last Admin: 10/27/17 09:52 Dose: 10 mg Umeclidinium [place] [Incruse Ellipta] 1 Puff (Home Med) 1 puff IH DAILY [facility] Last Admin: 10/27/17 09:52 Dose: Not Given Ondansetron HCl (Zofran Inj) 4 mg IVP Q4H PRN PRN Reason: Nausea/Vomiting Last Admin: 10/26/17 08:29 Dose: 4 mg Oxymetazoline HCl (Afrin 0.05%) 0 ml NS Q12H PRN PRN Reason: congestion Povidone Iodine (Betadine 5% Opht Soln) 0 ml OS DAILY [facility] Last Admin: 10/26/17 10:00 Dose: Not Given Sodium Bicarbonate (Sodium Bicarbonate Tab) 650 mg PO BID [facility] Last Admin: 10/27/17 10:26 Dose: 650 mg Tramadol HCl (Ultram) 50 mg PO TID PRN PRN Reason: Pain, moderate (4-7) Zolpidem Tartrate (Ambien) 5 mg PO HS PRN PRN Reason: Insomnia - Labs Labs: 10/27/17 06:30 10/27/17 06:30 PT 14.2 SECONDS (9.4-12.5) H 10/25/17 01:15 INR 1.24 (0.93-1.08) H 10/25/17 01:15 APTT 21.0 Seconds (25.1-36.5) L 10/25/17 01:15 Attending/Attestation - Attestation I have personally seen and examined this patient.: Yes I have fully participated in the care of the patient.: Yes I have reviewed all pertinent clinical information, including history, physical exam and plan: Yes Notes (Text): 10/27/17 14:40 Attending note; Patient seen and examined with resident. Patient is 62 year old female with past medical history of hypertension, gastritis, stage IV colon cancer w/ metastasis to liver, lung, and brain, completed chemotherapy, completed palliative radiation therapy who is admitted for evaluation and treatment of generalized weakness and fall. found to have sepsis secondary to UTI. Blood culture is positive for gram-negative bacilli. E coli UTI and bacteremia. Leukocytosis is improving. Patient is clinically stable. Currently on meropenem. Sepsis is resolving. ID evaluation appreciated. thrombocytopenia; status post platelet transfusion. Monitor hemoglobin closely. The patient will follow-up with Dr. Caldernó next week. Epistaxis; currently has left nasal packing. No active bleeding now. prognosis is poor. Patient will discuss with Dr. Calderón about further treatment options. Patient was offered hospice care during last admission which she denied. Upon discharge The patient will follow-up with PMD Dr. Levine.
--- NOTE | 2017-10-26 10:36 | CP.PCM.PN ---
Subjective - Date & Time of Evaluation Date of Evaluation: 10/26/17 Time of Evaluation: 10:35 - Subjective Subjective: Follow up Nephrology Consultation: Assessment: stable Acute Kidney Injury (N17.9) likely due to sepsis, low BP: improved Hyperkalemia likely due to WALT, acidosis and likely intravascular hemolysis as suggested by high LDH, hematuria but without RBC, high bilirubin lactic acidosis with sepsis Hypertensive Chronic Kidney Disease (I12.9) Chronic Kidney Disease (N18.3) Stage 3 Anemia , thrombocytopenia HTN (I12.9) metastatic colon carcinoma splenomegaly E coli sepsis Plan No acute need for renal replacement therapy at this time. maintain hemodynamics stable. Patient not on ACEI/ARB due to WALT medical management of hyperkalemia as needed. Monitor Input/Output, daily weights and renal function with basic metabolic panel continue with IVF @ 75 ml/hr oncology eval. further eval for possible hemolysis as per primary team Dose meds/antibiotics for reduced GFR. Avoid nephrotoxins/NSAIDs Glycemic control Further work up/management as per primary team Thanks for allowing me to participate in care of your patient. Will follow patient with you. Please call if any Qs Dr Lincoln Kennedy Office: [phone] Chief Complaint; fall HPI: Pt is a 62 f with hx of HTN, stage IV colon cancer w/ metastasis to liver, lung, and brain, CKD stage 3 (baseline cr 1.1-1.2) presented with complaints of fall and generalized weakness. she feels better now reason for consult was WALT and hyperkalemia. also has sepsis with lactic acidosis Denies OTC/herbal meds or NSAIDs No recent iodinated contrast exposure. initially episodes of low BP. (90/60s) ROS: Cardiovascular: No chest pain. Pulmonary: No shortness of breath Gastrointestinal: denies abdominal pain No nausea. No vomiting. Genitourinary: No pain while urinating. Denies blood in urine. All other negative except generalized weakness, decreased appetite and fall, low back pain had nose bleeds now stable Physical Examination: General Appearance: Comfortable, in no acute respiratory distress, co-operative Vitals reviewed and noted as below Head; Atraumatic, normocephalic ENT: no ulcers no thrush. Tongue is midline. Oropharynx: no rash or ulcers. EYES: Pupils are equal, round and reactive to light accommodation. Eye muscles and extraocular movement intact. Sclera is icteric. Neck; supple no lymphadenopathy, no thyromegaly or bruit Lungs: Normal respiratory rate/effort. Breath sounds bilateral clear Heart: Increased rate. s1s2 normal. No rub or gallop. Extremities: no edema. No varicose veins Neurological: Patient is alert, awake and oriented to person, place and time. No focal deficit. Strength bilateral appropriate and equal Skin: Warm and dry. Normal turgor. No rash. Palpitation: Normal elasticity for age Abdomen: Abdomen is soft. Bowel sounds +. There is no abdominal tenderness, no guarding/rigidity no organomegaly Psych: normal insight and normal affect/mood MSK: no joint tenderness or swelling. Digits and nails normal, no deformity : kidney or bladder not palpable Labs/imaging reviewed. Past medical history, past surgical history, family history, social history, allergy reviewed and noted as below Family hx: no hx of CKD. Rest non-contributory UA: large blood with only few RBC CT: metastatic lesions to lung, brain. has splenomegaly Objective - Vital Signs/Intake and Output Vital Signs (last 24 hours): Temp Pulse Resp BP Pulse Ox 97.7 F 53 L 20 152/83 H 98 10/26/17 06:00 10/26/17 06:00 10/26/17 06:00 10/26/17 06:00 10/26/17 06:00 Intake and Output: 10/26/17 10/26/17 06:59 18:59 Intake Total 1000 Balance 1000 - Medications Medications: Current Medications Acetaminophen (Tylenol 325mg Tab) 650 mg PO Q4H PRN PRN Reason: Fever >100.4 F Last Admin: 10/24/17 21:11 Dose: 650 mg Al Hydrox/Mg Hydrox/Simethicone (Maalox Plus 30 Ml) 30 ml PO DAILY PRN PRN Reason: Indigestion / Heartburn Last Admin: 10/26/17 08:30 Dose: 30 ml Alprazolam (Xanax) 0.5 mg PO Q6 PRN PRN Reason: Anxiety Dexamethasone (Decadron) 4 mg PO BID [facility] Last Admin: 10/26/17 10:04 Dose: 4 mg Famotidine (Pepcid) 20 mg IVP Q12 [facility] Hydralazine HCl (Apresoline) 10 mg IVP Q6 PRN PRN Reason: Systolic Blood Pressure Sodium Chloride (Sodium Chloride 0.9%) 1,000 mls @ 75 mls/hr IV .[id number] [facility] Last Admin: 10/25/17 17:27 Dose: 75 mls/hr Meropenem 500 mg/ Sodium (Chloride) 100 mls @ 100 mls/hr IVPB Q12 [facility] PRN Reason: Protocol Stop: 11/01/17 10:01 Last Admin: 10/26/17 10:12 Dose: 100 mls/hr Montelukast Sodium (Singulair) 10 mg PO DAILY [facility] Last Admin: 10/26/17 10:03 Dose: 10 mg Umeclidinium [place] [Incruse Ellipta] 1 Puff (Home Med) 1 puff IH DAILY [facility] Last Admin: 10/25/17 09:31 Dose: Not Given Ondansetron HCl (Zofran Inj) 4 mg IVP Q4H PRN PRN Reason: Nausea/Vomiting Last Admin: 10/26/17 08:29 Dose: 4 mg Oxymetazoline HCl (Afrin 0.05%) 0 ml NS Q12H PRN PRN Reason: congestion Povidone Iodine (Betadine 5% Opht Soln) 0 ml OS DAILY [facility] Last Admin: 10/25/17 09:49 Dose: Not Given Tramadol HCl (Ultram) 50 mg PO TID PRN PRN Reason: Pain, moderate (4-7) Zolpidem Tartrate (Ambien) 5 mg PO HS PRN PRN Reason: Insomnia - Labs Labs: 10/26/17 06:30 10/26/17 06:30 PT 14.2 SECONDS (9.4-12.5) H 10/25/17 01:15 INR 1.24 (0.93-1.08) H 10/25/17 01:15 APTT 21.0 Seconds (25.1-36.5) L 10/25/17 01:15
[2017-10-26] MEDS: UMECLIDINIUM BROMIDE IH SCH (15:26)
--- NOTE | 2017-10-26 17:38 | PN ---
DATE: REFERRING PHYSICIAN: Rosanne Calderón MD and Reno Gonzalez MD SUBJECTIVE: The patient is a 62-year-old female with stage IV colon cancer with metastasis to liver, lung, and more recently brain. Her brain metastasis was recently on coverage when she presented with weakness and status post fall. She states at that time she was also off balance, but in that regard she is feeling much better after having underwent radiation therapy to the brain. She remains on dexamethasone 4 mg twice a day. While here, the patient was found to have leukocytosis secondary to UTI. Her blood cultures were positive for E. coli and she remains on Merrem 500 mg q.12 hours. The patient had epistaxis two days ago during the night and she received platelet therapy and her last platelet count from today is down to 41,000 from 46,000 yesterday. Her hemoglobin did trend downward somewhat after the bleed. She said she bleed from the nose for an hour in the left naris. Her hemoglobin initially at 9.7, is 8.5. She denies progressive weakness. The issues in the past for this patient include anxiety, pneumonia, anxiety, abdominal pain, GI bleeding, anemia, and arm sprain. REVIEW OF SYSTEMS: The patient denies headache, change in vision, mouth sores or mouth discomfort, foul taste in mouth, mucositis. No odynophagia, dysphagia, shortness of breath, chest pain, pressure, abdominal bloat, pain, pressure, back pain or CVA pain, dysuria, fevers, chills, rigors, myalgias, rashes, pruritus. cough, or hemoptysis. PHYSICAL EXAMINATION GENERAL: The patient is awake and oriented x3. No acute distress. No dysarthria, no slurred speech, or aphasia. No focal weakness. VITAL SIGNS: Temperature 97.6, pulse 63, blood pressure 146/74, respirations 18, O2 saturation 98%. HEENT: Conjunctiva pain, sclera anicteric. Mucous membranes pink and moist. No mucositis or thrush appreciated. LUNGS: Clear to auscultation and percussion. CARDIAC: Regular rhythm. S1 and S2, no murmur, rubs, or gallops. ABDOMEN: Soft. Mildly obese. No masses. No guarding. No distention or rebounds. Bowel sounds within normal limits. EXTREMITIES: No cyanosis, clubbing, or edema. No rashes. Skin turgor normal. CURRENT MEDICATIONS: Afrin, Ambien, Apresoline, Betadine, dexamethasone 4 mg p.o. twice a day, Maalox p.r.n., Merrem 500 mg q.12, Pepcid 20 mg q.12 IV, Singulair, IV fluids 75 mL/hour, normal saline, Tylenol p.r.n., Ultram p.r.n., Ellipta Incruse one puff daily, Xanax 0.5 mg q.6 hours p.r.n., Zofran 4 mg, IV q.4 hours p.r.n. The patient received Kayexalate yesterday 15 g once. ALLERGIES: NO KNOWN ALLERGIES. LABORATORY DATA: Today's white blood cell count is down from 17 to 9.1, hemoglobin 8.5, platelet 41,000. Granulocytes 92.8% down from 95.8%. Sodium 135, potassium down to 5.1 from 5.3 yesterday, CO2 of 20, BUN 15, and creatinine 1.3. Creatinine continues to trend downward. ALT remains quite normal as 61, total protein 5.3, albumin 2.8. IMPRESSION: The patient has stage IV colon cancer with liver, lung, and more recently brain metastasis, status post radiation therapy to the brain, on steroids yet. She was admitted with weakness, dizziness, and status post fall. On account of brain metastasis likely and also septic state with Escherichia coli bacteriemia. The patient has clinically improved. Stable condition. PLAN: Plan is to being slow taper of steroid therapy. The patient states that she completed her radiation therapy last week and I will confirm the date to determine when to begin steroid taper. Continue TPI, antibiotics per infectious disease, potassium management per Dr. Kennedy. The patient was encouraged to continue her adequate p.o. intake. She will require physical therapy assessment. The patient states she receives physical therapy at home ordinarily. Myla Yoon MD
--- NOTE | 2017-10-26 20:12 | PN ---
DATE: 10/26/2017 SUBJECTIVE: The patient is in bed, in no acute distress, nontoxic. PHYSICAL EXAMINATION VITAL SIGNS: Temperature is 98, blood pressure is 152/80, respiratory rate of 20, heart rate of 58. HEENT: Unremarkable. NECK: Supple. LUNGS: Decreased breath sounds. HEART: Normal S1 and S2. ABDOMEN: Soft and nontender. LABORATORY DATA: Reveals a white count of 9000, hemoglobin of 8 and platelets of 41. Chemistry reveals a BUN of 59 and creatinine of 1.3. Initially, his procalcitonin is 6.92. Urinalysis is noted. Serology influenza is negative. Microbiology reveals E. coli in blood. Urine culture has multiple species consistent with contamination. Urine culture and blood culture has E. coli, that is pansensitive. It is resistant to Cipro and it is sensitive to cefazolin. The patient is doing much better. ASSESSMENT AND PLAN: This is a 62-year-old female admitted with severe sepsis with Escherichia coli bacteremia, most likely from urine as a source with metastatic colon cancer with metastasis to the lungs and liver status post Port-A-Cath placement, dyslipidemia, and may switch to p.o. Vantin upon discharge. This patient is currently on meropenem to the pansensitive to Escherichia coli bacteremia, most likely secondary to the urine and should be hospice setting in this patient who has stage IV colon cancer, metastasis to the liver and lung, and now with acute kidney injury and central nervous system lesions, metastasis to the brain. Prognosis is quite poor. Carlo Cheung MD
[2017-10-26] MEDS: Sodium Chloride 0.9% 1,000 ML IV SCH (21:02)
[2017-10-27 07:41] LABS: BASO # 0.01 K/mm3 (0.0-2.0); BASO % 0.1 % (0.0-3.0); GRAN # 6.05 (1.4-6.5); GRAN % 89.6 % (50.0-68.0); HEMOGLOBIN 8.7 g/dL (12.0-16.0); LYMPH # 0.4 (1.2-3.4); LYMPH % 6.4 % (22.0-35.0); MEAN CORPUSCULAR HEMOGLOBIN 26.9 pg (25.0-35.0); MEAN PLATELET VOLUME 10.4 fl (7.0-11.0); MONO # 0.3 (0.1-0.6); MONO % 3.9 % (1.0-6.0); RBC 3.24 10^6/uL (3.5-6.1); RED CELL DISTRIBUTION WIDTH 16.7 % (11.5-14.5); WHITE BLOOD COUNT 6.8 10^3/ul (4.5-11.0)
[2017-10-27 08:28] LABS: ALB/GLOB RATIO 1.1 (1.1-1.8); ALBUMIN 2.8 g/dL (3.0-4.8); CALCIUM 8.9 mg/dL (8.4-10.5)
[2017-10-27] MEDS: UMECLIDINIUM BROMIDE IH SCH (09:52)
[2017-10-27] MEDS ORDERED: Sod Polystyrene Sulf 15 gm/60 ml Susp PO ONE (10:02)
[2017-10-27] MEDS: Meropenem 500 MG in Sodium Chloride 0.9% 100 ML IVPB SCH (10:26)
[2017-10-27] MEDS ORDERED: Petrolatum Oint Foilpak (5 gm) TOP PRN ×2 (10:35→10:39)
--- NOTE | 2017-10-27 13:48 | CP.PCM.PN ---
Subjective - Date & Time of Evaluation Date of Evaluation: 10/27/17 Time of Evaluation: 13:47 - Subjective Subjective: Follow up Nephrology Consultation: Assessment: stable Acute Kidney Injury (N17.9) likely due to sepsis, low BP: improved Hyperkalemia likely due to WALT, acidosis and possible intravascular hemolysis as suggested by high LDH, hematuria but without RBC, high bilirubin lactic acidosis with sepsis Hypertensive Chronic Kidney Disease (I12.9) Chronic Kidney Disease (N18.3) Stage 3 Anemia , thrombocytopenia HTN (I12.9) metastatic colon carcinoma splenomegaly E coli sepsis Plan No acute need for renal replacement therapy at this time. maintain hemodynamics stable. Patient not on ACEI/ARB due to WALT medical management of hyperkalemia as needed. dose of kayexylate today. low K diet Monitor Input/Output, daily weights and renal function with basic metabolic panel d/c IVF oncology eval. further eval for possible hemolysis as per primary team Dose meds/antibiotics for reduced GFR. Avoid nephrotoxins/NSAIDs Glycemic control Further work up/management as per primary team Thanks for allowing me to participate in care of your patient. Will follow patient with you. Please call if any Qs Dr Lincoln Kennedy Office: [phone] Chief Complaint; fall HPI: Pt is a 62 f with hx of HTN, stage IV colon cancer w/ metastasis to liver, lung, and brain, CKD stage 3 (baseline cr 1.1-1.2) presented with complaints of fall and generalized weakness. she feels better now reason for consult was WALT and hyperkalemia. also has sepsis with lactic acidosis Denies OTC/herbal meds or NSAIDs No recent iodinated contrast exposure. initially episodes of low BP. (90/60s) ROS: Cardiovascular: No chest pain. Pulmonary: No shortness of breath Gastrointestinal: denies abdominal pain No nausea. No vomiting. Genitourinary: No pain while urinating. Denies blood in urine. All other negative except generalized weakness, decreased appetite and fall, low back pain had nose bleeds now stable Physical Examination: General Appearance: Comfortable, in no acute respiratory distress, co-operative Vitals reviewed and noted as below Head; Atraumatic, normocephalic ENT: no ulcers no thrush. Tongue is midline. Oropharynx: no rash or ulcers. EYES: Pupils are equal, round and reactive to light accommodation. Eye muscles and extraocular movement intact. Sclera is icteric. Neck; supple no lymphadenopathy, no thyromegaly or bruit Lungs: Normal respiratory rate/effort. Breath sounds bilateral clear Heart: Increased rate. s1s2 normal. No rub or gallop. Extremities: no edema. No varicose veins Neurological: Patient is alert, awake and oriented to person, place and time. No focal deficit. Strength bilateral appropriate and equal Skin: Warm and dry. Normal turgor. No rash. Palpitation: Normal elasticity for age Abdomen: Abdomen is soft. Bowel sounds +. There is no abdominal tenderness, no guarding/rigidity no organomegaly Psych: normal insight and normal affect/mood MSK: no joint tenderness or swelling. Digits and nails normal, no deformity : kidney or bladder not palpable Labs/imaging reviewed. Past medical history, past surgical history, family history, social history, allergy reviewed and noted as below Family hx: no hx of CKD. Rest non-contributory UA: large blood with only few RBC CT: metastatic lesions to lung, brain. has splenomegaly Objective - Vital Signs/Intake and Output Vital Signs (last 24 hours): Temp Pulse Resp BP Pulse Ox 97.8 F 60 18 136/79 99 10/27/17 11:56 10/27/17 11:56 10/27/17 11:56 10/27/17 11:56 10/27/17 06:00 Intake and Output: 10/27/17 10/27/17 06:59 18:59 Intake Total 360 Balance 360 - Medications Medications: Current Medications Acetaminophen (Tylenol 325mg Tab) 650 mg PO Q4H PRN PRN Reason: Fever >100.4 F Last Admin: 10/24/17 21:11 Dose: 650 mg Al Hydrox/Mg Hydrox/Simethicone (Maalox Plus 30 Ml) 30 ml PO DAILY PRN PRN Reason: Indigestion / Heartburn Last Admin: 10/26/17 08:30 Dose: 30 ml Alprazolam (Xanax) 0.5 mg PO Q6 PRN PRN Reason: Anxiety Last Admin: 10/27/17 08:40 Dose: 0.5 mg Cefpodoxime Proxetil (Vantin) 100 mg PO Q12 RUKHSANA PRN Reason: Protocol Stop: 11/03/17 22:01 Dexamethasone (Decadron) 4 mg PO BID [facility] Last Admin: 10/27/17 09:52 Dose: 4 mg Emollient Ointment (Vaseline Oint) 5 gm TOP DAILY PRN PRN Reason: Dry skin Famotidine (Pepcid) 20 mg IVP Q12 [facility] Last Admin: 10/27/17 09:52 Dose: 20 mg Hydralazine HCl (Apresoline) 10 mg IVP Q6 PRN PRN Reason: Systolic Blood Pressure Montelukast Sodium (Singulair) 10 mg PO DAILY [facility] Last Admin: 10/27/17 09:52 Dose: 10 mg Umeclidinium [place] [Incruse Ellipta] 1 Puff (Home Med) 1 puff IH DAILY [facility] Last Admin: 10/27/17 09:52 Dose: Not Given Ondansetron HCl (Zofran Inj) 4 mg IVP Q4H PRN PRN Reason: Nausea/Vomiting Last Admin: 10/26/17 08:29 Dose: 4 mg Oxymetazoline HCl (Afrin 0.05%) 0 ml NS Q12H PRN PRN Reason: congestion Povidone Iodine (Betadine 5% Opht Soln) 0 ml OS DAILY [facility] Last Admin: 10/26/17 10:00 Dose: Not Given Sodium Bicarbonate (Sodium Bicarbonate Tab) 650 mg PO BID [facility] Last Admin: 10/27/17 10:26 Dose: 650 mg Tramadol HCl (Ultram) 50 mg PO TID PRN PRN Reason: Pain, moderate (4-7) Zolpidem Tartrate (Ambien) 5 mg PO HS PRN PRN Reason: Insomnia - Labs Labs: 10/27/17 06:30 10/27/17 06:30 PT 14.2 SECONDS (9.4-12.5) H 10/25/17 01:15 INR 1.24 (0.93-1.08) H 10/25/17 01:15 APTT 21.0 Seconds (25.1-36.5) L 10/25/17 01:15
--- NOTE | 2017-10-27 14:00 | PN ---
DATE: 10/27/2017 SUBJECTIVE: The patient is in bed in no acute distress, nontoxic. OBJECTIVE: VITAL SIGNS: Temperature is 97, blood pressure is 160/70, respiratory rate of 20, and heart rate of 51. HEENT: Unremarkable. NECK: Supple. LUNGS: Have decreased breath sounds. HEART: Normal S1 and S2. ABDOMEN: Soft. LABORATORY DATA: Reveals white count of 6.8, hemoglobin of 8, and platelets are 40. Coagulation is noted and chemistries reveals BUN of 55 and creatinine of 1.4. BNP is 443. The patient's procalcitonin is 6.92. Microbiology reveals E. coli in the blood.. Sensitivity is noted. Sensitive to ampicillin and cefazolin, resistant to Cipro. ASSESSMENT AND PLAN: A 62-year-old female with severe sepsis with Escherichia coli bacteremia secondary to urine as the source and the patient with metastatic colon cancer, metastasis to lung and liver, with a Port-A-Cath placement and dyslipidemia. Upon discharge, may switch to p.o. Vantin and to complete therapy. The patient is with [employer] metastases also and case discussed with PMD. We will switch to p.o. Vantin to complete therapy and discontinue the meropenem. We will adjust the p.o. cefpodoxime for renal insufficiency 100 mg p.o. b.i.d. x7 days. Carlo Cheung MD
--- NOTE | 2017-10-27 17:17 | CP.PCM.PN ---
<Inocencio Wolfe - Last Filed: 10/27/17 17:12> Subjective - Date & Time of Evaluation Date of Evaluation: 10/27/17 Time of Evaluation: 10:12 - Subjective Subjective: Inocencio Wolfe PGY1 IM Progress Note Patient was seen and examined at bedside. She is anxious prior to eating breakfast and requesting her Xanax. The patient is worried about her lab results and is reassured and told that she is acutely improving, but overall, will need to follow up with oncologist regarding more information. Patient denies chest pain, shortness of breath, fevers/chills. Objective - Vital Signs/Intake and Output Vital Signs (last 24 hours): Temp Pulse Resp BP Pulse Ox 97.8 F 60 18 136/79 99 10/27/17 11:56 10/27/17 11:56 10/27/17 11:56 10/27/17 11:56 10/27/17 06:00 Intake and Output: 10/27/17 10/27/17 06:59 18:59 Intake Total 1140 Output Total 4 Balance 1136 - Medications Medications: Current Medications Acetaminophen (Tylenol 325mg Tab) 650 mg PO Q4H PRN PRN Reason: Fever >100.4 F Last Admin: 10/24/17 21:11 Dose: 650 mg Al Hydrox/Mg Hydrox/Simethicone (Maalox Plus 30 Ml) 30 ml PO DAILY PRN PRN Reason: Indigestion / Heartburn Last Admin: 10/26/17 08:30 Dose: 30 ml Alprazolam (Xanax) 0.5 mg PO Q6 PRN PRN Reason: Anxiety Last Admin: 10/27/17 08:40 Dose: 0.5 mg Cefpodoxime Proxetil (Vantin) 100 mg PO Q12 RUKHSANA PRN Reason: Protocol Stop: 11/03/17 22:01 Dexamethasone (Decadron) 4 mg PO BID [facility] Last Admin: 10/27/17 09:52 Dose: 4 mg Emollient Ointment (Vaseline Oint) 5 gm TOP DAILY PRN PRN Reason: Dry skin Famotidine (Pepcid) 20 mg IVP Q12 [facility] Last Admin: 10/27/17 09:52 Dose: 20 mg Hydralazine HCl (Apresoline) 10 mg IVP Q6 PRN PRN Reason: Systolic Blood Pressure Montelukast Sodium (Singulair) 10 mg PO DAILY [facility] Last Admin: 10/27/17 09:52 Dose: 10 mg Umeclidinium [place] [Incruse Ellipta] 1 Puff (Home Med) 1 puff IH DAILY [facility] Last Admin: 10/27/17 09:52 Dose: Not Given Ondansetron HCl (Zofran Inj) 4 mg IVP Q4H PRN PRN Reason: Nausea/Vomiting Last Admin: 10/26/17 08:29 Dose: 4 mg Oxymetazoline HCl (Afrin 0.05%) 0 ml NS Q12H PRN PRN Reason: congestion Povidone Iodine (Betadine 5% Opht Soln) 0 ml OS DAILY [facility] Last Admin: 10/26/17 10:00 Dose: Not Given Sodium Bicarbonate (Sodium Bicarbonate Tab) 650 mg PO BID [facility] Last Admin: 10/27/17 10:26 Dose: 650 mg Tramadol HCl (Ultram) 50 mg PO TID PRN PRN Reason: Pain, moderate (4-7) Zolpidem Tartrate (Ambien) 5 mg PO HS PRN PRN Reason: Insomnia - Labs Labs: 10/27/17 06:30 10/27/17 06:30 PT 14.2 SECONDS (9.4-12.5) H 10/25/17 01:15 INR 1.24 (0.93-1.08) H 10/25/17 01:15 APTT 21.0 Seconds (25.1-36.5) L 10/25/17 01:15 - Additional Findings Additional findings: - Constitutional Appears: Non-toxic, No Acute Distress, Chronically Ill - Head Exam Head Exam: ATRAUMATIC, NORMOCEPHALIC - Eye Exam Eye Exam: EOMI, Normal appearance, PERRL - ENT Exam Additional comments: L nare packed with rhino-rockets. - Neck Exam Neck Exam: Normal Inspection - Respiratory Exam Respiratory Exam: Clear to Ausculation Bilateral, NORMAL BREATHING PATTERN - Cardiovascular Exam Cardiovascular Exam: RRR, +S1, +S2 - GI/Abdominal Exam GI & Abdominal Exam: Soft, Normal Bowel Sounds. absent: Tenderness - Extremities Exam Extremities Exam: absent: Calf Tenderness, Pedal Edema - Neurological Exam Neurological Exam: Alert, Awake, Oriented x3 - Psychiatric Exam Psychiatric exam: Normal Affect, Normal Mood - Skin Skin Exam: Dry, Intact, Normal Color Assessment and Plan - Assessment and Plan (Free Text) Assessment: 62 year old female with past medical history of HTN, L eye vision loss, GERD, stage IV colon cancer w/ metastasis to liver, lung, and brain who is admitted for evaluation and treatment of generalized weakness and fall. Plan: 1. Sepsis 2/2 UTI - leukocytosis resolved - blood culture shows gram negative rods in two bottles. - Urine cultures likely contaminated - switched from Merrem to Vantin PO - ID consulted- appreciate recommendations 2. Fall - high risk fall precautions - lumbar spine XR significant for multilevel degenerative disk disease - CT head shows no hemorrhage or fracture; new mass vs post-radiation changes - CT abdomen and pelvis shows no hemorrhage or fractures 3. Acute on Chronic Thrombocytopenia - Patient had epistaxis several days ago, was packed, no longer bleeding, packing removed today with no visible bleeding - keep nares moist - s/p 2u platelets - avoid subq heparin and protonix - Continue to monitor - Hem/Onc on consult; appreciate recs 4. WALT - Improving - avoid nephrotoxins - continue IVF NS @ 75; per nephro - Nephro on consult; appreciate recs 5. Hyperkalemic - kayexelate x1 given today - Continue to monitor 6. Hx of Stage IV Colon Cancer - continue home dexamethasone - xanax prn anxiety - zofran and pepcid iv for nausea/vomiting - Hem/onc on consult; appreciate recs 7. Hx of Htn - hydralazine 5mg IV q6 prn SBP > 180, holding parameters- do not administer if HR is > 100 bpm 8. Prophylaxis - DVT ppx- scds - GI ppx- famotidine Patient was seen, examined and discussed with attending, Dr. Chikis Wolfe PGY1 Pager # [phone] <Rashel Diop - Last Filed: 10/27/17 17:32> Objective - Vital Signs/Intake and Output Vital Signs (last 24 hours): Temp Pulse Resp BP Pulse Ox 97.4 F L 62 20 136/81 99 10/27/17 17:21 10/27/17 17:21 10/27/17 17:21 10/27/17 17:21 10/27/17 06:00 Intake and Output: 10/27/17 10/27/17 06:59 18:59 Intake Total 1140 Output Total 4 Balance 1136 - Medications Medications: Current Medications Acetaminophen (Tylenol 325mg Tab) 650 mg PO Q4H PRN PRN Reason: Fever >100.4 F Last Admin: 10/24/17 21:11 Dose: 650 mg Al Hydrox/Mg Hydrox/Simethicone (Maalox Plus 30 Ml) 30 ml PO DAILY PRN PRN Reason: Indigestion / Heartburn Last Admin: 10/26/17 08:30 Dose: 30 ml Alprazolam (Xanax) 0.5 mg PO Q6 PRN PRN Reason: Anxiety Last Admin: 10/27/17 08:40 Dose: 0.5 mg Cefpodoxime Proxetil (Vantin) 100 mg PO Q12 [facility] PRN Reason: Protocol Stop: 11/03/17 22:01 Dexamethasone (Decadron) 4 mg PO BID [facility] Last Admin: 10/27/17 09:52 Dose: 4 mg Emollient Ointment (Vaseline Oint) 5 gm TOP DAILY PRN PRN Reason: Dry skin Famotidine (Pepcid) 20 mg IVP Q12 [facility] Last Admin: 10/27/17 09:52 Dose: 20 mg Hydralazine HCl (Apresoline) 10 mg IVP Q6 PRN PRN Reason: Systolic Blood Pressure Montelukast Sodium (Singulair) 10 mg PO DAILY [facility] Last Admin: 10/27/17 09:52 Dose: 10 mg Umeclidinium [place] [Incruse Ellipta] 1 Puff (Home Med) 1 puff IH DAILY [facility] Last Admin: 10/27/17 09:52 Dose: Not Given Ondansetron HCl (Zofran Inj) 4 mg IVP Q4H PRN PRN Reason: Nausea/Vomiting Last Admin: 10/26/17 08:29 Dose: 4 mg Oxymetazoline HCl (Afrin 0.05%) 0 ml NS Q12H PRN PRN Reason: congestion Povidone Iodine (Betadine 5% Opht Soln) 0 ml OS DAILY [facility] Last Admin: 10/26/17 10:00 Dose: Not Given Sodium Bicarbonate (Sodium Bicarbonate Tab) 650 mg PO BID [facility] Last Admin: 10/27/17 10:26 Dose: 650 mg Tramadol HCl (Ultram) 50 mg PO TID PRN PRN Reason: Pain, moderate (4-7) Zolpidem Tartrate (Ambien) 5 mg PO HS PRN PRN Reason: Insomnia - Labs Labs: 10/27/17 06:30 10/27/17 06:30 PT 14.2 SECONDS (9.4-12.5) H 10/25/17 01:15 INR 1.24 (0.93-1.08) H 10/25/17 01:15 APTT 21.0 Seconds (25.1-36.5) L 10/25/17 01:15 Attending/Attestation - Attestation I have personally seen and examined this patient.: Yes I have fully participated in the care of the patient.: Yes I have reviewed all pertinent clinical information, including history, physical exam and plan: Yes Notes (Text): 10/27/17 17:30 Attending note; Patient seen and examined with resident. Patient is 62 year old female with past medical history of hypertension, gastritis, stage IV colon cancer w/ metastasis to liver, lung, and brain, completed chemotherapy, completed palliative radiation therapy who is admitted for evaluation and treatment of generalized weakness and fall. found to have sepsis secondary to UTI. Blood culture is positive for gram-negative bacilli. E coli UTI and bacteremia. Leukocytosis resolved.Patient is clinically stable. Currently on meropenem. Sepsis is resolving. ID evaluation appreciated. we will change to vantin 100 mg po bid for 7 days. thrombocytopenia; status post platelet transfusion. Monitor hemoglobin closely. The patient will follow-up with Dr. Calderón next week. Epistaxis; resolved. discontinue the nasal packing today. Possible discharge home tomorrow. Discussed with showcase trimmer for DC planning and home care. Upon discharge The patient will follow-up with PMD Dr. Levine.
[2017-10-27] MEDS: Cefpodoxime (Vantin) 100 mg Tab PO SCH (21:25)
[2017-10-28 06:35] LABS: BASO # 0.01 K/mm3 (0.0-2.0); BASO % 0.2 % (0.0-3.0); GRAN # 4.21 (1.4-6.5); HEMOGLOBIN 9.1 g/dL (12.0-16.0); LYMPH # 0.5 (1.2-3.4); LYMPH % 10.3 % (22.0-35.0); MEAN CORPUSCULAR HEMOGLOBIN 27.5 pg (25.0-35.0); MEAN CORPUSCULAR HGB CONC 32.7 g/dl (31.0-37.0); MONO # 0.3 (0.1-0.6); MONO % 6.5 % (1.0-6.0); RBC 3.31 10^6/uL (3.5-6.1); RED CELL DISTRIBUTION WIDTH 16.7 % (11.5-14.5); WHITE BLOOD COUNT 5.1 10^3/ul (4.5-11.0)
--- NOTE | 2017-10-28 06:49 | PN ---
DATE: 10/28/2017 This is progress note for Dr. Calderón and Dr. Gonzalez who I am covering this week end. SUBJECTIVE: Ms. Mcgregor had the packing from her nose removed today. She offers no new complaints. No headache, dizziness, weakness, heartburn, indigestion, mouth discomfort. Blood cultures were positive for E. coli on 10/24/2017. She is been followed by Dr. Cheung infectious disease. She remains hyperkalemic Dr. Kennedy is managing her electrolyte issues. Her BUN is stable at 55 creatinine remains 1.4, potassium 5.3, ALT is elevated at 66. I reviewed the patients peripheral blood smear, the white blood cells were matured. No blast forms were seen. The RBCs revealed occasional spherocytes, no rouleaux formation, basophilic stippling no schistocytes. Dr. Kennedy had raised question of possible hemolysis due to elevated bilirubin. LDH not done. MEDICATIONS: Afrin, Ambien, Apresoline, Betadine, Decadron, Maalox, Pepcid, Singulair, sodium bicarbonate tablets, Ultram, Incruse Ellipta 1 puff, Vantin 100 p.o. q. 12, Xanax p.r.n., Zofran p.r.n. The patient has received Kayexalate 15 gm yesterday on October 27, 2017. Merrem was discontinued yesterday. PHYSICAL EXAMINATION: VITAL SIGNS: Remains stable. She is afebrile 97.4, pulse 68, blood pressure 136/81, respiratory rate 20. GENERAL: No acute distress, oriented, no focal weakness, slurred speech or dysphagia. HEENT: No thrush, no bleeding on the nasal packing removal in left nares. NECK: No JVD, LUNGS: Clear A and P. CARDIAC: Regular rhythm. ABDOMEN: Soft. Nontender. EXTREMITIES: No cyanosis, clubbing or edema. LABORATORY DATA: As mentioned above. IMPRESSION: Beverley Mcgregor is a 62-year-old female with stage IV colon carcinoma with brain metastasis, status post radiation therapy to the brain admitted with Escherichia coli bacteremia resolving, anemia multifactorial, sepsis with bone marrow suppression, cannot rule out bone marrow involvement, thrombocytopenia related to the same. Peripheral blood smear, nondiagnostic, some spherocytes were seen, hemolytic workup ordered as mentioned above. CBC and chemistry in a.. Thank you very much for allowing me to participate in patient's care Dr. Thornton. We will follow with the patient on Saturday10/28/2017. Myla Yoon MD
[2017-10-28 07:37] LABS: ALB/GLOB RATIO 1.2 (1.1-1.8); ALBUMIN 2.9 g/dL (3.0-4.8); CALCIUM 9.2 mg/dL (8.4-10.5)
[2017-10-28] MEDS: Cefpodoxime (Vantin) 100 mg Tab PO SCH (09:01)
[2017-10-28] MEDS: UMECLIDINIUM BROMIDE IH SCH (09:02)
[2017-10-28 09:17] VITALS: O2SAT 100
--- NOTE | 2017-10-28 15:02 | CP.PCM.DIS ---
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 10/24/17 02:20 Urine Urine Culture - Final 10-50,000 CFU/ML. MULTIPLE SPECIES. PROBABLE CONTAMINATION. Most Recent Lab Values WBC 5.1 10^3/ul (4.5-11.0) D 10/28/17 05:15 RBC 3.31 10^6/uL (3.5-6.1) L 10/28/17 05:15 Hgb 9.1 g/dL (12.0-16.0) L 10/28/17 05:15 Hct 27.8 % (36.0-48.0) L 10/28/17 05:15 MCV 84.0 fl (80.0-105.0) 10/28/17 05:15 MCH 27.5 pg (25.0-35.0) 10/28/17 05:15 MCHC 32.7 g/dl (31.0-37.0) 10/28/17 05:15 RDW 16.7 % (11.5-14.5) H 10/28/17 05:15 Plt Count 33 10^3/uL (120.0-450.0) L* 10/28/17 05:15 Manual Plt Count 50 K/mm3 (120-450) L* 10/26/17 06:30 MPV 10.0 fl (7.0-11.0) 10/28/17 05:15 Gran % 83.0 % (50.0-68.0) H 10/28/17 05:15 Lymph % (Auto) 10.3 % (22.0-35.0) L 10/28/17 05:15 [place] % (Auto) 6.5 % (1.0-6.0) H 10/28/17 05:15 Eos % (Auto) 0.0 % (1.5-5.0) L 10/28/17 05:15 Baso % (Auto) 0.2 % (0.0-3.0) 10/28/17 05:15 Gran # 4.21 (1.4-6.5) 10/28/17 05:15 Lymph # 0.5 (1.2-3.4) L 10/28/17 05:15 [place] # 0.3 (0.1-0.6) 10/28/17 05:15 Eos # 0.0 (0.0-0.7) 10/28/17 05:15 Baso # 0.01 K/mm3 (0.0-2.0) 10/28/17 05:15 Neutrophils % (Manual) 90 % (50.0-70.0) H 10/24/17 06:00 Band Neutrophils % 6 % (0-2) H 10/24/17 06:00 Lymphocytes % (Manual) 1 % (22.0-35.0) L 10/24/17 06:00 Monocytes % (Manual) 3 % (1.0-6.0) 10/24/17 06:00 Platelet Evaluation Low (NORMAL) 10/24/17 06:00 Microcytosis (manual) 1+ 10/24/17 06:00 Retic Count 0.41 % (0.5-1.5) L 10/28/17 05:15 Haptoglobin 199 mg/dL (43-212) 10/24/17 10:52 PT 14.2 SECONDS (9.4-12.5) H 10/25/17 01:15 INR 1.24 (0.93-1.08) H 10/25/17 01:15 APTT 21.0 Seconds (25.1-36.5) L 10/25/17 01:15 pO2 54 mm/Hg (30-55) 10/24/17 12:30 VBG pH 7.39 (7.32-7.43) 10/24/17 12:30 VBG pCO2 35.0 (40-60) L 10/24/17 12:30 VBG HCO3 21.2 mmol/l (21-28) 10/24/17 12:30 VBG Total CO2 22.3 mmol.L (22-28) 10/24/17 12:30 VBG O2 Sat (Calc) 92.7 % (40-65) H 10/24/17 12:30 VBG Base Excess -3.1 mmol/L (0.0-2.0) L 10/24/17 12:30 VBG Potassium 4.4 mmol/L (3.6-5.2) 10/24/17 12:30 Sodium 134.0 mmol/L (132-148) 10/24/17 12:30 Chloride 105.0 mmol/L (98-107) 10/24/17 12:30 Glucose 120 mg/dl (65-105) H 10/24/17 12:30 Lactate 3.7 mmol/L (0.7-2.1) H 10/24/17 12:30 FiO2 21.0 % 10/24/17 12:30 Sodium 139 mmol/L (132-148) 10/28/17 05:15 Potassium 5.1 mmol/L (3.6-5.0) H 10/28/17 05:15 Chloride 109 mmol/L (98-107) H 10/28/17 05:15 Carbon Dioxide 23 mmol/L (21-33) 10/28/17 05:15 Anion Gap 12 (10-20) 10/28/17 05:15 BUN 54 mg/dL (7-21) H 10/28/17 05:15 Creatinine 1.2 mg/dl (0.7-1.2) 10/28/17 05:15 Est GFR ( Amer) 55 10/28/17 05:15 Est GFR (Non-Af Amer) 46 10/28/17 05:15 POC Glucose (mg/dL) 193 mg/dL (65-110) H 10/24/17 03:18 Random Glucose 107 mg/dL (70-110) 10/28/17 05:15 Serum Osmolality 299 mosm/kg (272-300) 10/24/17 06:45 Calcium 9.2 mg/dL (8.4-10.5) 10/28/17 05:15 Phosphorus 3.6 mg/dL (2.5-4.5) 10/25/17 06:00 Magnesium 2.5 mg/dL (1.7-2.2) H 10/25/17 06:00 Total Bilirubin 1.2 mg/dL (0.2-1.3) 10/28/17 05:15 Direct Bilirubin 1.1 mg/dL (0.0-0.4) H 10/24/17 06:45 AST 26 U/L (14-36) 10/28/17 05:15 ALT 79 U/L (7-56) H 10/28/17 05:15 Alkaline Phosphatase 131 U/L (38-126) H 10/28/17 05:15 Lactate Dehydrogenase 847 U/L (333-699) H 10/23/17 21:30 Total Creatine Kinase < 20 U/L (35-230) L 10/23/17 21:30 Troponin I 0.02 ng/mL D 10/23/17 21:30 NT-Pro-B Natriuret Pep 443 pg/mL (0-450) 10/23/17 21:30 Total Protein 5.5 g/dL (5.8-8.3) L 10/28/17 05:15 Albumin 2.9 g/dL (3.0-4.8) L 10/28/17 05:15 Globulin 2.5 gm/dL 10/28/17 05:15 Albumin/Globulin Ratio 1.2 (1.1-1.8) 10/28/17 05:15 Lipase 434 U/L (23-300) H 10/24/17 06:30 Procalcitonin 6.92 NG/ML (0.19-0.49) H 10/24/17 06:45 Venous Blood Potassium 4.4 mmol/L (3.6-5.2) 10/24/17 12:30 Urine Color Yellow (YELLOW) 10/24/17 02:20 Urine Appearance Cloudy (CLEAR) 10/24/17 02:20 Urine pH 6.5 (4.7-8.0) 10/24/17 02:20 Ur Specific Guy 1.010 (1.005-1.035) 10/24/17 02:20 Urine Protein Trace mg/dL (<30 mg/dL) H 10/24/17 02:20 Urine Glucose (UA) Negative mg/dL (NEGATIVE) 10/24/17 02:20 Urine Ketones Negative mg/dL (NEGATIVE) 10/24/17 02:20 Urine Blood Large (NEGATIVE) H 10/24/17 02:20 Urine Nitrate Positive (NEGATIVE) H 10/24/17 02:20 Urine Bilirubin Negative (NEGATIVE) 10/24/17 02:20 Urine Urobilinogen 0.2 E.U./dL (<1 E.U./dL) 10/24/17 02:20 Ur Leukocyte Esterase Large Jose/uL (NEGATIVE) H 10/24/17 02:20 Urine RBC 2 - 5 /hpf (0-2) 10/24/17 02:20 Urine WBC 20 - 25 /hpf (0-6) 10/24/17 02:20 Ur Epithelial Cells 0 - 2 /hpf (0-5) 10/24/17 02:20 Urine Bacteria Trace (NEG) 10/24/17 02:20 Urine Osmolality 409 mosm/kg (300-1000) 10/24/17 06:33 Ur Random Creatinine 51 mg/dL 10/24/17 06:33 Ur Random Sodium 33 meq/L 10/24/17 06:33 Influenza Typ A,B (EIA) Negative for flu a/b (NEGATIVE) 10/24/17 04:30 Blood Type A POSITIVE 10/24/17 09:00 Antibody Screen Negative 10/24/17 09:00 STARLA, Poly Interpret Negative (NEGATIVE) 10/28/17 06:00 BBK History Checked Patient has bt 10/24/17 09:00 - Hospital Course Hospital Course: 62 year old female with past medical history of HTN, L eye vision loss, GERD, stage IV colon cancer w/ metastasis to liver, lung, and brain who is admitted for evaluation and treatment of generalized weakness and fall. Patient was noted to be septic, source determined to be the urine. Patient received IV antibiotics and fluid resuscitation, until she was hemodynamically stable and cultures and sensitivities came back, at which point she was switched to PO antibiotics. This was complicated by acute renal failure and hyperkalemia, which improved with supportive care and antibiotics. Patient was also severely thrombocytopenic during this admission, and received 2 units of platelets. She was also seen by ENT for epistaxis, which was controlled with nasal packing. Today, patient feels well overall, without any particular complaints. Patient fell at home, which prompted this admission, so she is requesting a bedside commode and visiting nurses. Patient now denies any confusion, chest pain, shortness of breath, nausea, vomiting, diarrhea, constipation, abdominal pain, dysuria, hematuria. She was given a prescription for antibiotics and instructed to follow up with her primary care doctor, oncologist, and ENT. All questions were answered to her satisfaction and she was discharged to home. Discharge Exam - Head Exam Head Exam: ATRAUMATIC, NORMOCEPHALIC - Eye Exam Eye Exam: EOMI, Normal appearance, PERRL - ENT Exam ENT Exam: Mucous Membranes Moist - Neck Exam Neck exam: Normal Inspection - Respiratory Exam Respiratory Exam: Clear to PA & Lateral, NORMAL BREATHING PATTERN - Cardiovascular Exam Cardiovascular Exam: RRR, +S1, +S2 - GI/Abdominal Exam GI & Abdominal Exam: Normal Bowel Sounds, Soft. absent: Tenderness - Extremities Exam Extremities exam: normal inspection - Neurological Exam Neurological exam: Alert, CN II-XII Intact, Oriented x3 - Psychiatric Exam Psychiatric exam: Normal Affect, Normal Mood - Skin Skin Exam: Dry, Intact, Normal Color Discharge Plan - Discharge Medications Prescriptions: Cefpodoxime [Vantin] 100 mg PO Q12 6 Days #12 tab - Follow Up Plan Condition: STABLE Disposition: HOME/ ROUTINE Instructions: Dehydration (DC), Sepsis (GEN), Leukocytosis (DC), Thrombocytopenia (DC) Additional Instructions: 1. Continue to take the antibiotics for 6 more days, even if you feel better 2. Continue to take all other medications as prescribed 3. Follow up with your primary care doctor and your oncologist within 1 week 4. Follow up with Dr. Gamboa in 1-2 weeks for monitoring of your nosebleed 5. For any new or worsening concerns, contact your PCP immediately or return to the ER Referrals: Pricilla Levine MD [Primary Care Provider] - Rosendo Gamboa DO [[facility]] -
--- NOTE | 2017-10-28 15:18 | CP.PCM.PN ---
Subjective - Date & Time of Evaluation Date of Evaluation: 10/28/17 Time of Evaluation: 15:17 - Subjective Subjective: Follow up Nephrology Consultation: Assessment: stable Acute Kidney Injury (N17.9) likely due to sepsis, low BP: improved Hyperkalemia likely due to WALT, acidosis and possible intravascular hemolysis as suggested by high LDH, hematuria but without RBC, high bilirubin lactic acidosis with sepsis Hypertensive Chronic Kidney Disease (I12.9) Chronic Kidney Disease (N18.3) Stage 3 Anemia , thrombocytopenia HTN (I12.9) metastatic colon carcinoma splenomegaly E coli sepsis Plan No acute need for renal replacement therapy at this time. renal function improving maintain hemodynamics stable. Patient not on ACEI/ARB due to WALT medical management of hyperkalemia as needed. low K diet Monitor Input/Output, daily weights and renal function with basic metabolic panel oncology eval appreciated Dose meds/antibiotics for improved GFR. Avoid nephrotoxins/NSAIDs Glycemic control Further work up/management as per primary team Thanks for allowing me to participate in care of your patient. Will follow patient with you. Please call if any Qs Dr Lincoln Kennedy Office: [phone] Chief Complaint; fall HPI: Pt is a 62 f with hx of HTN, stage IV colon cancer w/ metastasis to liver, lung, and brain, CKD stage 3 (baseline cr 1.1-1.2) presented with complaints of fall and generalized weakness. she feels better now reason for consult was WALT and hyperkalemia. also has sepsis with lactic acidosis Denies OTC/herbal meds or NSAIDs No recent iodinated contrast exposure. initially episodes of low BP. (90/60s) ROS: Cardiovascular: No chest pain. Pulmonary: No shortness of breath Gastrointestinal: denies abdominal pain No nausea. No vomiting. Genitourinary: No pain while urinating. Denies blood in urine. All other negative except generalized weakness, decreased appetite and fall, low back pain had nose bleeds now stable Physical Examination: General Appearance: Comfortable, in no acute respiratory distress, co-operative Vitals reviewed and noted as below Head; Atraumatic, normocephalic ENT: no ulcers no thrush. Tongue is midline. Oropharynx: no rash or ulcers. EYES: Pupils are equal, round and reactive to light accommodation. Eye muscles and extraocular movement intact. Sclera is icteric. Neck; supple no lymphadenopathy, no thyromegaly or bruit Lungs: Normal respiratory rate/effort. Breath sounds bilateral clear Heart: Increased rate. s1s2 normal. No rub or gallop. Extremities: no edema. No varicose veins Neurological: Patient is alert, awake and oriented to person, place and time. No focal deficit. Strength bilateral appropriate and equal Skin: Warm and dry. Normal turgor. No rash. Palpitation: Normal elasticity for age Abdomen: Abdomen is soft. Bowel sounds +. There is no abdominal tenderness, no guarding/rigidity no organomegaly Psych: normal insight and normal affect/mood MSK: no joint tenderness or swelling. Digits and nails normal, no deformity : kidney or bladder not palpable Labs/imaging reviewed. Past medical history, past surgical history, family history, social history, allergy reviewed and noted as below Family hx: no hx of CKD. Rest non-contributory UA: large blood with only few RBC CT: metastatic lesions to lung, brain. has splenomegaly Objective - Vital Signs/Intake and Output Vital Signs (last 24 hours): Temp Pulse Resp BP Pulse Ox 98.2 F 62 19 156/92 H 100 10/28/17 12:00 10/28/17 12:00 10/28/17 12:00 10/28/17 12:00 10/28/17 09:00 - Medications Medications: Current Medications Acetaminophen (Tylenol 325mg Tab) 650 mg PO Q4H PRN PRN Reason: Fever >100.4 F Last Admin: 10/24/17 21:11 Dose: 650 mg Al Hydrox/Mg Hydrox/Simethicone (Maalox Plus 30 Ml) 30 ml PO DAILY PRN PRN Reason: Indigestion / Heartburn Last Admin: 10/26/17 08:30 Dose: 30 ml Alprazolam (Xanax) 0.5 mg PO Q6 PRN PRN Reason: Anxiety Last Admin: 10/28/17 12:49 Dose: 0.5 mg Cefpodoxime Proxetil (Vantin) 100 mg PO Q12 [facility] PRN Reason: Protocol Stop: 11/03/17 22:01 Last Admin: 10/28/17 09:01 Dose: 100 mg Dexamethasone (Decadron) 4 mg PO BID [facility] Last Admin: 10/28/17 09:02 Dose: 4 mg Emollient Ointment (Vaseline Oint) 5 gm TOP DAILY PRN PRN Reason: Dry skin Famotidine (Pepcid) 20 mg PO HS [facility] Hydralazine HCl (Apresoline) 10 mg IVP Q6 PRN PRN Reason: Systolic Blood Pressure Montelukast Sodium (Singulair) 10 mg PO DAILY [facility] Last Admin: 10/28/17 09:02 Dose: 10 mg Umeclidinium [place] [Incruse Ellipta] 1 Puff (Home Med) 1 puff IH DAILY [facility] Last Admin: 10/28/17 09:02 Dose: Not Given Ondansetron HCl (Zofran Inj) 4 mg IVP Q4H PRN PRN Reason: Nausea/Vomiting Last Admin: 10/26/17 08:29 Dose: 4 mg Oxymetazoline HCl (Afrin 0.05%) 0 ml NS Q12H PRN PRN Reason: congestion Sodium Bicarbonate (Sodium Bicarbonate Tab) 650 mg PO BID [facility] Last Admin: 10/28/17 09:02 Dose: 650 mg Tramadol HCl (Ultram) 50 mg PO TID PRN PRN Reason: Pain, moderate (4-7) Zolpidem Tartrate (Ambien) 5 mg PO HS PRN PRN Reason: Insomnia - Labs Labs: 10/28/17 05:15 10/28/17 05:15 PT 14.2 SECONDS (9.4-12.5) H 10/25/17 01:15 INR 1.24 (0.93-1.08) H 10/25/17 01:15 APTT 21.0 Seconds (25.1-36.5) L 10/25/17 01:15
--- NOTE | 2017-10-28 15:25 | CON ---
DATE: 10/28/2017 EAR, NOSE AND THROAT SERVICE CONSULTATION REASON FOR CONSULTATION: Epistaxis. HISTORY OF PRESENT ILLNESS: The patient is a 62-year-old female with an extensive past medical history significant for stage IV colon cancer with metastasis to bone and liver. She presented to [facility] last week with complaints of weakness. She was found to be septic with E. coli bacteremia, believed to be from urinary source. She was also found to be thrombocytopenic. Upon admission, she developed intermittent epistaxis, which necessitated control with a Rapid Rhino balloon. Subsequently, she was treated with platelets and blood products with improvement in her thrombocytopenia to a count of 50,000. Therefore, the balloon pack was removed without any other evidence of bleeding. Ear, Nose and Throat Service was consulted for further evaluation. Upon questioning, patient denies frequent history of epistaxis; although, she does report that her blood count frequently has dropped in the past and are sometimes associated with some bleeding diathesis. She denies any major bleeding. She says that the episode of epistaxis lasted about 40 to 50 minutes prior to the packing. Currently, she is feeling much better. She denies any further bleeding since removal of the pack and otherwise has no other ear, nose, and throat complaints at this time. PAST MEDICAL HISTORY: Significant for hypertension, GERD, stage IV colon cancer with metastasis to the liver, lung, and brain. PAST SURGICAL HISTORY: Significant for hepatic tumor resection, colon tumor resection. FAMILY HISTORY: Noncontributory. ALLERGIES: NO KNOWN DRUG ALLERGIES. SOCIAL HISTORY: Denies tobacco or alcohol abuse. PHYSICAL EXAMINATION: VITAL SIGNS: Blood pressure 145/93, heart rate 60, saturating 98% on room air, temperature 97.8. GENERAL: The patient is awake and alert. She is oriented x3, pleasant female, able to speak in full sentences, in no acute distress. HEENT: Head: Normocephalic, atraumatic. Ears: External auricles without mass or lesions. Nose: There is excoriation to bilateral anterior septum with exquisitely dry mucosa; although, no active bleeding or clots noted. A small piece of Fibrillar with Bacitracin was placed overlying these areas of excoriation to ensure hemostasis. Oral cavity/Oropharynx: Dry oral mucosa. No bleeding in the posterior oropharynx. NECK: Trachea midline. There is no stridor. Normal quality of voice. LABORATORY DATA: White blood cell count 5.1, hemoglobin 9.1, hematocrit 27.8, platelets 33 from 40. ASSESSMENT AND PLAN: The patient is a 62-year-old female with epistaxis secondary to thrombocytopenia with packing removed. No evidence of further epistaxis. We would recommend nasal saline sprays to bilateral nares. This will dissolve the fibrillar packing over the subsequent days and keep the nose moist to prevent recurrent epistaxis. We will support the patient with platelets and blood products per the primary medical team. The patient is to follow up in the office in 1 to 2 weeks for further evaluation of the nose. This was discussed with the patient, who understands the above plan. Thank you for allowing us to participate in this patient's care. Rosendo Gamboa DO
--- NOTE | 2017-10-28 17:16 | CP.PCM.PN ---
Subjective - Date & Time of Evaluation Date of Evaluation: 10/28/17 Time of Evaluation: 10:15 - Subjective Subjective: Comfortable, no fevers. Objective - Vital Signs/Intake and Output Vital Signs (last 24 hours): Temp Pulse Resp BP Pulse Ox 97.9 F 56 L 16 135/80 100 10/28/17 09:00 10/28/17 09:00 10/28/17 09:00 10/28/17 09:00 10/28/17 09:00 - Medications Medications: Current Medications Acetaminophen (Tylenol 325mg Tab) 650 mg PO Q4H PRN PRN Reason: Fever >100.4 F Last Admin: 10/24/17 21:11 Dose: 650 mg Al Hydrox/Mg Hydrox/Simethicone (Maalox Plus 30 Ml) 30 ml PO DAILY PRN PRN Reason: Indigestion / Heartburn Last Admin: 10/26/17 08:30 Dose: 30 ml Alprazolam (Xanax) 0.5 mg PO Q6 PRN PRN Reason: Anxiety Last Admin: 10/28/17 06:10 Dose: 0.5 mg Cefpodoxime Proxetil (Vantin) 100 mg PO Q12 [facility] PRN Reason: Protocol Stop: 11/03/17 22:01 Last Admin: 10/28/17 09:01 Dose: 100 mg Dexamethasone (Decadron) 4 mg PO BID [facility] Last Admin: 10/28/17 09:02 Dose: 4 mg Emollient Ointment (Vaseline Oint) 5 gm TOP DAILY PRN PRN Reason: Dry skin Famotidine (Pepcid) 20 mg IVP Q12 [facility] Last Admin: 10/28/17 09:01 Dose: 20 mg Hydralazine HCl (Apresoline) 10 mg IVP Q6 PRN PRN Reason: Systolic Blood Pressure Montelukast Sodium (Singulair) 10 mg PO DAILY [facility] Last Admin: 10/28/17 09:02 Dose: 10 mg Umeclidinium [place] [Incruse Ellipta] 1 Puff (Home Med) 1 puff IH DAILY [facility] Last Admin: 10/28/17 09:02 Dose: Not Given Ondansetron HCl (Zofran Inj) 4 mg IVP Q4H PRN PRN Reason: Nausea/Vomiting Last Admin: 01/27/18 08:29 Dose: 4 mg Oxymetazoline HCl (Afrin 0.05%) 0 ml NS Q12H PRN PRN Reason: congestion Sodium Bicarbonate (Sodium Bicarbonate Tab) 650 mg PO BID [facility] Last Admin: 10/28/17 09:02 Dose: 650 mg Tramadol HCl (Ultram) 50 mg PO TID PRN PRN Reason: Pain, moderate (4-7) Zolpidem Tartrate (Ambien) 5 mg PO HS PRN PRN Reason: Insomnia - Labs Labs: 10/28/17 05:15 10/28/17 05:15 PT 14.2 SECONDS (9.4-12.5) H 10/25/17 01:15 INR 1.24 (0.93-1.08) H 10/25/17 01:15 APTT 21.0 Seconds (25.1-36.5) L 10/25/17 01:15 - Constitutional Appears: Chronically Ill - Head Exam Head Exam: NORMAL INSPECTION - ENT Exam ENT Exam: Mucous Membranes Moist - Neck Exam Neck Exam: absent: Meningismus - Respiratory Exam Respiratory Exam: Decreased Breath Sounds - Cardiovascular Exam Cardiovascular Exam: +S1, +S2 - GI/Abdominal Exam GI & Abdominal Exam: Soft. absent: Tenderness Assessment and Plan - Assessment and Plan (Free Text) Plan: Assessment Severe sepsis due to UTI with E. coli bacteremia, clinically improving metastatic colon cancer with mets to the lungs and liver on chemotherapy S/P port-a-cath placement dyslipidemia HTN anxiety disorder history of glaucoma Plan continue PO Vantin day 2 to complete 7 more days overall prognosis is poor
[2017-10-28 18:05] VITALS: BP 154/98; PULSE 71; RESP 18; TEMP 97.3
== END 2017-10-28 19:00 | disposition home health service (06) | DRG 584 ==
LOC: ED 19:18 → ERH 10-24 02:16 → 2RSO 10-24 04:22
PROVIDERS: ADMIT Internal Medicine; ATTEND Hospitalist
PROC: 6A551Z2 Pheresis of Platelets, Multiple (ICD-10-PCS; principal; 2017-10-24)
PROC: 2Y41X5Z Packing of Nasal Region using Packing Material (ICD-10-PCS; 2017-10-24)
DX: A41.51 Sepsis due to Escherichia coli [E. coli] (principal); D65 Disseminated intravascular coagulation [defibrination syndrome]; C78.00 Secondary malignant neoplasm of unspecified lung; J18.9 Pneumonia, unspecified organism; E87.2 Acidosis; N17.9 Acute kidney failure, unspecified; C78.7 Secondary malignant neoplasm of liver and intrahepatic bile duct; C79.31 Secondary malignant neoplasm of brain; K92.2 Gastrointestinal hemorrhage, unspecified; N18.3 Chronic kidney disease, stage 3 (moderate); C79.51 Secondary malignant neoplasm of bone; E87.1 Hypo-osmolality and hyponatremia; E87.5 Hyperkalemia; N39.0 Urinary tract infection, site not specified; E86.0 Dehydration; D64.9 Anemia, unspecified; E78.00 Pure hypercholesterolemia, unspecified; E78.5 Hyperlipidemia, unspecified; F41.9 Anxiety disorder, unspecified; H40.9 Unspecified glaucoma; H54.62 Unqualified visual loss, left eye, normal vision right eye; I12.9 Hypertensive chronic kidney disease with stage 1 through stage 4 chronic kidney disease, or unspecified chronic kidney disease; K21.9 Gastro-esophageal reflux disease without esophagitis; M51.36 Other intervertebral disc degeneration, lumbar region; R04.0 Epistaxis; R65.20 Severe sepsis without septic shock; W19.XXXA Unspecified fall, initial encounter; Y92.009 Unspecified place in unspecified non-institutional (private) residence as the place of occurrence of the external cause; Z85.038 Personal history of other malignant neoplasm of large intestine; Z87.01 Personal history of pneumonia (recurrent); Z87.440 Personal history of urinary (tract) infections; Z87.891 Personal history of nicotine dependence; Z90.49 Acquired absence of other specified parts of digestive tract; Z92.21 Personal history of antineoplastic chemotherapy; Z92.3 Personal history of irradiation; R40.2412 Glasgow coma scale score 13-15, at arrival to emergency department; R16.1 Splenomegaly, not elsewhere classified

== ENCOUNTER 2017-10-29 08:11 | Emergency (ER) | payer OTHER ==
[2017-10-29 08:29] VITALS: TEMP 97.5; BMI 28.0
--- NOTE | 2017-10-29 09:38 | ED PDOC ---
Arrival/HPI - General Chief Complaint: Weakness/Neurological Deficit Time Seen by Provider: 10/29/17 08:19 Historian: Patient - History of Present Illness Narrative History of Present Illness (Text): 10/29/17 09:37 A 62 year old female, whose past medical history includes hypertension, hyperlipidemia, GERD, and Colon Cancer stage 4 with mets to liver, lungs and brain, presents to the emergency department complaining of generalized weakness and difficulty ambulating. Patient states she wants hospice at home. Patient was admitted to the hospital 5 days ago and was discharged yesterday for sepsis and thrombocytopenia and epistaxis. Patient denies any epistaxis or any other complaints at this time. Symptom Onset: Sudden Symptom Course: Unchanged Activities at Onset: Rest Context: Home Past Medical History - Provider Review Nursing Documentation Reviewed: Yes - Infectious Disease Hx of Infectious Diseases: None - Tetanus Immunization Tetanus Immunization: Unknown - Cardiac Hx Cardiac Disorders: Yes Hx Hypertension: Yes - Pulmonary Hx Respiratory Disorders: No - Neurological Hx Neurological Disorder: Yes Other/Comment: Brain Tumor - HEENT Hx HEENT Disorder: Yes Hx Cataracts: Yes Hx Glaucoma: Yes - Renal Hx Renal Disorder: No - Endocrine/Metabolic Hx Endocrine Disorders: No - Hematological/Oncological Hx Blood Disorders: Yes Hx Anemia: Yes Hx Cancer: Yes (colon CA with metastasis to liver and lung) - Integumentary Hx Dermatological Disorder: No - Musculoskeletal/Rheumatological Hx Musculoskeletal Disorders: Yes Hx Falls: Yes Hx Herniated Disk: Yes - Gastrointestinal Hx Gastrointestinal Disorders: Yes Hx Bowel Surgery: Yes (resection 2011 of the liver and colon) Other/Comment: Colon Cancer, Stage 4 - Genitourinary/Gynecological Hx Genitourinary Disorders: No - Psychiatric Hx Psychophysiologic Disorder: Yes Hx Anxiety: Yes Hx Depression: Yes Hx Substance Use: No - Surgical History Other/Comment: left subclavian port. colonic tumor and liver mets resection ( 2010) - Anesthesia Hx Anesthesia: Yes Hx Anesthesia Reactions: No Hx Malignant Hyperthermia: No - Suicidal Assessment Feels Threatened In Home Enviroment: No Family/Social History - Physician Review Nursing Documentation Reviewed: Yes Family/Social History: No Known Family HX Smoking Status: Former Smoker Hx Alcohol Use: No Hx Substance Use: No Hx Substance Use Treatment: No Allergies/Home Meds Allergies/Adverse Reactions: Allergies No Known Allergies Allergy (Verified 06/12/17 18:46) Home Medications: Home Meds Medication Instructions Recorded Confirmed Alprazolam [Xanax] 0.5 mg PO DAILY 05/12/16 10/23/17 Cholecalciferol [Vitamin D 1000 IU] 15,000 iu PO QWK 05/12/16 10/23/17 Zolpidem HALF TABLET [Ambien] 10 mg PO HS 10/24/16 10/23/17 Umeclidinium [place] [Incruse 1 puff IH DAILY 08/24/17 10/23/17 Ellipta] Review of Systems - Physician Review All systems were reviewed & negative as marked: Yes - Review of Systems Constitutional: Other (generalized weakness; difficulty ambulating) ENT: absent: Epistaxis Physical Exam - Physical Exam Narrative Physical Exam (Text): 10/29/17 09:36 Constitutional: No acute distress. Head: Normocephalic. Atraumatic. Eyes: PERRL. ENT: Moist mucous membranes. Neck: Supple. Cardiovascular: Regular rate. Chest: No tenderness. Respiratory: Clear to auscultation bilaterally. GI: Soft. Nontender. Nondistended. Back: No CVA tenderness. Musculoskeletal: No tenderness or swelling of extremities. Skin: No rash. Neurologic: Alert, no focal deficit. Vital Signs Reviewed: Yes Vital Signs Temp Pulse Resp BP Pulse Ox 10/29/17 13:44 81 18 144/75 100 10/29/17 12:54 68 16 146/87 100 10/29/17 11:42 57 L 18 138/75 97 10/29/17 08:20 97.5 F L 60 18 142/84 98 Temperature: Afebrile Blood Pressure: Normal Pulse: Regular Respiratory Rate: Normal Appearance: Positive for: Well-Appearing, Non-Toxic, Comfortable Pain Distress: None Mental Status: Positive for: Alert and Oriented X 3 Medical Decision Making ED Course and Treatment: 10/29/17 09:36 Impression: A 62 year old female with generalized weakness and difficulty ambulating. Plan: -- EKG -- Reassess and disposition Prior Visits: Notes and results from previous visits were reviewed. Patient was last seen in the emergency department on 10/24/17 for evaluation of generalized weakness. Progress Notes: EKG: Ordered, reviewed, and independently interpreted the EKG. Rate : 55 BPM Rhythm : sinus bradycardia Interpretation : No ST-segment elevations Patient seen by geriatric social worker, who recommend d/c back home now, will be seen at home by personnel to set up hospice. - RAD Interpretation Radiology Orders: 10/29/17 13:41 CHEST PORTABLE [RAD] Stat - EKG Interpretation Interpreted by ED Physician: Yes Type: 12 lead EKG - Scribe Statement The provider has reviewed the documentation as recorded by the Scribe Destini Wheeler Provider Scribe Attestation: All medical record entries made by the Scribe were at my direction and personally dictated by me. I have reviewed the chart and agree that the record accurately reflects my personal performance of the history, physical exam, medical decision making, and the department course for this patient. I have also personally directed, reviewed, and agree with the discharge instructions and disposition. Disposition/Present on Arrival - Present on Arrival Any Indicators Present on Arrival: No History of DVT/PE: No History of Uncontrolled Diabetes: No Urinary Catheter: No History of Decub. Ulcer: No History Surgical Site Infection Following: None - Disposition Have Diagnosis and Disposition been Completed?: Yes Diagnosis: Encounter for hospice care Disposition: HOME/ ROUTINE Disposition Time: 13:46 Patient Plan: Discharge Condition: STABLE Discharge Instructions (ExitCare): Hospice Care (GEN) Forms: Interface21 (Fijian)
[2017-10-29 12:55] VITALS: O2SAT 100
--- NOTE | 2017-10-29 14:29 | RAD ---
HISTORY: general weakness COMPARISON: 10/23/2017 FINDINGS: LUNGS: There is a 4 x 5 cm mass in the right upper lobe. This is unchanged. There is a minimal patchy infiltrate in the right lower lobe. PLEURA: No significant pleural effusion identified, no pneumothorax apparent. CARDIOVASCULAR: Normal. OSSEOUS STRUCTURES: No significant abnormalities. VISUALIZED UPPER ABDOMEN: Normal. OTHER FINDINGS: Left-sided Port-A-Cath IMPRESSION: 4 x 5 cm right upper lobe lung mass. Patchy infiltrate right lower lobe
[2017-10-29 15:37] VITALS: BP 145/82; PULSE 80; RESP 16
--- NOTE | 2017-10-30 13:16 | CARD ---
APPROVED REPORT EKG Measurement Heart [id number] [id number] <Conclusion> Sinus bradycardia Otherwise normal ECG
== END 2017-10-29 15:00 | disposition home or self-care (01) ==
LOC: ED 08:11
DX: Z04.8 Encounter for examination and observation for other specified reasons (principal); I10 Essential (primary) hypertension; Z87.891 Personal history of nicotine dependence

== ENCOUNTER 2017-10-30 12:33 | Observation (INO) | payer OTHER ==
--- NOTE | 2017-10-30 12:57 | ED PDOC ---
Arrival/HPI - General Chief Complaint: Weakness/Neurological Deficit Time Seen by Provider: 10/30/17 12:44 Historian: Patient - History of Present Illness Narrative History of Present Illness (Text): 10/30/17 12:57 A 62 year old female, whose past medical history includes Colon Cancer stage 4 with mets to liver, lungs and brain, hypertension, GERD and hyperlipidemia, presents to the emergency department for evaluation of generalized weakness, reported to the emergency department yesterday for similar complaint. [facility] Denies any other complaints at this time. Symptom Onset: Sudden Symptom Course: Unchanged Activities at Onset: Rest Context: Home Past Medical History - Provider Review Nursing Documentation Reviewed: Yes - Infectious Disease Hx of Infectious Diseases: None - Tetanus Immunization Tetanus Immunization: Unknown - Cardiac Hx Cardiac Disorders: Yes Hx Hypertension: Yes - Pulmonary Hx Respiratory Disorders: No - Neurological Hx Neurological Disorder: No - HEENT Hx HEENT Disorder: Yes Hx Cataracts: Yes Hx Glaucoma: Yes - Renal Hx Renal Disorder: No - Endocrine/Metabolic Hx Endocrine Disorders: No - Hematological/Oncological Hx Blood Disorders: Yes Hx Anemia: Yes Hx Cancer: Yes (colon CA with metastasis to liver and lung) Other/Comment: colon ca metastasis to liver, lung, brain - Integumentary Hx Dermatological Disorder: No - Musculoskeletal/Rheumatological Hx Musculoskeletal Disorders: Yes Hx Falls: Yes Hx Herniated Disk: Yes - Gastrointestinal Hx Gastrointestinal Disorders: Yes Hx Bowel Surgery: Yes (resection 2010 of the liver and colon) Other/Comment: Colon Cancer, Stage 4 - Genitourinary/Gynecological Hx Genitourinary Disorders: No - Psychiatric Hx Psychophysiologic Disorder: Yes Hx Anxiety: Yes Hx Depression: Yes Hx Substance Use: Yes (cocain) - Surgical History Other/Comment: left subclavian port. colonic tumor and liver mets resection ( 2010) - Anesthesia Hx Anesthesia: Yes Hx Anesthesia Reactions: No Hx Malignant Hyperthermia: No - Suicidal Assessment Feels Threatened In Home Enviroment: No Family/Social History - Physician Review Nursing Documentation Reviewed: Yes Family/Social History: No Known Family HX Smoking Status: Former Smoker Hx Alcohol Use: No Hx Substance Use: Yes (cocain) Hx Substance Use Treatment: No Allergies/Home Meds Allergies/Adverse Reactions: Allergies No Known Allergies Allergy (Verified 10/30/17 12:46) Home Medications: Home Meds Medication Instructions Recorded Confirmed Alprazolam [Xanax] 0.5 mg PO DAILY 05/12/16 10/23/17 Cholecalciferol [Vitamin D 1000 IU] 15,000 iu PO QWK 05/12/16 10/23/17 Zolpidem HALF TABLET [Ambien] 10 mg PO HS 10/24/16 10/23/17 Umeclidinium [place] [Incruse 1 puff IH DAILY 08/24/17 10/23/17 Ellipta] Review of Systems - Physician Review All systems were reviewed & negative as marked: Yes - Review of Systems Respiratory: absent: SOB Neurological: absent: Headache Physical Exam - Physical Exam Narrative Physical Exam (Text): 10/30/17 12:56 Constitutional: No acute distress. Head: Normocephalic. Atraumatic. Eyes: PERRL. ENT: Moist mucous membranes. Neck: Supple. Cardiovascular: Regular rate. Chest: No tenderness. Respiratory: Clear to auscultation bilaterally. GI: Soft. Nontender. Nondistended. Back: No CVA tenderness. Musculoskeletal: No tenderness or swelling of extremities. Skin: No rash. Neurologic: Alert, no focal deficit. Vital Signs Reviewed: Yes Vital Signs Temp Pulse Resp BP Pulse Ox 10/30/17 15:09 97.3 F L 68 18 130/77 99 10/30/17 12:45 120/71 Medical Decision Making ED Course and Treatment: 10/30/17 12:56 Impression: A 62 year old female with generalized weakness. Plan: -- Reassess and disposition Prior Visits: Notes and results from previous visits were reviewed. Patient was last seen in the emergency department yesterday for evaluation of generalized weakness and difficulty ambulating. Progress Notes: 10/30/17 15:45 Spoke with Nancy AGEE with hospice care who states patient can be transferred to [facility] for hospice but will need to be transferred from hospital to that facility when bed becomes available. Patient unable to care for self at home and is unsafe discharge. Spoke with Dr. Puckett, who accepts and agrees for patient to be admitted to [facility]. - Medication Orders Current Medication Orders: Acetaminophen (Tylenol 325mg Tab) 975 mg PO Q8H PRN PRN Reason: Pain, moderate (4-7) Alprazolam (Xanax) 0.5 mg PO DAILY RUKHSANA PRN Reason: Protocol Last Admin: 10/30/17 18:39 Dose: 0.5 mg Behavioural Document 10/30/17 18:39 LMN (Rec: 10/30/17 18:[address] [facility] [place]-[id number]) Maintenance Maintenance Dose Yes Cefpodoxime Proxetil (Vantin) 100 mg PO Q12 RUKHSANA PRN Reason: Protocol Stop: 11/03/17 22:01 Cholecalciferol (Vitamin D) 2,000 intlu PO DAILY [facility] Dexamethasone (Decadron) 4 mg PO BID RUKHSANA Last Admin: 10/30/17 18:39 Dose: 4 mg Famotidine (Pepcid) 20 mg PO 1000,2200 RUKHSANA Montelukast Sodium (Singulair) 10 mg PO DAILY [facility] Last Admin: 10/30/17 18:40 Dose: 10 mg Oxycodone/Acetaminophen (Percocet 5/325 Mg Tab) 1 tab PO Q6H PRN PRN Reason: Pain, moderate (4-7) Stop: 11/02/17 17:57 Povidone Iodine (Betadine 5% Opht Soln) 1 ml OS DAILY RUKHSANA Spironolactone (Aldactone) 25 mg PO TID [facility] Last Admin: 10/30/17 18:39 Dose: 25 mg Zolpidem Tartrate (Ambien) 5 mg PO HS PRN; Protocol PRN Reason: Insomnia - Scribe Statement The provider has reviewed the documentation as recorded by the Marietta Wheeler Provider Scribe Attestation: All medical record entries made by the Scribe were at my direction and personally dictated by me. I have reviewed the chart and agree that the record accurately reflects my personal performance of the history, physical exam, medical decision making, and the department course for this patient. I have also personally directed, reviewed, and agree with the discharge instructions and disposition. Disposition/Present on Arrival - Present on Arrival Any Indicators Present on Arrival: No History of DVT/PE: No History of Uncontrolled Diabetes: No Urinary Catheter: No History of Decub. Ulcer: No History Surgical Site Infection Following: None - Disposition Have Diagnosis and Disposition been Completed?: Yes Diagnosis: Colon cancer metastasized to brain, General weakness Disposition: HOSPITALIZED Disposition Time: 13:10 Patient Plan: Observation Condition: STABLE
[2017-10-30] MEDS ORDERED: Oxycodone/Acetaminophen 5/325 mg Tab PO PRN ×2 (16:42→17:56)
[2017-10-30] MEDS ORDERED: Povidone Iodine Ophthalmic 5% Soln OS SCH ×2 (16:45→18:00)
[2017-10-30] MEDS ORDERED: Non Formulary Medication (Umeclidinium Bromide [Incruse Ellipta] 1 PUFF) IH SCH (16:45)
[2017-10-30] MEDS ORDERED: Morphine 2 mg/ml ISec IVP PRN (16:46)
--- NOTE | 2017-10-30 17:03 | CP.PCM.HP ---
<Della Shah - Last Filed: 10/30/17 18:08> History of Present Illness - History of Present Illness History of Present Illness: Della Shah, PGY1, H&P for Dr Braden: CC: wants hospice care 62 year old female with past medical history of HTN, L eye vision loss, GERD, stage IV colon cancer w/ metastasis to liver, lung, and brain, presents to the emergency department for evaluation of generalized weakness and difficulty ambulating. Pt was recently discharged from [facility] [place] [place] 10/28/17 for similar complaints. Currently, pt states that she has realized that she would need a lot of help at home, her neighbor has been helping her. However, she now wants hospice care at [facility]. Denies easy bruising, bleeding, falls, syncope, LOC, fever, chills , dizziness, blurry vision, chest pain, son, n/v, abdominal pain, diarrhea, constipation, urinary symptoms. ROS: 12 point review of systems negative except as indicated in HPI PMHx: HTN, Stage IV colon CA s/p tumor resection and chemo, with multiple distant mets including to lungs and liver and brain PSHx: Hepatic tumor resection, colonic tumor resection Family Hx: noncontributory Allergies: NKDA Social Hx: denies ETOH use, tobacco use, illicit drug use Medications: Please see medication reconciliation PMD: Dr. Levine Onc: Dr. Calderón Present on Admission - Present on Admission Any Indicators Present on Admission: No History of DVT/PE: No History of Uncontrolled Diabetes: No Urinary Catheter: No Decubitus Ulcer Present: No Review of Systems - Review of Systems All systems: reviewed and no additional remarkable complaints except Review of Systems: as per HPI Past Patient History - Infectious Disease Hx of Infectious Diseases: None - Tetanus Immunizations Tetanus Immunization: Unknown - Past Social History Smoking Status: Former Smoker - CARDIAC Hx Cardiac Disorders: Yes Hx Hypertension: Yes - PULMONARY Hx Respiratory Disorders: No - NEUROLOGICAL Hx Neurological Disorder: No - HEENT Hx HEENT Problems: Yes Hx Cataracts: Yes Hx Glaucoma: Yes - RENAL Hx Chronic Kidney Disease: No - ENDOCRINE/METABOLIC Hx Endocrine Disorders: No - HEMATOLOGICAL/ONCOLOGICAL Hx Blood Disorders: Yes Hx Anemia: Yes Hx Cancer: Yes (colon CA with metastasis to liver and lung) Other/Comment: colon ca metastasis to liver, lung, brain - INTEGUMENTARY Hx Dermatological Problems: No - MUSCULOSKELETAL/RHEUMATOLOGICAL Hx Musculoskeletal Disorders: Yes Hx Falls: Yes Hx Herniated Disk: Yes - GASTROINTESTINAL Hx Gastrointestinal Disorders: Yes Hx Bowel Surgery: Yes (resection 2010 of the liver and colon) Other/Comment: Colon Cancer, Stage 4 - GENITOURINARY/GYNECOLOGICAL Hx Genitourinary Disorders: No - PSYCHIATRIC Hx Psychophysiologic Disorder: Yes Hx Anxiety: Yes Hx Depression: Yes Hx Substance Use: Yes (cocain) - SURGICAL HISTORY Other/Comment: left subclavian port. colonic tumor and liver mets resection ( 2010) - ANESTHESIA Hx Anesthesia: Yes Hx Anesthesia Reactions: No Hx Malignant Hyperthermia: No Meds Allergies/Adverse Reactions: Allergies Allergy/AdvReac Type Severity Reaction Status Date / Time No Known Allergies Allergy Verified 10/30/17 12:46 Physical Exam - Constitutional Appears: No Acute Distress, Chronically Ill - Head Exam Head Exam: ATRAUMATIC, NORMOCEPHALIC - Eye Exam Eye Exam: EOMI, PERRL. absent: Conjunctival injection, Scleral icterus Pupil Exam: NORMAL ACCOMODATION, PERRL. absent: Fixed, Irregular, Unequal - ENT Exam ENT Exam: Mucous Membranes Moist - Neck Exam Neck exam: Positive for: Full Rom - Respiratory Exam Respiratory Exam: Clear to Auscultation Bilateral, NORMAL BREATHING PATTERN. absent: Accessory Muscle Use, Chest Wall Tenderness, Rhonchi, Wheezes, Respiratory Distress - Cardiovascular Exam Cardiovascular Exam: Bradycardia, +S1, +S2. absent: Systolic Murmur - GI/Abdominal Exam GI & Abdominal Exam: Normal Bowel Sounds, Soft. absent: Diminished Bowel Sounds , Distended, Guarding, Rebound, Rigid, Tenderness - Extremities Exam Extremities exam: Negative for: calf tenderness, pedal edema - Back Exam Back exam: NORMAL INSPECTION - Neurological Exam Neurological exam: Alert, Oriented x3 - Psychiatric Exam Psychiatric exam: Normal Affect, Normal Mood - Skin Skin Exam: Dry, Normal Color, Warm Results - Vital Signs Recent Vital Signs: Last Vital Signs Temp 97.3 F L 10/30/17 15:09 Pulse 68 10/30/17 15:09 Resp 18 10/30/17 15:09 BP 130/77 10/30/17 15:09 Pulse Ox 99 10/30/17 15:09 Assessment & Plan - Assessment and Plan (Free Text) Assessment: 62 year old female with past medical history stage IV colon cancer with mets to liver, lung, brain, HTN, L eye vision loss, GERD, admitted for evaluation for hospice care: Generalized weakness: 2/2 deconditioning from metastatic colon cancer - fall risk precautions - hospice eval, f/u recs UTI from previous admission: - C/w PO Vantin (4 more days). - F/u UA Hx of Thrombocytopenia: - Plt 26, will get manual count. Will transfuse if low. - avoid subq heparin and protonix - Continue to monitor Hx of Stage IV Colon Cancer - continue home dexamethasone - xanax prn anxiety Hx of Htn - currently normotensive. Cont to monitor. Prophylaxis - DVT ppx- scds - GI ppx- famotidine Case discussed with Dr Braden. - Date & Time Date: 10/30/17 Time: 17:04 <Cheri Braden - Last Filed: 10/31/17 18:42> Results - Vital Signs Recent Vital Signs: Last Vital Signs Temp 98.7 F 10/31/17 08:00 Pulse 66 10/31/17 08:00 Resp 18 10/31/17 08:00 BP 122/81 10/31/17 08:00 Pulse Ox 95 10/31/17 08:00 - Labs Result Diagrams: 10/30/17 17:00 10/30/17 17:00 Labs: Laboratory Results - last 24 hr 10/30/17 17:15 Manual Plt Count 31 L* Attending/Attestation - Attestation I have personally seen and examined this patient.: Yes I have fully participated in the care of the patient.: Yes I have reviewed all pertinent clinical information: Yes Notes (Text): I have seen and examined the patient at bedside. Agree with the above note with the following additions/ exceptions: Briefly this is 62 year old female with history of HTN, gastritis, stage 4 colon cancer with mets to liver, lung and brain with completion of chemo-radiation who was recently admitted for generalized weakness and fall. At that time, she was found to have sepsis secondary to Ecoli UTI and EColi bacteremia. She was instructed to go to rehab however she refused. She now wants to go to rehab. Will discuss with nurse outreach case manager regarding her transfer. Continue vantin. Upon discharge The patient will follow-up with PMD Dr. Levine. Dr Cheri Braden
--- NOTE | 2017-10-30 17:06 | RAD ---
HISTORY: Weakness. COMPARISON: October 29, 2017. FINDINGS: LUNGS: Stable pulmonary masses the preponderance of which reside in the right lung. PLEURA: No significant pleural effusion identified, no pneumothorax apparent. CARDIOVASCULAR: No radiographic findings to suggest acute or significant cardiovascular disease. Venous access catheter in stable, satisfactory position. OSSEOUS STRUCTURES: No significant abnormalities. VISUALIZED UPPER ABDOMEN: Normal. OTHER FINDINGS: None. IMPRESSION: No significant interval change compared to the prior examination(s).
[2017-10-30 17:21] LABS: EOS % 0.2 % (1.5-5.0); GRAN # 4.49 (1.4-6.5); GRAN % 86.8 % (50.0-68.0); HEMOGLOBIN 9.3 g/dL (12.0-16.0); LYMPH # 0.5 (1.2-3.4); LYMPH % 9.1 % (22.0-35.0); MEAN CORPUSCULAR HEMOGLOBIN 27.5 pg (25.0-35.0); MEAN CORPUSCULAR HGB CONC 32.7 g/dl (31.0-37.0); MEAN PLATELET VOLUME 9.4 fl (7.0-11.0); MONO # 0.2 (0.1-0.6); MONO % 3.9 % (1.0-6.0); RBC 3.38 10^6/uL (3.5-6.1); RED CELL DISTRIBUTION WIDTH 17.1 % (11.5-14.5); WHITE BLOOD COUNT 5.2 10^3/ul (4.5-11.0)
[2017-10-30 17:24] LABS: PLATELET COUNT 26 10^3/uL (120.0-450.0)
[2017-10-30 17:40] LABS: ALB/GLOB RATIO 1.2 (1.1-1.8); ALBUMIN 3.1 g/dL (3.0-4.8); ALT/SGPT 97 U/L (7-56); AST/SGOT 34 U/L (14-36); BLOOD UREA NITROGEN 39 mg/dL (7-21); CALCIUM 8.9 mg/dL (8.4-10.5); GFR AFRICAN-AMERICAN > 60; GFR NON-AFRICAN AMERICAN 56
[2017-10-30 20:58] VITALS: BMI 28.0
[2017-10-30] MEDS: Cefpodoxime (Vantin) 100 mg Tab PO SCH (21:15)
[2017-10-30] MEDS ORDERED: Cefpodoxime (Vantin) 100 mg Tab PO SCH (22:00)
[2017-10-31 06:29] VITALS: RESP 18
[2017-10-31] MEDS ORDERED: Multivitamin Therapeutic Tab PO SCH (08:00)
[2017-10-31 08:56] VITALS: BP 122/81; PULSE 66; TEMP 98.7; O2SAT 95
[2017-10-31] MEDS: Cefpodoxime (Vantin) 100 mg Tab PO SCH (10:47)
--- NOTE | 2017-10-31 12:05 | CP.PCM.CON ---
History of Present Illness - History of Present Illness History of Present Illness: Palliative consult requested by Dr Jamie Braden Reason: Gaols of care/hospice discussion HPI: 62 year old female with history of metastatic colon cancer s/p chemo/ radiation therapy who presented with generalized weakness, lower extremity edema and difficulty ambulating. PMHx: colon cancer mets to liver/lung/brain and bone, s/p chemo radiation therapy. UTI. frequent falls, decondiotioning,HTN Social History: Non smoker, no alcohol or drug ramon. Lives alone Family History: Non contributory Advance Care Planning: The patient has a POLST which has mitch revoked and is now DNR/DNI. Review of Systems: As per HPI, otherwise negative review Past Patient History - Infectious Disease Hx of Infectious Diseases: None - Tetanus Immunizations Tetanus Immunization: Unknown - Past Social History Smoking Status: Former Smoker - CARDIAC Hx Cardiac Disorders: Yes Hx Hypertension: Yes - PULMONARY Hx Respiratory Disorders: No - NEUROLOGICAL Hx Neurological Disorder: No - HEENT Hx HEENT Problems: Yes Hx Cataracts: Yes Hx Glaucoma: Yes - RENAL Hx Chronic Kidney Disease: No - ENDOCRINE/METABOLIC Hx Endocrine Disorders: No - HEMATOLOGICAL/ONCOLOGICAL Hx Blood Disorders: Yes Hx Anemia: Yes Hx Cancer: Yes (colon CA with metastasis to liver and lung) Other/Comment: colon ca metastasis to liver, lung, brain - INTEGUMENTARY Hx Dermatological Problems: No - MUSCULOSKELETAL/RHEUMATOLOGICAL Hx Musculoskeletal Disorders: Yes Hx Falls: Yes Hx Herniated Disk: Yes - GASTROINTESTINAL Hx Gastrointestinal Disorders: Yes Hx Bowel Surgery: Yes (resection 2010 of the liver and colon) Other/Comment: Colon Cancer, Stage 4 - GENITOURINARY/GYNECOLOGICAL Hx Genitourinary Disorders: No - PSYCHIATRIC Hx Psychophysiologic Disorder: Yes Hx Anxiety: Yes Hx Depression: Yes Hx Substance Use: Yes (cocain) - SURGICAL HISTORY Other/Comment: left subclavian port. colonic tumor and liver mets resection ( 2010) - ANESTHESIA Hx Anesthesia: Yes Hx Anesthesia Reactions: No Hx Malignant Hyperthermia: No Meds Allergies/Adverse Reactions: Allergies Allergy/AdvReac Type Severity Reaction Status Date / Time No Known Allergies Allergy Verified 10/30/17 12:46 - Medications Medications: Current Medications Acetaminophen (Tylenol 325mg Tab) 975 mg PO Q8H PRN PRN Reason: Pain, moderate (4-7) Alprazolam (Xanax) 0.5 mg PO DAILY [facility] PRN Reason: Protocol Last Admin: 10/31/17 10:47 Dose: 0.5 mg Cefpodoxime Proxetil (Vantin) 100 mg PO Q12 [facility] PRN Reason: Protocol Stop: 11/03/17 22:01 Last Admin: 10/31/17 10:47 Dose: 100 mg Cholecalciferol (Vitamin D) 2,000 intlu PO DAILY [facility] Dexamethasone (Decadron) 4 mg PO BID [facility] Last Admin: 10/31/17 10:47 Dose: 4 mg Famotidine (Pepcid) 20 mg PO 1000,2200 [facility] Last Admin: 10/31/17 10:47 Dose: 20 mg Folic Acid (Folic Acid) 1 mg PO DAILY [facility] Montelukast Sodium (Singulair) 10 mg PO DAILY [facility] Last Admin: 10/31/17 10:47 Dose: 10 mg Multivitamins (Thera Tab) 1 tab PO 0800 [facility] Last Admin: 10/31/17 09:00 Dose: 1 tab Oxycodone/Acetaminophen (Percocet 5/325 Mg Tab) 1 tab PO Q6H PRN PRN Reason: Pain, moderate (4-7) Stop: 11/02/17 17:57 Povidone Iodine (Betadine 5% Opht Soln) 1 ml OS DAILY [facility] Spironolactone (Aldactone) 25 mg PO TID [facility] Last Admin: 10/31/17 10:47 Dose: 25 mg Zinc Sulfate (Zinc Sulfate 220 Mg Cap) 220 mg PO DAILY [facility] Last Admin: 10/31/17 10:47 Dose: 220 mg Zolpidem Tartrate (Ambien) 5 mg PO HS PRN; Protocol PRN Reason: Insomnia Physical Exam - Constitutional Appears: Cachectic, Chronically Ill - Head Exam Head Exam: NORMAL INSPECTION - Eye Exam Eye Exam: Normal appearance, PERRL - ENT Exam ENT Exam: Mucous Membranes Moist, Normal Oropharynx - Neck Exam Neck exam: Positive for: Normal Inspection - Respiratory Exam Respiratory Exam: Decreased Breath Sounds, NORMAL BREATHING PATTERN - Cardiovascular Exam Cardiovascular Exam: REGULAR RHYTHM, +S1, +S2 - GI/Abdominal Exam GI & Abdominal Exam: Normal Bowel Sounds, Soft - Extremities Exam Additional comments: bilateral lower extremity edema - Neurological Exam Neurological exam: Alert, Oriented x3 - Skin Skin Exam: Dry, Pallor - Additional Findings Additional findings: Palliative performance scale rating 40 % Results - Vital Signs Recent Vital Signs: Last Vital Signs Temp 98.7 F 10/31/17 08:00 Pulse 66 10/31/17 08:00 Resp 18 10/31/17 08:00 BP 122/81 10/31/17 08:00 Pulse Ox 95 10/31/17 08:00 - Labs Result Diagrams: 10/30/17 17:00 10/30/17 17:00 Labs: Laboratory Results - last 24 hr 10/30/17 10/30/17 10/30/17 17:00 17:00 17:15 WBC 5.2 RBC 3.38 L Hgb 9.3 L Hct 28.4 L MCV 84.0 MCH 27.5 MCHC 32.7 RDW 17.1 H Plt Count 26 L* Manual Plt Count 31 L* MPV 9.4 Gran % 86.8 H Lymph % (Auto) 9.1 L [place] % (Auto) 3.9 Eos % (Auto) 0.2 L Baso % (Auto) 0.0 Gran # 4.49 Lymph # (Auto) 0.5 L [place] # (Auto) 0.2 Eos # (Auto) 0.0 Baso # (Auto) 0.00 Sodium 139 Potassium 4.7 Chloride 108 H Carbon Dioxide 23 Anion Gap 12 BUN 39 H Creatinine 1.0 Est GFR ( Amer) > 60 Est GFR (Non-Af Amer) 56 Random Glucose 149 H Calcium 8.9 Total Bilirubin 1.3 AST 34 ALT 97 H Alkaline Phosphatase 162 H D Total Protein 5.8 Albumin 3.1 Globulin 2.7 Albumin/Globulin Ratio 1.2 Assessment & Plan - Assessment and Plan (Free Text) Assessment: 62 year old female with history of metastatic cancer,frequent falls who is admitted with lower extremity edema, weakness and difficulty ambulating The patient and family known to me from previous admissions.The patient and daughter have met with [facility] b2[facility] outside sales representative. Patient understands that hospice is end of life care The patient has agreed to transition to [place] with hospice care. Hospice consent, DNR/DNI/DNH.signed. POLST of 09/20/17 is revoked. Time spent with patient in goals of care/advance care planning and end of life discussion, 20 minutes. Plan: DNR/DNI/DNH Discharge to [place] under [facility]
--- NOTE | 2017-10-31 22:29 | CP.PCM.DIS ---
<Louie Dominguez - Last Filed: 10/31/17 22:22> Provider - Provider Date of Admission: 10/30/17 15:51 Attending physician: Cheri Braden MD Primary care physician: Pricilla Levine MD Consults: Palliative care: Nancy Cabreraontalisa Time Spent in preparation of Discharge (in minutes): 35 Diagnosis - Discharge Diagnosis (1) Colon cancer metastasized to brain Status: Acute Hospital Course - Lab Results Lab Results: Most Recent Lab Values WBC 5.2 10^3/ul (4.5-11.0) 10/30/17 17:00 RBC 3.38 10^6/uL (3.5-6.1) L 10/30/17 17:00 Hgb 9.3 g/dL (12.0-16.0) L 10/30/17 17:00 Hct 28.4 % (36.0-48.0) L 10/30/17 17:00 MCV 84.0 fl (80.0-105.0) 10/30/17 17:00 MCH 27.5 pg (25.0-35.0) 10/30/17 17:00 MCHC 32.7 g/dl (31.0-37.0) 10/30/17 17:00 RDW 17.1 % (11.5-14.5) H 10/30/17 17:00 Plt Count 26 10^3/uL (120.0-450.0) L* 10/30/17 17:00 Manual Plt Count 31 K/mm3 (120-450) L* 10/30/17 17:15 MPV 9.4 fl (7.0-11.0) 10/30/17 17:00 Gran % 86.8 % (50.0-68.0) H 10/30/17 17:00 Lymph % (Auto) 9.1 % (22.0-35.0) L 10/30/17 17:00 [place] % (Auto) 3.9 % (1.0-6.0) 10/30/17 17:00 Eos % (Auto) 0.2 % (1.5-5.0) L 10/30/17 17:00 Baso % (Auto) 0.0 % (0.0-3.0) 10/30/17 17:00 Gran # 4.49 (1.4-6.5) 10/30/17 17:00 Lymph # (Auto) 0.5 (1.2-3.4) L 10/30/17 17:00 [place] # (Auto) 0.2 (0.1-0.6) 10/30/17 17:00 Eos # (Auto) 0.0 (0.0-0.7) 10/30/17 17:00 Baso # (Auto) 0.00 K/mm3 (0.0-2.0) 10/30/17 17:00 Sodium 139 mmol/L (132-148) 10/30/17 17:00 Potassium 4.7 mmol/L (3.6-5.0) 10/30/17 17:00 Chloride 108 mmol/L (98-107) H 10/30/17 17:00 Carbon Dioxide 23 mmol/L (21-33) 10/30/17 17:00 Anion Gap 12 (10-20) 10/30/17 17:00 BUN 39 mg/dL (7-21) H 10/30/17 17:00 Creatinine 1.0 mg/dl (0.7-1.2) 10/30/17 17:00 Est GFR ( Amer) > 60 10/30/17 17:00 Est GFR (Non-Af Amer) 56 10/30/17 17:00 Random Glucose 149 mg/dL (70-110) H 10/30/17 17:00 Calcium 8.9 mg/dL (8.4-10.5) 10/30/17 17:00 Total Bilirubin 1.3 mg/dL (0.2-1.3) 10/30/17 17:00 AST 34 U/L (14-36) 10/30/17 17:00 ALT 97 U/L (7-56) H 10/30/17 17:00 Alkaline Phosphatase 162 U/L (38-126) H D 10/30/17 17:00 Total Protein 5.8 g/dL (5.8-8.3) 10/30/17 17:00 Albumin 3.1 g/dL (3.0-4.8) 10/30/17 17:00 Globulin 2.7 gm/dL 10/30/17 17:00 Albumin/Globulin Ratio 1.2 (1.1-1.8) 10/30/17 17:00 - Hospital Course Hospital Course: 62 year old female with past medical history of HTN, L eye vision loss, GERD, stage IV colon cancer w/ metastasis to liver, lung, and brain, presents to the emergency department seeking hospice care as well as complaining of generalized weakness and difficulty ambulating. Patient had recently been discharged from [facility] 10/28/17 after being treated for UTI, sepsis, and thrombocytopenia, resulting in the same generalized weakness and difficulty ambulating. Patient was accepted at [facility] for hospice care, and was discharged there for hospice care. Discharge Exam - Head Exam Head Exam: NORMAL INSPECTION - Eye Exam Eye Exam: EOMI, Normal appearance, PERRL - ENT Exam ENT Exam: Mucous Membranes Moist - Respiratory Exam Respiratory Exam: Decreased Breath Sounds, Clear to PA & Lateral, NORMAL BREATHING PATTERN - Cardiovascular Exam Cardiovascular Exam: RRR, +S1, +S2 - GI/Abdominal Exam GI & Abdominal Exam: Normal Bowel Sounds, Organomegaly, Soft. absent: Tenderness - Extremities Exam Extremities exam: normal inspection - Neurological Exam Neurological exam: Alert, CN II-XII Intact, Oriented x3 - Psychiatric Exam Psychiatric exam: Normal Affect, Normal Mood - Skin Skin Exam: Dry, Intact, Normal Color Discharge Plan - Follow Up Plan Condition: STABLE Disposition: HOSPICE - MEDICAL FACILITY Instructions: Hospice (DC), Hospice Care (GEN) Additional Instructions: 1. Continue to take all medications as prescribed 2. Patient being discharged to hospice care facility Referrals: Pricilla Levine MD [Primary Care Provider] - <Cheri Braden - Last Filed: 11/01/17 14:26> Provider - Provider Date of Admission: 10/30/17 15:51 Attending physician: Cheri Braden MD Primary care physician: Pricilla Levine MD Hospital Course - Lab Results Lab Results: Most Recent Lab Values WBC 5.2 10^3/ul (4.5-11.0) 10/30/17 17:00 RBC 3.38 10^6/uL (3.5-6.1) L 10/30/17 17:00 Hgb 9.3 g/dL (12.0-16.0) L 10/30/17 17:00 Hct 28.4 % (36.0-48.0) L 10/30/17 17:00 MCV 84.0 fl (80.0-105.0) 10/30/17 17:00 MCH 27.5 pg (25.0-35.0) 10/30/17 17:00 MCHC 32.7 g/dl (31.0-37.0) 10/30/17 17:00 RDW 17.1 % (11.5-14.5) H 10/30/17 17:00 Plt Count 26 10^3/uL (120.0-450.0) L* 10/30/17 17:00 Manual Plt Count 31 K/mm3 (120-450) L* 10/30/17 17:15 MPV 9.4 fl (7.0-11.0) 10/30/17 17:00 Gran % 86.8 % (50.0-68.0) H 10/30/17 17:00 Lymph % (Auto) 9.1 % (22.0-35.0) L 10/30/17 17:00 [place] % (Auto) 3.9 % (1.0-6.0) 10/30/17 17:00 Eos % (Auto) 0.2 % (1.5-5.0) L 10/30/17 17:00 Baso % (Auto) 0.0 % (0.0-3.0) 10/30/17 17:00 Gran # 4.49 (1.4-6.5) 10/30/17 17:00 Lymph # (Auto) 0.5 (1.2-3.4) L 10/30/17 17:00 [place] # (Auto) 0.2 (0.1-0.6) 10/30/17 17:00 Eos # (Auto) 0.0 (0.0-0.7) 10/30/17 17:00 Baso # (Auto) 0.00 K/mm3 (0.0-2.0) 10/30/17 17:00 Sodium 139 mmol/L (132-148) 10/30/17 17:00 Potassium 4.7 mmol/L (3.6-5.0) 10/30/17 17:00 Chloride 108 mmol/L (98-107) H 10/30/17 17:00 Carbon Dioxide 23 mmol/L (21-33) 10/30/17 17:00 Anion Gap 12 (10-20) 10/30/17 17:00 BUN 39 mg/dL (7-21) H 10/30/17 17:00 Creatinine 1.0 mg/dl (0.7-1.2) 10/30/17 17:00 Est GFR ( Amer) > 60 10/30/17 17:00 Est GFR (Non-Af Amer) 56 10/30/17 17:00 Random Glucose 149 mg/dL (70-110) H 10/30/17 17:00 Calcium 8.9 mg/dL (8.4-10.5) 10/30/17 17:00 Total Bilirubin 1.3 mg/dL (0.2-1.3) 10/30/17 17:00 AST 34 U/L (14-36) 10/30/17 17:00 ALT 97 U/L (7-56) H 10/30/17 17:00 Alkaline Phosphatase 162 U/L (38-126) H D 10/30/17 17:00 Total Protein 5.8 g/dL (5.8-8.3) 10/30/17 17:00 Albumin 3.1 g/dL (3.0-4.8) 10/30/17 17:00 Globulin 2.7 gm/dL 10/30/17 17:00 Albumin/Globulin Ratio 1.2 (1.1-1.8) 10/30/17 17:00 Attending/Attestation - Attestation I have personally seen and examined this patient.: Yes I have fully participated in the care of the patient.: Yes I have reviewed all pertinent clinical information, including history, physical exam and plan: Yes Notes (Text): I have seen and examined the patient at bedside. Agree with the above note with the following additions/ exceptions: Briefly this is 62 year old female with history of HTN, gastritis, stage 4 colon cancer with mets to liver, lung and brain with completion of chemo-radiation who was recently admitted for generalized weakness and fall. At that time, she was found to have sepsis secondary to Ecoli UTI and EColi bacteremia. She was instructed to go to rehab however she refused. She now wants to go to rehab. Patient is now DNR, DNI and DNH. She will go to [facility] with transition to hospice. Upon discharge The patient will follow-up with PMD Dr. Levine. Dr Cheri Braden
[2017-11-06] MEDS ORDERED: Cholecalciferol 1,000 INTLU TAB PO SCH (10:00)
== END 2017-10-31 17:34 | disposition hospice, inpatient (51) ==
LOC: ED 12:33 → ERH 15:51 → 5RSO 17:58
PROVIDERS: ADMIT Hospitalist; ATTEND Hospitalist
DX: C79.31 Secondary malignant neoplasm of brain (principal); C78.00 Secondary malignant neoplasm of unspecified lung; C78.7 Secondary malignant neoplasm of liver and intrahepatic bile duct; Z85.038 Personal history of other malignant neoplasm of large intestine; R53.1 Weakness; K21.9 Gastro-esophageal reflux disease without esophagitis; I10 Essential (primary) hypertension; E78.5 Hyperlipidemia, unspecified; Z51.5 Encounter for palliative care; H54.62 Unqualified visual loss, left eye, normal vision right eye; Z87.891 Personal history of nicotine dependence; N39.0 Urinary tract infection, site not specified; D69.6 Thrombocytopenia, unspecified; K29.70 Gastritis, unspecified, without bleeding; Z66 Do not resuscitate; R29.6 Repeated falls; Z92.3 Personal history of irradiation; Z92.21 Personal history of antineoplastic chemotherapy
CPT/HCPCS: 71045; 80053; 85025; 99285; G0378; J8540